=== PATIENT | female | born 1985 | race Caucasian/White ===

== ENCOUNTER 2020-04-04 18:23 | Outpatient (CLI) | payer OTHER, SELFPAY ==
[2020-04-04 19:26] LABS: Alanine Aminotransferase 27 U/L (14-59); Albumin Level 3.8 g/dL (3.4-5.0); Alkaline Phosphatase 63 U/L (46-116); Anion Gap 9 mmol/L (8-16); Aspartate Amino Transferase 16 U/L (15-37); Bilirubin,Total 0.2 mg/dL (0.00-1.00); Blood Urea Nitrogen 11 mg/dL (7-18); Calcium 8.8 mg/dL (8.5-10.1); Carbon Dioxide 28 mmol/L (21-32); Chloride 104 mmol/L (98-108); Estimated Glomerular Filt Rate > 60; Glucose 94 mg/dL (70-99); Osmolality Calculated 291 mOsm/kg (285-295); Sodium 141 mmol/L (136-145); Total Protein 7.6 g/dL (6.4-8.2)
[2020-04-04 19:36] LABS: Thyroid Stimulating Hormone Reflex 8.38 u/IU/mL (0.36-3.74)
[2020-04-04 19:59] LABS: Free T4 Free Thyroxine Reflex 0.55 ng/dL (0.76-1.46)
== END 2020-04-04 18:24 | disposition home or self-care (01) ==
LOC: CHSLAB 18:27
PROVIDERS: PCP Family Medicine; Visit Provider Family Medicine
DX: E06.3 Autoimmune thyroiditis (principal)
CPT/HCPCS: 36415; 80053; 84439; 84443

== ENCOUNTER 2020-11-14 08:28 | Outpatient (RCR) | payer BC, SELFPAY ==
--- NOTE | 2020-11-14 11:59 | PTOPEVAL ---
Thank you for referring Gail Walker to [facility] [place].? The patient is scheduled to be seen for therapy? ____x/week for ___ weeks. Please review, sign, date and return this plan of care CAITLYN. I agree with and certify that the following plan of care is medically necessary. Referring Physician Date Admitting Provider: Attending Provider: Marta Mendoza NP Referring Provider: *PT Outpatient Evaluation Start: 11/14/20 08:26 Freq: Status: Active Protocol: Document 11/14/20 08:30 [facility] (Rec: 11/14/20 10:15 [facility] [id number]) Therapy Assessment Status Assessment Status Assessment Status Evaluation Evaluation Information Problem Diagnosis LBP Onset 10/28/20 Additional Evaluation Detail Oswestry= 82% Subjective Information Gail Walker is a 35 year Query Text:As Reported By Patient/ old female who reports Family intermittent back pain, started Jan 2020 when trying to do LE stretches. Had to stay in bed for 5 days after, then went to chiropractor which helped and was able to return to walking. Back pain started up again in 2020, got better, then started again October 2020 and saw a chiropractor again. L3 shifted posterior. Twisting and lifting causes inc. pain. Sitting feels better than standing (tracy when sitting in recliner). Fracture in growth plate in L ankle causing LLD- uses a shoe insert to compensate. Patient wishes to return to working without pain . Prior Level of Function Comments Additional Prior Level of Function Lots of walking/lifting Comments variable weights from 2-20# at work; works at [email or web address] but is applying for FMLA Pain Assessment Timing of Pain Assessment Timing of Pain Assessment Assessment Pain Scale Pain Scale Used Numeric (1 - 10) Self Report Pain Assessment Lower Back Reported Pain Level 3 Lowest Pain Intensity 2 Greatest Pain Intensity 9 Pain Score Pain Score 3: Self Report Interventions Used Interventions Used By Clinicians Activity or ADL's,Education,
== END 2020-11-14 15:04 | disposition home or self-care (01) ==
LOC: CHSPT 08:28
PROVIDERS: PCP Nurse Practitioner Family; Visit Provider Nurse Practitioner Family
DX: M54.5 Low back pain (principal)
CPT/HCPCS: 97014; 97110; 97161; G0283

== ENCOUNTER 2021-01-10 14:58 | Outpatient (CLI) | payer BC, SELFPAY ==
[2021-01-10 15:17] LABS: Basophils Absolute Auto 0.05 K/mm3 (0.00-0.10); Basophils Percent Auto 0.8 % (0.0-1.0); Eosinophils Absolute Auto 0.18 K/mm3 (0.02-0.50); Eosinophils Percent Auto 2.8 % (1.0-6.0); Hematocrit 33.7 % (35.0-49.0); Hemoglobin 11.1 g/dL (12.0-15.0); Immature Granulocyte Absolute 0.03 K/mm3 (0.00-0.00); Immature Granulocyte Percent A 0.5 % (0.0-0.0); Lymphocytes Absolute Auto 1.62 K/mm3 (1.10-4.50); Mean Corpuscular HGB Conc 32.9 g/dL (32.0-36.0); Mean Corpuscular Hemoglobin 29.3 pg (27.0-31.0); Mean Corpuscular Volume 88.9 fL (78.0-102.0); Mean Platelet Volume 9.9 fl (9.2-11.8); Monocytes Absolute Auto 0.45 K/mm3 (0.10-0.90); Neutrophils Absolute Auto 4.1 K/mm3 (1.7-7.2); Neutrophils Percent Auto 63.9 % (50.0-70.0); Platelet Count Result 314 K/mm3 (150-420); Red Blood Count 3.79 M/mm3 (4.20-5.40); Red Cell Distribution Width 13.6 % (11.6-14.4); White Blood Count 6.5 K/mm3 (4.8-10.8)
[2021-01-10 17:01] LABS: Alanine Aminotransferase 59 U/L (14-59); Alkaline Phosphatase 67 U/L (46-116); Anion Gap 11 mmol/L (8-16); Aspartate Amino Transferase 34 U/L (15-37); Bilirubin,Total 0.4 mg/dL (0.00-1.00); Blood Urea Nitrogen 15 mg/dL (7-18); Calcium 9.1 mg/dL (8.5-10.1); Carbon Dioxide 29 mmol/L (21-32); Chloride 103 mmol/L (98-108); Estimated Glomerular Filt Rate > 60; Glucose 74 mg/dL (70-99); Osmolality Calculated 295 mOsm/kg (285-295); Potassium 3.9 mmol/L (3.5-5.1); Sodium 143 mmol/L (136-145); Total Protein 7.9 g/dL (6.4-8.2)
[2021-01-14 11:36] LABS: Thyroid Stimulating Hormone 10.23 uIU/mL (0.36-3.74)
== END 2021-01-10 14:59 | disposition home or self-care (01) ==
LOC: CHSLAB 15:02
PROVIDERS: Nurse Practitioner Family; PCP Family Medicine; Visit Provider Nurse Practitioner Family
DX: D50.9 Iron deficiency anemia, unspecified (principal)
CPT/HCPCS: 36415; 80053; 84443; 85025

== ENCOUNTER 2021-01-29 11:01 | Outpatient (RCR) | payer BC, SELFPAY ==
--- NOTE | 2021-01-29 12:42 | PTOPEVAL ---
Thank you for referring Gail Walker to [facility].? The patient is scheduled to be seen for therapy? ____x/week for ___ weeks. Please review, sign, date and return this plan of care CAITLYN. I agree with and certify that the following plan of care is medically necessary. 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 she reports with this new job she has also been doing more lifting and twisting. she reports she has been having pain in the lower back since january of last year. she reports she does have history of a fracture in the L ankle. she reports she has been doing increased lifting and twisting at work of moderately heavy weight. she reports she has been to home health care social worker . she reports she has had an xray but no mri of the lower back. she reports she has times where walking is difficult, tingling down her legs and hands, and pain with lifting and twisting. patient reports sysmptoms down the L LE more than the R LE but overall infrequently. Prior Level of Function Comments Additional Prior Level of Function prior to january 2020, no Comments issues with the lower back. ocassional soreness, but nothing debilitating like this . she reports she is still working. she reports she is on a lifting restriction for
--- NOTE | 2021-05-21 07:11 | PCPTNOTE ---
05/21/21 - patient has not been back to skilled PT since her initial evaluation. as of this date, all progress towards goals will be taken from her most recent evaluation/note. JAIR
== END 2021-01-29 23:59 | disposition home or self-care (01) ==
LOC: CHSPT 11:01
PROVIDERS: PCP Family Medicine; Visit Provider Nurse Practitioner Family
DX: M54.5 Low back pain (principal)
CPT/HCPCS: 97110; 97161

== ENCOUNTER 2021-02-25 08:40 | Outpatient (CLI) | payer SELFPAY | END 2021-02-25 08:41 | disposition home or self-care (01) | LOC: CHSOUTPT 08:44 | PROVIDERS: PCP Family Medicine; Visit Provider Family Medicine | DX: E06.3 Autoimmune thyroiditis (principal); D50.9 Iron deficiency anemia, unspecified; E66.9 Obesity, unspecified | CPT/HCPCS: 99199 ==

== ENCOUNTER 2021-03-24 08:19 | Outpatient (CLI) | payer BC, SELFPAY ==
[2021-03-24 09:20] LABS: Thyroid Stimulating Hormone 3.19 uIU/mL (0.36-3.74)
[2021-03-24 09:23] LABS: Free T4 Free Thyroxine 0.59 ng/dL (0.76-1.46)
[2021-03-27 04:41] LABS: Total Triiodothyronine (T3) 195.1 ng/dL (76-181)
[2021-03-27 07:21] LABS: T4 Thyroxine 4.7 mcg/dL (5.1-11.9)
[2021-03-29 11:29] LABS: T3 Reverse 9 ng/dL (8-25)
== END 2021-03-24 08:20 | disposition home or self-care (01) ==
LOC: CHSLAB 08:21
PROVIDERS: Nurse Practitioner Family; PCP Family Medicine; Visit Provider Family Medicine
DX: E03.9 Hypothyroidism, unspecified (principal); E06.3 Autoimmune thyroiditis
CPT/HCPCS: 36415; 84436; 84439; 84443; 84480; 84482

== ENCOUNTER 2021-04-07 08:21 | Outpatient (CLI) | payer BC, SELFPAY ==
[2021-04-10 05:17] LABS: Thyroid Peroxidase Antibodies 25 IU/mL (<9)
== END 2021-04-07 08:22 | disposition home or self-care (01) ==
LOC: CHSLAB 08:24
PROVIDERS: PCP Family Medicine; Visit Provider Family Medicine
DX: E06.3 Autoimmune thyroiditis (principal)
CPT/HCPCS: 36415; 86376

== ENCOUNTER 2021-12-01 15:52 | Outpatient (CLI) | payer BC, SELFPAY ==
--- NOTE | ~2021-12-01 | XR_ITS ---
XR chest 2V DATE: 12/01/2021 16:11 INDICATION: Shortness of breath, chest tightness, back pain TECHNIQUE: 2 views COMPARISON: None FINDINGS: Heart size is within normal limits. No hilar or mediastinal enlargement. No pulmonary infil trate or consolidation, pleural effusion or pulmonary vascular congestion or pneumothorax. IMPRESSION: No active cardiopulmonary disease Reviewed, dictated and finalized at location A.
== END 2021-12-01 15:53 | disposition home or self-care (01) ==
LOC: CHSIMG 15:54
PROVIDERS: PCP Family Medicine; Visit Provider Family Medicine
DX: R06.02 Shortness of breath (principal)
CPT/HCPCS: 71046

== ENCOUNTER 2021-12-17 16:55 | Outpatient (CLI) | payer BC, SELFPAY ==
[2021-12-17 17:21] LABS: Add Urine Microscopic? YES; Appearance Urine Slightly Cloudy (Clear); Bilirubin Urine Negative (Negative); Blood Urine Negative (Negative); Color Urine Yellow (Yellow); Glucose Urine UA Negative (Negative); Ketones Urine Trace (Negative); Leukocyte Esterase Ur Negative LEU/UL (Negative); Nitrate Urine Negative (Negative); Protein Urine Negative (Negative); Specific Grav Ur 1.025 (1.010-1.020); pH Urine 6.5 (5.0-8.0)
[2021-12-17 17:24] LABS: Bacteria Urine 1+ /hpf; RBC Urine None seen /hpf (0-2); Squamous Epithelial Cell Urine Moderate /hpf (Few); WBC Urine None seen /hpf (0-3)
== END 2021-12-17 16:56 | disposition home or self-care (01) ==
LOC: CHSLAB 16:58
PROVIDERS: PCP Family Medicine; Visit Provider Family Medicine
DX: R30.0 Dysuria (principal)
CPT/HCPCS: 81001

== ENCOUNTER 2022-01-01 16:00 | Outpatient (CLI) | payer BC, SELFPAY ==
[2022-01-01 16:22] LABS: Hematocrit 33.1 % (35.0-49.0); Hemoglobin 10.8 g/dL (12.0-15.0); Mean Corpuscular HGB Conc 32.6 g/dL (32.0-36.0); Mean Corpuscular Hemoglobin 29.1 pg (27.0-31.0); Mean Corpuscular Volume 89.2 fL (78.0-102.0); Mean Platelet Volume 10.8 fl (9.2-11.8); Platelet Count Result 295 K/mm3 (150-420); Red Blood Count 3.71 M/mm3 (4.20-5.40); Red Cell Distribution Width 14.1 % (11.6-14.4); White Blood Count 5.7 K/mm3 (4.8-10.8)
[2022-01-01 16:51] LABS: Alanine Aminotransferase 38 U/L (14-59); Albumin Level 3.8 g/dL (3.4-5.0); Alkaline Phosphatase 68 U/L (46-116); Anion Gap 6 mmol/L (8-16); Aspartate Amino Transferase 22 U/L (15-37); Bilirubin,Total 0.3 mg/dL (0.00-1.00); Blood Urea Nitrogen 13 mg/dL (7-18); Calcium 9.1 mg/dL (8.5-10.1); Carbon Dioxide 30 mmol/L (21-32); Chloride 103 mmol/L (98-108); Cholesterol 175 mg/dL (0-200); Estimated Glomerular Filt Rate > 60; Glucose 89 mg/dL (70-99); HDL Direct 33 mg/dL (40-60); LDL Cholesterol Calculated 77 mg/dL (<130); Osmolality Calculated 287 mOsm/kg (285-295); Potassium 3.7 mmol/L (3.5-5.1); Sodium 139 mmol/L (136-145); Total Protein 7.6 g/dL (6.4-8.2); Triglycerides 324 mg/dL (0-150)
[2022-01-01 16:58] LABS: Alanine Aminotransferase 38 U/L (14-59); Albumin Level 3.8 g/dL (3.4-5.0); Alkaline Phosphatase 67 U/L (46-116); Aspartate Amino Transferase 21 U/L (15-37); Bilirubin Direct 0.1 mg/dL (0-0.2); Bilirubin,Total 0.3 mg/dL (0.00-1.00); Total Protein 7.6 g/dL (6.4-8.2)
[2022-01-01 16:59] LABS: Thyroid Stimulating Hormone Reflex 8.35 u/IU/mL (0.36-3.74)
== END 2022-01-01 16:01 | disposition home or self-care (01) ==
LOC: CHSLAB 16:02
PROVIDERS: PCP Family Medicine; Visit Provider Family Medicine
DX: D50.9 Iron deficiency anemia, unspecified (principal); B35.1 Tinea unguium; F32.9 Major depressive disorder, single episode, unspecified; E11.9 Type 2 diabetes mellitus without complications; E03.9 Hypothyroidism, unspecified
CPT/HCPCS: 36415; 80053; 80061; 80076; 82248; 84439; 84443; 85027

== ENCOUNTER 2022-12-16 08:58 | Outpatient (CLI) | payer BC, SELFPAY ==
[2022-12-16 09:13] LABS: Basophils Absolute Auto 0.08 K/mm3 (0.00-0.10); Basophils Percent Auto 1.2 % (0.0-1.0); Eosinophils Absolute Auto 0.15 K/mm3 (0.02-0.50); Eosinophils Percent Auto 2.3 % (1.0-6.0); Hematocrit 32.6 % (35.0-49.0); Hemoglobin 10.4 g/dL (12.0-15.0); Immature Granulocyte Absolute 0.03 K/mm3 (0.00-0.00); Immature Granulocyte Percent A 0.5 % (0.0-0.0); Lymphocytes Absolute Auto 1.45 K/mm3 (1.10-4.50); Lymphocytes Percent Auto 22.6 % (18.0-42.0); Mean Corpuscular HGB Conc 31.9 g/dL (32.0-36.0); Mean Corpuscular Volume 90.8 fL (78.0-102.0); Mean Platelet Volume 9.5 fl (9.2-11.8); Monocytes Absolute Auto 0.32 K/mm3 (0.10-0.90); Neutrophils Absolute Auto 4.4 K/mm3 (1.7-7.2); Neutrophils Percent Auto 68.4 % (50.0-70.0); Platelet Count Result 332 K/mm3 (150-420); Red Blood Count 3.59 M/mm3 (4.20-5.40); Red Cell Distribution Width 14.1 % (11.6-14.4); White Blood Count 6.4 K/mm3 (4.8-10.8)
[2022-12-16 09:26] LABS: D Dimer 0.19 mg/L (0.19-0.50)
[2022-12-16 09:57] LABS: Alanine Aminotransferase 44 U/L (14-59); Albumin Level 3.8 g/dL (3.4-5.0); Alkaline Phosphatase 75 U/L (46-116); Anion Gap 8 mmol/L (8-16); Aspartate Amino Transferase 27 U/L (15-37); Bilirubin,Total 0.3 mg/dL (0.00-1.00); Blood Urea Nitrogen 13 mg/dL (7-18); Calcium 8.9 mg/dL (8.5-10.1); Carbon Dioxide 29 mmol/L (21-32); Chloride 103 mmol/L (98-108); Cholesterol 185 mg/dL (0-200); Estimated Glomerular Filt Rate > 60; Glucose 89 mg/dL (70-99); HDL Direct 32 mg/dL (40-60); Iron 54 ug/dL (50-170); LDL Cholesterol Calculated 86 mg/dL (<130); NT Pro B Type Natriuretic Pept 19 pg/mL (0-125); Osmolality Calculated 289 mOsm/kg (285-295); Potassium 4.2 mmol/L (3.5-5.1); Sodium 140 mmol/L (136-145); Thyroid Stimulating Hormone 28.98 uIU/mL (0.36-3.74); Total Protein 7.7 g/dL (6.4-8.2); Triglycerides 337 mg/dL (0-150)
[2022-12-16 09:59] LABS: Troponin I < 4.0 ng/L (0.00-60.4)
[2022-12-16 16:05] LABS: Free T4 Free Thyroxine 0.53 ng/dL (0.76-1.46)
[2022-12-16 17:32] LABS: Iron 58 ug/dL (50-170)
== END 2022-12-16 08:59 | disposition home or self-care (01) ==
LOC: CHSLAB 08:59
PROVIDERS: PCP Nurse Practitioner Family; Visit Provider Nurse Practitioner Family
DX: E03.9 Hypothyroidism, unspecified (principal); Z00.00 Encounter for general adult medical examination without abnormal findings; N92.1 Excessive and frequent menstruation with irregular cycle; D50.9 Iron deficiency anemia, unspecified; R07.89 Other chest pain
CPT/HCPCS: 36415; 80053; 80061; 83540; 83880; 84439; 84443; 84484; 85025; 85380

== ENCOUNTER 2022-12-24 08:55 | Outpatient (CLI) | payer BC, SELFPAY ==
--- NOTE | ~2022-12-24 | XR_ITS ---
Clinical Indication: Chest pain PA and lateral views of the chest: Comparison: 12/01/2021 Findings: The lungs are clear, without evidence of focal consolidation or pleural effusion. Cardiome diastinal silhouette is within normal limits. Bones and soft tissues are unremarkable. Impression: Normal chest. Reviewed, dictated and finalized at location . Impression: Normal chest.
[2022-12-24 09:38] LABS: Hemoglobin A1C < 4.7 % (<5.7)
[2022-12-24 10:14] LABS: Iron 33 ug/dL (50-170); Percent Iron Saturation 9 % (12-57); Vitamin B12 994 pg/mL (193-986)
[2022-12-27 04:56] LABS: Thyroid Peroxidase Antibodies 31 IU/mL (<9)
[2022-12-27 20:28] LABS: Vitamin D 25 Hydroxy 45 ng/mL (30-100)
[2022-12-29 20:02] LABS: Immunoglobulin A 184 mg/dL (47-310); TTG IGA AB <1.0 U/mL (<15.0)
[2022-12-30 17:26] LABS: Free Insulin 26.6 uIU/mL (1.5-14.9)
== END 2022-12-24 08:56 | disposition home or self-care (01) ==
LOC: CHSLAB 08:57
PROVIDERS: PCP Nurse Practitioner Family; Visit Provider Nurse Practitioner Family
DX: R07.89 Other chest pain (principal); N92.1 Excessive and frequent menstruation with irregular cycle; G63 Polyneuropathy in diseases classified elsewhere; D50.9 Iron deficiency anemia, unspecified; E06.3 Autoimmune thyroiditis; Z83.3 Family history of diabetes mellitus; E03.9 Hypothyroidism, unspecified
CPT/HCPCS: 36415; 71046; 82306; 82607; 82784; 83036; 83516; 83527; 83540; 83550; 86376

== ENCOUNTER 2023-04-21 11:09 | Outpatient (NON) | payer OTHER, SELFPAY | END 2023-04-21 11:10 | disposition home or self-care (01) | PROVIDERS: Visit Provider Nurse Practitioner Family | DX: R21 Rash and other nonspecific skin eruption (principal) | CPT/HCPCS: 36415; 87070; 87075; 87147; 87186; 87205; 87254; 87255 ==

== ENCOUNTER 2023-06-15 16:17 | Outpatient (NON) | payer OTHER, SELFPAY ==
[2023-06-15 16:34] LABS: Appearance Urine Clear (Clear); Bilirubin Urine Negative (Negative); Blood Urine 2+ (Negative); Color Urine Light Yellow (Yellow); Glucose Urine UA Trace (Negative); Ketones Urine Negative (Negative); Leukocyte Esterase Ur 1+ LEU/UL (Negative); Nitrate Urine Negative (Negative); Protein Urine Negative (Negative); Specific Grav Ur 1.025 (1.010-1.020); Urobilinogen Urine 0.2 mg/dL (0.2-1.0)
[2023-06-15 16:46] LABS: Add Urine Microscopic? YES
[2023-06-15 16:47] LABS: Bacteria Urine 4+ /hpf; Mucus Urine Moderate /lpf; Squamous Epithelial Cell Urine Moderate /hpf (Few)
== END 2023-06-15 16:18 | disposition home or self-care (01) ==
LOC: CHSLAB 16:18
PROVIDERS: Visit Provider Nurse Practitioner Family
DX: R30.0 Dysuria (principal)
CPT/HCPCS: 81001; 87086; 87088

== ENCOUNTER 2024-04-05 09:59 | Outpatient (CLI) | payer OTHER, SELFPAY ==
[2024-04-06 12:39] LABS: Rubeola Measles IgG >300.00 AU/mL
[2024-04-08 20:16] LABS: TB Skin Test Erythema 0 mm; TB Skin Test Induration 0 mm (0-10); TB Skin Test Interpretation Negative (Negative); TB Skin Test Site Left Arm
== END 2024-04-05 10:00 | disposition home or self-care (01) ==
LOC: CHSLAB 10:00
PROVIDERS: PCP Nurse Practitioner Family; Visit Provider Nurse Practitioner Family
DX: Z11.1 Encounter for screening for respiratory tuberculosis (principal); Z01.84 Encounter for antibody response examination
CPT/HCPCS: 36415; 86580; 86735; 86765

== ENCOUNTER 2024-07-24 16:40 | Outpatient (NON) | payer OTHER, SELFPAY ==
[2024-07-24 16:57] LABS: Add Urine Microscopic? YES; Appearance Urine Cloudy (Clear); Bilirubin Urine Negative (Negative); Blood Urine 3+ (Negative); Color Urine Yellow (Yellow); Glucose Urine UA Negative (Negative); Ketones Urine Trace (Negative); Leukocyte Esterase Ur Negative LEU/UL (Negative); Nitrate Urine Negative (Negative); Protein Urine Trace (Negative); Specific Grav Ur >= 1.030 (1.010-1.020)
[2024-07-24 17:16] LABS: Bacteria Urine 3+ /hpf; RBC Urine >75 /hpf (0-2); Squamous Epithelial Cell Urine Few /hpf (Few)
== END 2024-07-24 16:41 | disposition home or self-care (01) ==
LOC: CHSLAB 16:43
PROVIDERS: PCP Nurse Practitioner Family; Visit Provider Nurse Practitioner Family
DX: N94.89 Other specified conditions associated with female genital organs and menstrual cycle (principal)
CPT/HCPCS: 81001; 81513

== ENCOUNTER 2024-09-08 12:34 | Emergency (ER) | payer OTHER, SELFPAY ==
--- OUTSIDE RECORDS SUMMARY | 2024-09-08 12:37 | XMS_ITS | Clinical Summary ---
Author Organization [facility] Address [address] [place] [id number] Care Team Providers Care Flume Worker Name Role Phone Unavailable Primary Care Provider Unavailabl e Allergies No known active allergies Family History Medical History Relation Comments Diabetes Mother Heart Disease Mother Hypertension Mother Kidney Disease Mother Relation Status Comments Mother Paternal Grandmother dementia Social History Tobacco Use Types Packs/Day Years Used Date Smoking Tobacco: Never Smokeless Tobacco: Never Alcohol Use Standard Drinks/Week Comments No 0 (1 standard drink = 0.6 oz pur e alcohol) Comments Unknown Sex and Gender Information Value Date Recorded Sex Assigned at Not on file Legal Sex Female 7:38 PM LAST TRIMMER Gender Identity Not on file Sexual Orientation Not on file Last Filed Vital Signs Vital Sign Reading Time Taken Comments Blood Pressure 107/74 04/02/2017 2:44 AM LAST TRIMMER Pulse 65 04/02/2017 1:17 AM LAST TRIMMER Temperature 36.5 C (97.7 F) 04/01/2017 8:28 PM LAST TRIMMER Respiratory Rate 18 04/02/2017 1:17 AM LAST TRIMMER Oxygen Saturation 100% 04/02/2017 1:17 AM LAST TRIMMER Inhaled Oxygen Concentration - - Weight 95.3 kg (210 lb 1.6 oz) 04/01/2017 8:28 P M LAST TRIMMER Height 162.6 cm (5' 4 ) 04/01/2017 8:28 PM LAST TRIMMER Body Mass Index 36.06 04/01/2017 8:28 PM LAST TRIMMER Plan of Treatment Health Maintenance Due Date Last Done Comments Cervical Cancer Screening Pa p Smear (Age 30 to 64) Every 3 Years 1985 Annual Physical 1988 Hepatitis C 2003 DTaP, Tdap and Td Vaccines ( 1 - Tdap) 2004 Hepatitis B Vaccines (1 of 3 - 19+ 3-dose series) 2004 Cervical Cancer Screening Pa p with HPV Testing (Age 30 to 64) Every 5 Years 2015 Cervical Cancer Screening with HPV 2015 COVID-19 Vaccine (2023-2 5 season) 2024 HPV Vaccines Aged Out No longer eligi ble based on patient's age to complete this topic Meningococcal B Vaccine Aged Out No l onger eligible based on patient's age to complete this topic Meningococcal Vaccine Aged Out No josefina misti eligible based on patient's age to complete this topic Pneumococcal Vaccine: Pediat rics (0 to 5 Years) and At-Risk Patients (6 to 49 Years) Aged Out No longer eligible b ased on patient's age to complete this topic RSV Immunizations Under 20 Months Aged Out No longer eligible based on patient's age to complete this topic [place] [id number] [facility]
--- OUTSIDE RECORDS SUMMARY | 2024-09-08 12:37 | XMS_ITS | Clinical Summary ---
Author Organization [place] [id number] [facility] Address [address] [place] [address] Care Team Providers Care Pit Clerk Name Role Phone GuzmanJudah rangel Primary Care Provider + Allergies Active Allergy Reactions Criticality Noted Date Comments Latex Unknown 09/19/2018 Unsure Medications thyroid (ARMOUR THYROID) 30 mg tablet Take 1 tablet (30 mg total) by mouth daily 30 tablet 11 03/14/2020 Active sertraline (ZOLOFT) 50 mg tablet 04/05/2020 Active Active Problems Problem Noted Date Diagnosed Date Mood disorder 03/14/2020 IFG (impaired fasting glucose) 03/14/2020 Anemia 03/14/2020 Nutritional anemia, unspecified 10/14/2018 Reactive hypoglycemia 10/14/2018 Low back pain 04/08/2018 Other chronic pain 04/08/2018 Pain in right ankle and joints of right foot 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 Obesity (BMI 30-39.9) 11/18/2017 Thyroid disease 09/02/2017 Overview (10/14/2018): hashimotos History of section 03/20/2017 Resolved Problems Problem Noted Date Diagnosed Date Resolved Date Obesity affecting in third trimester 09/02/2017 10/24/2018 Immunizations Immunization Administration Dates Next Due Influenza, Unspecified 03/14/2020(Deferr ed: Patient Refused),03/24/2019(Deferred: Patient Refused) Tdap 09/28/2017 Surgical History Surgery Date Site/Laterality Comments SECTION 2017 Medical History Medical History Date Comments Kehinde's disease Family History Medical History Relation Name Comments Diabetes Mother Heart failure Mother Kidney failure Mother Mental illness Paternal Grandmother Relation Name Status Comments Father Alive Mother (Age 56) Paternal Grandmother Social History Tobacco Use Types Packs/Day Years Used Date Smoking Tobacco: Never Smokeless Tobacco: Never Alcohol Use Standard Drinks/Week Comments Not Currently 0 (1 standard drink = 0.6 oz pur e alcohol) AUDIT-C Answer Date Recorded Frequency of Alcohol Consumption Never 02/08/2020 Average Number of Drinks Not on file 020 Frequency of Binge Drinking Not on file 01/22 PHQ-2 Answer Date Recorded PHQ-2 Total Score (If total score is 3 or more points, staff should administer the PHQ-9) 0 03/14/2020 Personal Safety Answer Date Recorded Getting School Help Needed Not on file 08/07 Comments Unknown Sex and Gender Information Value Date Recorded Sex Assigned at Not on file Legal Sex Female 3:38 PM CDT Gender Identity Not on file Sexual Orientation Not on file Obstetrics History Para Term AB IAB SAB Ectopic Multiple Livin g Live Births 2 2 2 2 2 Date Outcome GA Total Labor Labor/2nd/3rd Weight Sex Type Anes PTL Rosaura A1 A5 Name Clin 2012 Term 39w0 d M CS-LT ranv Living 2017 Term 40w0 d M CS-LT ranv N Living Last Filed Vital Signs Vital Sign Reading Time Taken Comments Blood Pressure 116/84 04/11/2020 10:38 AM CAP COVERER Pulse 72 03/14/2020 4:15 PM CDT Temperature 36.4 C (97.5 F) 03/14/2020 4:15 PM CDT Respiratory Rate 18 03/14/2020 4:15 PM CDT Oxygen Saturation 99% 03/14/2020 4:15 PM CDT Inhaled Oxygen Concentration - - Weight 95.3 kg (210 lb) 04/11/2020 10:38 AM CAP COVERER Height 162.6 cm (5' 4 ) 03/14/2020 4:15 PM CDT Body Mass Index 36.05 03/14/2020 4:15 PM CDT Plan of Treatment Not on [place] [address] [place] [address] HMO Care Teams Pit Clerk Relationship Specialty Start Date End Date Judah Guzman DO [address] [place] [id number] PCP - General Family Medicine 08/31/18
--- OUTSIDE RECORDS SUMMARY | 2024-09-08 12:37 | XMS_ITS | Clinical Summary ---
Author Organization [facility] Address [address] [place] [address] Care Team Providers Care Locum Tenens Name Role Phone Judah Guzman Primary Care Provider [phone] Source Comments [facility],non-[facility] Affiliates and Associated Physician Practices is amultiple site organization consisting of ambulatory clinics and hospital sitesin [place], [place], [place] and [place]. This disclosure is being madepursuant to the Care Everywhere program and may not contain all information available regarding this patient. Last updated 18.[facility] Allergies Active Allergy Reactions Criticality Noted Date Comments Latex Other 01/19/2019 Patient states she has a burning sensation Medications * Be aware that medications may not be up to date on this document. Alwaysverify current medications with the patient. levothyroxine (LEVOTHROID) 175 MCG tablet Take 175 mcg by mouth daily before breakfast Active albuterol HFA (PROVENTIL;VENT CARLOS ALBERTO;PROAIR) 108 (90 Base) MCG/ACT inhaler Inhale 2 puffs by mouth every 4 hours as needed for Wheezing 1 Inhaler 9 Active benzonatate (TESSALON) 200 MG capsule Take 1 capsule by mouth 3 times daily as needed for Cough 30 capsule 9 Active Active Problems No known active problems Family History Medical History Relation Name Comments Negative Family History Father Diabetes Mother Diabetes - Type 2 Mother Heart Disease Mother Hypertension Mother UT Mother Other - Cardiac Mother Asthma Neg Hx Autoimmune Disease Neg Hx Bipolar Disorder Neg Hx Cancer - Breast Neg Hx Cancer - Colon Neg Hx Cancer - Other Neg Hx Cancer - Ovarian Neg Hx Cancer - Pancreatic Neg Hx Cancer - Prostate Neg Hx Depression Neg Hx Eczema Neg Hx Migraine Neg Hx Osteoporosis Neg Hx Seizures Neg Hx Sudd. <30 Neg Hx Thyroid Disease Neg Hx Ulcerative Colitis Neg Hx Relation Name Status Comments Father Alive Mother Social History Tobacco Use Types Packs/Day Years Used Date Smoking Tobacco: Never Smokeless Tobacco: Never Tobacco Cessation:Counseling Given: Yes Alcohol Use Standard Drinks/Week Comments No 0 (1 standard drink = 0.6 oz pur e alcohol) Comments No Sex and Gender Information Value Date Recorded Sex Assigned at Not on file Legal Sex Female 7:41 AM CDT Gender Identity Not on file Sexual Orientation Not on file Last Filed Vital Signs Vital Sign Reading Time Taken Comments Blood Pressure 112/68 05/12/2019 9:59 AM TORPEDO MAN Pulse 78 05/12/2019 9:59 AM TORPEDO MAN Temperature 36.7 C (98 F) 05/12/2019 9:59 AM TORPEDO MAN Respiratory Rate 16 05/12/2019 9:59 AM TORPEDO MAN Oxygen Saturation 98% 05/12/2019 9:59 AM TORPEDO MAN Inhaled Oxygen Concentration - - Weight 95.3 kg (210 lb) 05/12/2019 9:59 AM TORPEDO MAN Height 162.6 cm (5' 4 ) 05/12/2019 9:59 AM TORPEDO MAN Body Mass Index 36.05 05/12/2019 9:59 AM TORPEDO MAN Plan of Treatment Health Maintenance Due Date Last Done Comments HIV SCREENING 2000 HEPATITIS C SCREENING 05/29/2003 DTAP/TDAP/TD VACCINES (1 - Tdap) 2004 HEPATITIS B VACCINE (1 of 3 - 19+ 3-dose series) 2004 COVID-19 VACCINE (2023-2 5 season) 2024 DEPRESSION SCREENING 05/24/2024 INFLUENZA VACCINE (Season Ended) 2025 ZOSTER VACCINE (1 of 2) 2035 HIB VACCINE Aged Out No longer eligi ble based on patient's age to complete this topic HPV VACCINE Aged Out No longer eligi ble based on patient's age to complete this topic MENINGOCOCCAL (Group B) VACC INE SHARED DECISION-MAKING Aged Out No longer eligibl e based on patient's age to complete this topic MENINGOCOCCAL GROUPS A/C/Y/W VACCINE Aged Out No longer eligible b ased on patient's age to complete this topic PNEUMOCOCCAL VACCINE Aged Out No long er eligible based on patient's age to complete this topic Insurance [facility] Care Teams Locum Tenens Relationship Specialty Start Date End Date Judah Guzman DO [address] [place] [address] [place] N[place]ÑEZ [id number] PCP - General Family Medicine 10/03/18
--- OUTSIDE RECORDS SUMMARY | 2024-09-08 12:37 | XMS_ITS | Referral Summary ---
Author Organization [place] [id number] [facility] Address [address] [place] [address] Care Team Providers Care Executive Team Leader Name Role Phone ThomasJudah Primary Care Provider + Allergies Active Allergy [...] ed: Patient Refused),03/24/2019(Deferred: Patient Refused) Tdap 09/28/2017 Social History Tobacco Use Types Packs/Day Years [...] Comments Blood Pressure 116/84 04/11/2020 10:38 AM SALES FACILITATOR Pulse 72 03/14/2020 4:15 PM CDT Temperature 36.4 C (97.5 F) 03/14/2020 4:15 PM CDT Respiratory Rate 18 03/14/2020 4:15 PM CDT Oxygen Saturation 99% 03/14/2020 4:15 PM CDT Inhaled Oxygen Concentration - - Weight 95.3 kg (210 lb) 04/11/2020 10:38 AM SALES FACILITATOR Height 162.6 cm (5' 4 ) 03/14/2020 4:15 PM CDT Body Mass Index 36.05 03/14/2020 4:15 PM CDT Plan of Treatment Not on file Insurance HMO [facility] HMO/PPO Address: [facility] [id number] [place] [address] Care Teams Executive Team Leader Relationship Specialty Start Date End Date Judah Guzman DO [address] [place] [id number] PCP - General Family Medicine 08/31/18
--- OUTSIDE RECORDS SUMMARY | 2024-09-08 12:37 | XMS_ITS | Clinical Summary ---
Author Organization [facility] Address [address] [place] [phone] Phone Care Team Providers Care Seo Coordinator Name Role Phone Unavailable Primary Care Provider Unavailabl e Allergies Active Allergy Reactions Criticality Noted Date Comments Latex Itching Low 03/20/2017 Medications vit-iron fumarate-fa (TERENCE ) 28 mg iron- 800 mcg Tablet Take 1 Tablet by mouth daily. Active LEVOTHYROXINE 175 mcg tablet TAKE 1 TABLET(175 MCG) BY MOUTH DAILY 90 Tablet 2 03/29/2017 Active Active Problems Problem Noted Date Diagnosed Date History of section 03/20/2017 Thyroid disease Overview (03/20/2017): hashimotos Nutritional anemia, unspecified Reactive hypoglycemia Comments Yes Social History Tobacco Use Types Packs/Day Years Used Date Smoking Tobacco: Never Comments Yes Sex and Gender Information Value Date Recorded Sex Assigned at Not on file Legal Sex Female 1:29 AM CHIEF OF STAFF Gender Identity Not on file Sexual Orientation Not on file Last Filed Vital Signs Vital Sign Reading Time Taken Comments Blood Pressure 94/70 11/26/2017 5:13 PM CDT Pulse 81 11/26/2017 5:13 PM CDT Temperature 36.3 C (97.3 F) 11/26/2017 5:13 PM CDT Respiratory Rate 18 11/26/2017 5:13 PM CDT Oxygen Saturation - - Inhaled Oxygen Concentration - - Weight 99.2 kg (218 lb 12.8 oz) 11/26/2017 5:13 PM CDT Height 162.6 cm (5' 4 ) 11/26/2017 5:13 PM CDT Body Mass Index 37.56 11/26/2017 5:13 PM CDT Plan of Treatment Health Maintenance Due Date Last Done Comments DTAP/TDAP/TD VACCINES (1 - Tdap) 2004 HEPATITIS B VACCINES (1 of 3 - 19+ 3-dose series) 2004 HPV/Cotest (21-29) 2006 PAP SMEAR 2006 CERVICAL CANCER SCREENING 2015 HPV/Cotest (30-65) 2015 PAP SMEAR 2015 INFLUENZA VACCINE (#1) 2023 RSV VACCINE (60+ or ) (1 - 1-dose 75+ series) 2060 HPV VACCINES Aged Out No longer eligi ble based on patient's age to complete this topic Insurance [employer] PPO
[2024-09-08 12:46] VITALS: BP 139/73; PULSE 56; RESP 18; TEMP 36.1; O2SAT 100
--- NOTE | 2024-09-08 13:30 | ED_ITS ---
HPI - General Adult General Chief complaint: Upper Respiratory Infection Stated complaint: Sore Throat/Vaginal Issue Time Seen by Provider: 09/08/24 13:30 Source: patient, RN notes reviewed and old records reviewed Mode of arrival: ambulatory Limitations: no limitations History of Present Illness HPI narrative: 39 year old female who presents to [facility] care with complaints of sore throat for several weeks and she was seen last week and was swabbed for flu COVID and strep which were negative.She also reports that she has concerns for vaginal problem or UTI. Patient states that she does sweat a lot and has been using powder in private area, has some itching, some burning with urination and has fishy smell. Patient is presently on her menses. 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 Patient reports that she has been taking some Sudafed. Patient did receive script for miconazole spray powder from PCP in July. MD complaint: sore throat, vaginal issues possible UTI Onset (ago): month(s) (throat several weeks. vaginal issues over 1 month) Severity scale (1-10): 6 Treatments prior to arrival: other (Sudafed) Related Data Allergies Allergy/AdvReac Type Severity Reaction Status Date / Time No Known Allergies Allergy Verified 09/08/24 12:50 Review of Systems Review of Systems: CONSTITUTIONAL: Denies fever, chills, or sweats. EYES: Denies visual changes, redness, or discharge. ENT: Reports rhinorrhea, congestion, sore throat, no otalgia. CARDIOVASCULAR: Denies chest pain, palpitations, or edema. RESPIRATORY: Denies cough or dyspnea. GASTROINTESTINAL: Denies abdominal pain, nausea, vomiting, or diarrhea. GENITOURINARY: states some dysuria or hematuria due to menses, itching fishy smell. SKIN: Denies rash or itching. MUSCULOSKELETAL: Denies back pain, joint pain, or myalgia. NEUROLOGIC: Denies headache, numbness, or weakness. PSYCHIATRIC: Positive for history of anxiety and/or depression. All systems reviewed & are unremarkable except as noted in HPI and below PMFSH Past Medical History Medical History High triglycerides ADINA (obstructive sleep apnea) Anxiety and depression Migraine Menometrorrhagia Venous insufficiency Asthma Hypothyroid Hypothyroid neuropathy Obesity (BMI 30-39.9) Lumbar back pain Multiple episodes of hypoglycemia Abnormal Pap smear of cervix Iron deficiency anemia MDD (major depressive disorder) Kehinde's disease Surgical History Surgical History H/O: section x2 Family History Family History Mother Type 1 diabetes Acute myocardial infarction Diabetes mellitus Kidney failure CHF (congestive heart failure) Cerebrovascular accident possible mini stroke Heart disease Father Hypertension Grandparent Acute myocardial infarction Dementia Cerebrovascular accident Depression Other Brain tumor uncle Cerebrovascular accident uncle Acute myocardial infarction uncle Depression Diabetes mellitus uncle, aunt Social History Social History Smoking status: Never smoker Alcohol intake: never Substance use: never Substance use type: does not use Lack of Transportation: No Lack of Food: Never True Current Housing: I Have Housing Concerned About Future Housing: No Difficulty Paying Gas/Electric Bills: No Difficulty Paying for Meds: No Currently Unemployed: No Education: High School Diploma/GED Difficulty w/ Childcare or Family Care: No Living arrangements: with family Additional living arrangements comments: and 2 children Comments At time of signature, agree with nursing past medical, surgical, social and family history. There is no relevant family history pertinent to the presenting complaint Exam Narrative: GENERAL: Well-appearing, well-nourished, and in no acute distress. HEAD: Normocephalic, atraumatic. EYES: PERRLA and EOMI. ENT: Nares clear, clear rhinorrhea no epistaxis. Mucous membranes moist.TM's normal throat pink with no swelling or exudates NECK: Supple. no lymphadenopathy CHEST: Clear to auscultation. No respiratory distress.SAO2 100% on room air HEART: Regular rate and rhythm. No murmur heard. Normal peripheral pulses. ABDOMEN: Soft, nontender, nondistended, normal active bowel sounds.reports burning with urination and fishy vaginal odor is on menses, denies any suprapubic pain or any CVA tenderness EXTREMITIES: Normal range of motion. No edema. SKIN: Warm, dry, no rash. NEURO: No focal deficits. Alert and oriented x3. states she feels foggy Course Course Emergency Course: Patient is aware of diagnosis, understands and agrees to treatment plan.? Anticipatory guidance given.? Patient agrees to follow-up as directed and is aware of reasons to seek care at the emergency department. Portions of this record may have been created with voice recognition software Level of Care: Express Care Visit Vital Signs Vital signs: Vital Signs Temperature 36.1 C L 09/08/24 12:46 Pulse Rate 56 L 09/08/24 12:46 Respiratory Rate 18 09/08/24 12:46 Blood Pressure 139/73 09/08/24 12:46 Pulse Oximetry 100 09/08/24 12:46 Oxygen Delivery Room Air 09/08/24 12:46 Temperature 36.1 C L 09/08/24 12:46 Pulse Rate 56 L 09/08/24 12:46 Respiratory Rate 18 09/08/24 12:46 Blood Pressure 139/73 09/08/24 12:46 Pulse Oximetry 100 09/08/24 12:46 Oxygen Delivery Room Air 09/08/24 12:46 Reviewed Medical Decision Making MDM Narrative Medical decision making narrative: Exam findings and imaging show no acute concerns or changes; patient is non- toxic appearing and is in no distress.? Patient is appropriate for outpatient treatment and follow-up Differential Diagnosis Differential Diagnosis: URI,pharyngitis, allergic rhinitis, UTI, bacterial vaginosis, Medical Records Medical records reviewed: Yes I reviewed the external patient's medical records. Vital Signs Vital Signs: Vital Signs Temperature 36.1 C L 09/08/24 12:46 Pulse Rate 56 L 09/08/24 12:46 Respiratory Rate 18 09/08/24 12:46 Blood Pressure 139/73 09/08/24 12:46 Pulse Oximetry 100 09/08/24 12:46 Oxygen Delivery Room Air 09/08/24 12:46 Temperature 36.1 C L 09/08/24 12:46 Pulse Rate 56 L 09/08/24 12:46 Respiratory Rate 18 09/08/24 12:46 Blood Pressure 139/73 09/08/24 12:46 Pulse Oximetry 100 09/08/24 12:46 Oxygen Delivery Room Air 09/08/24 12:46 reviewed Lab Data Lab results narrative: strep screen negative culture sent, see urine dip no Leukocytes or Nitrite, culture sent Labs: Lab Results 09/08/24 Range/Units 13:52 POC Urine Color Yellow POC Urine Clarity Cloudy POC Urine pH 5.5 POC Ur Specif Reubens 1.030 POC Urine Protein 1+ (Negative) POC Ur Glucose (UA) Negative (Negative) POC Urine Ketones Negative (Negative) POC Urine Blood 3+ (Negative) POC Urine Nitrite Negative (Negative) POC Urine Bilirubin Negative (Negative) POC Urine Urobilinogen 0.2 POC U Leukocyte Esteras Negative (Negative) POC Grp A Strep Screen Negative (Negative) reviewed Critical Care Time Critical Care Time Critical Care Time: No Discharge Plan Discharge Clinical Impression: Bacterial vaginosis, Sore throat Patient Disposition: Home Condition: Stable Instructions: Antibiotic Form, Bacterial Vaginosis (ED), Pharyngitis (ED) Additional Instructions: Increase fluids especially cranberry juice and water Avoid caffeine and carbonated beverages urine sent for culture vaginal discharge odorous Flagyl take as directed, absolutely no alcohol while taking this medication Zyrtec, Claritin or Layne daily Tylenol/ibuprofen for pain or fever Get thyroid level checked patient reports has order Follow-up with her primary care provider if further problems or concerns Recheck if you have fever over 101, nausea and vomiting. strep culture sent If your symptoms persist, change or worsen significantly before you can contact your personal physician then please, without delay, go to the emergency department for further evaluation. Follow-up with PCP in 7-10 days or sooner if needed Follow up with PCP soon in regards to your blood pressure which is elevated above threshold for referral. Blood pressure above 120/80 may indicate pre- hypertension.139.73 Patient Language: Kiswahili Prescriptions: New metronidazole 500 mg tablet 500 mg PO Q8H Qty: 14 0RF Rx Instructions: absolutely no alcohol while on this medication No Action levothyroxine 125 mcg tablet 125 mcg PO DAILY Qty: 90 0RF albuterol sulfate [Ventolin HFA] 90 mcg/actuation HFA aerosol inhaler 1 inh inhalation Q4H PRN (Reason: shortness of breath or wheezing) Qty: 8.5 0RF citalopram 40 mg tablet 40 mg PO DAILY 90 Days Qty: 90 0RF miconazole nitrate 2 % aerosol powder 1 spray topical BID PRN (Reason: vaginal itching) Qty: 130 0RF Follow-up/Referrals: Jocelynn Awad APRN [Primary Care Provider] - Time of Disposition: 13:44 Quality Marissa Coma Scale Eyes: Open Verbal: Oriented and Alert Motor: Follows Commands [place] Coma Total Score: 15
[2024-09-08 13:55] LABS: EDSTREPNEGPOS1 Negative (Negative); EDUAAPPEAR Cloudy; EDUABILI Negative (Negative); EDUABLOOD 3+ (Negative); EDUACOLOR1 Yellow; EDUAGLUCOSE Negative (Negative); EDUAKETONE Negative (Negative); EDUALEUKO Negative (Negative); EDUANITRATE Negative (Negative); EDUAPH 5.5; EDUAPROTEIN 1+ (Negative); EDUAUROBILI 0.2
== END 2024-09-08 13:54 | disposition home or self-care (01) ==
PROVIDERS: Emergency Provider Registered Nurse; PCP Nurse Practitioner Family
DX: N76.0 Acute vaginitis (principal); J02.9 Acute pharyngitis, unspecified; E78.1 Pure hyperglyceridemia; J45.909 Unspecified asthma, uncomplicated; E06.3 Autoimmune thyroiditis; E66.9 Obesity, unspecified; Z68.41 Body mass index [BMI] 40.0-44.9, adult; F32.9 Major depressive disorder, single episode, unspecified; F41.9 Anxiety disorder, unspecified
CPT/HCPCS: 81003; 87081; 87086; 87880; 99213; G0463

== ENCOUNTER 2024-09-10 19:14 | Emergency (ER) | payer OTHER, SELFPAY ==
--- NOTE | ~2024-09-10 | CT_ITS ---
EXAMINATION: CT brain wo con DATE: 09/10/2024 19:59 INDICATION: FRONTAL HEADACHE, FEELING WEIRD AND CONFUSION X 4 DAYS. . TECHNIQUE: Computed tomography (CT) of the head was performed without intravenous contrast. The mA wa s adjusted according to patient size. Iterative reconstruction technique was employed. The dose-lengt h product was 605.33 mGy-cm. COMPARISON: None. FINDINGS: No acute intracranial hemorrhage or extra-axial fluid collection. No hydrocephalus, mass, or herniation. No acute ischemic infarct. Unremarkable dural venous sinus attenuation. No acute osseous abnormality. Left maxillary retention cyst/polyp, the remaining aerated spaces are clear. IMPRESSION: No acute intracranial process. Reviewed, dictated and finalized at location K.
--- NOTE | ~2024-09-10 | XR_ITS ---
EXAMINATION: XR chest 1V portable Exam Date/Time: 09/10/2024 19:40 CDT HISTORY: Weakness Comparison: 12/24/2022. RESULT: Lines, tubes, and devices: None. Lungs and pleura: Clear. Cardiomediastinal silhouette: Stable. Other: No acute osseous or upper abdominal finding. IMPRESSION: No acute cardiopulmonary process. Reviewed, dictated and finalized at location K.
--- OUTSIDE RECORDS SUMMARY | 2024-09-10 19:16 | XMS_ITS | Clinical Summary ---
Author Organization [facility] [employer] Address [address] [place] [address] Care Team Providers Care Technical Training Specialist Name Role Phone Judah Guzman Primary Care Provider [phone] Source Comments [facility] [employer] [facility],non-[facility] Affiliates and Associated Physician Practices is amultiple site organization consisting of ambulatory clinics and hospital sitesin [place], [place], [place]. This disclosure is being madepursuant to the Care Everywhere program and may not contain all information available regarding this patient. Last updated 18.[facility] [employer] Allergies Active Allergy Reactions Criticality Noted Date [...] 2 Mother Heart Disease Mother Hypertension Mother [place] Mother Other - Cardiac Mother Asthma Neg [...] Comments Blood Pressure 112/68 05/12/2019 9:59 AM MEMS PROCESS ENGINEER Pulse 78 05/12/2019 9:59 AM MEMS PROCESS ENGINEER Temperature 36.7 C (98 F) 05/12/2019 9:59 AM MEMS PROCESS ENGINEER Respiratory Rate 16 05/12/2019 9:59 AM MEMS PROCESS ENGINEER Oxygen Saturation 98% 05/12/2019 9:59 AM MEMS PROCESS ENGINEER Inhaled Oxygen Concentration - - Weight 95.3 kg (210 lb) 05/12/2019 9:59 AM MEMS PROCESS ENGINEER Height 162.6 cm (5' 4 ) 05/12/2019 9:59 AM MEMS PROCESS ENGINEER Body Mass Index 36.05 05/12/2019 9:59 AM MEMS PROCESS ENGINEER Plan of Treatment Health Maintenance Due Date [...] patient's age to complete this topic Insurance [facility] Care Teams Technical Training Specialist Relationship Specialty Start Date End Date Judah Guzman DO [address] [place] [address] MICHOACANO NÚÑEZ [id number] PCP - General Family Medicine 10/03/18
--- OUTSIDE RECORDS SUMMARY | 2024-09-10 19:16 | XMS_ITS | Clinical Summary ---
Author Organization [place] [id number] [facility] Address [address] [place] [address] Care Team Providers Care Interior Assemblies Developer Prover Name Role Phone GuzmanJudah rangel Primary Care [...] Comments Blood Pressure 116/84 04/11/2020 10:38 AM EMERY WHEEL MOLDER Pulse 72 03/14/2020 4:15 PM CDT Temperature 36.4 C (97.5 F) 03/14/2020 4:15 PM CDT Respiratory Rate 18 03/14/2020 4:15 PM CDT Oxygen Saturation 99% 03/14/2020 4:15 PM CDT Inhaled Oxygen Concentration - - Weight 95.3 kg (210 lb) 04/11/2020 10:38 AM EMERY WHEEL MOLDER Height 162.6 cm (5' 4 ) 03/14/2020 4:15 PM CDT Body Mass Index 36.05 03/14/2020 4:15 PM CDT Plan of Treatment Not on file [place] [address] [place] [address] HMO Care Teams Interior Assemblies Developer Prover Relationship Specialty Start Date End Date Judah Guzman DO [address] [place] [id number] PCP - General Family Medicine 08/31/18
--- OUTSIDE RECORDS SUMMARY | 2024-09-10 19:16 | XMS_ITS | Clinical Summary ---
Author Organization [facility] Address [address] [place] [id number] Care Team Providers Care Employment Legal Assistant Name Role Phone Unavailable Primary Care Provider [...] on file Legal Sex Female 7:38 PM OPTICAL LABORATORY TECHNICIAN Gender Identity Not on file Sexual Orientation Not on file Last Filed Vital Signs Vital Sign Reading Time Taken Comments Blood Pressure 107/74 04/02/2017 2:44 AM OPTICAL LABORATORY TECHNICIAN Pulse 65 04/02/2017 1:17 AM OPTICAL LABORATORY TECHNICIAN Temperature 36.5 C (97.7 F) 04/01/2017 8:28 PM OPTICAL LABORATORY TECHNICIAN Respiratory Rate 18 04/02/2017 1:17 AM OPTICAL LABORATORY TECHNICIAN Oxygen Saturation 100% 04/02/2017 1:17 AM OPTICAL LABORATORY TECHNICIAN Inhaled Oxygen Concentration - - Weight 95.3 kg (210 lb 1.6 oz) 04/01/2017 8:28 P M OPTICAL LABORATORY TECHNICIAN Height 162.6 cm (5' 4 ) 04/01/2017 8:28 PM OPTICAL LABORATORY TECHNICIAN Body Mass Index 36.06 04/01/2017 8:28 PM OPTICAL LABORATORY TECHNICIAN Plan of Treatment Health Maintenance Due Date [...] this [place] [id number] [facility]
--- OUTSIDE RECORDS SUMMARY | 2024-09-10 19:16 | XMS_ITS | Referral Summary ---
Author Organization [place] [id number] [facility] Address [address] [place] [address] Care Team Providers Care Wagon Driver Name Role Phone ThomasJudah Primary Care Provider [...] Comments Blood Pressure 116/84 04/11/2020 10:38 AM FIRE BEHAVIOR ANALYST Pulse 72 03/14/2020 4:15 PM CDT Temperature 36.4 C (97.5 F) 03/14/2020 4:15 PM CDT Respiratory Rate 18 03/14/2020 4:15 PM CDT Oxygen Saturation 99% 03/14/2020 4:15 PM CDT Inhaled Oxygen Concentration - - Weight 95.3 kg (210 lb) 04/11/2020 10:38 AM FIRE BEHAVIOR ANALYST Height 162.6 cm (5' 4 ) 03/14/2020 4:15 PM CDT Body Mass Index 36.05 03/14/2020 4:15 PM CDT Plan of Treatment Not on file Insurance [facility]PPO Address: [facility] [id number] [place] [address] Care Teams Wagon Driver Relationship Specialty Start Date End Date Judah Guzman DO [address] [place] [id number] PCP - General Family Medicine 08/31/18
--- OUTSIDE RECORDS SUMMARY | 2024-09-10 19:16 | XMS_ITS | Clinical Summary ---
Author Organization [facility] Address [address] [place] [id number] Phone Care Team Providers Care Degreasing Solution Reclaimer Name Role Phone Unavailable Primary Care Provider [...] on file Legal Sex Female 1:29 AM VALUE STREAM LEADER Gender Identity Not on file Sexual Orientation [...] patient's age to complete this topic Insurance [employer] PPO
--- NOTE | 2024-09-10 19:23 | ED.GENADULT ---
HPI - General Adult General Chief complaint: Unspecified Stated complaint: Dizziness Time Seen by Provider: 09/10/24 19:23 Source: patient Mode of arrival: ambulatory Limitations: no limitations History of Present Illness HPI narrative: patient drove herself to the emergency room complaining of feeling tired, poor concentration, struggles to find words, pulsating vibrating forehead, for the last 7 days feeling sleepy, She denies any fever or chills or nausea or vomiting or chest pain or shortness of breath. Patient does not take medicine at home. Does not smoke or drink or use drugs. History of anxiety, PTSD, obsessive-compulsive disease, attention deficit syndrome and Kehinde disease. Patient does not take her medication for depression/ anxiety or her medication for hypothyroidism because she does not like bed feeling when she take medicine, because she is a natural person Patient drove herself to the emergency room, on her menstrual cycle now Related Data Allergies Allergy/AdvReac Type Severity Reaction Status Date / Time No Known Allergies Allergy Verified 09/08/24 12:50 Review of Systems Review of Systems: All systems reviewed & are unremarkable except as noted in HPI and below PMFSH Past Medical History Medical History High triglycerides ADINA (obstructive sleep apnea) Anxiety and depression Migraine Menometrorrhagia Venous insufficiency Asthma Hypothyroid Hypothyroid neuropathy Obesity (BMI 30-39.9) Lumbar back pain Multiple episodes of hypoglycemia Abnormal Pap smear of cervix Iron deficiency anemia MDD (major depressive disorder) Kehinde's disease Surgical History Surgical History H/O: section x2 Family History Family History Mother Type 1 diabetes Acute myocardial infarction Diabetes mellitus Kidney failure CHF (congestive heart failure) Cerebrovascular accident possible mini stroke Heart disease Father Hypertension Grandparent Acute myocardial infarction Dementia Cerebrovascular accident Depression Other Brain tumor uncle Cerebrovascular accident uncle Acute myocardial infarction uncle Depression Diabetes mellitus uncle, aunt Social History Social History Smoking status: Never smoker Alcohol intake: never Substance use: never Substance use type: does not use Lack of Transportation: No Lack of Food: Never True Current Housing: I Have Housing Concerned About Future Housing: No Difficulty Paying Gas/Electric Bills: No Difficulty Paying for Meds: No Currently Unemployed: No Education: High School Diploma/GED Difficulty w/ Childcare or Family Care: No Living arrangements: with family Additional living arrangements comments: and 2 children Exam Narrative: General appearance: Well-developed, well-nourished, does not look in pain or distress Skin: Normal color Head: Normocephalic, nontraumatic Eyes: Clear conjunctiva ENT: Oropharynx normal, ears normal, nose normal Neck: Supple, nontender Chest and respiratory: Airway patent, no respiratory distress, no accessory muscle use Heart: Regular rate/rhythm Abdomen: Soft, nontender, no organomegaly, quiet bowel sounds Vascular: Normal peripheral pulses, normal capillary refill. Musculoskeletal: Normal range of motion, nontender back Neurologic: Alert and oriented ?3, RESEARCH ANALYST is normal as tested, no gross motor deficit Course Vital Signs Vital signs: Vital Signs Temperature 36.4 C 09/10/24 19: Pulse Rate 67 09/10/24 19:25 Respiratory Rate 16 09/10/24 19:25 Blood Pressure 141/80 H 09/10/24 19:25 Pulse Oximetry 99 09/10/24 19:25 Oxygen Delivery Room Air 09/10/24 19:25 Temperature 36.4 C 09/10/24 19: Pulse Rate 67 09/10/24 19:25 Respiratory Rate 16 09/10/24 19:25 Blood Pressure 141/80 H 09/10/24 19:25 Pulse Oximetry 99 09/10/24 19:25 Oxygen Delivery Room Air 09/10/24 19:25 Medical Decision Making [facility] Narrative Medical decision making narrative: patient came with multiple symptoms Vital signs are stable Physical examination unremarkable Differential diagnosis include anxiety like symptoms, depression, hypothyroidism, noncompliance with medications, electrolyte imbalance, dehydration, intracranial abnormality, urinary tract infection Blood workup today includes CBC, CMP, TSH, showed WBC 4.7, hemoglobin 9.0, AST 58, ALT 73, TSH 33.8 Urinalysis showed no evidence of infection Chest x-ray showed no acute abnormality CT scan of the head showed no significant abnormality EKG on arrival showed normal sinus rhythm at 60 beats per minute, poor R-wave progression, anterior MRI indeterminate age, nonspecific T-wave abnormality, borderline EKG Diagnosis hypothyroidism Differential Diagnosis Differential Diagnosis: As above Vital Signs Vital Signs: Vital Signs Temperature 36.4 C 09/10/24 19:25 Pulse Rate 67 09/10/24 19:25 Respiratory Rate 16 09/10/24 19:25 Blood Pressure 141/80 H 09/10/24 19:25 Pulse Oximetry 99 09/10/24 19:25 Oxygen Delivery Room Air 09/10/24 19:25 Temperature 36.4 C 09/10/24 19:25 Pulse Rate 67 09/10/24 19:25 Respiratory Rate 16 09/10/24 19:25 Blood Pressure 141/80 H 09/10/24 19:25 Pulse Oximetry 99 09/10/24 19:25 Oxygen Delivery Room Air 09/10/24 19:25 Lab Data 09/10/24 19:47 09/10/24 19:47 Labs: Lab Results 09/10/24 Range/Units 19:47 WBC 4.7 L (4.8-10.8) K/mm3 RBC 3.59 L (4.20-5.40) M/mm3 Hgb 9.0 L (12.0-15.0) g/dL Hct 30.4 L (35.0-49.0) % MCV 84.7 (78.0-102.0) fL MCH 25.1 L (27.0-31.0) pg MCHC 29.6 L (32-36) g/dL RDW 16.3 H (11.6-14.4) % Plt Count 253 (150-420) K/mm3 MPV 10.8 (9.2-11.8) fl Immature Gran % (Auto) 0.4 H (0.0-0.0) % Neut % (Auto) 61.3 (50.0-70.0) % Lymph % (Auto) 29.4 (18.0-42.0) % [place] % (Auto) 5.5 (2.0-11.0) % Eos % (Auto) 2.3 (1.0-6.0) % Baso % (Auto) 1.1 H (0.0-1.0) % Lymph # (Auto) 1.39 (1.10-4.50) K/mm3 [place] # (Auto) 0.26 (0.10-0.90) K/mm3 Eos # (Auto) 0.11 (0.02-0.50) K/mm3 Baso # (Auto) 0.05 (0.00-0.10) K/mm3 Abs Immat Gran (auto) 0.02 H (0.00-0.00) K/mm3 Absolute Neuts (auto) 2.90 (1.70-7.20) K/mm3 Absolute Nucleated RBC 0.00 (0.00-0.00) K/mm3 Nucleated RBC % 0.0 (0-0.0) % Sodium 141 (136-145) mmol/L Potassium 3.5 (3.5-5.1) mmol/L Chloride 104 (98-108) mmol/L Carbon Dioxide 27 (21-32) mmol/L Anion Gap 10 (4-12) mmol/L BUN 16 (7-18) mg/dL Creatinine 0.77 (0.55-1.02) mg/dL Estim Creat Clear Calc 102 ml/min Estimated GFR > 60 (59 - ) Glucose 112 H (70-99) mg/dL Calculated Osmolality 294 (285-295) mOsm/kg Calcium 8.8 (8.5-10.1) mg/dL Total Bilirubin 0.4 (0.00-1.00) mg/dL AST 58 H (15-37) U/L ALT 73 H (14-59) U/L Alkaline Phosphatase 95 (46-116) U/L Total Protein 7.7 (6.4-8.2) g/dL Albumin 3.7 (3.4-5.0) g/dL TSH 33.89 H (0.36-3.74) uIU/mL Serum HCG, Qual Negative Discharge Plan Discharge Clinical Impression: Hypothyroidism Patient Disposition: Home Condition: Stable Instructions: Antibiotic Form Additional Instructions: Return if symptoms are worsening , call your family within 3 days for hypothyroidism management, take Tylenol as as needed for aches and pain, continue home medications. Patient Language: Emirati Prescriptions: New levothyroxine 150 mcg capsule 150 mcg PO DAILY Qty: 10 0RF No Action metronidazole 500 mg tablet 500 mg PO Q8H Qty: 14 0RF Rx Instructions: absolutely no alcohol while on this medication levothyroxine 125 mcg tablet 125 mcg PO DAILY Qty: 90 0RF albuterol sulfate [Ventolin HFA] 90 mcg/actuation HFA aerosol inhaler 1 inh inhalation Q4H PRN (Reason: shortness of breath or wheezing) Qty: 8.5 0RF citalopram 40 mg tablet 40 mg PO DAILY 90 Days Qty: 90 0RF miconazole nitrate 2 % aerosol powder 1 spray topical BID PRN (Reason: vaginal itching) Qty: 130 0RF Follow-up/Referrals: Jocelynn Awad APRN [Primary Care Provider] - Stand Alone Forms: Work/School Release IP
--- NOTE | 2024-09-10 19:24 | PC.NURSE ---
DR TEE AT THE BEDSIDE
[2024-09-10 19:25] VITALS: BP 141/80; PULSE 67; RESP 16; TEMP 36.4; O2SAT 99
--- NOTE | 2024-09-10 19:34 | ECG_ITS ---
Test Date: 2024-09-10 20:30:09 Measurements Intervals [place] Rate: 60 P: 5 DE: 189 QRS: -13 QRSD: 91 T: 2 QT: 429 QTc: 429 Interpretive Statements SINUS RHYTHM VOLTAGE CRITERIA FOR LVH NONSPECIFIC T-WAVE ABNORMALITY- ANTEROLAT/INF LEADS BORDERLINE ECG No previous ECG available for comparison Electronically Signed On 09-11-2024 06:22:56 CDT by Gregorio Rosa D.O.
--- NOTE | 2024-09-10 19:36 | PC.NURSE ---
SABA WITH LAB NOTIFIED OF NEW ORDERS
--- NOTE | 2024-09-10 19:43 | PC.NURSE ---
SABA WITH LAB AT THE BEDSIDE. LAURIE WITH RADIOLOGY OUTSIDE THE ROOM
[2024-09-10 19:53] LABS: Basophils Absolute Auto 0.05 K/mm3 (0.00-0.10); Basophils Percent Auto 1.1 % (0.0-1.0); Eosinophils Absolute Auto 0.11 K/mm3 (0.02-0.50); Eosinophils Percent Auto 2.3 % (1.0-6.0); Hematocrit 30.4 % (35.0-49.0); Immature Granulocyte Absolute 0.02 K/mm3 (0.00-0.00); Immature Granulocyte Percent A 0.4 % (0.0-0.0); Lymphocytes Absolute Auto 1.39 K/mm3 (1.10-4.50); Lymphocytes Percent Auto 29.4 % (18.0-42.0); Mean Corpuscular HGB Conc 29.6 g/dL (32-36); Mean Corpuscular Hemoglobin 25.1 pg (27.0-31.0); Mean Corpuscular Volume 84.7 fL (78.0-102.0); Mean Platelet Volume 10.8 fl (9.2-11.8); Monocytes Absolute Auto 0.26 K/mm3 (0.10-0.90); Monocytes Percent Auto 5.5 % (2.0-11.0); Neutrophils Percent Auto 61.3 % (50.0-70.0); Platelet Count Result 253 K/mm3 (150-420); Red Blood Count 3.59 M/mm3 (4.20-5.40); Red Cell Distribution Width 16.3 % (11.6-14.4); White Blood Count 4.7 K/mm3 (4.8-10.8)
--- NOTE | 2024-09-10 19:56 | PC.NURSE ---
RETURNED FROM CT VIA STRETCHER
[2024-09-10 20:15] LABS: Alanine Aminotransferase 73 U/L (14-59); Albumin Level 3.7 g/dL (3.4-5.0); Alkaline Phosphatase 95 U/L (46-116); Anion Gap 10 mmol/L (4-12); Aspartate Amino Transferase 58 U/L (15-37); Bilirubin,Total 0.4 mg/dL (0.00-1.00); Blood Urea Nitrogen 16 mg/dL (7-18); Calcium 8.8 mg/dL (8.5-10.1); Carbon Dioxide 27 mmol/L (21-32); Chloride 104 mmol/L (98-108); Estimated CRCL calculation 102 ml/min; Estimated Glomerular Filt Rate > 60; Glucose 112 mg/dL (70-99); Osmolality Calculated 294 mOsm/kg (285-295); Potassium 3.5 mmol/L (3.5-5.1); Sodium 141 mmol/L (136-145); Thyroid Stimulating Hormone 33.89 uIU/mL (0.36-3.74); Total Protein 7.7 g/dL (6.4-8.2)
[2024-09-10 20:25] LABS: SPREG INTERNAL CONTROL Positive; Serum Qual hCG Negative
--- NOTE | 2024-09-10 20:34 | PC.NURSE ---
RESTING QUIETLY ON STRETCHER. DENIES ANY NEEDS AT THIS TIME. CALL LIGHT IN REACH
--- NOTE | 2024-09-10 20:39 | PC.NURSE ---
PATIENT AMBULATED TO THE BATHROOM.
[2024-09-10] MEDS: LEVOTHYROXINE SODIUM 100 MCG, LEVOTHYROXINE SODIUM 75 MCG 175 MCG PO (20:55)
[2024-09-10 21:10] VITALS: BP 127/73; PULSE 70; RESP 18; O2SAT 98
== END 2024-09-10 21:10 | disposition home or self-care (01) ==
PROVIDERS: Emergency Provider Emergency Medicine; PCP Nurse Practitioner Family
DX: E03.9 Hypothyroidism, unspecified (principal)
CPT/HCPCS: 36415; 70450; 71045; 80053; 84443; 84703; 85025; 93005; 99284; A9270

== ENCOUNTER 2024-09-12 12:11 | Outpatient (CLI) | payer OTHER, SELFPAY ==
[2024-09-12 12:38] LABS: Basophils Absolute Auto 0.05 K/mm3 (0.00-0.10); Basophils Percent Auto 1.1 % (0.0-1.0); Eosinophils Absolute Auto 0.09 K/mm3 (0.02-0.50); Eosinophils Percent Auto 1.9 % (1.0-6.0); Hematocrit 33.9 % (35.0-49.0); Immature Granulocyte Absolute 0.02 K/mm3 (0.00-0.00); Immature Granulocyte Percent A 0.4 % (0.0-0.0); Lymphocytes Absolute Auto 1.11 K/mm3 (1.10-4.50); Lymphocytes Percent Auto 23.4 % (18.0-42.0); Mean Corpuscular HGB Conc 29.5 g/dL (32-36); Mean Corpuscular Hemoglobin 25.1 pg (27.0-31.0); Monocytes Absolute Auto 0.23 K/mm3 (0.10-0.90); Monocytes Percent Auto 4.9 % (2.0-11.0); Neutrophils Absolute Auto 3.24 K/mm3 (1.70-7.20); Neutrophils Percent Auto 68.3 % (50.0-70.0); Platelet Count Result 318 K/mm3 (150-420); Red Blood Count 3.99 M/mm3 (4.20-5.40); Red Cell Distribution Width 16.2 % (11.6-14.4); White Blood Count 4.7 K/mm3 (4.8-10.8)
[2024-09-12 12:47] LABS: Hemoglobin A1C 5.2 % (<5.7)
[2024-09-12 13:22] LABS: Cholesterol 191 mg/dL (0-200); HDL Direct 39 mg/dL (40-60); Iron 48 ug/dL (50-170); LDL Cholesterol Calculated 117 mg/dL (<130); Percent Iron Saturation 12 % (12-57); Triglycerides 177 mg/dL (0-150); Vitamin B12 985 pg/mL (193-986)
[2024-09-12 13:23] LABS: Folic Acid > 20.0 ng/mL (8.6->20)
--- OUTSIDE RECORDS SUMMARY | 2024-09-12 13:58 | XMS_ITS | Referral Summary ---
Author Organization [place] [id number] Address [address] [place] [address] Care Team Providers Care Joint Sealer Name Role Phone ThomasJudah Primary Care Provider [...] Comments Blood Pressure 116/84 04/11/2020 10:38 AM ROOFER ASSISTANT Pulse 72 03/14/2020 4:15 PM CDT Temperature 36.4 C (97.5 F) 03/14/2020 4:15 PM CDT Respiratory Rate 18 03/14/2020 4:15 PM CDT Oxygen Saturation 99% 03/14/2020 4:15 PM CDT Inhaled Oxygen Concentration - - Weight 95.3 kg (210 lb) 04/11/2020 10:38 AM ROOFER ASSISTANT Height 162.6 cm (5' 4 ) 03/14/2020 4:15 PM CDT Body Mass Index 36.05 03/14/2020 4:15 PM CDT Plan of Treatment Not on file Insurance HMO LICENSE OF [facility] HMO/PPO Address: [facility] [id number] [place] [address] Care Teams Joint Sealer Relationship Specialty Start Date End Date Judah Guzman DO [address] [place] [id number] PCP - General Family Medicine 08/31/18
--- OUTSIDE RECORDS SUMMARY | 2024-09-12 13:58 | XMS_ITS | Clinical Summary ---
Author Organization [facility] Address [address] [place] [address] Care Team Providers Care Card Feeder Name Role Phone Judah Guzman Primary Care Provider [phone] Source Comments [facility],non-[facility] Affiliates and Associated Physician Practices is amultiple site organization consisting of ambulatory clinics and hospital sitesin [place], [place], [place] and [place]. This disclosure is being madepursuant to the Care Everywhere program and may not contain all information available regarding this patient. Last updated 18.[facility] Allergies Active Allergy Reactions Criticality Noted Date [...] 2 Mother Heart Disease Mother Hypertension Mother MA Mother Other - Cardiac Mother Asthma Neg [...] Comments Blood Pressure 112/68 05/12/2019 9:59 AM SQUEAK RATTLE AND LEAK REPAIRER Pulse 78 05/12/2019 9:59 AM SQUEAK RATTLE AND LEAK REPAIRER Temperature 36.7 C (98 F) 05/12/2019 9:59 AM SQUEAK RATTLE AND LEAK REPAIRER Respiratory Rate 16 05/12/2019 9:59 AM SQUEAK RATTLE AND LEAK REPAIRER Oxygen Saturation 98% 05/12/2019 9:59 AM SQUEAK RATTLE AND LEAK REPAIRER Inhaled Oxygen Concentration - - Weight 95.3 kg (210 lb) 05/12/2019 9:59 AM SQUEAK RATTLE AND LEAK REPAIRER Height 162.6 cm (5' 4 ) 05/12/2019 9:59 AM SQUEAK RATTLE AND LEAK REPAIRER Body Mass Index 36.05 05/12/2019 9:59 AM SQUEAK RATTLE AND LEAK REPAIRER Plan of Treatment Health Maintenance Due Date [...] patient's age to complete this topic Insurance [facility] Care Teams Card Feeder Relationship Specialty Start Date End Date Judah Guzman DO [address] [place] [address] [place]O NÚÑEZ [phone] PCP - General Family Medicine 10/03/18
--- OUTSIDE RECORDS SUMMARY | 2024-09-12 13:58 | XMS_ITS | Clinical Summary ---
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 Gender Identity Not on file Sexual Orientation Not on file Last Filed Vital Signs Vital Sign Reading Time Taken Comments Blood Pressure 107/74 04/02/2017 2:44 AM COMMERCIAL REAL ESTATE UNDERWRITER Pulse 65 04/02/2017 1:17 AM COMMERCIAL REAL ESTATE UNDERWRITER Temperature 36.5 C (97.7 F) 04/01/2017 8:28 PM COMMERCIAL REAL ESTATE UNDERWRITER Respiratory Rate 18 04/02/2017 1:17 AM COMMERCIAL REAL ESTATE UNDERWRITER Oxygen Saturation 100% 04/02/2017 1:17 AM COMMERCIAL REAL ESTATE UNDERWRITER Inhaled Oxygen Concentration - - Weight 95.3 kg (210 lb 1.6 oz) 04/01/2017 8:28 P M COMMERCIAL REAL ESTATE UNDERWRITER Height 162.6 cm (5' 4 ) 04/01/2017 8:28 PM COMMERCIAL REAL ESTATE UNDERWRITER Body Mass Index 36.06 04/01/2017 8:28 PM COMMERCIAL REAL ESTATE UNDERWRITER Plan of Treatment Health Maintenance Due Date [...] complete this topic [place] [id number] [facility]
--- OUTSIDE RECORDS SUMMARY | 2024-09-12 13:58 | XMS_ITS | Clinical Summary ---
Author Organization [place] [id number] Address [address] [place] [address] Care Team Providers Care Conservation Officer Name Role Phone GuzmanJudah rangel Primary Care [...] Comments Blood Pressure 116/84 04/11/2020 10:38 AM BURLAP SPREADER Pulse 72 03/14/2020 4:15 PM CDT Temperature 36.4 C (97.5 F) 03/14/2020 4:15 PM CDT Respiratory Rate 18 03/14/2020 4:15 PM CDT Oxygen Saturation 99% 03/14/2020 4:15 PM CDT Inhaled Oxygen Concentration - - Weight 95.3 kg (210 lb) 04/11/2020 10:38 AM BURLAP SPREADER Height 162.6 cm (5' 4 ) 03/14/2020 4:15 PM CDT Body Mass Index 36.05 03/14/2020 4:15 PM CDT Plan of Treatment Not on file [place] [address] [place] [address] HMO Care Teams Conservation Officer Relationship Specialty Start Date End Date Judah Guzman DO [address] [place] [address] [phone] PCP - General Family Medicine 08/31/18
--- OUTSIDE RECORDS SUMMARY | 2024-09-12 13:58 | XMS_ITS | Clinical Summary ---
Author Organization [facility] Address [address] [place] [phone] Phone Care Team Providers Care Icebox Worker Name Role Phone Unavailable Primary Care [...] on file Legal Sex Female 1:29 AM RECOVERY OPERATOR Gender Identity Not on file Sexual Orientation [...] 19+ 3-dose series) 2004 HPV/Cotest (21-29) 2006 CERVICAL CANCER SCREENING 2015 HPV/Cotest (30-65) 2015 PAP SMEAR 2015 INFLUENZA VACCINE (#1) 2023 RSV VACCINE (60+ or ) (1 - 1-dose 75+ series) 2060 HPV VACCINES Aged Out No longer eligi ble based on patient's age to complete this topic Insurance [facility] [employer] PPO
[2024-09-14 02:28] LABS: Vitamin D 25 Hydroxy 35 ng/mL (30-100)
== END 2024-09-12 12:12 | disposition home or self-care (01) ==
LOC: CHSLAB 12:15
PROVIDERS: PCP Nurse Practitioner Family; Visit Provider Nurse Practitioner Family
DX: Z00.00 Encounter for general adult medical examination without abnormal findings (principal); R53.82 Chronic fatigue, unspecified; Z86.2 Personal history of diseases of the blood and blood-forming organs and certain disorders involving the immune mechanism; R79.89 Other specified abnormal findings of blood chemistry
CPT/HCPCS: 36415; 80061; 82306; 82607; 82746; 83036; 83540; 83550; 85025

== ENCOUNTER 2024-09-27 12:34 | Outpatient (CLI) | payer OTHER, SELFPAY ==
--- OUTSIDE RECORDS SUMMARY | 2024-09-27 12:43 | XMS_ITS | Clinical Summary ---
Author Organization [facility] Address [address] [place] [address] Care Team Providers Care Booking Clerk Name Role Phone Judah Guzman Primary Care Provider [phone] Source Comments [facility],non-university hospital Affiliates and Associated Physician Practices is amultiple site organization consisting of ambulatory clinics and hospital sitesin [place] and [place]. This disclosure is being madepursuant to the Care Everywhere program and may not contain all information available regarding this patient. Last updated 18.[facility] Allergies Active Allergy Reactions Criticality Noted Date [...] 2 Mother Heart Disease Mother Hypertension Mother MD Mother Other - Cardiac Mother Asthma Neg [...] Comments Blood Pressure 112/68 05/12/2019 9:59 AM SALON COORDINATOR Pulse 78 05/12/2019 9:59 AM SALON COORDINATOR Temperature 36.7 C (98 F) 05/12/2019 9:59 AM SALON COORDINATOR Respiratory Rate 16 05/12/2019 9:59 AM SALON COORDINATOR Oxygen Saturation 98% 05/12/2019 9:59 AM SALON COORDINATOR Inhaled Oxygen Concentration - - Weight 95.3 kg (210 lb) 05/12/2019 9:59 AM SALON COORDINATOR Height 162.6 cm (5' 4 ) 05/12/2019 9:59 AM SALON COORDINATOR Body Mass Index 36.05 05/12/2019 9:59 AM SALON COORDINATOR Plan of Treatment Health Maintenance Due Date [...] patient's age to complete this topic Insurance [facility] CARE [facility] CARE Care Teams Booking Clerk Relationship Specialty Start Date End Date Judah Guzman DO [address] [place] [address] MICHOACANO NÚÑEZ [phone] PCP - General Family Medicine 10/03/18
--- OUTSIDE RECORDS SUMMARY | 2024-09-27 12:43 | XMS_ITS | Continuity of Care Document ---
Author Name [facility] Organization [facility] Care Team Providers Care Clinical Administrator Name Role Phone [facility] Unavailable Unavailable Problems Combined list of problems from Department of Defense and Veterans Affairs facilities. It does not include entries that were removed or entered in error. Problem Status Onset Date Problem Type Date of Resolution Comments Source DEPRESSION Active Condition Plan is t o continue to monitor ct. for depressive sx; possibly resolving with thyroid medication. No plan to seek referral for evaluation for antidepressant at this time, as ct. affect improving. Continue focus on strengthening ct. feelings and assertion skills. DoD Thyroid Function Tests Nonspecific Abnormal Findings Active Condition DoD VAGINITIS Inactive Condition DoD abdominal pain Inactive Condition DoD ROUTINE GYNECOLOGICAL EXAM WITH CERVICAL PAP SMEAR Inactive Condition DoD visit for: screening exam malignant neoplasm breast Inactive Condition DoD Oral Contraceptives Inactive Condition Precautions about DVT/need to take regularly given DoD lump or swelling in the neck - front Active Condition DoD visit for: screening exam chlamydial infections Inactive Condition DoD Need For Vaccination Hepatitis B Inactive Condition Negative Titers DoD visit for: exam following treatment Inactive Condition NON-REACTIVE PPD DoD visit for: occupational health / fitness exam Inactive Condition DoD ROSACEA Active Condition DoD KERATOSIS PILARIS Active Condition DoD DEPRESSION Active Condition DoD REFRACTIVE ERROR - MYOPIA Active Condition DoD NORMAL ROUTINE OPHTHALMOLOGICAL EXAM Inactive Condition DoD visit for: exam Inactive Condition DoD Cervix Sample Taken For Pap Smear Inactive Condition DoD VAGINISMUS Active Condition DoD UTERINE SCAR FROM PREVIOUS DELIVERY - DELIVERED Active Condition DoD Vaccines Prophylactic Need Against Influenza Inactive Condition DoD constipation Inactive Condition DoD PREG COMPLICATIONS: ANTEPARTUM COND OR PRIOR COMP DELIVERY Inactive Condition DoD PREG COMP: TRANS HTN - ANTEPART COND OR PRIOR COMP DELIVERY Inactive Condition DoD FALSE LABOR Inactive Condition DoD nasal passage blockage (stuffiness) Active Condition DoD INCOORD UTERINE CONTRACTIONS - ANTEPARTUM CONDITION/COMPLIC Inactive Condition DoD CANDIDIASIS VAGINAL Inactive Condition D oD EXCESS WT GAIN IN PREG- ANTEPARTUM COND OR PRIOR COMP DELIV Active Condition DoD Ed 34-36 Week F/U Preparing For Breast Feeding Inactive Condition DoD red blood in bowel movement (hematochezia) Inactive Condition DoD visit for: screening exam depression Inactive Condition DoD Need For Prophylactic Immunotherapy RhoGAM Inactive Condition DoD drip or drainage down throat from above Active Condition DoD INDIC FOR CARE/INTERVEN REL TO LABOR/DELIV ANTEPARTUM COMPL Inactive Condition DoD DERMATITIS Inactive Condition DoD CONDITIONS INFLUENCING HEALTH STATUS Inactive Condition DoD INDICATION FOR CARE OR INTERVENTION RELATED TO LABOR & DELIV Inactive Condition DoD LOW IMPLANTATION OF PLACENTA Inactive Condition DoD Vaginal Discharge Active Condition DoD MATERN OBESITY COMPLIC PREG//PUERPER ANTEPART CONDITION Active Condition DoD PREG COMP: THYROID DYSFUNCT- ANTEP COND OR PRIOR COMP DELIV Active Condition DoD Patient Education - Medication Inactive Condition DoD Supervision Of Normal First Inactive Condition DoD Education Inactive Condition Do D Inactive Condition DoD WARTS Inactive Condition DoD visit for: issue medical certificate fitness Inactive Condition DoD visit for: screening exam pulmonary tuberculosis Inactive Condition DoD Vaccines Prophylactic Need Against Combinations Of Diseases Inactive Condition DoD exposed to potentially hazardous body fluids Inactive Condition DoD Dietary Counseling Pertaining To Specific Condition Inactive Condition DoD WARTS PLANTAR Inactive Condition DoD CONJUNCTIVITIS ACUTE Inactive Condition DoD Laboratory Studies Inactive Condition Do D Shoulder Muscle Spasm Trapezius Inactive Condition DoD INGROWING NAIL WITH INFECTION Inactive Condition DoD Vaccines Prophylactic Need Against Single Disease Inactive Condition DoD Cervical Pap Smear Inactive Condition Do D Need For Vaccination Hepatitis A And Hepatitis B Inactive Condition DoD Vaccines Prophylactic Need Against Bacterial Diseases Inactive Condition DoD Vaccines Prophylactic Need Against DTP Inactive Condition DoD pain during urination (dysuria) Active Condition DoD Vaccines Prophylactic Need Inactive Condition DoD visit for: examination of subpopulation Inactive Condition DoD anxiety Active Condition DoD SORE THROAT Inactive Condition DoD visit for: administrative purpose Inactive Condition DoD VULVAR VESTIBULITIS Active Condition Do D muscle aches, generalized (myalgias) Active Condition DoD COMMON COLD Inactive Condition DoD INGROWING NAIL Inactive Condition DoD VITAMIN D DEFICIENCY Inactive Condition DoD FATIGUE Inactive Condition DoD lower back pain Inactive Condition DoD diarrhea Active Condition DoD GASTROENTERITIS Active Condition DoD ESOPHAGEAL REFLUX Active Condition DoD BACTERIAL VAGINOSIS Inactive Condition D oD ALLERGIC RHINITIS Active Condition DoD visit for: screening exam for malignant neoplasm cervix Inactive Condition DoD family disruption Inactive Condition DoD ADULT PHYSICAL ABUSE Active Condition DoD Patient Counseling: Medical Management Inactive Condition spent 20 minutes debunking the take thyroid meds and lose weight myth; explained the nature of labs, thyroid hormone, weight loss/gain and other associated symptoms; relationship to food , exercise and weight loss. Told her if she's going to use the lor, to use it for breakfast and lunch and not at dinner and take the synthroid in the evening. Referred her to nutrition counseling. DoD OBESITY Active Condition DoD Inquiry And Counseling: For Marital Conflict Inactive Condition DoD Patient Counseling: Inactive Condition D oD OBESITY EXOGENOUS Active Condition DoD ACUTE REACTION TO STRESS Active Condition short term use of xanax .25 one or two per day. She's to f/u with me in 2-3 weeks. 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 Could explain fatigue and a component of depression. If still present on CBC, will need to work up. DoD reported home test was negative Inactive Condition Per pt request, will check test as she is worried. DoD ADJUSTMENT DISORDER WITH DEPRESSED MOOD Active Condition doing be tter has finished counseling at and no longer taking celexa DoD HYPOTHYROIDISM Active Condition Pt ag [place] to start taking the medication regularly, and then follow up in about 6 weeks to have her blood drawn to see if the dose is adequate. Discussed signs and symptoms of hypo- vs. hyperthyroidism. DoD Immunizations Combined list of available immunizations from the Department of Defense and Veterans Affairs facilities. Immunization Series Date Given Administered By Site Reaction Lot Number CVX Code Drug Billet Shearer Status Comments Source influenza, live, intranasal, quadrivalent 1 2013 DORIS GIFFORD [id number] [employer], [employer]. (MED) complet ed influenza , live, intranasa l, quadrival ent DoD influenza virus vaccine, live, attenuated, for intranasal use 1 2012 IRAIDA ABRAMS [id number] [employer]. (MED) complet ed influenza virus vaccine, live, attenuate d, for intranasa l use DoD tetanus toxoid, reduced diphtheria toxoid, and acellular pertu is vaccine, adsorbed 0 2012 HUBERT ZAVALA [id number] Sanofi Pasteur (PMC) complet ed tetanus toxoid, reduced diphtheri a toxoid, and acellular pertussis vaccine, adsorbed DoD tuberculin skin test; purified protein derivative solution, intradermal 0 2011 KISHA DEJESUS [id number] Sanofi Pasteur (PMC) complet ed tuberculi n skin test; purified protein derivativ e solution, intraderm al DoD tuberculin skin test; purified protein derivative solution, intradermal 0 2011 Unknown, Provider [id number] Sanofi Pasteur (PMC) complet ed tuberculi n skin test; purified protein derivativ e solution, intraderm al DoD influenza virus vaccine, whole virus 1 2011 JAQUELINE BENJAMIN [id number] [employer] (CSL) complet ed influenza virus vaccine, whole virus DoD hepatitis A vaccine, adult dosage 1 2011 JAQUELINE BENJAMIN [id number] 52 Other (OTH) complet ed hepatitis A vaccine, adult dosage DoD tuberculin skin test; purified protein derivative solution, intradermal 0 2011 JAQUELINE BENJAMIN [id number] 96 Sanofi Pasteur (PMC) complet ed tuberculi n skin test; purified protein derivativ e solution, intraderm al DoD hepatitis A and hepatitis B vaccine 2 2011 NATHAN HILL [id number] 104 [employer] (SKB) complet ed hepatitis A and hepatitis B vaccine DoD Icelandic Encephalitis Vaccine SC 2 2011 NELSON SYLVESTER [id number] 39 [employer] (INT) complet ed [place]ic Encephali tis Vaccine [place] DoD hepatitis A and hepatitis B vaccine 1 2011 VALENTIN SOW [id number] 104 [employer] (SKB) complet ed hepatitis A and hepatitis B vaccine DoD meningococcal polysaccharid e (groups A, C, Y and W-135) diphtheria toxoid conjugate vaccine (MCV4P) 1 2011 VALENTIN SOW [id number] Sanofi Pasteur (PMC) complet ed meningoco ccal polysacch aride (groups A, C, Y and W-135) diphtheri a toxoid conjugate vaccine (MCV4P) DoD tetanus toxoid, reduced diphtheria toxoid, and acellular pertu is vaccine, adsorbed 1 2011 VALENTIN SOW [id number] 115 Sanofi Pasteur (PMC) complet ed tetanus toxoid, reduced diphtheri a toxoid, and acellular pertussis vaccine, adsorbed DoD Icelandic Encephalitis Vaccine SC 1 2011 VALENTIN SOW [id number] 39 [employer] (INT) complet ed Icelandic Encephali tis Vaccine SC DoD tuberculin skin test; purified protein derivative solution, intradermal 0 2005 96 Transcribed (TRS) complet ed tuberculi n skin test; purified protein derivativ e solution, intraderm al DoD hepatitis B vaccine, pediatric or pediatric/ado lescent dosage 1 1997 08 Transcribed (TRS) complet ed hepatitis B vaccine, pediatric or pediatric /adolesce nt dosage DoD tuberculin skin test; purified protein derivative solution, intradermal 0 1997 96 Transcribed (TRS) complet ed tuberculi n skin test; purified protein derivativ e solution, intraderm al DoD diphtheria, tetanus toxoids and pertu is vaccine 5 1990 01 Transcribed (TRS) complet ed diphtheri a, tetanus toxoids and pertussis vaccine DoD trivalent poliovirus vaccine, live, oral 0 1990 02 Transcribed (TRS) complet ed trivalent polioviru s vaccine, live, oral DoD measles, mumps and rubella virus vaccine 2 1990 03 Transcribed (TRS) complet ed measles, mumps and rubella virus vaccine DoD diphtheria, tetanus toxoids and pertu is vaccine 4 1986 01 Transcribed (TRS) complet ed diphtheri a, tetanus toxoids and pertussis vaccine DoD trivalent poliovirus vaccine, live, oral 4 1986 02 Transcribed (TRS) complet ed trivalent polioviru s vaccine, live, oral DoD measles, mumps and rubella virus vaccine 1 1986 03 Transcribed (TRS) complet ed measles, mumps and rubella virus vaccine DoD diphtheria, tetanus toxoids and pertu is vaccine 3 1985 01 Transcribed (TRS) complet ed diphtheri a, tetanus toxoids and pertussis vaccine DoD trivalent poliovirus vaccine, live, oral 3 1985 02 Transcribed (TRS) complet ed trivalent polioviru s vaccine, live, oral DoD diphtheria, tetanus toxoids and pertu is vaccine 2 1985 01 Transcribed (TRS) complet ed diphtheri a, tetanus toxoids and pertussis vaccine DoD trivalent poliovirus vaccine, live, oral 2 1985 02 Transcribed (TRS) complet ed trivalent polioviru s vaccine, live, oral DoD trivalent poliovirus vaccine, live, oral 1 1985 02 Transcribed (TRS) complet ed trivalent polioviru s vaccine, live, oral DoD diphtheria, tetanus toxoids and pertu is vaccine 1 1985 01 Transcribed (TRS) complet ed diphtheri a, tetanus toxoids and pertussis vaccine DoD Encounters Combined list of: 1) Encounters from Department of Veterans Affairs facilities going backup to the last 18 months, not all VA inpatient encounters are included; 2) Encounters from the Department of Defense facilities going backup to 280 months. Location Location Details Encounter Type Encounter Number Reason For Visit Attending Provider ADM Date DC Date Status [facility] [place] OUTPATIENT [id number] RED CROSS VOLUNTE ER GALLO ALVAREZ 06/10 Released w/o Limitations [facility] [place] [place] OUTPATIENT [id number] DENTAC/ RED CROSS VOL PPD CHECKED FR[place]ICK PARISH 06/12 Released w/o Limitations [facility] [place] [place] OUTPATIENT [id number] DENTAC/ RED CRSOSS PPD PLACED [place] 07/14 Released w/o Limitations [facility] [place] [place]) [place] [id number] PAP/GLORIA JARAMILLO 07/31 [place] w/o Limitations [place] [facility] S 01A17 [facility]) OUTPATIENT [id number] PELVIC PN X2WKS EMELY DIALLO 11/19 Released w/o Limitations [facility] 01A17 [place]) [facility] S 01A17 [facility]) OUTPATIENT [id number] f/u anxiety /med renwal and control f/u LES VALENZUELA 12/24 Released w/o Limitations [facility] 01A17 [place]) [facility] S 01A17 [facility] on) TELE CONSULT [id number] f/u labs LES VALENZUELA 01/01 [facility] 01A17 [place]) [facility] S 01A17 Fab[facility] on) OUTPATIENT [id number] GAYLE/DIAR VAISHNAVI/KHOA DY ACHE X 2DAYS LES VALENZUELA 01/12 Released w/o Limitations [facility] 01A17 [place] [facility] OUTPATIENT [id number] GUERO LEI 01/12 Released w/o Limitations [facility]) [facility] S 01A17 Fabricati on) OUTPATIENT [id number] F/U EAR PN ABIGAIL KOVACS 02/26 Released w/o Limitations [facility] 01A17 [place] [facility] S 01A17 [facility]) OUTPATIENT [id number] POSS SINUS INFECTI ON JESUS LOPEZ 04/29 Released w/o Limitations [facility] 01A17 [place] [facility] S 01A17 [facility]) OUTPATIENT [id number] pregnan cy test JESSICA GIBBONS 05/26 Released w/o Limitations [facility] MHS A17 [place]) [facility] S A17 Fabricati on) OUTPATIENT [id number] f/u lab results (thyroi d) VALENTIN YOUSIF 06/01 [facility]/o Limitations [facility] S A17 [place]) OUTPATIENT [id number] gen physica l and possibl e referra l to alinti on JOSE KELLER 09/20 [place] Lim[place]) OUT[place] [id number] thyroid s EDUAR VILCHIS 11/19 [place] Limitations [place] [facility]) [place] [id number] migrain e , chest tightne ss ABIGAIL CISNEROS 12/09 [place] Lim[place] OUT[place] [id number] F/U Thyroid MARTINEZ POWLEL 12/10 [place] Limitations [place] [facility]) OUTPATIENT [id number] lower back conx2d ZZZBM_LEE, ZZZBM_SANDEEP ARET S 12/29 [facility]ased w/o Limitations [facility] [facility] OUTPATIENT [id number] f/u thyroid elliotts EMELY RODRIGUEZ 03/30 [facility]ased w/o Limitations [facility] [facility] [facility]) OUTPATIENT [id number] WELL WOMAN EXAM,VA GINAL INFECT X3DAYS RAYMOND ELKINS 05/10 Released w/o Limitations [facility]) [facility]) OUTPATIENT [id number] f/u for thyroid /aniext y RAYMOND ELKINS J 06/06 Released w/o Limitations [facility]([facility]) [facility] OUTPATIENT [id number] st pn x3dys MAURO MALDONADO 09/01 Sick at Home/Quarter s [facility] [place]([facility]) OUTPATIENT [id number] wwe with pap AFUA GODWIN 05/11 Released w/o Limitations [facility] [place]([facility]) [facility] [place]ron([facility]) TELE CONSULT [id number] review labs RUNNINGASHKAN 05/11 Referred for Appointment [facility] [place]([facility]) [facility] [place]([facility]) OUTPATIENT [id number] Vomitin g, Diarrhe a, dry heaves MAME ROQUE P 05/19 Immediate Referral [facility] [place](A[facility] Care [facility]) [facility] [place]([facility] OUTPATIENT [id number] Nausea/ GAYLE KATELYNN ZHAO 05/23 Released w/o Limitations [facility] [place](A[facility] Care [facility]) [facility] [place]([facility]) OUTPATIENT [id number] back pain AFUA GODWIN 05/26 Released w/o Limitations [facility] [place]([facility]) [facility] [place]([facility]) TELE CONSULT [id number] review labs and xray ELIO, QUEENIE 06/02 Referred for Appointment [facility] [place]([facility]) [facility] [place]([facility]) OUTPATIENT [id number] bloodwo rk for Lupus RANULFO MORAN 07/29 Released w/o Limitations [facility] [place] [facility] [place]) OUTPATIENT [id number] medicat ion JELANIRANULFO LEDEZMA Jackie 07/29 [facility] w/[facility] Limitations [facility] [place] [place]) [place] [id number] possibl e strep throat RANULFO MORAN 08/27 Released w/o Limitations [facility] [place] [facility] [facility] [place]) [place] [id number] appt appt ANTHONY LAGUNAS 09/03 Released w/o Limitations [facility] [place] [facility] [facility] [facility] [place]) [place] [id number] VACCINE S FOR TRAVEL TO [place] PCM VALENTIN OVERTON 09/06 Released w/o Limitations [facility] [place] [facility] [place]) [place] [id number] LAB REQUEST RANULFO MORAN 09/07 Released w/o Limitations [facility] [place] [place] [facility] [facility] [place]) OUT[place] [id number] pap/juaquin ck for autoimm unedefi MITCHEL Pradhan 09/08 Released w/o Limitations [facility] [place] [place]) OUT[place]IENT [id number] [facility] paperwo rk JELANIBLAISEHaleyRANULFO 09/13 Released w/o Limitations [facility] [place] [place] [facility] [facility] [place]) [place] [id number] 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 p/u efmp 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 for pt ANTHONY LAGUNAS Haley 09/13 Released w/o Limitations [facility] [place]([facility]) [facility] [place]) OUTPATIENT [id number] oss [place] Cindy ANTHONY LAGUNAS Haley 09/21 [facility]ased w/o Limitations [facility] [place]) [facility] [place]) OUTPATIENT [id number] IMMS UPDATE [facility] NELSON DIOR 10/04 Released w/o Limitations [facility] [place]([facility]) [facility] ERA [place] OUTPATIENT [id number] ingrown toenail RANULFO MORAN 10/13 Released w/o Limitations [facility] [place]([facility]) [facility] [place] TELE CONSULT [id number] culture RANULFO MORAN 10/29 [facility] [place]([facility]) [facility] [place] ) OUTPATIENT [id number] INGROWI NG NAIL SOPHIELUCINDA 11/01 Released with Work/Duty Limitations [facility] [place](Podi atry Clinic ) [facility] [place]) OUTPATIENT [id number] [facility] Dr Shivani mariee - right jenna r RANULFO Walter 11/02 Released w/o Limitations [facility] [place]([facility]) [facility] [place](Podiat ry Clinic ) OUTPATIENT [id number] right hallux ingrown toenail . NAIL AVULSIO N LUCINDA BARRIOS 11/09 Released with Work/Duty Limitations [facility] [place](Podi atry Clinic ) [place] OUTPATIENT [id number] med refill XU SCHMIDT 12/21 Released w/o Limitations [place] [employer] ([facility]) [facility] A Team) TELE CONSULT [id number] Notes Entered by: CHERYL SCHMIDT 25 Dec 2011 1415 ------- ------- ------- ------- -- HEAVEN CARRERA 12/24 [place] ([facility]) [facility] OUTPATIENT [id number] possibl e wart heveral XU SCHMIDT 01/03 Released w/o Limitations [facility] ([facility] A Team) [facility](N utrition Clinic) OUTPATIENT [id number] Obesity ION KINGSTON 01/10 Released w/o Limitations [facility] (Nutrit ion Clinic) [facility](O ccupation al Medicine) OUTPATIENT [id number] ,[phone],,, MY JOSE ALBERTO CLARK 02/18 Released w/o Limitations [facility] Medicin [facility]) [facility](U SN Immunizat ions) OUTPATIENT [id number] HEP A PPD FLU OBRIEN, ITZE Y 02/18 Released w/o Limitations [facility] ([facility] Immuniz ations) [facility](U SN Immunizat ions) OUTPATIENT [id number] IPPD READ/O MM NEG OBRIEN, ITZE Y 02/21 Released w/o Limitations [place] [facility] ([facility] Immuniz ations) [place] [facility] SN Immunizat ions) OUTPATIENT [id number] IPPD OBRIEN, ITZE Y 04/12 Released w/o Limitations [place] [facility] ([facility] Immuniz ations) [place] [facility] SN Immunizat ions) OUTPATIENT [id number] ippd KISHA DEJESUS 04/19 Released w/o Limitations [facility] Immuniz ations) [facility] A Team) OUTPATIENT [id number] recurre nt warts XU SCHMIDT 04/20 Released w/o Limitations [facility] ([facility] A Team[facility] Immunizat ions) OUTPATIENT [id number] PPD READ 0MM NEGATIV E ORALIA OBRIEN Y 04/21 Released w/o Limitations [facility] ([facility] Immuniz ations) [facility](O ccupation al Medicine) OUTPATIENT [id number] 709,,,, ,KM ORDINARIO, ANALOU INGRAM 05/18 Released w/o Limitations [facility] (Occupa tional Medicin e) [facility] A Team) OUTPATIENT [id number] wart removal consult aitXU Yarbrough 05/25 Released w/o Limitations [facility] ([facility] A Team) [facility](O ccupation al Medicine) OUTPATIENT [id number] CARD UPDATE( late entry), ,,,,@ ORDINAGLENDIVE, ANALOU INGRAM 05/31 Released w/o Limitations [facility] (Occupa tional Medicin e) [facility]) OUTPATIENT [id number] E/r fu need us for possibl e ectopic HILTON YOU 06/14 Released w/o Limitations [facility] ([facility]) [facility] A Team) OUTPATIENT [id number] f/up labs XU SCHMIDT 06/22 Released w/o Limitations [facility] ([facility] A Team) [facility] OUTPATIENT [id number] account [email or web address] MICKEY LIMON 06/22 Released w/o Limitations [facility] ( Gynecol ogy Clinic) [facility]) OUTPATIENT [id number] gym: HILTON CORNEJO 07/01 Released w/o Limitations [facility] ([facility]) [facility] A Team) TELE CONSULT [id number] Notes Entered by: EMILE BLANTON 27 Jul 2012 0733 ------- ------- ------- ------- -- med refill EMELY PERRY Alysia 07/26 [facility] ([facility] A Team) [facility]) OUTPATIENT [id number] NOB ASHKAN 10 WKS HILTON YOU 07/27 Released w/o Limitations [facility] ([facility]) [facility]) OUTPATIENT [id number] jenna 18wks KOBI LEBLANC 09/06 Released w/o Limitations [facility] ([facility]) [facility] A Team) TELE CONSULT [id number] Notes Entered by: MARKIE KELLY 28 Sep 2012 1551 ------- ------- ------- ------- -- possibl e vaginal infecti on EMELY PERRY Alysia 09/28 [facility] ([facility] A Team) [facility]) OUTPATIENT [id number] jenna 24 wks KOBI LEBLANC 10/19 Released w/o Limitations [facility] ([facility]) [facility](L &D Triage) OUTPATIENT [id number] Notes Entered by: JULY JANE 27 Oct 2012 1914 ------- ------- ------- ------- -- chest pain ASHLEIGH FERNANDEZ 10/27 Released w/o Limitations [facility] (L&D Triage) [facility]) TELE CONSULT [id number] Notes Entered by: ELVIN CHENG 31 Oct 2012 1536 ------- ------- ------- ------- -- Possibl e exposur e to hand foot and mouth disease REZA CHENG 10/31 Referred for Appointment [facility] ([facility]) [facility](L &D Triage) OUTPATIENT [id number] Notes Entered by: ROHIT MCLEAN 31 Oct 2012 1538 ------- ------- ------- ------- -- NST LAWRENCERONAL JUNIOR JOYCE DEVON 10/31 Released w/o Limitations [facility] (L&D Triage) [facility](K a Case Managemen t Services) TELE CONSULT [id number] Notes Entered by: TATI OWEN 02 Nov 2012 1458 ------- ------- ------- ------- -- Case Managem ent antidep ressant trackin g follow up. TATI OWEN 11/02 Other Not Elsewhere Classified [facility] (Ka Case Managem ent Service s) [facility](L &D Triage) OUTPATIENT [id number] Notes Entered by: NADJA MALAGON 07 Nov 2012 1342 ------- ------- ------- ------- -- AFUA Guerra 11/07 Released w/o Limitations [facility] (L&D Triage) [facility]) OUTPATIENT [id number] jenna 28 CARLOS Colvin 11/16 Released w/o Limitations [facility] ([facility]) [facility](L &D Triage) OUTPATIENT [id number] Notes Entered by: IAN MOON 19 Nov 2012 1051 ------- ------- ------- ------- -- Vaginal blemable g HILTON YOU 11/19 Released w/o Limitations [facility] (L&D Triage) [facility](L &D Triage) OUTPATIENT [id number] Notes Entered by: TOBI VAZQUEZ 21 Nov 2012 1854 ------- ------- ------- ------- -- vaginal bleedAFUA Gray 11/21 Released w/o Limitations [facility] (L&D Triage) [facility]) OUTPATIENT [id number] breast feeding AMARICHANCE TORRES 12/06 Released w/o Limitations [facility] ([facility]) [facility]) OUTPATIENT [id number] pcb 1 CHANCE HADDAD 12/12 Released w/o Limitations [facility] ([facility]) [facility]) OUTPATIENT [id number] pcb 2 CHANCE HADDAD 12/13 Released w/o Limitations [facility] ([facility]) [facility](L &D Triage) OUTPATIENT [id number] Notes Entered by: KYLE GOSS 14 Dec 2012 1030 ------- ------- ------- ------- -- R/O UTI and Cold YOLANDA-RAHAT CARTER 12/14 Released w/o Limitations [facility] (L&D Triage) [facility]) OUTPATIENT [id number] jenna 32 CARLOS Colvin 12/14 Released w/o Limitations [facility] ([facility]) [facility]) OUTPATIENT [id number] pcb 3 CHANCE HADDAD 12/15 Released w/o Limitations [facility] ([facility]) [facility]) TELE CONSULT [id number] Notes Entered by: PEGGY SOTOMAYOR 27 Dec 2012 1052 ------- ------- ------- ------- -- Yeast infecti on LETY OLIVASJITENDRA MERCEDESJAMES 12/27 Advice Assessment [facility] ([facility]) [facility](L &D Triage) OUTPATIENT [id number] Notes Entered by: LINDSAY ALLISON 02 Jan 2013 0730 ------- ------- ------- ------- -- R/O UTI RAHAT HAIDER 01/01 Released w/o Limitations [facility] (L&D Triage) [facility](L &D Triage) OUTPATIENT [id number] Notes Entered by: CORRINE CRANE 12 Jan 2013 1350 ------- ------- ------- ------- -- JOYCE Gao 01/12 Released w/o Limitations [facility] (L&D Triage) [facility]) OUTPATIENT [id number] jenna 27wCARLOS Reilly 01/16 Released w/o Limitations [facility] ([facility]) [facility] PCMH Team 1) TELE CONSULT [id number] Notes Entered by: Phill LEIVA 18 Jan 2013 1242 ------- ------- ------- ------- -- SALLY MEANS 01/18 [facility] ([facility] PCM Team 1) [facility](L &D Triage) OUTPATIENT [id number] Notes Entered by: Jackie RAMIREZ I 24 Jan 2013 1423 ------- ------- ------- ------- -- Possibl e yeast infecti onRENETTA MCKEE 01/24 Released w/o Limitations [facility] (L&D Triage) [facility]) OUTPATIENT [id number] JENNA 38wKRISTIN Hi 01/30 Released w/o Limitations [facility] ([facility]) [facility]) OUTPATIENT [id number] 40 wks CARLOS GASTON 02/06 Released w/o Limitations [facility] ([facility]) [facility](L &D Triage) OUTPATIENT [id number] Notes Entered by: LAUREN SCOTT,MAXIMILIANO QUEZADA ER 11 Feb 2013 1506 ------- ------- ------- ------- -- headfilomena mariee/SHEMAR Robles 02/11 Released w/o Limitations [facility] (L&D Triage) [facility]) OUTPATIENT [id number] [address] 02/14 Released w/o Limitations [facility] ([facility]) [facility] DIRECT TO [facility] FROM OTHER THAN ER OR [facility] [id number] HUBERT ZAVALA 02/17 DISCHARGED HOME [facility] Med PCMH Team 1) TELE CONSULT [id number] Notes Entered by: SHARON PATEL 23 Feb 2013 1159 ------- ------- ------- ------- -- Constip ation, ?'s about injecti on site for TDAP, MEÑO PATEL 02/23 Referred for Appointment [facility] ([facility] Med PCMH Team 1) [facility](O ccupation al Medicine) OUTPATIENT [id number] CARD UPDATE 4 WART INSPECT ION ON FINGERS ,,,,,MY ORDINARIO, ANALOU INGRAM 03/29 Released w/o Limitations [facility] (Occupa tional Medicin e) [facility] Immunizat ions) OUTPATIENT [id number] IRAIDA Sweet 04/07 Released w/o Limitations [facility] ([facility] Immuniz ations) [facility]) OUTPATIENT [id number] PP 9 weeks EMELY SMITH 04/10 Released w/o Limitations [facility] ([facility]) [facility](O ccupation al Medicine) OUTPATIENT [id number] 703P,,, ,,@ ORDINARIO, ANALOU INGRAM 04/17 Released w/o Limitations [facility] (Occupa tional Medicin e) [facility](O ptometry Clinic) OUTPATIENT [id number] [facility]/ [id number] GEOVANNI WRIGHT 05/05 Released w/o Limitations [facility] ([facility]) [facility] [place] Team 1) OUTPATIENT [id number] post depress ion/thy roid - labs done ABIGAIL PARKINSON 05/18 Released w/o Limitations [facility] ([facility] Team 1) [facility] [place] Team 1) OUTPATIENT [id number] [facility] DESHAWN BAJWA V 07/12 Released w/o Limitations [facility] ([facility] Team 1) [facility] [place] Team 1) TELE CONSULT [id number] Notes Entered by: JULIAN OCASIO 31 Jul 2013 1524 ------- ------- ------- ------- -- Pt was seen at ER 3/9 for Lumbago (low back px) SHEMAR MONTGOMERY 07/31 [facility] ([facility] Team 1) [facility] [place] Team 1) OUTPATIENT [id number] needs BC SHEMAR MONTGOMERY 08/08 Released w/o Limitations [facility] ([facility] Team 1) [facility] [place] Team 1) OUTPATIENT [id number] referra l to derm and thyriod issues SHEMAR MONTGOMERY 10/30 Released w/o Limitations [facility] ([facility] Team 1) [facility] [place] Team 1) TELE CONSULT [id number] Notes Entered by: JOSE DE JESUS AMARO 02 Nov 2013 1059 ------- ------- ------- ------- -- thyroid GALLO SORIANO 11/02 Referred for Appointment [facility] ([facility] Team 1) [facility]) OUTPATIENT [id number] gynecologist f/u SHANNAN HARTMAN 12/01 Released w/o Limitations [facility] ([facility]) [facility] PCM Team 1) OUTPATIENT [id number] memory loss,sl eep MEÑO Menendez 12/12 Released w/o Limitations [facility] ([facility] PCM Team 1) [facility] PCM Team 1) OUTPATIENT [id number] f/u labs ULISES SHEMAR DEVON 12/25 Released w/o Limitations [facility] ([facility] PCM Team 1) [facility](N utrition Clinic) OUTPATIENT [id number] HYPOTHY TOBI WHIPPLE 12/28 Released w/o Limitations [facility] (Nutrit ion Clinic) [facility]) OUTPATIENT [id number] gynecologist YUKO Gaytan 03/25 Released w/o Limitations [facility] ([facility]) [facility]) TELE CONSULT [id number] Notes Entered by: SHANTI MUSE 09 Apr 2014 1601 ------- ------- ------- ------- -- SHANNAN Gomez 04/09 [facility] ([facility]) [facility] PCM Team 1) OUTPATIENT [id number] thyroid JENNIFER Moran 05/01 Released w/o Limitations [facility] ([facility] PCM Team 1) [facility] PCM Team 1) OUTPATIENT [id number] referra l to JENNIFER Avery 05/21 Released w/o Limitations [facility] ([facility] PCM Team 1) [facility] PCM Team 1) OUTPATIENT [id number] bloodwo rk/anxi ety JENNIFER MILLER 06/14 Released w/o Limitations [facility] ([facility] Team 1) [facility] [place] Team 1) OUTPATIENT [id number] Lab results PAUL JENNIFERARELY SANTAMARIA 07/11 Released w/o Limitations [facility] ([facility] Team 1) [facility] [place] Team 1) TELE CONSULT [id number] Notes Entered by: BANDAR DAMON 04 Dec 2014 0907 ------- ------- ------- ------- -- Thyroid Check up apointm ent CRISTAL SALINAS 12/04 Referred for Appointment [facility] ([facility] Team 1) [facility] [place] Team 1) OUTPATIENT [id number] ear bhavaniur ARMANDO Smith 12/05 Released w/o Limitations [facility] ([facility] Team 1) [facility] [place] Team 1) TELE CONSULT [id number] Notes Entered by: DEREK DE LEON 07 Dec 2014 0835 ------- ------- ------- ------- -- Pt is request ing for labs to be put in for thyroid check before appoint ment. DORIS CASILLAS [facility] 12/06 Referred for Appointment [facility] ([facility] Team 1) [facility] [place] Team 1) TELE CONSULT [id number] Notes Entered by: DEREK DE LEON 06 Mar 2015 0926 ------- ------- ------- ------- -- Pt is request ing labs be put it before appoint ment with LT [facility]. Thank you CRISTAL SALINAS 03/06 Referred for Appointment [facility] ([facility] Team 1) [facility] [place] Team 1) OUTPATIENT [id number] [facility] physica phill/ lesvia jordan STEFAN LOUIS 03/15 Released w/o Limitations [place] [facility] ([facility] Team 1) [place] [facility] [place] Team 1) OUTPATIENT [id number] Notes Entered by: ANA MULLINS 11 Apr 2015 0837 ------- ------- ------- ------- -- JENNIFER Mccain 04/10 Released w/o Limitations [place] [facility] ([facility] Team 1) [facility] [place] Team 1) OUTPATIENT [id number] thyroid c/u JENNIFER MILLER 04/15 Released w/o Limitations [facility] ([facility] Team 1) Procedures Combined list of: 1) Procedures from Department of Veterans Affairs facilities going back up to thelast 18 months, not all VA non-surgical procedures are included; 2) All procedures from the Department of Defense facilities. Procedure Procedure Type Code Date Perfomer Comments [facility] e INDIVIDUAL PSYCHOTHERAPY, INSIGHT ORIENTED, BEHAVIOR MODIFYING AND/OR SUPPORTIVE, IN AN OFFICE OR OUTPATIENT FACILITY, APPROXIMATELY 20 TO 30 MINUTES [id number] WITH THE PATIENT 2007 [facility] PSYCHIATRIC DIAGNOSTIC INTERVIEW EXAMINATION 2007 [facility] COLLECTION OF VENOUS BLOOD BY VENIPUNCTURE 2007 [facility] INDIVIDUAL PSYCHOTHERAPY, INSIGHT ORIENTED, BEHAVIOR MODIFYING AND/OR SUPPORTIVE, IN AN OFFICE OR OUTPATIENT FACILITY, APPROXIMATELY 20 TO 30 MINUTES [id number] WITH THE PATIENT 2007 [facility] INDIVIDUAL PSYCHOTHERAPY, INSIGHT ORIENTED, BEHAVIOR MODIFYING AND/OR SUPPORTIVE, IN AN OFFICE OR OUTPATIENT FACILITY, APPROXIMATELY 75 TO 80 MINUTES [id number] WITH THE PATIENT 2007 [facility] INDIVIDUAL PSYCHOTHERAPY, INSIGHT ORIENTED, BEHAVIOR MODIFYING AND/OR SUPPORTIVE, IN AN OFFICE OR OUTPATIENT FACILITY, APPROXIMATELY 20 TO 30 MINUTES [id number] WITH THE PATIENT 2006 [facility] INDIVIDUAL PSYCHOTHERAPY, INSIGHT ORIENTED, BEHAVIOR MODIFYING AND/OR SUPPORTIVE, IN AN OFFICE OR OUTPATIENT FACILITY, APPROXIMATELY 45 TO 50 MINUTES [id number] WITH THE PATIENT 2006 [facility] INDIVIDUAL PSYCHOTHERAPY, INSIGHT ORIENTED, BEHAVIOR MODIFYING AND/OR SUPPORTIVE, IN AN OFFICE OR OUTPATIENT FACILITY, APPROXIMATELY 45 TO 50 MINUTES [id number] WITH THE PATIENT 2006 [facility] INDIVIDUAL PSYCHOTHERAPY, INSIGHT ORIENTED, BEHAVIOR MODIFYING AND/OR SUPPORTIVE, IN AN OFFICE OR OUTPATIENT FACILITY, APPROXIMATELY 75 TO 80 MINUTES [id number] WITH THE PATIENT 2006 [facility] INDIVIDUAL PSYCHOTHERAPY, INSIGHT ORIENTED, BEHAVIOR MODIFYING AND/OR SUPPORTIVE, IN AN OFFICE OR OUTPATIENT FACILITY, APPROXIMATELY 45 TO 50 MINUTES [id number] WITH THE PATIENT 2006 [facility] PSYCHIATRIC DIAGNOSTIC INTERVIEW EXAMINATION 2006 [facility] SMEAR, PRIMARY SOURCE WITH INTERPRETATION; WET MOUNT FOR INFECTIOUS AGENTS (EG, SALINE, GRANT INK, GUERDA PREPS) 2006 [facility] INJECTION, DOLASETRON MESYLATE, 10 MG 2005 [facility] INTRAVENOUS INFUSION, HYDRATION; INITIAL, 31 MINUTES TO 1 HOUR 2005 [facility] INDIVIDUAL PSYCHOTHERAPY, INSIGHT ORIENTED, BEHAVIOR MODIFYING AND/OR SUPPORTIVE, IN AN OFFICE OR OUTPATIENT FACILITY, APPROXIMATELY 45 TO 50 MINUTES [id number] WITH THE PATIENT 2005 [facility] SELF-CARE/HOME MANAGMENT TRAIN (EG,ACT OF DAILY LIVING (ADL) &COMPENSAT TRAIN,MEAL PREPARATION,SAFETY PROCS,AND INSTRUCT IN USE OF ASST TECHNOLOGY DEV/ADPT EQUIP) DIR ONE-ON-ONE CONT,EA 15 MINUTES 2005 [facility] AVULSION OF NAIL PLATE, PARTIAL OR COMPLETE, SIMPLE; SINGLE 2011 [facility] TELE ASSESS & MGT SRV PROV QUAL NONPHYS HLTH CARE PRO TO EST PAT,PARENT,GUARD NOT ORIG REL ASSESS & MGT SRV PROV W/IN PREV 7 DAYS NOR LEAD ASSESS & MGT SRV/PX W/IN NXT 24 HR/SOON APT;5-10 MIN MED DIS 2011 Do[facility] KOREAN ENCEPHALITIS VIRUS VACCINE, INACTIVATED, FOR INTRAMUSCULAR USE 2011 [facility] SCREENING PAPANICOLAOU SMEAR; OBTAINING, PREPARING AND CONVEYANCE OF CERVICAL OR VAGINAL SMEAR TO LABORATORY 2011 [facility] HEPATITIS A VACCINE (HEPA), ADULT DOSAGE, FOR INTRAMUSCULAR USE 2011 [facility] KOREAN ENCEPHALITIS VIRUS VACCINE, INACTIVATED, FOR INTRAMUSCULAR USE 2011 [facility] TELE ASSESS & MGT SRV PROV QUAL NONPHYS HLTH CARE PRO TO EST PAT,PARENT,GUARD NOT ORIG REL ASSESS & MGT SRV PROV W/IN PREV 7 DAYS NOR LEAD ASSESS & MGT SRV/PX W/IN NXT 24 HR/SOON APT;5-10 MIN MED DIS 2011 [facility] TELE ASSESS & MGT SRV PROV QUAL NONPHYS HLTH CARE PRO TO EST PAT,PARENT,GUARD NOT ORIG REL ASSESS & MGT SRV PROV W/IN PREV 7 DAYS NOR LEAD ASSESS & MGT SRV/PX W/IN NXT 24 HR/SOON APT;5-10 MIN MED DIS 2011 [facility] INTRAVENOUS INFUSION, HYDRATION; INITIAL, 31 MINUTES TO 1 HOUR 2010 [facility] TELE ASSESS & MGT SRV PROV QUAL NONPHYS HLTH CARE PRO TO EST PAT,PARENT,GUARD NOT ORIG REL ASSESS & MGT SRV PROV W/IN PREV 7 DAYS NOR LEAD ASSESS & MGT SRV/PX W/IN NXT 24 HR/SOON APT;5-10 MIN MED DIS 2010 Do[facility] SCREENING PAPANICOLAOU SMEAR; OBTAINING, PREPARING AND CONVEYANCE OF CERVICAL OR VAGINAL SMEAR TO LABORATORY 2010 [facility] INDIVIDUAL PSYCHOTHERAPY, INSIGHT ORIENTED, BEHAVIOR MODIFYING AND/OR SUPPORTIVE, IN AN OFFICE OR OUTPATIENT FACILITY, APPROXIMATELY 45 TO 50 MINUTES [id number] WITH THE PATIENT 2006 [facility] INDIVIDUAL PSYCHOTHERAPY, INSIGHT ORIENTED, BEHAVIOR MODIFYING AND/OR SUPPORTIVE, IN AN OFFICE OR OUTPATIENT FACILITY, APPROXIMATELY 45 TO 50 MINUTES [id number] WITH THE PATIENT 2006 [facility] PSYCHIATRIC DIAGNOSTIC INTERVIEW EXAMINATION 2006 [facility] CRISIS INTERVENTION MENTAL HEALTH SERVICES, PER HOUR 2006 [facility] PSYCHIATRIC DIAGNOSTIC INTERVIEW EXAMINATION 2006 [facility] IMMUNIZATION ADMINISTRATION (INCLUDES PERCUTANEOUS, INTRADERMAL, SUBCUTANEOUS, OR INTRAMUSCULAR INJECTIONS); 1 VACCINE (SINGLE OR COMBINATION VACCINE/TOXOID) 2005 [facility] SKIN TEST; TUBERCULOSIS, INTRADERMAL 2005 [facility] WET ALFREDO, INCLUDING PREPARATIONS OF VAGINAL, CERVICAL OR SKIN SPECIMENS 2004 [facility] UNLISTED PROCEDURE, CONJUNCTIVA 2004 [facility] CULTURE, BACTERIAL; ANY OTHER SOURCE EXCEPT URINE, BLOOD OR STOOL, AEROBIC, WITH ISOLATION AND PRESUMPTIVE IDENTIFICATION OF ISOLATES 2001 [facility] CULTURE, BACTERIAL, DEFINITIVE; THROAT OR NOSE 2000 [facility] EDUCATIONAL SUPPLIES, SUCH BOOKS, TAPES, AND PAMPHLETS, FOR THE PATIENT'S EDUCATION AT COST TO PHYSICIAN OR OTHER QUALIFIED HEALTH LOCOMOTIVE OILER 1999 [facility] DESTRUCTION (EG, LASER SURGERY, ELECTROSURGERY, CRYOSURGERY, CHEMOSURGERY, SURGICAL CURETTEMENT), OF BENIGN LESIONS OTHER THAN SKIN TAGS OR CUTANEOUS VASCULAR PROLIFERATIVE LESIONS; UP TO 14 LESIONS 2014 [facility] SPECIAL REPORTS SUCH INSURANCE FORMS, MORE THAN THE INFORMATION CONVEYED IN THE USUAL MEDICAL COMMUNICATIONS OR STANDARD REPORTING FORM 2014 [facility] FAMILY PSYCHOTHERAPY (CONJOINT PSYCHOTHERAPY) (WITH PATIENT PRESENT), 50 MINUTES 2014 [facility] FAMILY PSYCHOTHERAPY (CONJOINT PSYCHOTHERAPY) (WITH PATIENT PRESENT), 50 MINUTES 2014 [facility] FAMILY PSYCHOTHERAPY (CONJOINT PSYCHOTHERAPY) (WITH PATIENT PRESENT), 50 MINUTES 2014 [facility] FAMILY PSYCHOTHERAPY (CONJOINT PSYCHOTHERAPY) (WITH PATIENT PRESENT), 50 MINUTES 2014 [facility] PSYCHOTHERAPY, 30 MINUTES WITH PATIENT 2014 [facility] GROUP PSYCHOTHERAPY (OTHER THAN OF A MULTIPLE-FAMILY GROUP) 2014 [facility] PSYCHIATRIC DIAGNOSTIC EVALUATION 2014 [facility] GROUP PSYCHOTHERAPY (OTHER THAN OF A MULTIPLE-FAMILY GROUP) 2014 [facility] FAMILY PSYCHOTHERAPY (CONJOINT PSYCHOTHERAPY) (WITH PATIENT PRESENT), 50 MINUTES 2014 [facility] GROUP PSYCHOTHERAPY (OTHER THAN OF A MULTIPLE-FAMILY GROUP) 2014 [facility] FAMILY PSYCHOTHERAPY (CONJOINT PSYCHOTHERAPY) (WITH PATIENT PRESENT), 50 MINUTES 2014 [facility] GROUP PSYCHOTHERAPY (OTHER THAN OF A MULTIPLE-FAMILY GROUP) 2014 [facility] FAMILY PSYCHOTHERAPY (CONJOINT PSYCHOTHERAPY) (WITH PATIENT PRESENT), 50 MINUTES 2014 [facility] GROUP PSYCHOTHERAPY (OTHER THAN OF A MULTIPLE-FAMILY GROUP) 2014 [facility] FAMILY PSYCHOTHERAPY (CONJOINT PSYCHOTHERAPY) (WITH PATIENT PRESENT), 50 MINUTES 2014 [facility] GROUP PSYCHOTHERAPY (OTHER THAN OF A MULTIPLE-FAMILY GROUP) 2014 [facility] FAMILY PSYCHOTHERAPY (CONJOINT PSYCHOTHERAPY) (WITH PATIENT PRESENT), 50 MINUTES 2014 [facility] FAMILY PSYCHOTHERAPY (CONJOINT PSYCHOTHERAPY) (WITH PATIENT PRESENT), 50 MINUTES 2014 [facility] PSYCHOTHERAPY, 60 MINUTES WITH PATIENT 2014 [facility] FAMILY PSYCHOTHERAPY (CONJOINT PSYCHOTHERAPY) (WITH PATIENT PRESENT), 50 MINUTES 2014 [facility] FAMILY PSYCHOTHERAPY (CONJOINT PSYCHOTHERAPY) (WITH PATIENT PRESENT), 50 MINUTES 2014 [facility] FAMILY PSYCHOTHERAPY (CONJOINT PSYCHOTHERAPY) (WITH PATIENT PRESENT), 50 MINUTES 2014 [facility]D PSYCHOTHERAPY, 60 MINUTES WITH PATIENT 2014 Do[facility] FAMILY PSYCHOTHERAPY (CONJOINT PSYCHOTHERAPY) (WITH PATIENT PRESENT), 50 MINUTES 2014 Do[facility] PSYCHOTHERAPY, 60 MINUTES WITH PATIENT 2014 [facility] FAMILY PSYCHOTHERAPY (CONJOINT PSYCHOTHERAPY) (WITH PATIENT PRESENT), 50 MINUTES 2014 [facility] FAMILY PSYCHOTHERAPY (CONJOINT PSYCHOTHERAPY) (WITH PATIENT PRESENT), 50 MINUTES 2014 DoD PSYCHOTHERAPY, 45 MINUTES WITH PATIENT 2014 [facility] FAMILY PSYCHOTHERAPY (CONJOINT PSYCHOTHERAPY) (WITH PATIENT PRESENT), 50 MINUTES 2014 DoD PSYCHOTHERAPY, 45 MINUTES WITH PATIENT 2014 [facility] FAMILY PSYCHOTHERAPY (CONJOINT PSYCHOTHERAPY) (WITH PATIENT PRESENT), 50 MINUTES 2014 [facility] FAMILY PSYCHOTHERAPY (CONJOINT PSYCHOTHERAPY) (WITH PATIENT PRESENT), 50 MINUTES 2014 Do[facility] PSYCHOTHERAPY, 45 MINUTES WITH PATIENT 2014 DoD PSYCHOTHERAPY, 60 MINUTES WITH PATIENT 2013 [facility] PSYCHOTHERAPY, 45 MINUTES WITH PATIENT 2013 [facility]D WEIGHT RECORDED (PAG) 2013 [facility] PSYCHOTHERAPY, 45 MINUTES WITH PATIENT 2013 [facility] MEDICAL NUTRITION THERAPY; GROUP (2 OR MORE INDIVIDUAL(S)), EACH 30 MINUTES 2013 [facility] PSYCHIATRIC DIAGNOSTIC EVALUATION 2013 [facility] OPHTHALMOLOGICAL SERVICES: MEDICAL EXAMINATION AND EVALUATION WITH INITIATION OF DIAGNOSTIC AND TREATMENT PROGRAM; COMPREHENSIVE, NEW PATIENT, 1 OR MORE VISITS 2012 [facility] GONADOTROPIN, CHORIONIC (HCG); QUALITATIVE 2012 [facility] IMMUNIZATION ADMINISTRATION BY INTRANASAL OR ORAL ROUTE; 1 VACCINE (SINGLE OR COMBINATION VACCINE/TOXOID) 2012 [facility] MEDICAL INDUCTION OF LABOR 2012 [facility] LOW CERVICAL SECTION 2012 [facility] POSTOPERATIVE FOLLOW-UP VISIT, NORMALLY INCLUDED IN THE SURGICAL PACKAGE, INDICATE THAT EVALUATION & MANAGEMENT SERVICE WAS PERFORMED DURING A POSTOPERATIVE PERIOD REASON RELATED ORIGINAL PROCEDURE 2012 [facility] POSTOPERATIVE FOLLOW-UP VISIT, NORMALLY INCLUDED IN THE SURGICAL PACKAGE, INDICATE THAT EVALUATION & MANAGEMENT SERVICE WAS PERFORMED DURING A POSTOPERATIVE PERIOD REASON RELATED ORIGINAL PROCEDURE 2012 [facility] POSTOPERATIVE FOLLOW-UP VISIT, NORMALLY INCLUDED IN THE SURGICAL PACKAGE, INDICATE THAT EVALUATION & MANAGEMENT SERVICE WAS PERFORMED DURING A POSTOPERATIVE PERIOD REASON RELATED ORIGINAL PROCEDURE 2012 [facility] DELIVERY ONLY 2012 [facility] SUBSEQ CARE VISIT () [EXCLS:PATIENTS WHO ARE SEEN FOR A CONDITION UNREL TO / CARE (EG,AN UP RESPIR INFECT;PATIENTS SEEN FOR CONSULTATION ONLY,NOT FOR CONT CARE)] 2012 [facility] NON-STRESS TEST 2012 [facility] SUBSEQ CARE VISIT () [EXCLS:PATIENTS WHO ARE SEEN FOR A CONDITION UNREL TO / CARE (EG,AN UP RESPIR INFECT;PATIENTS SEEN FOR CONSULTATION ONLY,NOT FOR CONT CARE)] 2012 [facility] SUBSEQ CARE VISIT () [EXCLS:PATIENTS WHO ARE SEEN FOR A CONDITION UNREL TO / CARE (EG,AN UP RESPIR INFECT;PATIENTS SEEN FOR CONSULTATION ONLY,NOT FOR CONT CARE)] 2012 [facility] SMEAR, PRIMARY SOURCE WITH INTERPRETATION; WET MOUNT FOR INFECTIOUS AGENTS (EG, SALINE, GRANT INK, GUERDA PREPS) 2012 [facility] ULTRASOUND, UTERUS, REAL TIME WITH IMAGE DOCUMENTATION, LIMITED (EG, HEART BEAT, PLACENTAL LOCATION, POSITION AND/OR QUALITATIVE AMNIOTIC FLUID VOLUME), 1 OR MORE FETUSES 2012 [facility] NON-STRESS TEST 2012 [facility] SMEAR, PRIMARY SOURCE WITH INTERPRETATION; WET MOUNT FOR INFECTIOUS AGENTS (EG, SALINE, GRANT INK, GUERDA PREPS) 2012 [facility] SUBSEQ CARE VISIT () [EXCLS:PATIENTS WHO ARE SEEN FOR A CONDITION UNREL TO / CARE (EG,AN UP RESPIR INFECT;PATIENTS SEEN FOR CONSULTATION ONLY,NOT FOR CONT CARE)] 2012 [facility] NON-STRESS TEST 2012 [facility] SMEAR, PRIMARY SOURCE WITH INTERPRETATION; WET MOUNT FOR INFECTIOUS AGENTS (EG, SALINE, GRANT INK, GUERDA PREPS) 2012 [facility] NON-STRESS TEST 2012 [facility] RHO(D) IMMUNE GLOBULIN (RHIG), HUMAN, FULL-DOSE, FOR INTRAMUSCULAR USE 2012 [facility] NON-STRESS TEST 2012 [facility] TELE ASSESS & MGT SRV PROV QUAL NONPHYS HLTH CARE PRO TO EST PAT,PARENT,GUARD NOT ORIG REL ASSESS & MGT SRV PROV W/IN PREV 7 DAYS NOR LEAD ASSESS & MGT SRV/PX W/IN NXT 24 HR/SOON APT;5-10 MIN MED DIS 2012 [facility] NON-STRESS TEST 2012 [facility] MONITORING DURING LABOR BY CONSULTING PHYSICIAN (IE, NON-ATTENDING PHYSICIAN) WITH WRITTEN REPORT; SUPERVISION AND INTERPRETATION 2012 [facility] SUBSEQ CARE VISIT () [EXCLS:PATIENTS WHO ARE SEEN FOR A CONDITION UNREL TO / CARE (EG,AN UP RESPIR INFECT;PATIENTS SEEN FOR CONSULTATION ONLY,NOT FOR CONT CARE)] 2012 [facility] SUBSEQ CARE VISIT () [EXCLS:PATIENTS WHO ARE SEEN FOR A CONDITION UNREL TO / CARE (EG,AN UP RESPIR INFECT;PATIENTS SEEN FOR CONSULTATION ONLY,NOT FOR CONT CARE)] 2012 [facility] ULTRASOUND, UTERUS, REAL TIME WITH IMAGE DOCUMENTATION,TRANS VAGINAL 2012 [facility] ULTRASOUND, UTERUS, REAL TIME WITH IMAGE DOCUMENTATION,TRANS VAGINAL 2012 [facility] ULTRASOUND, UTERUS, REAL TIME WITH IMAGE DOCUMENTATION, AND MATERNAL EVALUATION, FIRST TRIMESTER (< 14 WEEKS 0 DAYS), TRANSABDOMINAL APPROACH; SINGLE OR FIRST GESTATION 2012 [facility] DESTRUCTION (EG, LASER SURGERY, ELECTROSURGERY, CRYOSURGERY, CHEMOSURGERY, SURGICAL CURETTEMENT), OF BENIGN LESIONS OTHER THAN SKIN TAGS OR CUTANEOUS VASCULAR PROLIFERATIVE LESIONS; UP TO 14 LESIONS 2012 [facility] SKIN TEST; TUBERCULOSIS, INTRADERMAL 2011 [facility] SKIN TEST; TUBERCULOSIS, INTRADERMAL 2011 [facility] IMMUNIZATION ADMINISTRATION (INCLUDES PERCUTANEOUS, INTRADERMAL, SUBCUTANEOUS, OR INTRAMUSCULAR INJECTIONS); EACH ADDITIONAL VACCINE (SINGLE OR COMBINATION VACCINE/TOXOID) 2011 [facility] MEDICAL NUTRITION THERAPY; GROUP (2 OR MORE INDIVIDUAL(S)), EACH 30 MINUTES 2011 [facility] INTRAVENOUS INFUSION, HYDRATION; INITIAL, 31 MINUTES TO 1 HOUR 2011 [facility] TELE ASSESS & MGT SRV PROV QUAL NONPHYS HLTH CARE PRO TO EST PAT,PARENT,GUARD NOT ORIG REL ASSESS & MGT SRV PROV W/IN PREV 7 DAYS NOR LEAD ASSESS & MGT SRV/PX W/IN NXT 24 HR/SOON APT;5-10 MIN MED DIS 2011 [facility] Non-Physician Phone Call To Patient/Provider Brief (5-10min) Non-Physician Phone Call To Patient/Provider Brief (5-10min) [id number] 2011 RANULFO MORAN DoD Hepatitis A And Hepatitis B (Intramuscular Use) Adult Dosage Hepatitis A And Hepatitis B (Intramuscular Use) Adult Dosage 89774 2011 RANULFO MORAN Do[facility] Vaccines Viral Icelandic Encephalitis Inactivated, Intramuscular Vaccines Viral Icelandic Encephalitis Inactivated, Intramuscular 73088 2011 NELSON SYLVESTER Immunization Administration One Vaccine Immunization Administration One Vaccine 00862 2011 NELSON SYLVESTER [facility] Screening papanicolaou smear; obtaining, preparing and conveyance of cervical or vaginal smear to laboratory 2011 MITCHEL CARPIO [facility] Tdap Vaccine Tdap Vaccine 97782 2011 VALENTIN SOW [facility] Immunization Administration One Vaccine Immunization Administration One Vaccine 53252 2011 VALENTIN SOW Meningococcal Conjugate Vaccine Tetravalent (A C Y W-135) 2011 VALENTIN SOW Hepatitis A And Hepatitis B (Intramuscular Use) Adult Dosage Hepatitis A And Hepatitis B (Intramuscular Use) Adult Dosage 15805 2011 VALENTIN SOW Immunization Administration Each Additional Vaccine 2011 VALENTIN SOW Vaccines Viral Icelandic Encephalitis Inactivated, Intramuscular Vaccines Viral Icelandic Encephalitis Inactivated, Intramuscular 67705 2011 NELSON SYLVESTER Immunization Administration One Vaccine Immunization Administration One Vaccine 07416 2011 NELSON SYLVESTER Non-Physician Phone Call To Patient/Provider Brief (5-10min) Non-Physician Phone Call To Patient/Provider Brief (5-10min) 01835 2011 ANTHONY LAGUNAS Non-Physician Phone Call To Patient/Provider Brief (5-10min) Non-Physician Phone Call To Patient/Provider Brief (5-10min) 01315 2011 QUEENIE BALLARD IV Infusion For Hydration 31 Minutes To 1 Hour IV Infusion For Hydration 31 Minutes To 1 Hour [id number] 2010 MAME ROQUE Started at 1845. l litter of LR. [facility] Intravenous Catheter Placement Intravenous Catheter Placement 37357 2010 MAME ROQUE [facility] Non-Physician Phone Call To Patient/Provider Brief (5-10min) Non-Physician Phone Call To Patient/Provider Brief (5-10min) 04351 2010 ASHKAN LONDON [facility] Screening papanicolaou smear; obtaining, preparing and conveyance of cervical or vaginal smear to laboratory 2010 AFUA GODWIN [facility] Social Work Individual Outpatient Counseling 20-30 Minutes Social Work Individual Outpatient Counseling 20-30 Minutes 05917 2007 JACE WARNER [facility] Psychiatric Evaluation Comprehensive Examination Psychiatric Evaluation Comprehensive Examination 41970 2007 JACE WARNER DoD Social Work Individual Outpatient Counseling 20-30 Minutes Social Work Individual Outpatient Counseling 20-30 Minutes [id number] 2007 AFUA MCBRIDE [facility] Social Work Individual Outpatient Counseling 75-80 Minutes Social Work Individual Outpatient Counseling 75-80 Minutes [id number] 2007 AFUA MCBRIDE [facility] Social Work Individual Outpatient Counseling 20-30 Minutes Social Work Individual Outpatient Counseling 20-30 Minutes [id number] 2006 JACE WARNER DoD Social Work Individual Outpatient Counseling 45-50 Minutes Social Work Individual Outpatient Counseling 45-50 Minutes [id number] 2006 JACE WARNER DoD Social Work Individual Outpatient Counseling 45-50 Minutes Social Work Individual Outpatient Counseling 45-50 Minutes [id number] 2006 JACE WARNER DoD Social Work Individual Outpatient Counseling 75-80 Minutes Social Work Individual Outpatient Counseling 75-80 Minutes [id number] 2006 JACE WARNER DoD Social Work Individual Outpatient Counseling 45-50 Minutes Social Work Individual Outpatient Counseling 45-50 Minutes [id number] 2006 JACE WARNER [facility] Psychiatric Evaluation Comprehensive Examination Psychiatric Evaluation Comprehensive Examination 92855 2006 JACE WARNER [facility] Social Work Individual Outpatient Counseling 45-50 Minutes Social Work Individual Outpatient Counseling 45-50 Minutes [id number] 2006 JACE KULKARNI [facility] Social Work Individual Outpatient Counseling 45-50 Minutes Social Work Individual Outpatient Counseling 45-50 Minutes [id number] 2006 JACE KULKARNI [facility] Psychiatric Evaluation Comprehensive Examination Psychiatric Evaluation Comprehensive Examination 95141 2006 JACE KULKARNI [facility] Crisis intervention mental health services, per hour 2006 JACE KULKARNI [facility] Psychiatric Evaluation Comprehensive Examination Psychiatric Evaluation Comprehensive Examination 79567 2006 MAURO JOHNSON [facility] Psychiatric Therapy Individual Approximately 45-50 Minutes Psychiatric Therapy Individual Approximately 45-50 Minutes [id number] 2005 GUERO LEI [facility] Training And Self-Care Skills Training And Self-Care Skills 14549 2005 LES VALENZUELA [facility] Hepatitis B Vaccine (Active); 20 Years and Above 2005 [place] [facility] Immunization Administration One Vaccine Immunization Administration One Vaccine 43743 2005 [place] [facility] Skin Test Anergy tuberculin Skin Test Anergy tuberculin 29228 2005 GALLO ALICIA [facility] Destruction Of Benign Lesion By Cryosurgery Destruction Of Benign Lesion By Cryosurgery [address] Special Review / Reporting Of Patient Status Dr. Vivas Special Review / Reporting Of Patient Status [id number] 2014 HERIBERTO STEFAN KYLEE [facility] Psychiatric Therapy Marital 2014 BEACHQUAN LANDEROS Do[facility] Psychiatric Therapy Marital 2014 [place], QUAN CADEISTA DoD Psychiatric Therapy Marital 2014 [place], QUAN CADEISTA DoD Psychiatric Therapy Marital 2014 [place], QUAN CADEISTA DoD Psychiatric Therapy Individual Approximately 20-30 Minutes 2014 [place], QUAN SANTIAGOUTISTA Do[facility] Psychiatric Therapy Group (Interactive) Psychiatric Therapy Group (Interactive) [id number] 2014 [place], QUAN SANTIAGOUTISTA DoD Psychiatric Therapy Group (Interactive) Psychiatric Therapy Group (Interactive) 05974 2014 [place], QUAN CADEISTA DoD Psychiatric Therapy Marital 2014 [place], QUAN CADEISTA DoD Psychiatric Therapy Marital 2014 [place], QUAN SANTIAGOUTISTA DoD Psychiatric Therapy Group (Interactive) Psychiatric Therapy Group (Interactive) 01500 2014 [place], QUAN SANTIAGOUTISTA DoD Psychiatric Therapy Group (Interactive) Psychiatric Therapy Group (Interactive) 16981 2014 BEACH, QUAN SANTIAGOUTISTA DoD Psychiatric Therapy Marital 2014 [place], QUAN SANTIAGOUTISTA Do[facility] Psychiatric Therapy Group (Interactive) Psychiatric Therapy Group (Interactive) 02964 2014 [place], QUAN SANTIAGOUTISTA DoD Psychiatric Therapy Marital 2014 [place], QUAN SANTIAGOUTISTA DoD Psychiatric Therapy Group (Interactive) Psychiatric Therapy Group (Interactive) [id number] 2014 [place], QUAN SANTIAGOUTISTA DoD Psychiatric Therapy Marital 2014 [place], QUAN SMITH [facility] Psychiatric Therapy Marital 2014 [place], QUAN SMITH [facility] Psychiatric Therapy Marital 2014 [place], QUAN CADEISTA DoD Psychiatric Therapy Marital 2014 BEACH, QUAN SMITH [facility] Psychiatric Therapy Marital 2014 BEACHQUAN BAUTISTA DoD Psychiatric Therapy Marital 2014 BEACHQUAN BAUTISTA DoD Psychiatric Therapy Marital 2014 BEACHQUAN BAUTISTA DoD Psychiatric Therapy Marital 2014 BEACHQUAN LANDEROS [facility] Psychiatric Therapy Individual Approximately 45-50 Minutes 2014 ALAN KENNEY [facility] Psychiatric Therapy Marital 2014 BEACHQUAN [facility] Psychiatric Therapy Individual Approximately 45-50 Minutes 2014 [facility] 2014 BEACHQUAN LANDEROS [facility] Psychiatric Therapy Individual Approximately 45-50 Minutes 2014 [facility] Marital 2014 BEACHQUAN LANDEROS [employer] Psychiatric Therapy Individual Approximately 45-50 Minutes 2013 JEAN MARIE KENNEYJackie [facility] Weight Recorded Weight Recorded 2013 YUKO CHAMBERS [facility] A e /Interv Discharge Meds Reconciled W/ Current Meds List Assess/Interv Discharge Meds Reconciled W/ Current Meds List [id number] YUKO CHAMBERS [facility] Weight Recorded Weight Recorded 2013 YUKO CHAMBERS [facility] A e /Interv Discharge Meds Reconciled W/ Current Meds List Assess/Interv Discharge Meds Reconciled W/ Current Meds List 2013 YUKO CHAMBERS [facility] Social Work Individual Outpatient Counseling 45-50 Minutes 2013 [facility] Medical Nutrition Therapy Group (2 or More Individual(s)) Medical Nutrition Therapy Group (2 or More Individual(s)) 88669 2013 TOBI MCKINLEY [facility] Psychiatric Evaluation Comprehensive Examination Psychiatric Evaluation Comprehensive Examination 56282 2013 BRANDONALAN MEADOWSH [facility] Ophthalmological New Patient Start Comprehensive Care Ophthalmological New Patient Start Comprehensive Care 02478 2012 GEOVANNI WRIGHT Determination Of Refractive State Determination Of Refractive State 81535 2012 GEOVANNI WRIGHT [facility] Urine HCG, Test Urine HCG, Test 13210 2012 EMELY SMITH [facility] Obstetrical Services Care Visit Obstetrical Services Care Visit 0503F 2012 EMELY SMITH [facility] Screening papanicolaou smear; obtaining, preparing and conveyance of cervical or vaginal smear to laboratory 2012 EMELY SMITH [facility] Immunization Admin By Intranasal / Oral Route One Vaccine Immunization Admin By Intranasal / Oral Route One Vaccine 93481 2012 KRISTA KAISER [facility] Influenza Virus Vaccine Live Intranasal Influenza Virus Vaccine Live Intranasal 65818 2012 KRISTA KAISER Influenza, Live, Intranasal; Series #: 1; .2 mL; IN; Intranasal; Mfg: [employer]; Lot: [id number]; VIS given (Jami: 12/16/2012). [facility] OB Services Antepartum Care Only Subsequent Single Visit OB Services Antepartum Care Only Subsequent Single Visit 0502F 2012 CARLOS GASTON Non-Stre Test (___ 0,2) Non-Stress Test (___ 0,2) 22464 2012 FOFISHEMAR [facility] OB Services Antepartum Care Only Subsequent Single Visit OB Services Antepartum Care Only Subsequent Single Visit 0502F 2012 CARLOS GASTON OB Services Antepartum Care Only Subsequent Single Visit OB Services Antepartum Care Only Subsequent Single Visit 0502F 2012 BOB CONTRERASSSJED AUGUSTIN [facility] Vaginal Wet [place] Vaginal [place] 34015 2012 RENETTA REED [facility] Ultrasound Obstetric Limited Evaluation Ultrasound Obstetric Limited Evaluation 39659 2012 RENETTA REED Non-Stre Test (___ 0,2) Non-Stress Test (___ 0,2) 19592 2012 RENETTA REED OB Services Antepartum Care Only Subsequent Single Visit OB Services Antepartum Care Only Subsequent Single Visit 0502F 2012 RENETTA REED [facility] Ultrasound Obstetric Limited Evaluation Ultrasound Obstetric Limited Evaluation 14368 2012 CARLOS GASTON Preventive Medicine Group B Streptococcus During Week 35-37 Preventive Medicine Group B Streptococcus During Week 35-37 [id number] 2012 CARLOS GASTON OB Services Antepartum Care Only Subsequent Single Visit OB Services Antepartum Care Only Subsequent Single Visit 0502F 2012 CARLOS GASTON Non-Stre Test (___ 0,2) Non-Stress Test (___ 0,2) 71591 2012 JOYCE SWEET [facility] OB Services Antepartum Care Only Subsequent Single Visit OB Services Antepartum Care Only Subsequent Single Visit 0502F 2012 RAHAT BONE Non-Stre Test (___ 0,2) Non-Stress Test (___ 0,2) [id number] RAHAT BONE Vaginal Wet [place] Vaginal [place] 76421 2012 RAHAT BONE Non-Stre Test (___ 0,2) Non-Stress Test (___ 0,2) 37672 2012 RAHAT BONE OB Services Antepartum Care Only Subsequent Single Visit OB Services Antepartum Care Only Subsequent Single Visit 0502F 2012 RAHAT BONE OB Services Antepartum Care Only Subsequent Single Visit OB Services Antepartum Care Only Subsequent Single Visit 050F 2012 CARLOS GASTON Vaginal Discharge pH Vaginal Discharge pH 55052 2012 AFUA INGRAM Vaginal Wet [place] Vaginal [place] 14494 2012 AFUA INGRAM GUERDA and wet mount [facility] OB Services Antepartum Care Only Subsequent Single Visit OB Services Antepartum Care Only Subsequent Single Visit 0502F 2012 AFUA INGRAM Non-Stre Test (___ 0,2) Non-Stress Test (___ 0,2) 37429 2012 AFUA INGRAM Non-Stre Test (___ 0,2) Non-Stress Test (___ 0,2) 78900 2012 HILTON YOU Rho D Immune Globulin (Human) Intramuscular Use Full-dose Rho D Immune Globulin (Human) Intramuscular Use Full-dose 27373 2012 CARLOS GASTON [facility] OB Services Antepartum Care Only Subsequent Single Visit OB Services Antepartum Care Only Subsequent Single Visit 0502F 2012 CARLOS GASTON [facility] Non-Stre Test (___ 0,2) Non-Stress Test (___ 0,2) 28875 2012 AFUA INGRAM [facility] OB Services Antepartum Care Only Subsequent Single Visit OB Services Antepartum Care Only Subsequent Single Visit 0502F 2012 AFUA INGRAM [facility] Ultrasound Obstetric Limited Evaluation Ultrasound Obstetric Limited Evaluation 67593 2012 AFUA INGRAM [facility] Ultrasound [place] [address] 2012 AFUA INGRAM [facility] Non-Physician Phone Call To Patient/Provider Brief (5-10min) Non-Physician Phone Call To Patient/Provider Brief (5-10min) 02268 2012 TATI OWEN Non-Stre Test (___ 0,2) Non-Stress Test (___ 0,2) 68066 2012 JOYCE SWEET [facility] Obstetrical Services Placement Of External Monitor Obstetrical Services Placement Of External Monitor 67130 2012 ASHLEIGH FERNANDEZ [facility] OB Services Antepartum Care Only Subsequent Single Visit OB Services Antepartum Care Only Subsequent Single Visit 0502F 2012 KOBI LEBLANC [facility] OB Services Antepartum Care Only Subsequent Single Visit OB Services Antepartum Care Only Subsequent Single Visit 0502F 2012 KOBI LEBLANC [facility] Ultrasound [place] [address] 2012 HILTON YOU [facility] OB Services Antepartum Care Only First Visit, With Report OB Services Antepartum Care Only First Visit, With Report 0500F 2012 MO JOHNSON [facility] Ultrasound [place] [address] 2012 HILTON YOU [facility] Destruction Of Flat Warts By Cryosurgery Up To 14 Lesions 2012 CECIL SCHMIDT Patient identified by their name and date of . Patient made aware of the risk of failure of the procedure to eradicate the mole and therefore recurrence, scar formation (keloid), infection and pain. Informed consent d/w with patient and she verbally agreed to treatment. Lesion identified on left hand MCP of 33rd digit -volar aspect. The lesions were then pared down to the level of the surrounding skin. Liquid nitrogen direct using a template was used to freeze the lesions. The patient tolerated the procedure without complications [facility] Skin Test Anergy Tuberculin Intradermal Skin Test Anergy Tuberculin Intradermal 58443 2011 KISHA DEJESUS IPPD; Series #: 1; .1 mL; ID; Left Arm; Mfg: [employer] P[employer]; Lot: [id number]; VIS given. [facility] Skin Test Anergy Tuberculin Intradermal Skin Test Anergy Tuberculin Intradermal 98873 2011 CROW COUGHLIN IPPD; Series #: 1; .1 mL; ID; Left Arm; Mfg: [employer] P[employer]; Lot: [id number]; VIS given. [facility] Immunization Administration Each Additional Vaccine 2011 JAQUELINE BENJAMIN [facility] Immunization Administration One Vaccine Immunization Administration One Vaccine 97044 2011 JAQUELINE BENJAMIN [facility] Skin Test Anergy Tuberculin Intradermal Skin Test Anergy Tuberculin Intradermal 41773 2011 JAQUELINE BENJAMIN IPPD; Series #: 1; .1 mL; ID; Left Arm; Mfg: [employer]; Lot: [id number]; VIS given. [facility] Vaccines Vaccines 82481 2011 JAQUELINE BENJAMIN Influenza; Series #: 1; .5 mL; IM; Left Arm; Mfg: [employer] Lot: [id number]; VIS given (Jami: 01/01/09). [facility] Hepatitis A Vaccine Adult Dosage (Intramuscular Use) Hepatitis A Vaccine Adult Dosage (Intramuscular Use) 38652 2011 JAQUELINE BENJAMIN Hep A (Adult); Series #: 1; 1.0 mL; IM; Right Arm; Mfg: Other; Lot: [id number]; VIS given (Jami: 03/17/11). [facility] Medical Nutrition Therapy Group (2 or More Individual(s)) Medical Nutrition Therapy Group (2 or More Individual(s)) 10207 2011 ION KINGSTON [facility] [facility] Non-Physician Phone Call To Patient/Provider Brief (5-10min) Non-Physician Phone Call To Patient/Provider Brief (5-10min) [id number] 2011 HEAVEN ZUNIGA [facility] Avulsion Of Nail Plate Avulsion Of Nail Plate 93201 2011 LUCINDA BARRIOS DoD Social History Combined list of available smoking, tobacco, and other social history from Department of Defense and Veterans Affairs facilities. Social History Type Response Date Comment Sour e This section is an empty social history section. DoD
--- OUTSIDE RECORDS SUMMARY | 2024-09-27 12:43 | XMS_ITS | Clinical Summary ---
Author Organization [place] [id number] [facility] Address [address] [place] [address] Care Team Providers Care Rn Hedis Name Role Phone GuzmanJudah rangel Primary Care [...] Comments Blood Pressure 116/84 04/11/2020 10:38 AM CANDY SEPARATOR HARD Pulse 72 03/14/2020 4:15 PM CDT Temperature 36.4 C (97.5 F) 03/14/2020 4:15 PM CDT Respiratory Rate 18 03/14/2020 4:15 PM CDT Oxygen Saturation 99% 03/14/2020 4:15 PM CDT Inhaled Oxygen Concentration - - Weight 95.3 kg (210 lb) 04/11/2020 10:38 AM CANDY SEPARATOR HARD Height 162.6 cm (5' 4 ) 03/14/2020 4:15 PM CDT Body Mass Index 36.05 03/14/2020 4:15 PM CDT Plan of Treatment Not on file Insurance [address] [address] HMO Care Teams Rn Hedis Relationship Specialty Start Date End Date Judah Guzman DO [address] [place] [address] [id number] PCP - General Family Medicine 08/31/18
--- OUTSIDE RECORDS SUMMARY | 2024-09-27 12:43 | XMS_ITS | Clinical Summary ---
Author Organization [facility] Address [address] [place] [id number] Care Team Providers Care [place] Coiling Machine Setter Name Role Phone Unavailable Primary Care Provider [...] on file Legal Sex Female 7:38 PM BREASTER Gender Identity Not on file Sexual Orientation Not on file Last Filed Vital Signs Vital Sign Reading Time Taken Comments Blood Pressure 107/74 04/02/2017 2:44 AM BREASTER Pulse 65 04/02/2017 1:17 AM BREASTER Temperature 36.5 C (97.7 F) 04/01/2017 8:28 PM BREASTER Respiratory Rate 18 04/02/2017 1:17 AM BREASTER Oxygen Saturation 100% 04/02/2017 1:17 AM BREASTER Inhaled Oxygen Concentration - - Weight 95.3 kg (210 lb 1.6 oz) 04/01/2017 8:28 P M BREASTER Height 162.6 cm (5' 4 ) 04/01/2017 8:28 PM BREASTER Body Mass Index 36.06 04/01/2017 8:28 PM BREASTER Plan of Treatment Health Maintenance Due Date [...] complete this topic [place] [id number] [facility]
--- OUTSIDE RECORDS SUMMARY | 2024-09-27 12:43 | XMS_ITS | Clinical Summary ---
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
--- OUTSIDE RECORDS SUMMARY | 2024-09-27 12:43 | XMS_ITS | Referral Summary ---
Author Organization [place] [id number] [facility] Address [address] [place] [address] Care Team Providers Care Production Inspector Name Role Phone ThomasJudah Primary Care Provider [...] Comments Blood Pressure 116/84 04/11/2020 10:38 AM GRADES 6 THROUGH 8 TEACHER Pulse 72 03/14/2020 4:15 PM CDT Temperature 36.4 C (97.5 F) 03/14/2020 4:15 PM CDT Respiratory Rate 18 03/14/2020 4:15 PM CDT Oxygen Saturation 99% 03/14/2020 4:15 PM CDT Inhaled Oxygen Concentration - - Weight 95.3 kg (210 lb) 04/11/2020 10:38 AM GRADES 6 THROUGH 8 TEACHER Height 162.6 cm (5' 4 ) 03/14/2020 4:15 PM CDT Body Mass Index 36.05 03/14/2020 4:15 PM CDT Plan of Treatment Not on file Insurance HMO Care Teams Production Inspector Relationship Specialty Start Date End Date Judah Guzman DO [address] [place] [id number] PCP - General Family Medicine 08/31/18
[2024-09-29 17:42] LABS: TB Skin Test Erythema 0 mm; TB Skin Test Induration 0 mm (0-10); TB Skin Test Interpretation Negative (Negative); TB Skin Test Site Right Arm
== END 2024-09-27 12:35 | disposition home or self-care (01) ==
LOC: CHSLAB 12:37
PROVIDERS: PCP Nurse Practitioner Family; Visit Provider Nurse Practitioner Family
DX: Z11.1 Encounter for screening for respiratory tuberculosis (principal)
CPT/HCPCS: 36415; 86580

== ENCOUNTER 2024-09-27 15:48 | Outpatient (CLI) | payer OTHER, SELFPAY ==
--- NOTE | ~2024-09-27 | US_ITS ---
EXAM: PELVIC ULTRASOUND HISTORY: N92.1 - Excessive and frequent menstruation with irregula... COMPARISON: None. FINDINGS: UTERUS: 9.3 x 4.9 x 5.5 cm. The uterus is anteverted and anteflexed. The endometrial complex measures 11.1 mm. Multiple nabothian cysts are present within the cervix, the largest measuring 12 mm in greatest dimen vern. Punctate calcifications within the lower uterine segment, a nonspecific finding. RIGHT OVARY: The right ovary is unremarkable in echogenicity and size measuring 3.1 x 2.0 x 3.2 cm. Dopplerable flow is identified. LEFT OVARY: The left ovary is unremarkable in echogenicity and size measuring 2.7 x 1.6 x 2.1 cm Dopplerable flow is identified. No free fluid is identified within the pelvis. IMPRESSION: Multiple nabothian cysts. Punctate calcifications within the lower uterine segment. Otherwise, unremarkable sonographic evaluation of the female pelvis, as detailed above. Reviewed, dictated and finalized at location A. IMPRESSION: Multiple nabothian cysts. Punctate calcifications within the lower uterine segment. Otherwise, unremarkable sonographic evaluation of the female pelvis, as detaile d above.
--- OUTSIDE RECORDS SUMMARY | 2024-09-27 15:53 | XMS_ITS | Clinical Summary ---
Author Organization [facility] [employer] Address [address] [place] [address] Care Team Providers Care Forklift Truck Operator Name Role Phone Judah Guzman Primary Care Provider [phone] Source Comments [facility] [employer],non-[facility] Affiliates and Associated Physician Practices is amultiple site organization consisting of ambulatory clinics and hospital sitesin [place], [place], [place] and [place]. This disclosure is being madepursuant to the Care Everywhere program and may not contain all information available regarding this patient. Last updated 18.[facility] [employer] Allergies Active Allergy Reactions Criticality Noted Date [...] 2 Mother Heart Disease Mother Hypertension Mother [place] Mother Other - Cardiac Mother Asthma Neg [...] Comments Blood Pressure 112/68 05/12/2019 9:59 AM ANTI AIR WARFARE OPERATIONS OFFICER Pulse 78 05/12/2019 9:59 AM ANTI AIR WARFARE OPERATIONS OFFICER Temperature 36.7 C (98 F) 05/12/2019 9:59 AM ANTI AIR WARFARE OPERATIONS OFFICER Respiratory Rate 16 05/12/2019 9:59 AM ANTI AIR WARFARE OPERATIONS OFFICER Oxygen Saturation 98% 05/12/2019 9:59 AM ANTI AIR WARFARE OPERATIONS OFFICER Inhaled Oxygen Concentration - - Weight 95.3 kg (210 lb) 05/12/2019 9:59 AM ANTI AIR WARFARE OPERATIONS OFFICER Height 162.6 cm (5' 4 ) 05/12/2019 9:59 AM ANTI AIR WARFARE OPERATIONS OFFICER Body Mass Index 36.05 05/12/2019 9:59 AM ANTI AIR WARFARE OPERATIONS OFFICER Plan of Treatment Health Maintenance Due Date [...] patient's age to complete this topic Insurance [facility] CARE [facility] CARE Care Teams Forklift Truck Operator Relationship Specialty Start Date End Date Judah Guzman DO [address] [place] [address] [place]HO[place]O NÚÑEZ [id number] PCP - General Family Medicine 10/03/18
--- OUTSIDE RECORDS SUMMARY | 2024-09-27 15:53 | XMS_ITS | Continuity of Care Document ---
Author Name [facility] Organization [facility] Care Team Providers Care Optometrist Assistant Name Role Phone [facility] Unavailable Unavailable Problems [...] Site Reaction Lot Number CVX Code Drug Chief Airport Guide Status Comments Source influenza, live, intranasal, quadrivalent 1 2013 DORIS GIFFORD [id number] [employer], Reading Room. (MED) complet ed influenza , live, intranasa l, quadrival ent DoD influenza virus vaccine, live, attenuated, for intranasal use 1 2012 IRAIDA ABRAMS [id number] [employer]. (MED) complet ed influenza virus vaccine, live, attenuate d, for intranasa l use DoD tetanus toxoid, reduced diphtheria toxoid, and acellular pertu is vaccine, adsorbed 0 2012 HUBERT ZAVALA [id number] 115 Sanofi Pasteur (PMC) complet ed tetanus toxoid, reduced diphtheri a toxoid, and acellular pertussis vaccine, adsorbed DoD tuberculin skin test; purified protein derivative solution, intradermal 0 2011 KISHA DEJESUS [id number] 96 Sanofi Pasteur (PMC) complet ed tuberculi n skin test; purified protein derivativ e solution, intraderm al DoD tuberculin skin test; purified protein derivative solution, intradermal 0 2011 Unknown, Provider [id number] 96 Sanofi Pasteur (PMC) complet ed tuberculi n skin test; purified protein derivativ e solution, intraderm al DoD influenza virus vaccine, whole virus 1 2011 JAQUELINE BENJAMIN [id number] 16 [employer] (CSL) complet ed influenza virus vaccine, whole virus DoD hepatitis A vaccine, adult dosage 1 2011 JAQUELINE BENJAMIN [id number] 3BA 52 Other (OTH) complet ed hepatitis A vaccine, adult dosage DoD tuberculin skin test; purified protein derivative solution, intradermal 0 2011 JAQUELINE BENJAMIN [id number] 96 Sanofi Pasteur (PMC) complet ed tuberculi n skin test; purified protein derivativ e solution, intraderm al DoD hepatitis A and hepatitis B vaccine 2 2011 NATHAN HILL [id number] 3ca 104 [employer] (SKB) complet ed hepatitis A and hepatitis B vaccine DoD Tuvaluan Encephalitis Vaccine SC 2 2011 NELSON SYLVESTER [id number] 3F 39 [employer] (INT) complet ed Tu[place]uan Encephali tis Vaccine IL DoD hepatitis A and hepatitis B vaccine 1 2011 VALENTIN SOW [id number] 3CA 104 [employer] (SKB) complet ed hepatitis A and hepatitis B vaccine DoD meningococcal polysaccharid e (groups A, C, Y and W-135) diphtheria toxoid conjugate vaccine (MCV4P) 1 2011 VALENTIN SOW [id number] 114 Sanofi Pasteur (PMC) complet ed meningoco ccal polysacch aride (groups A, C, Y and W-135) diphtheri a toxoid conjugate vaccine (MCV4P) DoD tetanus toxoid, reduced diphtheria toxoid, and acellular pertu is vaccine, adsorbed 1 2011 VALENTIN SOW [id number] 3ba 115 Sanofi Pasteur (PMC) complet ed tetanus toxoid, reduced diphtheri a toxoid, and acellular pertussis vaccine, adsorbed DoD Tuvaluan Encephalitis Vaccine SC 1 2011 VALENTIN SOW [id number] 6F 39 [employer] (INT) complet ed Tuvaluan Encephali tis Vaccine SC DoD tuberculin skin [...] ADM Date DC Date Status Disposition Source [facility] [place]) OUTPATIENT [id number] RED CROSS VOLUNTE ER GALLO ALVAREZ 06/10 Released w/o Limitations [facility] [place] [facility] [place]) OUTPATIENT [id number] DENTAC/ RED CROSS VOL PPD CHECKED [place] 06/12 Released w/o Limitations [facility] [place]) [facility] [place] OUTPATIENT [id number] DENTAC/ RED CRSOSS PPD PLACED [place] 07/14 Released w/o Limitations [facility] [place] [facility] [place]) [place] [id number] PAP/GLORIA JARAMILLO 07/31 Released w/o Limitations [place]) [facility] S 01A17 Fabricati on) OUTPATIENT [id number] PELVIC PN X2WKS EMELY DIALLO 11/19 Released w/o Limitations [facility](A MHS 01A17 [place]) [facility] S 01A17 Fabricati on) OUTPATIENT [id number] f/u anxiety /med renwal and control f/u LES VALENZUELA 12/24 Released w/o Limitations [facility](A MHS 01A17 [place]) [facility] S 01A17 Fabricati on) TELE CONSULT [id number] f/u labs LES VALENZUELA 01/01 [facility](A MHS 01A17 [place]) [facility] S 01A17 Fabricati on) OUTPATIENT [id number] GAYLE/DIAR VAISHNAVI/KHOA DY ACHE X 2DAYS LES VALENZUELA 01/12 Released w/o Limitations [facility](A MHS 01A17 [place] [facility]) OUTPATIENT [id number] GUERO LEI 01/12 Released w/o Limitations [facility]) [facility] S 01A17 Fabricati on) OUTPATIENT [id number] F/U EAR PN ABIGAIL KOVACS 02/26 Released w/o Limitations [facility](A MHS 01A17 [place]) [facility] S 01A17 Fabricati on) OUTPATIENT [id number] POSS SINUS INFECTI ON JESUS LOPEZ 04/29 Released w/o Limitations [facility](A MHS 01A17 [place]) [facility] S 01A17 Fabricati on) OUTPATIENT [id number] pregnan cy test JESSICA GIBBONS 05/26 Released w/o Limitations [facility](A MHS A17 [place]) [facility](AMH S A17 Fabricati on) OUTPATIENT [id number] f/u lab results (thyroi d) VALENTIN YOUSIF 06/01 [facility]ased w/o Limitations [facility](A S A17 [place]) OUTPATIENT [id number] gen physica l and possibl e referra l to alinti on JOSE KELLER 09/20 [place]ased w/o Limitations [place] [facility] [facility] [place]) OUT[place] [id number] thyroid s EDUAR VILCHIS 11/19 [place] Limitations [place]) [place] [id number] migrain e , chest tightne ss ABIGAIL CISNEROS 12/09 [place] Limitations [place] [facility] [place] [facility]) OUT[place] [id number] F/U Thyroid MARTINEZ POWELL 12/10 [place] Limitations [place] [place] [facility] [facility]) OUTPATIENT [id number] lower back conx2d ZZZBM_LEE, ZZZBM_SANDEEP ARET S 12/29 Released w/o Limitations [facility]) [facility]) OUTPATIENT [id number] f/u thyroid elliotts EMELY RODRIGUEZ 03/30 Released w/o Limitations [facility] PHA Clinic) OUTPATIENT [id number] WELL WOMAN EXAM,VA GINAL INFECT X3DAYS RAYMOND ELKINS 05/10 Released w/o Limitations [facility] PHA Clinic) [facility] PHA Clinic) OUTPATIENT [id number] f/u for thyroid /aniext y RAYMOND ELKINS J 06/06 Released w/o Limitations [facility] [place]([facility] PHA Clinic) [facility] OUTPATIENT [id number] st pn x3dys MAURO MALDONADO 09/01 Sick at Home/Quarter s [facility] [place](Family Medicine OP Care) OUTPATIENT [id number] wwe with pap AFUA GODWIN 05/11 Released w/o Limitations [facility] [place](Fami ly Medicin e OP Care) [facility] [place](Family [facility] OP [facility]) TELE CONSULT [id number] review labs RUNNINGASHKAN 05/11 Referred for Appointment [facility] [place](Fami ly Medicin e OP Care) [facility] [place](Acute Care Clinic) OUTPATIENT [id number] Vomitin g, Diarrhe a, dry heaves MAME ROQUE P 05/19 Immediate Referral [facility] [place](Acut e Care Clinic) [facility] [place](Acute Care Clinic) OUTPATIENT [id number] Nausea/ GAYLE KATELYNN ZHAO 05/23 Released w/o Limitations [facility] [place](Acut e Care Clinic) [facility] [place]([facility]) OUTPATIENT [id number] back pain AFUA GODWIN 05/26 Released w/o Limitations [facility] [place]([facility] Medicin e OP Care) [facility] [place]([facility] OP [facility]) TELE CONSULT [id number] review labs and xray ELIO, QUEENIE 06/02 Referred for Appointment [facility] [place](Fami [facility] Medicin e OP Care) [facility] [place]([facility]) OUTPATIENT [id number] bloodwo rk for Lupus RANULFO MORAN 07/29 Released w/o Limitations [facility] [place] [facility] [facility]) [facility] [place]) OUTPATIENT [id number] medicat ion JELANIRANULFO LEDEZMA Jackie 07/29 [facility]ased w/o Limitations [facility] [place] [place] [facility]) [place] [id number] possibl e strep throat RANULFO MORAN 08/27 Released w/o Limitations [facility] [place] [facility] [place]) [place] [id number] appt appt ANTHONY LAGUANS 09/03 Released w/o Limitations [facility] [place] [facility] [place]) [place] [id number] VACCINE S FOR TRAVEL TO [place] PCM VALENTIN OVERTON 09/06 Released w/o Limitations [facility] [place] [facility]) [facility] [place]) [place] [id number] LAB REQUEST RANULFO MORAN 09/07 Released w/o Limitations [facility] [place] [facility] [facility] [place]) [place] [id number] pap/juaquin ck for autoimm unedefi MITCHEL Pradhan 09/08 Released w/o Limitations [facility] [place]) [facility] [place]) OUT[place]IENT [id number] [facility] paperwo rk JELANIBLAISEHaleyRANULFO 09/13 Released w/o Limitations [facility] [place] [place] [facility] [facility] [place]) OUT[place] [id number] 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 ANTHONY LAGUNAS Haley 09/13 Released w/o Limitations [facility] [place](Fami ly Medicin e OP Care) [facility] [place]([facility]) OUTPATIENT [id number] oss [place] Cindy ANTHONY LAGUNAS Haley 09/21 Released w/o Limitations [facility] [place]([facility]in [facility] OP [facility]) [facility] [place]) OUTPATIENT [id number] IMMS UPDATE [facility] NELSON DIOR 10/04 Released w/o Limitations [facility] [place]ie(Fami ly Medicin e OP Care) [facility] ERA [place](Family [facility] OP [facility]) OUTPATIENT [id number] ingrown toenail RANULFO MORAN 10/13 Released w/o Limitations [facility] [place]([facility]ami ly Medicin e OP Care) [facility] [place]([facility]) TELE CONSULT [id number] culture RANULFO MORAN 10/29 [facility] [place] [place]([facility]ami ly Medicin e OP Care) [facility] [place](Podiat ry Clinic ) OUTPATIENT [id number] INGROWI NG NAIL SOPHIELUCINDA 11/01 Released with Work/Duty Limitations [facility] [place](Podi atry Clinic ) [facility] ERA [place]([facility]) OUTPATIENT [id number] [facility] Dr Shivani mariee - right jenna r RANULFO Walter 11/02 Released w/o Limitations [facility] [place](Fami ly Medicin e OP Care) [facility] [place](Podiat ry Clinic ) OUTPATIENT [id number] right hallux ingrown toenail . NAIL AVULSIO N LUCINDA BARRIOS 11/09 Released with Work/Duty Limitations [facility] [place](Podi atry Clinic ) [place]anie frost [facility] A Team) OUTPATIENT [id number] med refill XU SCHMIDT 12/21 Released w/o Limitations [place] A Team) [facility] A Team) TELE CONSULT [id number] Notes Entered by: CHERYL SCHMIDT 25 Dec 2011 1415 ------- ------- ------- ------- -- HEAVEN CARRERA 12/24 [place] Team) [facility] OUTPATIENT [id number] possibl e wart heveral XU SCHMIDT 01/03 Released w/o Limitations [facility] ([facility] A Team) [facility](N utrition Clinic) OUTPATIENT [id number] Obesity ION KINGSTON 01/10 Released w/o Limitations [facility] (Nutrit ion Clinic) [facility](O ccupation al Medicine) OUTPATIENT [id number] ,[phone],,, MY JOSE ALBERTO CLARK 02/18 [facility]itations [facility]) [facility](U SN Immunizat ions) OUTPATIENT [id number] HEP A PPD FLU OBRIEN, ITZE Y 02/18 [place] Limitations [place] [facility] Immuniz ations) [facility](U SN Immunizat ions) OUTPATIENT [id number] IPPD READ/O MM NEG OBRIEN, ITZE Y 02/21 Released w/o Limitations [place] Immuniz ations) [place] SN Immunizat ions) OUTPATIENT [id number] IPPD OBRIEN, ITZE Y 04/12 Released w/o Limitations [place] Immuniz ations) [place](U SN Immunizat ions) OUTPATIENT [id number] ippd KISHA DEJESUS 04/19 [facility] Limitations [facility] Immuniz ations) [facility] A Team) OUTPATIENT [id number] recurre nt warts XU SCHMIDT 04/20 Released w/o Limitations [facility] ([facility] A Team) [facility](U [facility] Immunizat ions) OUTPATIENT [id number] PPD READ 0MM NEGATIV E ORALIA OBRIEN Y 04/21 Released w/o Limitations [facility] ([facility] Immuniz ations) [facility](O ccupation al Medicine) OUTPATIENT [id number] 709,,,, ,KM ORDINARIO, ANALOU INGRAM 05/18 Released w/o Limitations [facility] (Occupa tional Medicin e) [facility] A Team) OUTPATIENT [id number] wart removal consult aitXU Yarbrough 05/25 Released w/o Limitations [facility] ([facility] A Team) [facility](O ccupation al Medicine) OUTPATIENT [id number] CARD UPDATE( late entry), ,,,,@ ORDINAMOULTRIE, ANALOU INGRAM 05/31 Released w/o Limitations [facility] (Occupa tional Medicin e) [facility](O b/Chief Of Anesthesiology Clinic) OUTPATIENT [id number] E/r fu need us for possibl e ectopic HILTON YOU 06/14 Released w/o Limitations [facility] ([facility]) [facility] A Team) OUTPATIENT [id number] f/up labs XU SCHMIDT 06/22 Released w/o Limitations [facility] ([facility] A Team) [facility] By [facility]nec[facility]) OUTPATIENT [id number] account [email or web address] MICKEY LIMON 06/22 Released w/o Limitations [facility] ( Gynecol ogy Clinic) [facility](O b/Chief Of Anesthesiology Clinic) OUTPATIENT [id number] gym: HILTON CORNEJO 07/01 Released w/o Limitations [facility] (Television Installer Clinic) [facility] A Team) TELE CONSULT [id number] Notes Entered by: EMILE BLANTON 27 Jul 2012 0733 ------- ------- ------- ------- -- med refill EMELY PERRY Alysia 07/26 [place] [facility] [place] A Team) [facility](O b/Chief Of Anesthesiology Clinic) OUTPATIENT [id number] NOB ASHKAN 10 WKS HILTON YOU 07/27 Released w/o Limitations [facility] ([facility]er Clinic) [facility](O b/Chief Of Anesthesiology Clinic) OUTPATIENT [id number] jenna 18wks KOBI LEBLANC 09/06 Released w/o Limitations [facility] (Television Installer Clinic) [facility] A Team) TELE CONSULT [id number] Notes Entered by: MARKIE KELLY 28 Sep 2012 1551 ------- ------- ------- ------- -- possibl e vaginal infecti on EMELY PERRY Alysia 09/28 [place] [facility] ([facility] A Team) [facility](O b/Chief Of Anesthesiology Clinic) OUTPATIENT [id number] jenna 24 wks KOBI LEBLANC 10/19 Released w/o Limitations [facility] (Television Installer Clinic) [facility](L &D Triage) OUTPATIENT [id number] Notes Entered by: JULY JANE 27 Oct 2012 1914 ------- ------- ------- ------- -- chest pain ASHLEIGH FERNANDEZ 10/27 Released w/o Limitations [facility] (L&D Triage) [facility](O b/Chief Of Anesthesiology Clinic) TELE CONSULT [id number] Notes Entered by: ELVIN CHENG 31 Oct 2012 1536 ------- ------- ------- ------- -- Possibl e exposur e to hand foot and mouth disease REZA CHENG 10/31 Referred for Appointment [facility] ([facility]) [facility](L &D Triage) OUTPATIENT [id number] Notes Entered by: ROHIT MCLEAN 31 Oct 2012 1538 ------- ------- ------- ------- -- NST LAWRENCERONAL JUNIOR JOYCE DEVON 10/31 Released w/o Limitations [facility] (L&D Triage) [facility](K a Case Managemen t Services) TELE CONSULT [id number] Notes Entered by: TATI OWEN 02 Nov 2012 1458 ------- ------- ------- ------- -- Case Managem ent antidep ressant trackin g follow up. TATI OWEN 11/02 Other Not Elsewhere Classified [facility] (Ka Case Managem ent Service s) [facility](L &D Triage) OUTPATIENT [id number] Notes Entered by: NADJA MALAGON 07 Nov 2012 1342 ------- ------- ------- ------- -- AFUA Guerra 11/07 Released w/o Limitations [facility] (L&D Triage) [facility](O b/Chief Of Anesthesiology Clinic) OUTPATIENT [id number] jenna 28 CARLOS Colvin 11/16 Released w/o Limitations [facility] (Television Installer Clinic) [facility](L &D Triage) OUTPATIENT [id number] Notes Entered by: IAN MOON 19 Nov 2012 1051 ------- ------- ------- ------- -- Vaginal blemable g HILTON YOU 11/19 Released w/o Limitations [facility] (L&D Triage) [facility](L &D Triage) OUTPATIENT [id number] Notes Entered by: TOBI VAZQUEZ 21 Nov 2012 1854 ------- ------- ------- ------- -- vaginal bleedAFUA Gray 11/21 Released w/o Limitations [facility] (L&D Triage) [facility](O b/Chief Of Anesthesiology Clinic) OUTPATIENT [id number] breast feeding AMARICHANCE TORRES 12/06 Released w/o Limitations [facility] (Television Installer Clinic) [facility](O b/Chief Of Anesthesiology Clinic) OUTPATIENT [id number] pcb 1 CHANCE HADDAD 12/12 Released w/o Limitations [facility] (Television Installer Clinic) [facility](O b/Chief Of Anesthesiology Clinic) OUTPATIENT [id number] pcb 2 CHANCE HADDAD 12/13 Released w/o Limitations [facility] (Television Installer Clinic) [facility](L &D Triage) OUTPATIENT [id number] Notes Entered by: KYLE GOSS 14 Dec 2012 1030 ------- ------- ------- ------- -- R/O UTI and Cold YOLANDA-RAHAT CARTER 12/14 Released w/o Limitations [facility] (L&D Triage) [facility](O b/Chief Of Anesthesiology Clinic) OUTPATIENT [id number] jenna 32 CARLOS Colvin 12/14 Released w/o Limitations [facility] (Television Installer Clinic) [facility](O b/Chief Of Anesthesiology Clinic) OUTPATIENT [id number] pcb 3 CHANCE HADDAD 12/15 Released w/o Limitations [facility] (Television Installer Clinic) [facility](O b/Chief Of Anesthesiology Clinic) TELE CONSULT [id number] Notes Entered by: PEGGY SOTOMAYOR 27 Dec 2012 1052 ------- ------- ------- ------- -- Yeast infecti on LETY OLIVASJITENDRA MERCEDESJAMES 12/27 Advice Assessment [facility] ([facility]er Clinic) [facility](L &D Triage) OUTPATIENT [id number] Notes Entered by: LINDSAY ALLISON 02 Jan 2013 0730 ------- ------- ------- ------- -- R/O UTI RAHAT HAIDER 01/01 Released w/o Limitations [facility] (L&D Triage) [facility](L &D Triage) OUTPATIENT [id number] Notes Entered by: CORRINE CRANE 12 Jan 2013 1350 ------- ------- ------- ------- -- JOYCE Gao 01/12 Released w/o Limitations [facility] (L&D Triage) [facility](O b/Chief Of Anesthesiology Clinic) OUTPATIENT [id number] jenna 27wCARLOS Reilly 01/16 Released w/o Limitations [facility] (Television Installer Clinic) [facility] PCMH Team 1) TELE CONSULT [id number] Notes Entered by: Phill LEIVA 18 Jan 2013 1242 ------- ------- ------- ------- -- SALLY MEANS 01/18 [facility] ([facility] PCM Team 1) [facility](L &D Triage) OUTPATIENT [id number] Notes Entered by: Jackie RAMIREZ I 24 Jan 2013 1423 ------- ------- ------- ------- -- Possibl e yeast infecti onRENETTA MCKEE 01/24 Released w/o Limitations [facility] (L&D Triage) [facility](O b/Chief Of Anesthesiology Clinic) OUTPATIENT [id number] JENNA 38wKRISTIN Hi 01/30 Released w/o Limitations [facility] ([facility]er Clinic) [facility](O b/Chief Of Anesthesiology Clinic) OUTPATIENT [id number] 40 wks CARLOS GASTON 02/06 Released w/o Limitations [facility] (Television Installer Clinic) [facility](L &D Triage) OUTPATIENT [id number] Notes Entered by: LAUREN SCOTT,MAXIMILIANO QUEZADA ER 11 Feb 2013 1506 ------- ------- ------- ------- -- headfilomena mariee/SHEMAR Robles 02/11 Released w/o Limitations [facility] (L&D Triage) [facility](O b/Chief Of Anesthesiology Clinic) OUTPATIENT [id number] [address] 02/14 Released w/o Limitations [facility] (Television [facility]) [facility] DIRECT TO [facility] FROM OTHER THAN ER OR [facility] [id number] HUBERT ZAVALA 02/17 DISCHARGED HOME [facility] Med PCMH Team 1) TELE CONSULT [id number] Notes Entered by: SHARON PATEL 23 Feb 2013 1159 ------- ------- ------- ------- -- Constip ation, ?'s about injecti on site for TDAP, MEÑO PATEL 02/23 Referred for Appointment [facility] (Formerly [facility], [facility]1983 Med PCMH Team 1) [facility](O ccupation al Medicine) OUTPATIENT [id number] CARD UPDATE 4 WART INSPECT ION ON FINGERS ,,,,,MY ORDINARIO, ANALOU INGRAM 03/29 Released w/o Limitations [facility] (Occupa tional Medicin e) [facility] OUTPATIENT [id number] IRAIDA Sweet 04/07 Released w/o Limitations [facility] ([facility] Immuniz ations) [facility](O b/Chief Of Anesthesiology Clinic) OUTPATIENT [id number] PP 9 weeks EMELY SMITH 04/10 Released w/o Limitations [facility] ([facility]er [facility]) [facility](O ccupation al Medicine) OUTPATIENT [id number] 703P,,, ,,@ ORDINARIO, ANALOU INGRAM 04/17 Released w/o Limitations [facility] (Occupa tional Medicin e) [facility](O ptometry Clinic) OUTPATIENT [id number] [facility]/ [id number] GEOVANNI WRIGHT 05/05 Released w/o Limitations [facility] (Optome try Clinic) [facility] Team 1) OUTPATIENT [id number] post depress ion/thy roid - labs done ABIGAIL PARKINSON 05/18 Released w/o Limitations [facility] ([facility] Team 1) [facility] Team 1) OUTPATIENT [id number] [facility] BAJWA V 07/12 Released w/o Limitations [facility] ([facility] Team 1) [facility] Team 1) TELE CONSULT [id number] Notes Entered by: JULIAN OCASIO 31 Jul 2013 1524 ------- ------- ------- ------- -- Pt was seen at ER 3/9 for Lumbago (low back px) SHEMAR MONTGOMERY 07/31 [facility] ([facility] Team 1) [facility] Team 1) OUTPATIENT [id number] needs BC SHEMAR MONTGOMERY 08/08 Released w/o Limitations [facility] ([facility] Team 1) [facility] Team 1) OUTPATIENT [id number] referra l to derm and thyriod issues SHEMAR MONTGOMERY 10/30 Released w/o Limitations [facility] ([facility] Team 1) [facility] Team 1) TELE CONSULT [id number] Notes Entered by: JOSE DE JESUS AMARO 02 Nov 2013 1059 ------- ------- ------- ------- -- thyroid GALLO SORIANO 11/02 Referred for Appointment [facility] ([facility] Team 1) [facility](O b/Chief Of Anesthesiology Clinic) OUTPATIENT [id number] mounter flutes [employer] piccolos f/u SHANNAN HARTMAN 12/01 Released w/o Limitations [facility] ([facility]er [facility]) [facility] PCM Team 1) OUTPATIENT [id number] memory loss,sl eep MEÑO Menendez 12/12 Released w/o Limitations [facility] ([facility] PCM Team 1) [facility] PCM Team 1) OUTPATIENT [id number] f/u labs ULISES SHEMAR DEVON 12/25 Released w/o Limitations [facility] ([facility] PCM Team 1) [facility](N utrition Clinic) OUTPATIENT [id number] HYPOTHY TOBI WHIPPLE 12/28 Released w/o Limitations [facility] (Nutrit ion Clinic) [facility](O b/Chief Of Anesthesiology Clinic) OUTPATIENT [id number] [employer] YUKO Gaytan 03/25 Released w/o Limitations [facility] ([facility]) [facility](O b/Chief Of Anesthesiology Clinic) TELE CONSULT [id number] Notes Entered by: SHANTI MUSE 09 Apr 2014 1601 ------- ------- ------- ------- -- SHANNAN Gomez 04/09 [facility] ([facility]) [facility] PCM Team 1) OUTPATIENT [id number] thyroid JENNIFER Moran 05/01 Released w/o Limitations [facility] ([facility] PCM Team 1) [facility] PCM Team 1) OUTPATIENT [id number] referra l to JENNIFER Avery 05/21 Released w/o Limitations [facility] ([facility] PCM Team 1) [facility] PCM Team 1) OUTPATIENT [id number] bloodwo rk/anxi ety JENNIFER MILLER 06/14 Released w/o Limitations [facility] ([facility] Team 1) [facility] Team 1) OUTPATIENT [id number] Lab results PAUL JENNIFERARELY SANTAMARIA 07/11 Released w/o Limitations [facility] ([facility] Team 1) [facility] Team 1) TELE CONSULT [id number] Notes Entered by: BANDAR DAMON 04 Dec 2014 0907 ------- ------- ------- ------- -- Thyroid Check up apointm ent CRISTAL SALINAS 12/04 Referred for Appointment [facility] ([facility] Team 1) [facility] Team 1) OUTPATIENT [id number] ear bhavaniur ARMANDO Smith 12/05 Released w/o Limitations [facility] ([facility] Team 1) [facility] Team 1) TELE CONSULT [id number] Notes Entered by: DEREK DE LEON 07 Dec 2014 0835 ------- ------- ------- ------- -- Pt is request ing for labs to be put in for thyroid check before appoint ment. DORIS CASILLAS [facility] 12/06 Referred for Appointment [facility] ([facility] Team 1) [facility] Team 1) TELE CONSULT [id number] Notes Entered by: DEREK DE LEON 06 Mar 2015 0926 ------- ------- ------- ------- -- Pt is request ing labs be put it before appoint ment with LT [facility]. Thank you CRISTAL SALINAS 03/06 Referred for Appointment [facility] ([facility] Team 1) [facility] Team 1) OUTPATIENT [id number] [facility] physica phill/ lesvia jordan STEFAN LOUIS 03/15 Released w/o Limitations [place] [facility] ([facility] Team 1) [place] [facility] Team 1) OUTPATIENT [id number] Notes Entered by: ANA MULLINS 11 Apr 2015 0837 ------- ------- ------- ------- -- JENNIFER Mccain 04/10 Released w/o Limitations [place] ([facility] Team 1) [facility] Team 1) OUTPATIENT [id number] thyroid c/u JENNIFER MILLER 04/15 Released w/o Limitations [facility] ([facility] Team 1) Procedures Combined list of: 1) Procedures from Department of Veterans Affairs facilities going back up to thelast 18 months, not all VA non-surgical procedures are included; 2) All procedures from the Department of Defense facilities. Procedure Procedure Type Code Date Perfomer Comments [facility] e INDIVIDUAL PSYCHOTHERAPY, INSIGHT ORIENTED, BEHAVIOR MODIFYING AND/OR SUPPORTIVE, IN AN OFFICE OR OUTPATIENT FACILITY, APPROXIMATELY 20 TO 30 MINUTES [id number] WITH THE PATIENT 2007 [facility] PSYCHIATRIC DIAGNOSTIC INTERVIEW EXAMINATION 2007 [facility] COLLECTION OF VENOUS BLOOD BY VENIPUNCTURE 2007 [facility] INDIVIDUAL PSYCHOTHERAPY, INSIGHT ORIENTED, BEHAVIOR MODIFYING AND/OR SUPPORTIVE, IN AN OFFICE OR OUTPATIENT FACILITY, APPROXIMATELY 20 TO 30 MINUTES [id number] WITH THE PATIENT 2007 [facility] INDIVIDUAL PSYCHOTHERAPY, INSIGHT ORIENTED, BEHAVIOR MODIFYING AND/OR SUPPORTIVE, IN AN OFFICE OR OUTPATIENT FACILITY, APPROXIMATELY 75 TO 80 MINUTES [id number] WITH THE PATIENT 2007 [facility] INDIVIDUAL PSYCHOTHERAPY, INSIGHT ORIENTED, BEHAVIOR MODIFYING AND/OR SUPPORTIVE, IN AN OFFICE OR OUTPATIENT FACILITY, APPROXIMATELY 20 TO 30 MINUTES [id number] WITH THE PATIENT 2006 [facility] INDIVIDUAL PSYCHOTHERAPY, INSIGHT ORIENTED, BEHAVIOR MODIFYING AND/OR SUPPORTIVE, IN AN OFFICE OR OUTPATIENT FACILITY, APPROXIMATELY 45 TO 50 MINUTES [id number] WITH THE PATIENT 2006 [facility] INDIVIDUAL PSYCHOTHERAPY, INSIGHT ORIENTED, BEHAVIOR MODIFYING AND/OR SUPPORTIVE, IN AN OFFICE OR OUTPATIENT FACILITY, APPROXIMATELY 45 TO 50 MINUTES [id number] WITH THE PATIENT 2006 [facility] INDIVIDUAL PSYCHOTHERAPY, INSIGHT ORIENTED, BEHAVIOR MODIFYING AND/OR SUPPORTIVE, IN AN OFFICE OR OUTPATIENT FACILITY, APPROXIMATELY 75 TO 80 MINUTES [id number] WITH THE PATIENT 2006 [facility] INDIVIDUAL PSYCHOTHERAPY, INSIGHT ORIENTED, BEHAVIOR MODIFYING AND/OR SUPPORTIVE, IN AN OFFICE OR OUTPATIENT FACILITY, APPROXIMATELY 45 TO 50 MINUTES [id number] WITH THE PATIENT 2006 [facility] PSYCHIATRIC DIAGNOSTIC INTERVIEW EXAMINATION 2006 [facility] SMEAR, PRIMARY SOURCE WITH INTERPRETATION; WET MOUNT FOR INFECTIOUS AGENTS (EG, SALINE, GRANT INK, GUERDA PREPS) 2006 [facility] INJECTION, DOLASETRON MESYLATE, 10 MG 2005 [facility] INTRAVENOUS INFUSION, HYDRATION; INITIAL, 31 MINUTES TO 1 HOUR 2005 [facility] INDIVIDUAL PSYCHOTHERAPY, INSIGHT ORIENTED, BEHAVIOR MODIFYING AND/OR SUPPORTIVE, IN AN OFFICE OR OUTPATIENT FACILITY, APPROXIMATELY 45 TO 50 MINUTES [id number] WITH THE PATIENT 2005 [facility] SELF-CARE/HOME MANAGMENT TRAIN (EG,ACT OF DAILY LIVING (ADL) &COMPENSAT TRAIN,MEAL PREPARATION,SAFETY PROCS,AND INSTRUCT IN USE OF ASST TECHNOLOGY DEV/ADPT EQUIP) DIR ONE-ON-ONE CONT,EA 15 MINUTES 2005 [facility] AVULSION OF NAIL PLATE, PARTIAL OR COMPLETE, SIMPLE; SINGLE 2011 [facility] TELE ASSESS & MGT SRV PROV QUAL NONPHYS HLTH CARE PRO TO EST PAT,PARENT,GUARD NOT ORIG REL ASSESS & MGT SRV PROV W/IN PREV 7 DAYS NOR LEAD ASSESS & MGT SRV/PX W/IN NXT 24 HR/SOON APT;5-10 MIN MED DIS 2011 [facility] KISWAHILI ENCEPHALITIS VIRUS VACCINE, INACTIVATED, FOR INTRAMUSCULAR USE 2011 [facility] SCREENING PAPANICOLAOU SMEAR; OBTAINING, PREPARING AND CONVEYANCE OF CERVICAL OR VAGINAL SMEAR TO LABORATORY 2011 [facility] HEPATITIS A VACCINE (HEPA), ADULT DOSAGE, FOR INTRAMUSCULAR USE 2011 [facility] [place] ENCEPHALITIS VIRUS VACCINE, INACTIVATED, FOR INTRAMUSCULAR USE [...] CERVICAL OR VAGINAL SMEAR TO LABORATORY 2010 [facility] INDIVIDUAL PSYCHOTHERAPY, INSIGHT ORIENTED, BEHAVIOR MODIFYING AND/OR SUPPORTIVE, IN AN OFFICE OR OUTPATIENT FACILITY, APPROXIMATELY 45 TO 50 MINUTES [id number] WITH THE PATIENT 2006 [facility] INDIVIDUAL PSYCHOTHERAPY, INSIGHT ORIENTED, BEHAVIOR MODIFYING AND/OR SUPPORTIVE, IN AN OFFICE OR OUTPATIENT FACILITY, APPROXIMATELY 45 TO 50 MINUTES [id number] WITH THE PATIENT 2006 [facility] PSYCHIATRIC DIAGNOSTIC INTERVIEW EXAMINATION 2006 [facility] CRISIS INTERVENTION MENTAL HEALTH SERVICES, PER HOUR 2006 [facility] PSYCHIATRIC DIAGNOSTIC INTERVIEW EXAMINATION 2006 [facility] IMMUNIZATION ADMINISTRATION (INCLUDES PERCUTANEOUS, INTRADERMAL, SUBCUTANEOUS, OR INTRAMUSCULAR INJECTIONS); 1 VACCINE (SINGLE OR COMBINATION VACCINE/TOXOID) 2005 [facility] SKIN TEST; TUBERCULOSIS, INTRADERMAL 2005 [facility] WET ALFREDO, INCLUDING PREPARATIONS OF VAGINAL, CERVICAL OR SKIN SPECIMENS 2004 [facility] UNLISTED PROCEDURE, CONJUNCTIVA 2004 [facility] CULTURE, BACTERIAL; ANY OTHER SOURCE EXCEPT URINE, BLOOD OR STOOL, AEROBIC, WITH ISOLATION AND PRESUMPTIVE IDENTIFICATION OF ISOLATES 2001 [facility] CULTURE, BACTERIAL, DEFINITIVE; THROAT OR NOSE 2000 [facility] EDUCATIONAL SUPPLIES, SUCH BOOKS, TAPES, AND PAMPHLETS, FOR THE PATIENT'S EDUCATION AT COST TO PHYSICIAN OR OTHER QUALIFIED HEALTH WATER POLLUTION SPECIALIST 1999 [facility] DESTRUCTION (EG, LASER SURGERY, ELECTROSURGERY, CRYOSURGERY, CHEMOSURGERY, [...] OR MORE INDIVIDUAL(S)), EACH 30 MINUTES 2013 [facility] PSYCHIATRIC DIAGNOSTIC EVALUATION 2013 [facility] OPHTHALMOLOGICAL SERVICES: MEDICAL EXAMINATION AND EVALUATION WITH INITIATION OF DIAGNOSTIC AND TREATMENT PROGRAM; COMPREHENSIVE, NEW PATIENT, 1 OR MORE VISITS 2012 [facility] GONADOTROPIN, CHORIONIC (HCG); QUALITATIVE 2012 [facility] IMMUNIZATION ADMINISTRATION BY INTRANASAL OR ORAL ROUTE; 1 VACCINE (SINGLE OR COMBINATION VACCINE/TOXOID) 2012 [facility] MEDICAL INDUCTION OF LABOR 2012 [facility] LOW CERVICAL SECTION 2012 [facility] POSTOPERATIVE FOLLOW-UP VISIT, NORMALLY INCLUDED IN THE SURGICAL PACKAGE, INDICATE THAT EVALUATION & MANAGEMENT SERVICE WAS PERFORMED DURING A POSTOPERATIVE PERIOD REASON RELATED ORIGINAL PROCEDURE 2012 [facility] POSTOPERATIVE FOLLOW-UP VISIT, NORMALLY INCLUDED IN THE SURGICAL PACKAGE, INDICATE THAT EVALUATION & MANAGEMENT SERVICE WAS PERFORMED DURING A POSTOPERATIVE PERIOD REASON RELATED ORIGINAL PROCEDURE 2012 [facility] POSTOPERATIVE FOLLOW-UP VISIT, NORMALLY INCLUDED IN THE SURGICAL PACKAGE, INDICATE THAT EVALUATION & MANAGEMENT SERVICE WAS PERFORMED DURING A POSTOPERATIVE PERIOD REASON RELATED ORIGINAL PROCEDURE 2012 [facility] DELIVERY ONLY 2012 [facility] SUBSEQ CARE VISIT () [EXCLS:PATIENTS WHO ARE SEEN FOR A CONDITION UNREL TO / CARE (EG,AN UP RESPIR INFECT;PATIENTS SEEN FOR CONSULTATION ONLY,NOT FOR CONT CARE)] 2012 [facility] NON-STRESS TEST 2012 [facility] SUBSEQ CARE VISIT () [EXCLS:PATIENTS WHO ARE SEEN FOR A CONDITION UNREL TO / CARE (EG,AN UP RESPIR INFECT;PATIENTS SEEN FOR CONSULTATION ONLY,NOT FOR CONT CARE)] 2012 [facility] SUBSEQ CARE VISIT () [EXCLS:PATIENTS WHO ARE SEEN FOR A CONDITION UNREL TO / CARE (EG,AN UP RESPIR INFECT;PATIENTS SEEN FOR CONSULTATION ONLY,NOT FOR CONT CARE)] 2012 [facility] SMEAR, PRIMARY SOURCE WITH INTERPRETATION; WET MOUNT FOR INFECTIOUS AGENTS (EG, SALINE, GRANT INK, GUERDA PREPS) 2012 [facility] ULTRASOUND, UTERUS, REAL TIME WITH IMAGE DOCUMENTATION, LIMITED (EG, HEART BEAT, PLACENTAL LOCATION, POSITION AND/OR QUALITATIVE AMNIOTIC FLUID VOLUME), 1 OR MORE FETUSES 2012 [facility] NON-STRESS TEST 2012 [facility] SMEAR, PRIMARY SOURCE WITH INTERPRETATION; WET MOUNT FOR INFECTIOUS AGENTS (EG, SALINE, GRANT INK, GUERDA PREPS) 2012 [facility] SUBSEQ CARE VISIT () [EXCLS:PATIENTS WHO ARE SEEN FOR A CONDITION UNREL TO / CARE (EG,AN UP RESPIR INFECT;PATIENTS SEEN FOR CONSULTATION ONLY,NOT FOR CONT CARE)] 2012 [facility] NON-STRESS TEST 2012 [facility] SMEAR, PRIMARY SOURCE WITH INTERPRETATION; WET MOUNT FOR INFECTIOUS AGENTS (EG, SALINE, GRANT INK, GUERDA PREPS) 2012 [facility] NON-STRESS TEST 2012 [facility] RHO(D) IMMUNE GLOBULIN (RHIG), HUMAN, FULL-DOSE, FOR INTRAMUSCULAR USE 2012 [facility] NON-STRESS TEST 2012 [facility] TELE ASSESS & MGT SRV PROV QUAL NONPHYS HLTH CARE PRO TO EST PAT,PARENT,GUARD NOT ORIG REL ASSESS & MGT SRV PROV W/IN PREV 7 DAYS NOR LEAD ASSESS & MGT SRV/PX W/IN NXT 24 HR/SOON APT;5-10 MIN MED DIS 2012 [facility] NON-STRESS TEST 2012 [facility] MONITORING DURING LABOR BY CONSULTING PHYSICIAN (IE, NON-ATTENDING PHYSICIAN) WITH WRITTEN REPORT; SUPERVISION AND INTERPRETATION 2012 [facility] SUBSEQ CARE VISIT () [EXCLS:PATIENTS WHO ARE SEEN FOR A CONDITION UNREL TO / CARE (EG,AN UP RESPIR INFECT;PATIENTS SEEN FOR CONSULTATION ONLY,NOT FOR CONT CARE)] 2012 [facility] SUBSEQ CARE VISIT () [EXCLS:PATIENTS WHO ARE SEEN FOR A CONDITION UNREL TO / CARE (EG,AN UP RESPIR INFECT;PATIENTS SEEN FOR CONSULTATION ONLY,NOT FOR CONT CARE)] 2012 [facility] ULTRASOUND, UTERUS, REAL TIME WITH IMAGE DOCUMENTATION,TRANS VAGINAL 2012 [facility] ULTRASOUND, UTERUS, REAL TIME WITH IMAGE DOCUMENTATION,TRANS VAGINAL 2012 [facility] ULTRASOUND, UTERUS, REAL TIME WITH IMAGE DOCUMENTATION, AND MATERNAL EVALUATION, FIRST TRIMESTER (< 14 WEEKS 0 DAYS), TRANSABDOMINAL APPROACH; SINGLE OR FIRST GESTATION 2012 [facility] DESTRUCTION (EG, LASER SURGERY, ELECTROSURGERY, CRYOSURGERY, CHEMOSURGERY, SURGICAL CURETTEMENT), OF BENIGN LESIONS OTHER THAN SKIN TAGS OR CUTANEOUS VASCULAR PROLIFERATIVE LESIONS; UP TO 14 LESIONS 2012 [facility] SKIN TEST; TUBERCULOSIS, INTRADERMAL 2011 [facility] SKIN TEST; TUBERCULOSIS, INTRADERMAL 2011 [facility] IMMUNIZATION ADMINISTRATION (INCLUDES PERCUTANEOUS, INTRADERMAL, SUBCUTANEOUS, OR INTRAMUSCULAR INJECTIONS); EACH ADDITIONAL VACCINE (SINGLE OR COMBINATION VACCINE/TOXOID) 2011 [facility] MEDICAL NUTRITION THERAPY; GROUP (2 OR MORE INDIVIDUAL(S)), EACH 30 MINUTES 2011 [facility] INTRAVENOUS INFUSION, HYDRATION; INITIAL, 31 MINUTES TO 1 HOUR 2011 [facility] TELE ASSESS & MGT SRV PROV QUAL NONPHYS HLTH CARE PRO TO EST PAT,PARENT,GUARD NOT ORIG REL ASSESS & MGT SRV PROV W/IN PREV 7 DAYS NOR LEAD ASSESS & MGT SRV/PX W/IN NXT 24 HR/SOON APT;5-10 MIN MED DIS 2011 [facility] Non-Physician Phone Call To Patient/Provider Brief (5-10min) Non-Physician Phone Call To Patient/Provider Brief (5-10min) [id number] 2011 RANULFO MORAN [facility] Hepatitis A And Hepatitis B (Intramuscular Use) Adult Dosage Hepatitis A And Hepatitis B (Intramuscular Use) Adult Dosage 20766 2011 RANULFO MORAN [facility] Vaccines Viral Tuvaluan Encephalitis Inactivated, Intramuscular Vaccines Viral Tuvaluan Encephalitis Inactivated, Intramuscular 34539 2011 NELSON SYLVESTER Immunization Administration One Vaccine Immunization Administration One Vaccine 00305 2011 NELSON SYLVESTER [facility] Screening papanicolaou smear; obtaining, preparing and conveyance of cervical or vaginal smear to laboratory 2011 MITCHEL CARPIO [facility] Tdap Vaccine Tdap Vaccine 50587 2011 VALENTIN SOW [facility] Immunization Administration One Vaccine Immunization Administration One Vaccine 99086 2011 VALENTIN SOW Meningococcal Conjugate Vaccine Tetravalent (A C Y W-135) 2011 VALENTIN SOW Hepatitis A And Hepatitis B (Intramuscular Use) Adult Dosage Hepatitis A And Hepatitis B (Intramuscular Use) Adult Dosage 71772 2011 VALENTIN SOW Immunization Administration Each Additional Vaccine 2011 VALENTIN SOW Vaccines Viral Tuvaluan Encephalitis Inactivated, Intramuscular Vaccines Viral Tuvaluan Encephalitis Inactivated, Intramuscular 73071 2011 NELSON SYLVESTER Immunization Administration One Vaccine Immunization Administration One Vaccine 19785 2011 NELSON SYLVESTER Non-Physician Phone Call To Patient/Provider Brief (5-10min) Non-Physician Phone Call To Patient/Provider Brief (5-10min) 20701 2011 ANTHONY LAGUNAS Non-Physician Phone Call To Patient/Provider Brief (5-10min) Non-Physician Phone Call To Patient/Provider Brief (5-10min) 17723 2011 QUEENIE BALLARD IV Infusion For Hydration 31 Minutes To 1 Hour IV Infusion For Hydration 31 Minutes To 1 Hour [id number] 2010 MAME ROQUE Started at 1845. l litter of LR. [facility] Intravenous Catheter Placement Intravenous Catheter Placement 90886 2010 MAME ROQUE [facility] Non-Physician Phone Call To Patient/Provider Brief (5-10min) Non-Physician Phone Call To Patient/Provider Brief (5-10min) 40231 2010 ASHKAN LONDON [facility] Screening papanicolaou smear; obtaining, preparing and conveyance of cervical or vaginal smear to laboratory 2010 AFUA GODWIN [facility] Social Work Individual Outpatient Counseling 20-30 Minutes Social Work Individual Outpatient Counseling 20-30 Minutes [id number] 2007 JACE WARNER [facility] Psychiatric Evaluation Comprehensive Examination Psychiatric Evaluation Comprehensive Examination [id number] 2007 JACE WARNER [facility] Social Work Individual Outpatient Counseling 20-30 Minutes Social Work Individual Outpatient Counseling 20-30 Minutes [id number] 2007 AFUA MCBRIDE [facility] Social Work Individual Outpatient Counseling 75-80 Minutes Social Work Individual Outpatient Counseling 75-80 Minutes [id number] 2007 AFUA MCBRIDE DoD Social Work Individual Outpatient Counseling 20-30 Minutes Social Work Individual Outpatient Counseling 20-30 Minutes [id number] 2006 JACE WARNER DoD Social Work Individual Outpatient Counseling 45-50 Minutes Social Work Individual Outpatient Counseling 45-50 Minutes [id number] 2006 JACE WARNER [facility] Social Work Individual Outpatient Counseling 45-50 Minutes Social Work Individual Outpatient Counseling 45-50 Minutes [id number] 2006 JACE WARNER DoD Social Work Individual Outpatient Counseling 75-80 Minutes Social Work Individual Outpatient Counseling 75-80 Minutes 22819 2006 JACE WARNER DoD Social Work Individual Outpatient Counseling 45-50 Minutes Social Work Individual Outpatient Counseling 45-50 Minutes [id number] 2006 JACE WARNER [facility] Psychiatric Evaluation Comprehensive Examination Psychiatric Evaluation Comprehensive Examination 74089 2006 JACE WARNER DoD Social Work Individual Outpatient Counseling 45-50 Minutes Social Work Individual Outpatient Counseling 45-50 Minutes [id number] 2006 JACE KULKARNI [facility] Social Work Individual Outpatient Counseling 45-50 Minutes Social Work Individual Outpatient Counseling 45-50 Minutes [id number] 2006 JACE KULKARNI [facility] Psychiatric Evaluation Comprehensive Examination Psychiatric Evaluation Comprehensive Examination 84631 2006 JACE KULKARNI [facility] Crisis intervention mental health services, per hour 2006 JACE KULKARNI [facility] Psychiatric Evaluation Comprehensive Examination Psychiatric Evaluation Comprehensive Examination 76155 2006 MAURO JOHNSON [facility] Psychiatric Therapy Individual Approximately 45-50 Minutes Psychiatric Therapy Individual Approximately 45-50 Minutes [id number] 2005 GUERO LEI [facility] Training And Self-Care Skills Training And Self-Care Skills 50518 2005 LES VALENZUELA [facility] Hepatitis B Vaccine (Active); 20 Years and Above 2005 FREDRICK PARISH [facility] Immunization Administration One Vaccine Immunization Administration One Vaccine 68474 2005 FREDRICK PARISH [facility] Skin Test Anergy tuberculin Skin Test Anergy tuberculin [id number] 2005 GALLO ALICIA [facility] Destruction Of Benign Lesion By Cryosurgery Destruction Of Benign Lesion By Cryosurgery [id number] Special Review / Reporting Of Patient Status Dr. Vivas Special Review / Reporting Of Patient Status [id number] 2014 HERIBERTO STEFAN KYLEE [facility] Psychiatric Therapy Marital 2014 BEACHQUAN LANDEROS DoD Psychiatric Therapy Marital 2014 [place], QUAN CADEISTA DoD Psychiatric Therapy Marital 2014 [place], QUAN CADEISTA DoD Psychiatric Therapy Marital 2014 [place], QUAN CADEISTA DoD Psychiatric Therapy Individual Approximately 20-30 Minutes 2014 [place], QUAN SANTIAGOUTISTA DoD Psychiatric Therapy Group (Interactive) Psychiatric Therapy Group (Interactive) [id number] 2014 [place], QUAN SANTIAGOUTISTA DoD Psychiatric Therapy Group (Interactive) Psychiatric Therapy Group (Interactive) [id number] 2014 [place], QUAN CADEISTA DoD Psychiatric Therapy Marital 2014 [place], QUAN CADEISTA DoD Psychiatric Therapy Marital 2014 [place], QUAN SANTIAGOUTISTA DoD Psychiatric Therapy Group (Interactive) Psychiatric Therapy Group (Interactive) [id number] 2014 [place], QUAN SANTIAGOUTISTA DoD Psychiatric Therapy Group (Interactive) Psychiatric Therapy Group (Interactive) [id number] 2014 [place], QUAN SANTIAGOUTISTA DoD Psychiatric Therapy Marital 2014 [place], QUAN SANTIAGOUTISTA DoD Psychiatric Therapy Group (Interactive) Psychiatric Therapy Group (Interactive) [id number] 2014 [place], QUAN SANTIAGOUTISTA DoD Psychiatric Therapy Marital 2014 [place], QUAN SANTIAGOUTISTA DoD Psychiatric Therapy Group (Interactive) Psychiatric Therapy Group (Interactive) [id number] 2014 [place], QUAN SANTIAGOUTISTA DoD Psychiatric Therapy Marital 2014 BEACH, QUAN SMITH DoD Psychiatric Therapy Marital 2014 [place], QUAN SMITH DoD Psychiatric Therapy Marital 2014 [place], QUAN CADEISTA DoD Psychiatric Therapy Marital 2014 BEACH, QUAN SMITH [facility] Psychiatric Therapy Marital 2014 BEACHQUAN BAUTISTA DoD Psychiatric Therapy Marital 2014 BEACHQUAN BAUTISTA DoD Psychiatric Therapy Marital 2014 BEACHQUAN BAUTISTA DoD Psychiatric Therapy Marital 2014 BEACHQUAN LANDEROS [facility] Psychiatric Therapy Individual Approximately 45-50 Minutes 2014 ALAN KENNEY [facility] Psychiatric Therapy Marital 2014 BEACHQUAN [facility] Psychiatric Therapy Individual Approximately 45-50 Minutes 2014 [facility] 2014 BEACHQUAN LANDEROS [facility] Psychiatric Therapy Individual Approximately 45-50 Minutes 2014 [facility] Marital 2014 BEACHQUAN LANDEROS [facility] Psychiatric Therapy Individual Approximately 45-50 Minutes 2013 JEAN MARIE [facility] Weight Recorded Weight Recorded 2013 YUKO CHAMBERS [facility] A e /Interv Discharge Meds Reconciled W/ Current Meds List Assess/Interv Discharge Meds Reconciled W/ Current Meds List [id number] YUKO CHAMBERS [facility] Weight Recorded Weight Recorded 2013 YUKO CHAMBERS [facility] A e /Interv Discharge Meds Reconciled W/ Current Meds List Assess/Interv Discharge Meds Reconciled W/ Current Meds List 2013 YUKO CHAMBERS [facility] Social Work Individual Outpatient Counseling 45-50 Minutes 2013 [facility] Medical Nutrition Therapy Group (2 or More Individual(s)) Medical Nutrition Therapy Group (2 or More Individual(s)) [id number] 2013 TOBI MCKINLEY [facility] Psychiatric Evaluation Comprehensive Examination Psychiatric Evaluation Comprehensive Examination 33340 2013 BRANDONALAN MEADOWSH [facility] Ophthalmological New Patient Start Comprehensive Care Ophthalmological New Patient Start Comprehensive Care 03433 2012 GEOVANNI WRIGHT Determination Of Refractive State Determination Of Refractive State 66942 2012 GEOVANNI WRIGHT [facility] Urine HCG, Test Urine HCG, Test 83108 2012 EMELY SMITH [facility] Obstetrical Services Care Visit Obstetrical Services Care Visit 0503F 2012 EMELY SMITH [facility] Screening papanicolaou smear; obtaining, preparing and conveyance of cervical or vaginal smear to laboratory 2012 EMELY SMITH [facility] Immunization Admin By Intranasal / Oral Route One Vaccine Immunization Admin By Intranasal / Oral Route One Vaccine 41078 2012 KRISTA KAISER [facility] Influenza Virus Vaccine Live Intranasal Influenza Virus Vaccine Live Intranasal 87334 2012 KRISTA KAISER Influenza, Live, Intranasal; Series #: 1; .2 mL; IN; Intranasal; Mfg: Pongo Resume; Lot: [id number]; VIS given (Jami: 12/16/2012). [facility] OB Services Antepartum Care Only Subsequent Single Visit OB Services Antepartum Care Only Subsequent Single Visit 0502F 2012 CARLOS GASTON Non-Stre Test (___ 0,2) Non-Stress Test (___ 0,2) 94332 2012 FOFISHEMAR [facility] OB Services Antepartum Care Only Subsequent Single Visit OB Services Antepartum Care Only Subsequent Single Visit 0502F 2012 CARLOS GASTON OB Services Antepartum Care Only Subsequent Single Visit OB Services Antepartum Care Only Subsequent Single Visit 0502F 2012 BOB CONTRERASSSJED AUGUSTIN [facility] Vaginal Wet [place] Vaginal [place] 79881 2012 RENETTA REED [facility] Ultrasound Obstetric Limited Evaluation Ultrasound Obstetric Limited Evaluation 82545 2012 RENETTA REED Non-Stre Test (___ 0,2) Non-Stress Test (___ 0,2) 00028 2012 RENETTA REED OB Services Antepartum Care Only Subsequent Single Visit OB Services Antepartum Care Only Subsequent Single Visit 0502F 2012 RENETTA REED [facility] Ultrasound Obstetric Limited Evaluation Ultrasound Obstetric Limited Evaluation 90816 2012 CARLOS GASTON Preventive Medicine Group B Streptococcus During Week 35-37 Preventive Medicine Group B Streptococcus During Week 35-37 3294F 2012 CARLOS GASTON OB Services Antepartum Care Only Subsequent Single Visit OB Services Antepartum Care Only Subsequent Single Visit 0502F 2012 CARLOS GASTON Non-Stre Test (___ 0,2) Non-Stress Test (___ 0,2) 22250 2012 JOYCE SWEET Melecio OB Services Antepartum Care Only Subsequent Single Visit OB Services Antepartum Care Only Subsequent Single Visit 0502F 2012 RAHAT BONE Non-Stre Test (___ 0,2) Non-Stress Test (___ 0,2) [id number] RAHAT BONE Vaginal [place] Vaginal [place] 47515 2012 RAHAT BONE Non-Stre Test (___ 0,2) Non-Stress Test (___ 0,2) 99906 2012 RAHAT BONE OB Services Antepartum Care Only Subsequent Single Visit OB Services Antepartum Care Only Subsequent Single Visit 0502F 2012 RAHAT BONE OB Services Antepartum Care Only Subsequent Single Visit OB Services Antepartum Care Only Subsequent Single Visit 050F 2012 CARLOS GASTON Vaginal Discharge pH Vaginal Discharge pH 72647 2012 AFUA INGRAM Vaginal [place] Vaginal [place] 74070 2012 AFUA INGRAM GUERDA and wet mount [facility] OB Services Antepartum Care Only Subsequent Single Visit OB Services Antepartum Care Only Subsequent Single Visit 0502F 2012 AFUA INGRAM Non-Stre Test (___ 0,2) Non-Stress Test (___ 0,2) 58729 2012 AFUA INGRAM Non-Stre Test (___ 0,2) Non-Stress Test (___ 0,2) 94411 2012 HILTON YOU Rho D Immune Globulin (Human) Intramuscular Use Full-dose Rho D Immune Globulin (Human) Intramuscular Use Full-dose 15637 2012 CARLOS GASTON [facility] OB Services Antepartum Care Only Subsequent Single Visit OB Services Antepartum Care Only Subsequent Single Visit 0502F 2012 CARLOS GASTON [facility] Non-Stre Test (___ 0,2) Non-Stress Test (___ 0,2) 61397 2012 AFUA INGRAM [facility] OB Services Antepartum Care Only Subsequent Single Visit OB Services Antepartum Care Only Subsequent Single Visit 0502F 2012 AFUA INGRAM [facility] Ultrasound Obstetric Limited Evaluation Ultrasound Obstetric Limited Evaluation 04517 2012 AFUA INGRAM [facility] Ultrasound [place] [address] 2012 AFUA INGRAM [facility] Non-Physician Phone Call To Patient/Provider Brief (5-10min) Non-Physician Phone Call To Patient/Provider Brief (5-10min) 89071 2012 TATI OWEN Non-Stre Test (___ 0,2) Non-Stress Test (___ 0,2) 93927 2012 JOYCE SWEET [facility] Obstetrical Services Placement Of External Monitor Obstetrical Services Placement Of External Monitor 00639 2012 ASHLEIGH FERNANDEZ [facility] OB Services Antepartum Care Only Subsequent Single Visit OB Services Antepartum Care Only Subsequent Single Visit 0502F 2012 KOBI LEBLANC [facility] OB Services Antepartum Care Only Subsequent Single Visit OB Services Antepartum Care Only Subsequent Single Visit 0502F 2012 KOBI LEBLANC [facility] Ultrasound [place] [address] 2012 HILTON YOU [facility] OB Services Antepartum Care Only First Visit, With Report OB Services Antepartum Care Only First Visit, With Report 0500F 2012 MO JOHNSON [facility] Ultrasound [place] [address] 2012 HILTON YOU [facility] Destruction Of Flat Warts By Cryosurgery Up [...] The patient tolerated the procedure without complications [facility] Skin Test Anergy Tuberculin Intradermal Skin Test Anergy Tuberculin Intradermal 26537 2011 KISHA DEJESUS IPPD; Series #: 1; .1 mL; ID; Left Arm; Mfg: Sanofi Pasteur; Lot: [id number]; VIS given. [facility] Skin Test Anergy Tuberculin Intradermal Skin Test Anergy Tuberculin Intradermal 76145 2011 CROW COUGHLIN IPPD; Series #: 1; .1 mL; ID; Left Arm; Mfg: Sanofi Pasteur; Lot: [id number]; VIS given. [facility] Immunization Administration Each Additional Vaccine 2011 JAQUELINE BENJAMIN [facility] Immunization Administration One Vaccine Immunization Administration One Vaccine 25509 2011 JAQUELINE BENJAMIN [facility] Skin Test Anergy Tuberculin Intradermal Skin Test Anergy Tuberculin Intradermal 07511 2011 JAQUELINE BENJAMIN IPPD; Series #: 1; .1 mL; ID; Left Arm; Mfg: Sanofi Pasteur; Lot: [id number]; VIS given. [facility] Vaccines Vaccines 71846 2011 JAQUELINE BENJAMIN Influenza; Series #: 1; .5 mL; IM; Left Arm; Mfg: [employer] Lot: [id number]; VIS given (Jami: 01/01/09). [facility] Hepatitis A Vaccine Adult Dosage (Intramuscular Use) Hepatitis A Vaccine Adult Dosage (Intramuscular Use) 81278 2011 JAQUELINE BENJAMIN Hep A (Adult); Series #: 1; 1.0 mL; IM; Right Arm; Mfg: Other; Lot: [id number]; VIS given (Jami: 03/17/11). DoD Medical Nutrition Therapy Group (2 or More Individual(s)) Medical Nutrition Therapy Group (2 or More Individual(s)) 84927 2011 ION KINGSTON [facility] Non-Physician Phone Call To Patient/Provider Brief (5-10min) Non-Physician Phone Call To Patient/Provider Brief (5-10min) 81187 2011 HEAVEN ZUNIGA [facility] Avulsion Of Nail Plate Avulsion Of Nail Plate 72652 2011 LUCINDA BARRIOS DoD Social History Combined list of available smoking, tobacco, and other social history from Department of Defense and Veterans Affairs facilities. Social History Type Response Date Comment Sour e This section is an empty social history section. DoD
--- OUTSIDE RECORDS SUMMARY | 2024-09-27 15:53 | XMS_ITS | Clinical Summary ---
Author Organization [facility] Address [address] [place] [id number] Care Team Providers Care Director Consumer Affairs Name Role Phone Unavailable Primary Care Provider [...] on file Legal Sex Female 7:38 PM [employer] Gender Identity Not on file Sexual Orientation Not on file Last Filed Vital Signs Vital Sign Reading Time Taken Comments Blood Pressure 107/74 04/02/2017 2:44 AM BEFORE SCHOOL Pulse 65 04/02/2017 1:17 AM [employer] Temperature 36.5 C (97.7 F) 04/01/2017 8:28 PM [employer]OL Respiratory Rate 18 04/02/2017 1:17 AM [employer]OL Oxygen Saturation 100% 04/02/2017 1:17 AM [employer] Inhaled Oxygen Concentration - - Weight 95.3 kg (210 lb 1.6 oz) 04/01/2017 8:28 P M [employer] Height 162.6 cm (5' 4 ) 04/01/2017 8:28 PM [employer] Body Mass Index 36.06 04/01/2017 8:28 PM [employer]OL Plan of Treatment Health Maintenance Due Date [...] this topic [place] [id number] [facility]
--- OUTSIDE RECORDS SUMMARY | 2024-09-27 15:53 | XMS_ITS | Clinical Summary ---
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
--- OUTSIDE RECORDS SUMMARY | 2024-09-27 15:53 | XMS_ITS | Referral Summary ---
Author Organization [place] [id number] [facility] Address [address] [place] [address] Care Team Providers Care Tribunal Member Name Role Phone ThomasJudah Primary Care Provider [...] Comments Blood Pressure 116/84 04/11/2020 10:38 AM EXECUTIVE ASSISTANT TO GENERAL COUNSEL Pulse 72 03/14/2020 4:15 PM CDT Temperature 36.4 C (97.5 F) 03/14/2020 4:15 PM CDT Respiratory Rate 18 03/14/2020 4:15 PM CDT Oxygen Saturation 99% 03/14/2020 4:15 PM CDT Inhaled Oxygen Concentration - - Weight 95.3 kg (210 lb) 04/11/2020 10:38 AM EXECUTIVE ASSISTANT TO GENERAL COUNSEL Height 162.6 cm (5' 4 ) 03/14/2020 4:15 PM CDT Body Mass Index 36.05 03/14/2020 4:15 PM CDT Plan of Treatment Not on file Insurance [facility]MO [facility] HMO/PPO Address: [facility] [id number] [place] [address] Care Teams Tribunal Member Relationship Specialty Start Date End Date Judah Guzman DO [address] [place] [id number] PCP - General Family Medicine 08/31/18
--- OUTSIDE RECORDS SUMMARY | 2024-09-27 15:53 | XMS_ITS | Clinical Summary ---
Author Organization [place] [id number] [facility] Address [address] [place] [address] Care Team Providers Care High Rigger Name Role Phone GuzmanJudah rangel Primary Care [...] Comments Blood Pressure 116/84 04/11/2020 10:38 AM MANAGER CHINESE Pulse 72 03/14/2020 4:15 PM CDT Temperature 36.4 C (97.5 F) 03/14/2020 4:15 PM CDT Respiratory Rate 18 03/14/2020 4:15 PM CDT Oxygen Saturation 99% 03/14/2020 4:15 PM CDT Inhaled Oxygen Concentration - - Weight 95.3 kg (210 lb) 04/11/2020 10:38 AM MANAGER CHINESE Height 162.6 cm (5' 4 ) 03/14/2020 4:15 PM CDT Body Mass Index 36.05 03/14/2020 4:15 PM CDT Plan of Treatment Not on file Insurance [place] [address] HMO Care Teams High Rigger Relationship Specialty Start Date End Date Judah Guzman DO [address] [place] [phone] PCP - General Family Medicine 08/31/18
== END 2024-09-27 15:49 | disposition home or self-care (01) ==
PROVIDERS: PCP Nurse Practitioner Family; Visit Provider Nurse Practitioner Obstetrics & Gynecology
DX: N88.8 Other specified noninflammatory disorders of cervix uteri (principal); N92.1 Excessive and frequent menstruation with irregular cycle
CPT/HCPCS: 76830; 76856

== ENCOUNTER 2024-10-02 08:51 | Outpatient (CLI) | payer OTHER, SELFPAY ==
--- NOTE | 2024-10-02 08:56 | EST_ITS ---
Patient Info Name: Gail Walker Age: 39 years : 1985 Gender: Female Ht: 64 in Wt: 231 lbs BSA: 2.23 m2 HR: 60 bpm BP: 110 / 70 mmHg Heart Rhythm: Sinus Rhythm Technical Quality: Good Exam Date: 10/02/2024 9:55 AM Exam Location: Echo Lab Patient Status: Outpatient Admit Date: 10/02/2024 Staff Ordering Physician: Jocelynn Awad APRN Attending Provider: Jocelynn Awad APRN Exam Type: CA stress test treadmill w NM Study Info A treadmill exercise stress test was performed. History/Risk Factors Dyslipidemia: Yes Summary 1. 1. Negative Javed exercise stress test for ischemic ST changes by ECG criteria. 2. 2. Good functional capacity, achieving 10 METs of workload. 3. 3. Appropriate HR response to exercise. 4. 4. Appropriate HR recovery at 1 minute post exercise. 5. 5. Nuclear scan to follow and will be reported separately. Please correlate with it. Protocol: Javed Stress ECG Details Stage: REST Duration (min): 2 min : 54 sec Speed (mph): 0.0 Grade (%): 0 HR (bpm): 59 SBP (mmHg): 110 DBP (mmHg): 73 METS: --- Stage: REST Duration (min): 12 min : 11 sec Speed (mph): 0.0 Grade (%): 0 HR (bpm): 79 SBP (mmHg): 110 DBP (mmHg): 73 METS: --- Stage: STAGE 1 Duration (min): 1 min : 0 sec Speed (mph): 1.7 Grade (%): 10 HR (bpm): 98 SBP (mmHg): 110 DBP (mmHg): 73 METS: --- Stage: STAGE 1 Duration (min): 2 min : 0 sec Speed (mph): 1.7 Grade (%): 10 HR (bpm): 112 SBP (mmHg): 110 DBP (mmHg): 73 METS: --- Stage: STAGE 1 Duration (min): 3 min : 0 sec Speed (mph): 1.7 Grade (%): 10 HR (bpm): 120 SBP (mmHg): 132 DBP (mmHg): 64 METS: --- Stage: STAGE 2 Duration (min): 1 min : 0 sec Speed (mph): 2.5 Grade (%): 12 HR (bpm): 128 SBP (mmHg): 132 DBP (mmHg): 64 METS: --- Stage: STAGE 2 Duration (min): 2 min : 0 sec Speed (mph): 2.5 Grade (%): 12 HR (bpm): 135 SBP (mmHg): 132 DBP (mmHg): 64 METS: --- Stage: STAGE 2 Duration (min): 3 min : 0 sec Speed (mph): 2.5 Grade (%): 12 HR (bpm): 141 SBP (mmHg): 179 DBP (mmHg): 70 METS: --- Stage: STAGE 3 Duration (min): 1 min : 0 sec Speed (mph): 3.4 Grade (%): 14 HR (bpm): 154 SBP (mmHg): 179 DBP (mmHg): 70 METS: --- Stage: STAGE 3 Duration (min): 2 min : 0 sec Speed (mph): 3.4 Grade (%): 14 HR (bpm): 159 SBP (mmHg): 179 DBP (mmHg): 70 METS: --- Stage: STAGE 3 Duration (min): 2 min : 0 sec Speed (mph): 3.4 Grade (%): 14 HR (bpm): 160 SBP (mmHg): 179 DBP (mmHg): 70 METS: --- Stage: RECOVERY Duration (min): 0 min : 59 sec Speed (mph): 0.0 Grade (%): 0 HR (bpm): 144 SBP (mmHg): 169 DBP (mmHg): 59 METS: --- Stage: RECOVERY Duration (min): 1 min : 59 sec Speed (mph): 0.0 Grade (%): 0 HR (bpm): 120 SBP (mmHg): 190 DBP (mmHg): 67 METS: --- Stage: RECOVERY Duration (min): 2 min : 59 sec Speed (mph): 0.0 Grade (%): 0 HR (bpm): 102 SBP (mmHg): 190 DBP (mmHg): 67 METS: --- Stage: RECOVERY Duration (min): 3 min : 59 sec Speed (mph): 0.0 Grade (%): 0 HR (bpm): 92 SBP (mmHg): 171 DBP (mmHg): 66 METS: --- Stage: RECOVERY Duration (min): 4 min : 59 sec Speed (mph): 0.0 Grade (%): 0 HR (bpm): 90 SBP (mmHg): 171 DBP (mmHg): 66 METS: --- Stage: RECOVERY Duration (min): 5 min : 59 sec Speed (mph): 0.0 Grade (%): 0 HR (bpm): 86 SBP (mmHg): 153 DBP (mmHg): 70 METS: --- Stage: RECOVERY Duration (min): 6 min : 21 sec Speed (mph): 0.0 Grade (%): 0 HR (bpm): 85 SBP (mmHg): 153 DBP (mmHg): 70 METS: --- Rest HR: 79 bpm Peak HR: 160 bpm Rest Sys BP: 110 mmHg Peak Sys BP: 190 mmHg Max Pred HR: 181 bpm % Max Pred HR: 88 % Target HR: 154 bpm Max RPP: 30,400 bpm*mmHg June Score: -2 Target HR Summary: Patient's target heart rate was achieved BP Response: Normal blood pressure response Termination Reason: Leg weakness Cardiac Symptoms: None Max ST Seg Deviation: 2 mm Total Time: 8 min : 0 sec Rest Souza BP: 73 mmHg Peak Souza BP: 67 mmHg Angina Score: None Total METS: 10.3 Resting ECG Normal sinus rhythm - normal ECG. Stress ECG No abnormal ST/T wave changes with exercise. Arrhythmias Occasional PVCs. one couplet. Report Signatures
--- OUTSIDE RECORDS SUMMARY | 2024-10-02 08:57 | XMS_ITS | Clinical Summary ---
Author Organization [email or web address] Address [address] [place] [address] Care Team Providers Care Box Brander Name Role Phone Judah Guzman Primary Care Provider [phone] Source Comments [email or web address],non-[facility] Affiliates and Associated Physician Practices is amultiple site organization consisting of ambulatory clinics and hospital sitesin [place], [place], [place] and [place]. This disclosure is being madepursuant to the Care Everywhere program and may not contain all information available regarding this patient. Last updated 18.[email or web address] Allergies Active Allergy Reactions Criticality Noted Date [...] 2 Mother Heart Disease Mother Hypertension Mother OR Mother Other - Cardiac Mother Asthma Neg [...] Comments Blood Pressure 112/68 05/12/2019 9:59 AM RUG HOOKER Pulse 78 05/12/2019 9:59 AM RUG HOOKER Temperature 36.7 C (98 F) 05/12/2019 9:59 AM RUG HOOKER Respiratory Rate 16 05/12/2019 9:59 AM RUG HOOKER Oxygen Saturation 98% 05/12/2019 9:59 AM RUG HOOKER Inhaled Oxygen Concentration - - Weight 95.3 kg (210 lb) 05/12/2019 9:59 AM RUG HOOKER Height 162.6 cm (5' 4 ) 05/12/2019 9:59 AM RUG HOOKER Body Mass Index 36.05 05/12/2019 9:59 AM RUG HOOKER Plan of Treatment Health Maintenance Due Date [...] patient's age to complete this topic Insurance [facility] Care Teams Box Brander Relationship Specialty Start Date End Date Judah Guzman DO [address] [place] [address] [place] NÚÑEZ [id number] PCP - General Family Medicine 10/03/18
--- OUTSIDE RECORDS SUMMARY | 2024-10-02 08:57 | XMS_ITS | Referral Summary ---
Author Organization [place] [id number] [facility] Address [address] [place] [address] Care Team Providers Care Drug Abuse Social Worker Name Role Phone ThomasJudah Primary Care Provider [...] Comments Blood Pressure 116/84 04/11/2020 10:38 AM CRITICAL CARE RN Pulse 72 03/14/2020 4:15 PM CDT Temperature 36.4 C (97.5 F) 03/14/2020 4:15 PM CDT Respiratory Rate 18 03/14/2020 4:15 PM CDT Oxygen Saturation 99% 03/14/2020 4:15 PM CDT Inhaled Oxygen Concentration - - Weight 95.3 kg (210 lb) 04/11/2020 10:38 AM CRITICAL CARE RN Height 162.6 cm (5' 4 ) 03/14/2020 4:15 PM CDT Body Mass Index 36.05 03/14/2020 4:15 PM CDT Plan of Treatment Not on file Insurance HMO Care Teams Drug Abuse Social Worker Relationship Specialty Start Date End Date Judah Guzman DO [address] [place] [phone] PCP - General Family Medicine 08/31/18
--- OUTSIDE RECORDS SUMMARY | 2024-10-02 08:57 | XMS_ITS | Clinical Summary ---
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
--- OUTSIDE RECORDS SUMMARY | 2024-10-02 08:57 | XMS_ITS | Clinical Summary ---
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 CONTROL ASSISTANT Gender Identity Not on file Sexual Orientation Not on file Last Filed Vital Signs Vital Sign Reading Time Taken Comments Blood Pressure 107/74 04/02/2017 2:44 AM MALT SPECIFICATIONS CONTROL ASSISTANT Pulse 65 04/02/2017 1:17 AM MALT SPECIFICATIONS CONTROL ASSISTANT Temperature 36.5 C (97.7 F) 04/01/2017 8:28 PM MALT SPECIFICATIONS CONTROL ASSISTANT Respiratory Rate 18 04/02/2017 1:17 AM MALT SPECIFICATIONS CONTROL ASSISTANT Oxygen Saturation 100% 04/02/2017 1:17 AM MALT SPECIFICATIONS CONTROL ASSISTANT Inhaled Oxygen Concentration - - Weight 95.3 kg (210 lb 1.6 oz) 04/01/2017 8:28 P M MALT SPECIFICATIONS CONTROL ASSISTANT Height 162.6 cm (5' 4 ) 04/01/2017 8:28 PM MALT SPECIFICATIONS CONTROL ASSISTANT Body Mass Index 36.06 04/01/2017 8:28 PM MALT SPECIFICATIONS CONTROL ASSISTANT Plan of Treatment Health Maintenance Due Date [...] complete this [place] [address] [facility]
--- OUTSIDE RECORDS SUMMARY | 2024-10-02 08:57 | XMS_ITS | Clinical Summary ---
Author Organization [place] [id number] [facility] Address [address] [place] [address] Care Team Providers Care Food Service Cashier Name Role Phone GuzmanJudah rangel Primary Care [...] Comments Blood Pressure 116/84 04/11/2020 10:38 AM CARDIAC NURSE SPECIALIST Pulse 72 03/14/2020 4:15 PM CDT Temperature 36.4 C (97.5 F) 03/14/2020 4:15 PM CDT Respiratory Rate 18 03/14/2020 4:15 PM CDT Oxygen Saturation 99% 03/14/2020 4:15 PM CDT Inhaled Oxygen Concentration - - Weight 95.3 kg (210 lb) 04/11/2020 10:38 AM CARDIAC NURSE SPECIALIST Height 162.6 cm (5' 4 ) 03/14/2020 4:15 PM CDT Body Mass Index 36.05 03/14/2020 4:15 PM CDT Plan of Treatment Not on file [place] [address] [place] [id number] HMO Care Teams Food Service Cashier Relationship Specialty Start Date End Date Judah Guzman DO [address] [place] [address] [id number] PCP - General Family Medicine 08/31/18
--- NOTE | 2024-10-02 22:07 | P.NST_ITS ---
Nuclear Stress Test INDICATIONS Indications: Shortness of breath PROCEDURE Procedure Performed: Myocardial Perf Spect-Multi Procedure: Patient exercised on a standard Javed protocol and at peak HR was immediately in jected with 31.2 mCi of cardiolyte. Multiple tomographic images were obtained. These are of good quality. There is no perfusion defect with stress imaging. A separate resting images were obtained after patient was injected with 10.1 mCi of cardiolyte. Multiple tomographic images were obtained. These are of good quality. There is a moderate size, moderate severity apical perfusion defect with rest imaging. CONCLUSION Conclusion: 1. Normal myocardial perfusion imaging demonstrating no perfusion defect with stress imaging. 2. No evidence of reversible ischemia. 3. Left ventriculogram demonstrates normal measured ejection fraction of 73% with no wall motion abnormalities. 4. TID score 0.75 is not elevated.
== END 2024-10-02 08:52 | disposition home or self-care (01) ==
LOC: CHSIMG 08:53
PROVIDERS: PCP Nurse Practitioner Family; Visit Provider Nurse Practitioner Family
DX: R06.02 Shortness of breath (principal); R94.31 Abnormal electrocardiogram [ECG] [EKG]
CPT/HCPCS: 78452; 93017; A9502

== ENCOUNTER 2024-10-30 16:50 | Emergency (ER) | payer OTHER, SELFPAY ==
[2024-10-30 17:11] VITALS: BP 111/66; PULSE 82; RESP 16; TEMP 36.8; O2SAT 100
--- NOTE | 2024-10-30 17:57 | ED_ITS ---
HPI - Skin/Abscess/Foreign Bdy General Chief complaint: Skin/Abscess/Foreign Body Stated complaint: Skin Irritation Time Seen by Provider: 10/30/24 17:46 Source: patient and RN notes reviewed Mode of arrival: ambulatory Limitations: no limitations History of Present Illness HPI narrative: Patient presents today complaining of nausea, headache since yesterday and mild diarrhea that started today. Patient had several vomiting episodes from 3-10 p.m. yesterday that has since resolved. Patient also complaining of an 8-9 day history of lesions to her bilateral arms and right leg that are pruritic. 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 States son was sick last week with diarrhea in the home. She is able to orally hydrate and has been urinating appropriately. Denies abdominal pain or fever. Related Data Home Medications ?Medication ?Instructions ?Recorded ?Confirmed ?Last Taken ?Type multivitamin (Daily Multi-Vitamin 1 tablet PO DAILY 09/29/24 10/18/24 Unknown History tablet) Allergies Allergy/AdvReac Type Severity Reaction Status Date / Time No Known Allergies Allergy Verified 10/30/24 17:30 Review of Systems Review of Systems: CONSTITUTIONAL: Denies body aches, fever, chills, or sweats. EYES: Denies visual changes, redness, or discharge. ENT: Denies rhinorrhea, congestion, sore throat, or otalgia. CARDIOVASCULAR: Denies chest pain, palpitations, or edema. RESPIRATORY: Denies cough or dyspnea. GASTROINTESTINAL: Denies abdominal pain. + nausea, vomiting, diarrhea GENITOURINARY: Denies dysuria or hematuria. SKIN: Pruritic rash. MUSCULOSKELETAL: Denies back pain, joint pain, or myalgia. NEUROLOGIC: Denies headache, numbness, tingling, or weakness. PSYCH: Denies depression or anxiety. [facility] Past Medical History Medical History High triglycerides ADINA (obstructive sleep apnea) Anxiety and depression Migraine Menometrorrhagia Venous insufficiency Asthma Hypothyroid Hypothyroid neuropathy Obesity (BMI 30-39.9) Lumbar back pain Multiple episodes of hypoglycemia Abnormal Pap smear of cervix Iron deficiency anemia MDD (major depressive disorder) Kehinde's disease Surgical History Surgical History H/O: section x2 Family History Family History Mother Type 1 diabetes Acute myocardial infarction Diabetes mellitus Kidney failure CHF (congestive heart failure) Cerebrovascular accident possible mini stroke Heart disease Father Hypertension Grandparent Acute myocardial infarction Dementia Cerebrovascular accident Depression Other Brain tumor uncle Cerebrovascular accident uncle Acute myocardial infarction uncle Depression Diabetes mellitus uncle, aunt Social History Social History Smoking status: Never smoker Alcohol intake: never Substance use: never Substance use type: does not use Lack of Transportation: No Lack of Food: Never True Current Housing: I Have Housing Concerned About Future Housing: No Difficulty Paying Gas/Electric Bills: No Difficulty Paying for Meds: No Currently Unemployed: No Education: High School Diploma/GED Difficulty w/ Childcare or Family Care: No Living arrangements: with family Additional living arrangements comments: and 2 children Comments At time of signature, I have reviewed and agree with nursing past medical, surgical, social and family history unless otherwise noted. Please see nursing chart for further information. There is no relevant family history pertinent to the presenting complaint Exam Narrative: GENERAL: Well-appearing, well-nourished, and in no acute distress. HEAD: Normocephalic, atraumatic. EYES: EOMI. No redness or drainage. Conjunctivae normal. ENT: Mucous membranes pink and moist. Nares clear. No rhinorrhea. Throat normal. Uvula midline. NECK: Normal AROM. Supple. No lymphadenopathy. CHEST: No respiratory distress. Clear to auscultation. HEART: Regular rate and rhythm. No murmur appreciated. ABDOMEN: Soft, nontender, nondistended, normal active bowel sounds. EXTREMITIES: Normal range of motion. No edema. SKIN: Warm, dry. Capillary refill normal. Normal skin turgor. Scattered open erythematous wounds to the bilateral arms and right leg measuring approximately 1 x 1 cm each. No surrounding erythema or induration. No drainage. NEURO: No focal deficits. Alert and oriented x3. Gait steady. PSYCH: Normal affect. No signs of depression or anxiety. Course Course Level of Care: Express Care Visit Vital Signs Vital signs: Vital Signs Temperature 98.3 F 10/30/24 17:11 Pulse Rate 82 10/30/24 17:11 Respiratory Rate 16 10/30/24 17:11 Blood Pressure 111/66 10/30/24 17:11 Pulse Oximetry 100 10/30/24 17:11 Temperature 98.3 F 10/30/24 17:11 Pulse Rate 82 10/30/24 17:11 Respiratory Rate 16 10/30/24 17:11 Blood Pressure 111/66 10/30/24 17:11 Pulse Oximetry 100 10/30/24 17:11 Reviewed MDM - Skin/Abscess/Foreign Bdy MDM Narrative Medical decision making narrative: Discussed course of diarrhea and viral gastroenteritis with patient as well as [id number] options if needed and ED precautions. She will be treated with a course of Keflex for likely bacterial rash. Anticipatory guidance given. Differential Diagnosis Differential diagnosis: Likely abscess of skin or subcutaneous tissue, dermatophytosis, urticaria, cellulitis, insect bites, impetigo, contact dermatitis and other (Viral syndrome, gastroenteritis) Critical Care Time Critical Care Time Critical Care Time: No Discharge Plan Discharge Clinical Impression: Skin lesion Diarrhea Qualifiers: Diarrhea type: unspecified type Qualified Code(s): R19.7 - Diarrhea, unspecified Patient Disposition: Home Condition: Stable Instructions: Antibiotic Form, Impetigo (ED) Additional Instructions: Your diarrhea should resolve itself within 1 week. Continues to stay hydrated with water and electrolyte containing fluids. If you develop blood or mucus in your stool, fever, severe abdominal pain, please go to the ER immediately for further evaluation. Take the Keflex as prescribed for your skin lesions. Wash daily with soap and water. Monitor for worsening symptoms and follow-up with your PCP if needed. Patient Language: Kyrgyz Prescriptions: New cephalexin 500 mg capsule 500 mg PO Q6H 7 Days Qty: 28 0RF No Action multivitamin [Daily Multi-Vitamin] Tablet 1 tablet PO DAILY albuterol sulfate [Ventolin HFA] 90 mcg/actuation HFA aerosol inhaler 1 inh inhalation Q4H PRN (Reason: shortness of breath or wheezing) Qty: 8.5 0RF citalopram 40 mg tablet 40 mg PO DAILY 90 Days Qty: 90 0RF miconazole nitrate 2 % aerosol powder 1 spray topical BID PRN (Reason: vaginal itching) Qty: 130 0RF ferrous sulfate 325 mg (65 mg iron) tablet,delayed release (DR/EC) 325 mg PO DAILY 90 Days Qty: 90 0RF levothyroxine [Levoxyl] 150 mcg tablet 150 mcg PO DAILY Qty: 90 1RF Follow-up/Referrals: PHYSICIAN,ASSEMBLER CARBON BRUSHES [Primary Care Provider] - Time of Disposition: 18:03
== END 2024-10-30 18:04 | disposition home or self-care (01) ==
PROVIDERS: Emergency Provider Nurse Practitioner
DX: L98.9 Disorder of the skin and subcutaneous tissue, unspecified (principal); R19.7 Diarrhea, unspecified; F41.9 Anxiety disorder, unspecified; F32.A Depression, unspecified; J45.909 Unspecified asthma, uncomplicated; D50.9 Iron deficiency anemia, unspecified; E06.3 Autoimmune thyroiditis; E66.9 Obesity, unspecified; Z68.39 Body mass index [BMI] 39.0-39.9, adult
CPT/HCPCS: 99213; G0463

== ENCOUNTER 2024-12-17 13:13 | Emergency (ER) | payer OTHER, SELFPAY ==
[2024-12-17 13:13] VITALS: BP 123/82; PULSE 76; RESP 14; TEMP 36.4; O2SAT 97
--- OUTSIDE RECORDS SUMMARY | 2024-12-17 13:19 | XMS_ITS | Patient Health Record ---
Author Organization [facility] Address [address] [place], [place] [id number] Care Team Providers Care Iron Molder Helper Name Role Phone Kenn Saha Unavailable Unavailable Reason For Referral No Information Medications Medication SIG (Take, Route, Frequency, Duration) Notes Start Date End Date Status escitalopram 10 MG Oral Tablet [Lexapro] ORAL escitalopram 10 MG Oral Tablet [Lexapro]Original Medicationescitalopram 10 MG Oral Tablet [Lexapro] *Reorder from [employer] for eRx and Interaction Alerts* 01/01/2022 Active thyroid (HALF-WAY) 15 MG Oral Tablet [[place] Thyroid] ORAL thyroid (HALF-WAY) 15 MG Oral Tablet [[place] Thyroid]Original Medicationthyroid (HALF-WAY) 15 MG Oral Tablet [[place] Thyroid] *Reorder from [employer] for eRx and Interaction Alerts* 01/01/2022 Active Plan Of Treatment No Information Insurance Providers Payer Name Payer Address Payer Phone Subscriber Number Group Number Insured Name Patient Relationship to Insured Coverage Start Date Coverage End Date [facility] ([facility]) ATTN CLAIMS [address] [place] [address] [id number] DIONTE KHOURY Self - patient is the insured
--- OUTSIDE RECORDS SUMMARY | 2024-12-17 13:20 | XMS_ITS | Referral Summary ---
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 Pulse 72 03/14/2020 4:15 PM CDT Temperature 36.4 C (97.5 F) 03/14/2020 4:15 PM CDT Respiratory Rate 18 03/14/2020 4:15 PM CDT Oxygen Saturation 99% 03/14/2020 4:15 PM CDT Inhaled Oxygen Concentration - - Weight 95.3 kg (210 lb) 04/11/2020 10:38 AM INTERMODAL OWNER OPERATOR TRUCK DRIVER Height 162.6 cm (5' 4) 03/14/2020 4:15 PM CDT Body Mass Index 36.05 03/14/2020 4:15 PM CDT Plan of Treatment Not on file Insurance [facility] Address: [facility] [id number] [place] [address] Care Teams Furnace Filler Relationship Specialty Start Date End Date Judah Guzman DO [address] [place] [id number] PCP - General Family Medicine 08/31/18
--- OUTSIDE RECORDS SUMMARY | 2024-12-17 13:20 | XMS_ITS | Clinical Summary ---
Author Organization [facility] Address [address] [place] [address] Care Team Providers Care Oxygen Therapy Teacher Name Role Phone Unavailable Primary Care Provider [...] on file Legal Sex Female 7:38 PM ELECTRONIC PREPRESS SYSTEM OPERATOR Gender Identity Not on file Sexual Orientation Not on file Last Filed Vital Signs Vital Sign Reading Time Taken Comments Blood Pressure 107/74 04/02/2017 2:44 AM ELECTRONIC PREPRESS SYSTEM OPERATOR Pulse 65 04/02/2017 1:17 AM ELECTRONIC PREPRESS SYSTEM OPERATOR Temperature 36.5 C (97.7 F) 04/01/2017 8:28 PM ELECTRONIC PREPRESS SYSTEM OPERATOR Respiratory Rate 18 04/02/2017 1:17 AM ELECTRONIC PREPRESS SYSTEM OPERATOR Oxygen Saturation 100% 04/02/2017 1:17 AM ELECTRONIC PREPRESS SYSTEM OPERATOR Inhaled Oxygen Concentration - - Weight 95.3 kg (210 lb 1.6 oz) 04/01/2017 8:28 P M ELECTRONIC PREPRESS SYSTEM OPERATOR Height 162.6 cm (5' 4) 04/01/2017 8:28 PM ELECTRONIC PREPRESS SYSTEM OPERATOR Body Mass Index 36.06 04/01/2017 8:28 PM ELECTRONIC PREPRESS SYSTEM OPERATOR Plan of Treatment Health Maintenance Due Date Last Done Comments Cervical Cancer Screening Pa p Smear (Age 30 to 64) Every 3 Years 1985 Annual Physical 1988 Hepatitis C 2003 DTaP, Tdap and Td Vaccines ( 1 - Tdap) 2004 Hepatitis B Vaccines (1 of 3 - 19+ 3-dose series) 2004 HPV Vaccines (1 - 3-dose SCD M series) 2012 Cervical Cancer Screening Pa p with HPV Testing (Age 30 to 64) Every 5 Years 2015 Cervical Cancer Screening with HPV 2015 COVID-19 Vaccine (2023-2 5 season) 2024 Meningococcal B Vaccine Aged Out No l [...] patient's age to complete this topic Insurance [facility] [place] [id number] [facility]
--- OUTSIDE RECORDS SUMMARY | 2024-12-17 13:20 | XMS_ITS | Clinical Summary ---
Author Organization [place] [id number] [facility] Address [address] [place] [address] Care Team Providers Care Director Of Reimbursement Name Role Phone GuzmanJudah rangel Primary Care [...] Comments Blood Pressure 116/84 04/11/2020 10:38 AM TAG MARKER Pulse 72 03/14/2020 4:15 PM CDT Temperature 36.4 C (97.5 F) 03/14/2020 4:15 PM CDT Respiratory Rate 18 03/14/2020 4:15 PM CDT Oxygen Saturation 99% 03/14/2020 4:15 PM CDT Inhaled Oxygen Concentration - - Weight 95.3 kg (210 lb) 04/11/2020 10:38 AM TAG MARKER Height 162.6 cm (5' 4) 03/14/2020 4:15 PM CDT Body Mass Index 36.05 03/14/2020 4:15 PM CDT Plan of Treatment Not on [place] [address] [place] [address] HMO Care Teams Director Of Reimbursement Relationship Specialty Start Date End Date Judah Guzman DO [address] [place] [address] [phone] PCP - General Family Medicine 08/31/18
--- OUTSIDE RECORDS SUMMARY | 2024-12-17 13:20 | XMS_ITS | Clinical Summary ---
Author Organization [facility] [employer] Address [address] [place] [address] Care Team Providers Care Correctional Lieutenant Name Role Phone Judah Guzman Primary Care Provider [phone] Source Comments [facility] [employer],non-[facility] Affiliates and Associated Physician Practices is amultiple site organization consisting of ambulatory clinics and hospital sitesin [place], [place], [place] and [place]. This disclosure is being madepursuant to the Care Everywhere program and may not contain all information available regarding this patient. Last updated 18.[facility] [employer] Allergies Active Allergy Reactions Criticality Noted Date [...] Comments Blood Pressure 112/68 05/12/2019 9:59 AM WIRE BASKET MAKER Pulse 78 05/12/2019 9:59 AM WIRE BASKET MAKER Temperature 36.7 C (98 F) 05/12/2019 9:59 AM WIRE BASKET MAKER Respiratory Rate 16 05/12/2019 9:59 AM WIRE BASKET MAKER Oxygen Saturation 98% 05/12/2019 9:59 AM WIRE BASKET MAKER Inhaled Oxygen Concentration - - Weight 95.3 kg (210 lb) 05/12/2019 9:59 AM WIRE BASKET MAKER Height 162.6 cm (5' 4) 05/12/2019 9:59 AM WIRE BASKET MAKER Body Mass Index 36.05 05/12/2019 9:59 AM WIRE BASKET MAKER Plan of Treatment Health Maintenance Due Date Last Done Comments HIV SCREENING 2000 HEPATITIS C SCREENING 05/29/2003 DTAP/TDAP/TD VACCINES (1 - Tdap) 2004 HEPATITIS B VACCINE (1 of 3 - 19+ 3-dose series) 2004 HPV VACCINE (1 - 3-dose SCDM series) 2012 COVID-19 VACCINE ( - 2023-2 5 season) 2024 DEPRESSION SCREENING 05/24/2024 INFLUENZA VACCINE (#1) 2025 ZOSTER VACCINE (1 of 2) 2035 [...] patient's age to complete this topic Insurance [facility] * Guarantor: DIONTE KHOURY Account Type Relation to Patient Date of Phone Billing Address Personal/Family 1985 [address] [place] [id number] Care Teams Correctional Lieutenant Relationship Specialty Start Date End Date Judah Guzman DO [address] [place] [address] [place] [id number] PCP - General Family Medicine 10/03/18
--- OUTSIDE RECORDS SUMMARY | 2024-12-17 13:20 | XMS_ITS | Clinical Summary ---
Author Organization [facility] Address [address] [place] [phone] Phone Care Team Providers Care Electronic Calibration Technician Name Role Phone Unavailable Primary Care Provider [...] on file Legal Sex Female 1:29 AM DIALYSIS REGISTERED NURSE Gender Identity Not on file Sexual Orientation [...] 5:13 PM CDT Height 162.6 cm (5' 4) 11/26/2017 5:13 PM CDT Body Mass Index 37.56 11/26/2017 5:13 PM CDT Plan of Treatment Health Maintenance Due Date Last Done Comments HPV VACCINES (1 - 3-dose series) 2000 DTAP/TDAP/TD VACCINES (1 - Tdap) 2004 HEPATITIS B VACCINES (1 of 3 - 19+ 3-dose series) 05/24 HPV/Cotest (21-29) 2006 CERVICAL CANCER SCREENING 2015 HPV/Cotest (30-65) 2015 PAP SMEAR 2015 INFLUENZA VACCINE (#1) 2024 RSV VACCINE (60+ or ) (1 - 1-dose 75+ series) 2060 Insurance [facility] [employer] PPO
--- OUTSIDE RECORDS SUMMARY | 2024-12-17 13:21 | XMS_ITS | Continuity of Care Document ---
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 03/29 Released w/o Limitations [facility] (Occupa tional Medicin e) [facility] Immunizat ions) OUTPATIENT [id number] IRAIDA Sweet 04/07 Released w/o Limitations [facility] ([facility] Immuniz ations) [facility] OUTPATIENT [id number] PP 9 weeks EMELY SMITH 04/10 Released w/o Limitations [facility](O ccupation al Medicine) OUTPATIENT [id number] 703P,,, ,,@ ORDINARIO, ANALOU INGRAM 04/17 Released w/o Limitations [facility] (Occupa tional Medicin e) [facility](O ptometry Clinic) OUTPATIENT [id number] [facility]/ [id number] GEOVANNI WRIGHT 05/05 Released w/o Limitations [facility] ([facility]) [facility] Team 1) OUTPATIENT [id number] post depress ion/thy roid - labs done ABIGAIL PARKINSON 05/18 Released w/o Limitations [facility] ([facility] Team 1) [facility] Team 1) OUTPATIENT [id number] HCG DESHAWN BAJWA V 07/12 Released w/o Limitations [facility] ([facility] Team 1) [facility] Team 1) TELE CONSULT [id number] Notes Entered by: JULIAN OCASIO 31 Jul 2013 1524 ------- ------- ------- ------- -- Pt was seen at ER 3/9 for Lumbago (low back px) SHEMAR MONTGOMERY 07/31 [facility] ([facility] Team 1) [facility] Team 1) OUTPATIENT [id number] needs BC SHEMAR MONTGOMERY 08/08 Released w/o Limitations [facility] ([facility] Team 1) [facility] Team 1) OUTPATIENT [id number] referra l to derm and thyriod issues SHEMAR MONTGOMERY 10/30 Released w/o Limitations [facility] ([facility] Team 1) 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 SHANNAN HARTMAN 12/01 Released w/o Limitations [facility] PCM Team 1) OUTPATIENT [id number] memory loss,sl eep ashkan MCPHERSON MEÑO ASHKAN 12/12 Released w/o Limitations [facility] ([facility] PCM Team 1) [facility] PCM Team 1) OUTPATIENT [id number] f/u labs ULISES SHEMARRUBEN OSORIO 12/25 Released w/o Limitations [facility] ([facility] PCM Team 1) [facility](N utrition Clinic) OUTPATIENT [id number] HYPOTHY TOBI WHIPPLE 12/28 Released w/o Limitations [facility] (Nutrit ion Clinic) [facility]) OUTPATIENT [id number] 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 YUKO Gaytan 03/25 Released w/o Limitations [facility]) TELE CONSULT [id number] Notes Entered by: SHANTI MUSE 09 Apr 2014 1601 ------- ------- ------- ------- -- SHANNAN Gomez 04/09 [facility] PCM Team 1) OUTPATIENT [id number] thyroid JENNIFER Moran 05/01 Released w/o Limitations [facility] ([facility] PCM Team 1) [facility] PCM Team 1) OUTPATIENT [id number] referra l to JENNIFER Avery 05/21 Released w/o Limitations [facility] ([facility] PCM Team 1) [facility] PCM Team 1) OUTPATIENT [id number] bloodwo rk/anxi JENNIFER Eid 06/14 Released w/o Limitations [facility] ([facility] Team 1) [facility] Team 1) OUTPATIENT [id number] Lab results PAUL JENNIFER HINA 07/11 Released w/o Limitations [facility] ([facility] Team 1) [facility] Team 1) TELE CONSULT [id number] Notes Entered by: BANDAR DAMON 04 Dec 2014 0907 ------- ------- ------- ------- -- Thyroid Check up apointm ent CRISTAL SALINAS 12/04 Referred for Appointment [facility] ([facility] Team 1) [facility] Team 1) OUTPATIENT [id number] ear ARMANDO Garrison 12/05 Released w/o Limitations [facility] ([facility] Team 1) [facility] Team 1) TELE CONSULT [id number] Notes Entered by: DEREK DE LEON 07 Dec 2014 0835 ------- ------- ------- ------- -- Pt is request ing for labs to be put in for thyroid check before appoint ment. DORIS CASILLAS [facility] 12/06 Referred for Appointment [facility] ([facility] Team 1) [facility] Team 1) TELE CONSULT [id number] Notes Entered by: DEREK DE LEON 06 Mar 2015 0926 ------- ------- ------- ------- -- Pt is request ing labs be put it before appoint ment with LT [facility]. Thank you CRISTAL SALINAS 03/06 Referred for Appointment [facility] ([facility] Team 1) [facility] Team 1) OUTPATIENT [id number] [facility] physica l/ lesvia jordan STEFAN LOUIS 03/15 Released w/o Limitations [facility] ([facility] Team 1) [facility] Team 1) OUTPATIENT [id number] Notes Entered by: ANA MULLINS 11 Apr 2015 0837 ------- ------- ------- ------- -- JENNIFER Mccain 04/10 Released w/o Limitations [facility] ([facility] Team 1) [facility] Team 1) OUTPATIENT [id number] thyroid c/u JENNIFER MILLER 04/15 Released w/o Limitations [facility] ([facility] Team 1) Procedures Combined list of: 1) Procedures from Department of Veterans Affairs facilities going back up to thelast 18 months, not all VA non-surgical procedures are included; 2) All procedures from the Department of Defense facilities. Procedure Procedure Type Code Date Perfomer Comments Sour e INDIVIDUAL PSYCHOTHERAPY, INSIGHT ORIENTED, BEHAVIOR MODIFYING AND/OR SUPPORTIVE, IN AN OFFICE OR OUTPATIENT FACILITY, APPROXIMATELY 20 TO 30 MINUTES [id number] WITH THE PATIENT 2007 [facility] PSYCHIATRIC DIAGNOSTIC INTERVIEW EXAMINATION 2007 [facility] COLLECTION OF VENOUS BLOOD BY VENIPUNCTURE 2007 [facility] INDIVIDUAL PSYCHOTHERAPY, INSIGHT ORIENTED, BEHAVIOR MODIFYING AND/OR SUPPORTIVE, IN AN OFFICE OR OUTPATIENT FACILITY, APPROXIMATELY 20 TO 30 MINUTES [id number] WITH THE PATIENT 2007 [facility] INDIVIDUAL PSYCHOTHERAPY, INSIGHT ORIENTED, BEHAVIOR MODIFYING AND/OR SUPPORTIVE, IN AN OFFICE OR OUTPATIENT FACILITY, APPROXIMATELY 75 TO 80 MINUTES [id number] WITH THE PATIENT 2007 [facility] INDIVIDUAL PSYCHOTHERAPY, INSIGHT ORIENTED, BEHAVIOR MODIFYING AND/OR SUPPORTIVE, IN AN OFFICE OR OUTPATIENT FACILITY, APPROXIMATELY 20 TO 30 MINUTES [id number] WITH THE PATIENT 2006 [facility] INDIVIDUAL PSYCHOTHERAPY, INSIGHT ORIENTED, BEHAVIOR MODIFYING AND/OR SUPPORTIVE, IN AN OFFICE OR OUTPATIENT FACILITY, APPROXIMATELY 45 TO 50 MINUTES [id number] WITH THE PATIENT 2006 [facility] INDIVIDUAL PSYCHOTHERAPY, INSIGHT ORIENTED, BEHAVIOR MODIFYING AND/OR SUPPORTIVE, IN AN OFFICE OR OUTPATIENT FACILITY, APPROXIMATELY 45 TO 50 MINUTES [id number] WITH THE PATIENT 2006 [facility] INDIVIDUAL PSYCHOTHERAPY, INSIGHT ORIENTED, BEHAVIOR MODIFYING AND/OR SUPPORTIVE, IN AN OFFICE OR OUTPATIENT FACILITY, APPROXIMATELY 75 TO 80 MINUTES [id number] WITH THE PATIENT 2006 [facility] INDIVIDUAL PSYCHOTHERAPY, INSIGHT ORIENTED, BEHAVIOR MODIFYING AND/OR SUPPORTIVE, IN AN OFFICE OR OUTPATIENT FACILITY, APPROXIMATELY 45 TO 50 MINUTES [id number] WITH THE PATIENT 2006 [facility] PSYCHIATRIC DIAGNOSTIC INTERVIEW EXAMINATION 2006 [facility] SMEAR, PRIMARY SOURCE WITH INTERPRETATION; WET MOUNT FOR INFECTIOUS AGENTS (EG, SALINE, GRANT INK, GUERDA PREPS) 2006 [facility] INJECTION, DOLASETRON MESYLATE, [address] [facility] INTRAVENOUS INFUSION, HYDRATION; INITIAL, 31 MINUTES TO [address] [facility] INDIVIDUAL PSYCHOTHERAPY, INSIGHT ORIENTED, BEHAVIOR MODIFYING AND/OR SUPPORTIVE, IN AN OFFICE OR OUTPATIENT FACILITY, APPROXIMATELY 45 TO 50 MINUTES [id number] WITH THE PATIENT 2005 [facility] SELF-CARE/HOME MANAGMENT TRAIN (EG,ACT OF DAILY LIVING (ADL) &COMPENSAT TRAIN,MEAL PREPARATION,SAFETY PROCS,AND INSTRUCT IN USE OF ASST TECHNOLOGY DEV/ADPT EQUIP) DIR ONE-ON-ONE CONT,EA [address] [facility] AVULSION OF NAIL PLATE, PARTIAL OR COMPLETE, SIMPLE; SINGLE 2011 [facility] TELE ASSESS & MGT SRV PROV QUAL NONPHYS HLTH CARE PRO TO EST PAT,PARENT,GUARD NOT ORIG REL ASSESS & MGT SRV PROV W/IN PREV 7 DAYS NOR LEAD ASSESS & MGT SRV/PX W/IN NXT 24 HR/SOON APT;5-10 MIN MED DIS 2011 [facility] ERITREAN ENCEPHALITIS VIRUS VACCINE, INACTIVATED, FOR INTRAMUSCULAR USE 2011 [facility] SCREENING PAPANICOLAOU SMEAR; OBTAINING, PREPARING AND CONVEYANCE OF CERVICAL OR VAGINAL SMEAR TO LABORATORY 2011 [facility] HEPATITIS A VACCINE (HEPA), ADULT DOSAGE, FOR INTRAMUSCULAR USE 2011 [facility] ERITREAN ENCEPHALITIS VIRUS VACCINE, INACTIVATED, FOR INTRAMUSCULAR USE [...] 24 HR/SOON APT;5-[address] 2010 [facility] SCREENING PAPANICOLAOU SMEAR; OBTAINING, PREPARING AND CONVEYANCE OF CERVICAL OR VAGINAL SMEAR TO LABORATORY 2010 [facility] INDIVIDUAL PSYCHOTHERAPY, INSIGHT ORIENTED, BEHAVIOR MODIFYING AND/OR SUPPORTIVE, IN AN OFFICE OR OUTPATIENT FACILITY, APPROXIMATELY 45 TO 50 MINUTES [id number] WITH THE PATIENT 2006 [facility] INDIVIDUAL PSYCHOTHERAPY, INSIGHT ORIENTED, BEHAVIOR MODIFYING AND/OR SUPPORTIVE, IN AN OFFICE OR OUTPATIENT FACILITY, APPROXIMATELY 45 TO 50 MINUTES [id number] WITH THE PATIENT 2006 [facility] PSYCHIATRIC DIAGNOSTIC INTERVIEW EXAMINATION 2006 [facility] CRISIS INTERVENTION MENTAL HEALTH SERVICES, PER HOUR 2006 [facility] PSYCHIATRIC DIAGNOSTIC INTERVIEW EXAMINATION 2006 [facility] IMMUNIZATION ADMINISTRATION (INCLUDES PERCUTANEOUS, INTRADERMAL, SUBCUTANEOUS, OR INTRAMUSCULAR INJECTIONS); 1 VACCINE (SINGLE OR COMBINATION VACCINE/TOXOID) 2005 [facility] SKIN TEST; TUBERCULOSIS, INTRADERMAL 2005 [facility] WET ALFREDO, INCLUDING PREPARATIONS OF VAGINAL, CERVICAL OR SKIN SPECIMENS 2004 [facility] UNLISTED PROCEDURE, CONJUNCTIVA 2004 [facility] CULTURE, BACTERIAL; ANY OTHER SOURCE EXCEPT URINE, BLOOD OR STOOL, AEROBIC, WITH ISOLATION AND PRESUMPTIVE IDENTIFICATION OF ISOLATES 2001 [facility] CULTURE, BACTERIAL, DEFINITIVE; THROAT OR NOSE 2000 [facility] EDUCATIONAL SUPPLIES, SUCH BOOKS, TAPES, AND PAMPHLETS, FOR THE PATIENT'S EDUCATION AT COST TO PHYSICIAN OR OTHER QUALIFIED HEALTH MACHINE HAND 1999 [facility] DESTRUCTION (EG, LASER SURGERY, ELECTROSURGERY, CRYOSURGERY, CHEMOSURGERY, [...] OR MORE INDIVIDUAL(S)), EACH [address] [facility] PSYCHIATRIC DIAGNOSTIC EVALUATION 2013 [facility] OPHTHALMOLOGICAL SERVICES: MEDICAL EXAMINATION AND EVALUATION WITH INITIATION OF DIAGNOSTIC AND TREATMENT PROGRAM; COMPREHENSIVE, NEW PATIENT, 1 OR MORE VISITS 2012 [facility] GONADOTROPIN, CHORIONIC (HCG); QUALITATIVE 2012 [facility] IMMUNIZATION ADMINISTRATION BY INTRANASAL OR ORAL ROUTE; 1 VACCINE (SINGLE OR COMBINATION VACCINE/TOXOID) 2012 [facility] MEDICAL INDUCTION OF LABOR 2012 [facility] LOW CERVICAL SECTION 2012 [facility] POSTOPERATIVE FOLLOW-UP VISIT, NORMALLY INCLUDED IN THE SURGICAL PACKAGE, INDICATE THAT EVALUATION & MANAGEMENT SERVICE WAS PERFORMED DURING A POSTOPERATIVE PERIOD REASON RELATED ORIGINAL PROCEDURE 2012 [facility] POSTOPERATIVE FOLLOW-UP VISIT, NORMALLY INCLUDED IN THE SURGICAL PACKAGE, INDICATE THAT EVALUATION & MANAGEMENT SERVICE WAS PERFORMED DURING A POSTOPERATIVE PERIOD REASON RELATED ORIGINAL PROCEDURE 2012 [facility] POSTOPERATIVE FOLLOW-UP VISIT, NORMALLY INCLUDED IN THE SURGICAL PACKAGE, INDICATE THAT EVALUATION & MANAGEMENT SERVICE WAS PERFORMED DURING A POSTOPERATIVE PERIOD REASON RELATED ORIGINAL PROCEDURE 2012 [facility] DELIVERY ONLY 2012 [facility] SUBSEQ CARE VISIT () [EXCLS:PATIENTS WHO ARE SEEN FOR A CONDITION UNREL TO / CARE (EG,AN UP RESPIR INFECT;PATIENTS SEEN FOR CONSULTATION ONLY,NOT FOR CONT CARE)] 2012 [facility] NON-STRESS TEST 2012 [facility] SUBSEQ CARE VISIT () [EXCLS:PATIENTS WHO ARE SEEN FOR A CONDITION UNREL TO / CARE (EG,AN UP RESPIR INFECT;PATIENTS SEEN FOR CONSULTATION ONLY,NOT FOR CONT CARE)] 2012 [facility] SUBSEQ CARE VISIT () [EXCLS:PATIENTS WHO ARE SEEN FOR A CONDITION UNREL TO / CARE (EG,AN UP RESPIR INFECT;PATIENTS SEEN FOR CONSULTATION ONLY,NOT FOR CONT CARE)] 2012 [facility] SMEAR, PRIMARY SOURCE WITH INTERPRETATION; WET MOUNT FOR INFECTIOUS AGENTS (EG, SALINE, GRANT INK, GUERDA PREPS) 2012 [facility] ULTRASOUND, UTERUS, REAL TIME WITH IMAGE DOCUMENTATION, LIMITED (EG, HEART BEAT, PLACENTAL LOCATION, POSITION AND/OR QUALITATIVE AMNIOTIC FLUID VOLUME), [address] 2012 [facility] NON-STRESS TEST 2012 [facility] SMEAR, PRIMARY SOURCE WITH INTERPRETATION; WET MOUNT FOR INFECTIOUS AGENTS (EG, SALINE, GRANT INK, GUERDA PREPS) 2012 [facility] SUBSEQ CARE VISIT () [EXCLS:PATIENTS WHO ARE SEEN FOR A CONDITION UNREL TO / CARE (EG,AN UP RESPIR INFECT;PATIENTS SEEN FOR CONSULTATION ONLY,NOT FOR CONT CARE)] 2012 [facility] NON-STRESS TEST 2012 [facility] SMEAR, PRIMARY SOURCE WITH INTERPRETATION; WET MOUNT FOR INFECTIOUS AGENTS (EG, SALINE, GRANT INK, GUERDA PREPS) 2012 [facility] NON-STRESS TEST 2012 [facility] RHO(D) IMMUNE GLOBULIN (RHIG), HUMAN, FULL-DOSE, FOR INTRAMUSCULAR USE 2012 [facility] NON-STRESS TEST 2012 [facility] TELE ASSESS & MGT SRV PROV QUAL NONPHYS HLTH CARE PRO TO EST PAT,PARENT,GUARD NOT ORIG REL ASSESS & MGT SRV PROV W/IN PREV 7 DAYS NOR LEAD ASSESS & MGT SRV/PX W/IN NXT 24 HR/SOON APT;5-10 MIN MED DIS 2012 [facility] NON-STRESS TEST 2012 [facility] MONITORING DURING LABOR BY CONSULTING PHYSICIAN (IE, NON-ATTENDING PHYSICIAN) WITH WRITTEN REPORT; SUPERVISION AND INTERPRETATION 2012 [facility] SUBSEQ CARE VISIT () [EXCLS:PATIENTS WHO ARE SEEN FOR A CONDITION UNREL TO / CARE (EG,AN UP RESPIR INFECT;PATIENTS SEEN FOR CONSULTATION ONLY,NOT FOR CONT CARE)] 2012 [facility] SUBSEQ CARE VISIT () [EXCLS:PATIENTS WHO ARE SEEN FOR A CONDITION UNREL TO / CARE (EG,AN UP RESPIR INFECT;PATIENTS SEEN FOR CONSULTATION ONLY,NOT FOR CONT CARE)] 2012 [facility] ULTRASOUND, UTERUS, REAL TIME WITH IMAGE DOCUMENTATION,TRANS VAGINAL 2012 [facility] ULTRASOUND, UTERUS, REAL TIME WITH IMAGE DOCUMENTATION,TRANS VAGINAL 2012 [facility] ULTRASOUND, UTERUS, REAL TIME WITH IMAGE DOCUMENTATION, AND MATERNAL EVALUATION, FIRST TRIMESTER (< 14 WEEKS 0 DAYS), TRANSABDOMINAL APPROACH; SINGLE OR FIRST GESTATION 2012 [facility] DESTRUCTION (EG, LASER SURGERY, ELECTROSURGERY, CRYOSURGERY, CHEMOSURGERY, SURGICAL CURETTEMENT), OF BENIGN LESIONS OTHER THAN SKIN TAGS OR CUTANEOUS VASCULAR PROLIFERATIVE LESIONS; UP TO 14 LESIONS 2012 [facility] SKIN TEST; TUBERCULOSIS, INTRADERMAL 2011 [facility] SKIN TEST; TUBERCULOSIS, INTRADERMAL 2011 [facility] IMMUNIZATION ADMINISTRATION (INCLUDES PERCUTANEOUS, INTRADERMAL, SUBCUTANEOUS, OR INTRAMUSCULAR INJECTIONS); EACH ADDITIONAL VACCINE (SINGLE OR COMBINATION VACCINE/TOXOID) 2011 [facility] MEDICAL NUTRITION THERAPY; GROUP (2 OR MORE INDIVIDUAL(S)), EACH [address] [facility] INTRAVENOUS INFUSION, HYDRATION; INITIAL, 31 MINUTES TO [address] [facility] TELE ASSESS & MGT SRV PROV QUAL NONPHYS HLTH CARE PRO TO EST PAT,PARENT,GUARD NOT ORIG REL ASSESS & MGT SRV PROV W/IN PREV 7 DAYS NOR LEAD ASSESS & MGT SRV/PX W/IN NXT 24 HR/SOON APT;5-[address] [facility] Non-Physician Phone Call To Patient/Provider Brief (5-10min) Non-Physician Phone Call To Patient/Provider Brief (5-10min) [id number] 2011 RANULFO MORAN DoD Hepatitis A And Hepatitis B (Intramuscular Use) Adult Dosage Hepatitis A And Hepatitis B (Intramuscular Use) Adult Dosage [address] [facility] Vaccines Viral Latvian Encephalitis Inactivated, Intramuscular Vaccines Viral Latvian Encephalitis Inactivated, Intramuscular 79165 2011 NELSON SYLVESTER Immunization Administration By Injection, One Vaccine Immunization Administration By Injection, One Vaccine 14561 2011 NELSON SYLVESTER Screening papanicolaou smear; obtaining, preparing and conveyance of cervical or vaginal smear to laboratory [address] [facility] Tdap Vaccine Tdap Vaccine 38304 2011 VALENTIN SOW Immunization Administration By Injection, One Vaccine Immunization Administration By Injection, One Vaccine 08059 2011 VALENTIN SOW Meningococcal (A, C, Y, W-135) Oligosacch Diphtheria Toxoid Conj Vacc 2011 VALENTIN SOW Hepatitis A And Hepatitis B (Intramuscular Use) Adult Dosage Hepatitis A And Hepatitis B (Intramuscular Use) Adult Dosage 63404 2011 VALENTIN SOW Immunization Administration By Injection, Each Additional Vaccine 2011 VALENTIN SOW Vaccines Viral Latvian Encephalitis Inactivated, Intramuscular Vaccines Viral Latvian Encephalitis Inactivated, Intramuscular 82817 2011 NELSON SYLVESTER Immunization Administration By Injection, One Vaccine Immunization Administration By Injection, One Vaccine 51958 2011 NELSON SYLVESTER Non-Physician Phone Call To Patient/Provider Brief (5-10min) Non-Physician Phone Call To Patient/Provider Brief (5-10min) 61147 2011 ANTHONY LAGUNAS Non-Physician Phone Call To Patient/Provider Brief (5-10min) Non-Physician Phone Call To Patient/Provider Brief (5-10min) [address] [facility] IV Infusion For Hydration 31 Minutes To 1 Hour IV Infusion For Hydration 31 Minutes To 1 Hour 06032 2010 MAME ROQUE Started at 1845. l litter of LR. [facility] Intravenous Catheter Placement Intravenous Catheter Placement [address] [facility] Non-Physician Phone Call To Patient/Provider Brief (5-10min) Non-Physician Phone Call To Patient/Provider Brief (5-10min) [address] [facility] Screening papanicolaou smear; obtaining, preparing and conveyance of cervical or vaginal smear to laboratory [address] [facility] Clinical Social Work Individual Outpatient Counseling 30 Minutes Clinical Social Work Individual Outpatient Counseling 30 Minutes [id number] 2007 JACE WARNER A DoD Psychiatric Diagnostic Evaluation Comprehensive Examination Psychiatric Diagnostic Evaluation Comprehensive Examination 74413 2007 JACE WARNER A DoD Clinical Social Work Individual Outpatient Counseling 30 Minutes Clinical Social Work Individual Outpatient Counseling 30 Minutes [id number] [facility] Clinical Social Work Individual Outpatient Counseling 75-80 Minutes Clinical Social Work Individual Outpatient Counseling 75-80 Minutes [id number] [facility] Clinical Social Work Individual Outpatient Counseling 30 Minutes Clinical Social Work Individual Outpatient Counseling 30 Minutes [id number] [facility] Clinical Social Work Individual Outpatient Counseling 45 Minutes Clinical Social Work Individual Outpatient Counseling 45 Minutes [id number] [facility] Clinical Social Work Individual Outpatient Counseling 45 Minutes Clinical Social Work Individual Outpatient Counseling 45 Minutes [address] [facility] Clinical Social Work Individual Outpatient Counseling 75-80 Minutes Clinical Social Work Individual Outpatient Counseling 75-80 Minutes [id number] [facility] Clinical Social Work Individual Outpatient Counseling 45 Minutes Clinical Social Work Individual Outpatient Counseling 45 Minutes [id number] [facility] Psychiatric Diagnostic Evaluation Comprehensive Examination Psychiatric Diagnostic Evaluation Comprehensive Examination 68868 2006 JACE WARNER DoD Clinical Social Work Individual Outpatient Counseling 45 Minutes Clinical Social Work Individual Outpatient Counseling 45 Minutes [id number] [facility] Clinical Social Work Individual Outpatient Counseling 45 Minutes Clinical Social Work Individual Outpatient Counseling 45 Minutes [id number] [facility] Psychiatric Diagnostic Evaluation Comprehensive Examination Psychiatric Diagnostic Evaluation Comprehensive Examination [address] [facility] Crisis intervention mental health services, per hour [address] [facility] Psychiatric Diagnostic Evaluation Comprehensive Examination Psychiatric Diagnostic Evaluation Comprehensive Examination [address] [facility] Psychotherapy Individual Approximately 45 Minutes Psychotherapy Individual Approximately 45 Minutes [id number] [facility] Patient Training And Self-Care Skills Patient Training And Self-Care Skills [address] [facility] Hepatitis B Vaccine (Active) Adult Dosage [address] [facility] Immunization Administration By Injection, One Vaccine Immunization Administration By Injection, One Vaccine [address] [facility] Skin Test Anergy tuberculin Skin Test Anergy tuberculin [address] [facility] Destruction Of Benign Lesion By Cryosurgery Destruction Of Benign Lesion By Cryosurgery [address] [facility] Physician Services Special Review / Reporting Of Patient Status Physician Services Special Review / Reporting Of Patient Status 23068 2014 STEFAN LOUIS DoD Psychiatric Therapy Marital 2014 BEACH, QUAN SMITH DoD Psychiatric Therapy Marital 2014 BEACH, QUAN SMITH DoD Psychiatric Therapy Marital 2014 BEACH, QUAN SMITH DoD Psychiatric Therapy Marital 2014 BEACH, QUAN SMITH DoD Psychotherapy Individual Approximately 30 Minutes 2014 BEACH, QUAN SMITH DoD Psychotherapy Individual Approximately 60 Minutes 2014 BEACH, QUAN SMITH DoD Psychotherapy Group Interactive Psychotherapy Group Interactive [id number] 2014 BEACH, QUAN SMITH DoD Psychiatric Diagnostic Evaluation Initial Psychiatric Diagnostic Evaluation Initial 12466 2014 BEACH, QUAN SMITH DoD Psychotherapy Group Interactive Psychotherapy Group Interactive [id number] 2014 BEACH, QUAN SMITH DoD Psychiatric Therapy Marital 2014 BEACH, QUAN SMITH DoD Psychiatric Therapy Marital 2014 BEACH, QUAN SMITH DoD Psychotherapy Group Interactive Psychotherapy Group Interactive 04131 2014 BEACH, QUAN SMITH DoD Psychotherapy Group Interactive Psychotherapy Group Interactive [id number] 2014 BEACH, QUAN SMITH DoD Psychiatric Therapy Marital 2014 BEACH, QUAN SMITH DoD Psychotherapy Group Interactive Psychotherapy Group Interactive [id number] 2014 BEACH, QUAN SMITH DoD Psychiatric Therapy Marital 2014 BEACH, QUAN SMITH DoD Psychotherapy Group Interactive Psychotherapy Group Interactive 21536 2014 BEACH, QUAN SMITH DoD Psychiatric Therapy Marital 2014 BEACH, QUAN SMITH DoD Psychiatric Therapy Marital 2014 BEACH, QUAN SMITH DoD Psychotherapy Individual Approximately 60 Minutes 2014 LARROALAN DoD Psychiatric Therapy Marital 2014 BEACHQUAN SMITH DoD Psychiatric Therapy Marital 2014 BEACHQUAN SMITH DoD Psychiatric Therapy Marital 2014 BEACH, QUAN SMITH DoD Psychotherapy Individual Approximately 60 Minutes 2014 LARROALAN DoD Psychiatric Therapy Marital 2014 BEACH, QUAN SMITH DoD Psychotherapy Individual Approximately 60 Minutes 2014 LARROALAN DoD Psychiatric Therapy Marital 2014 BEACH, QUAN SMITH DoD Psychiatric Therapy Marital 2014 BEACHQUAN SMITH DoD Psychotherapy Individual Approximately 45 Minutes 2014 LARROALAN DoD Psychiatric Therapy Marital 2014 BEACH, QUAN SMITH DoD Psychotherapy Individual Approximately 45 Minutes 2014 LARROALAN DoD Psychiatric Therapy Marital 2014 BEACHQUAN SMITH DoD Psychotherapy Individual Approximately 45 Minutes 2014 LARROALAN DoD Psychiatric Therapy Marital 2014 BEACHQUAN SMITH DoD Psychotherapy Individual Approximately 60 Minutes 2013 LARROALAN DoD Psychotherapy Individual Approximately 45 Minutes 2013 BRANDONALAN MEADOWS DoD Weight Recorded Weight Recorded [address] [facility] A e /Interv Discharge Meds Reconciled W/ Current Meds List Assess/Interv Discharge Meds Reconciled W/ Current Meds List [address] [facility] Weight Recorded Weight Recorded [address] [facility] A e /Interv Discharge Meds Reconciled W/ Current Meds List Assess/Interv Discharge Meds Reconciled W/ Current Meds List [address] [facility] Clinical Social Work Individual Outpatient Counseling 45 Minutes 2013 BRANDONALAN MEADOWS DoD Medical Nutrition Therapy Group (2 or More Individuals) Each 30 Minutes Medical Nutrition Therapy Group (2 or More Individuals) Each 30 Minutes [address] [facility] Psychiatric Diagnostic Evaluation Comprehensive Examination Psychiatric Diagnostic Evaluation Comprehensive Examination [address] [facility] Ophthalmological New Patient Start Comprehensive Care Ophthalmological New Patient Start Comprehensive Care 58766 2012 GEOVANNI WRIGHT Determination Of Refractive State Determination Of Refractive State 00663 2012 GEOVANNI WRIGHT Urine HCG, Test Urine HCG, Test [address] [facility] Obstetrical Services Care Visit Obstetrical Services Care Visit 0503F [address] [facility] Screening papanicolaou smear; obtaining, preparing and conveyance of cervical or vaginal smear to laboratory [address] [facility] Immunization Admin By Intranasal / Oral Route One Vaccine Immunization Admin By Intranasal / Oral Route One Vaccine [address] [facility] Influenza Virus Vaccine Intranasal Live Attenuated Influenza Virus Vaccine Intranasal Live Attenuated 87351 2012 KRISTA [facility]AISER Influenza, Live, Intranasal; Series #: 1; .2 mL; IN; Intranasal; Mfg: [email or web address].; Lot: [id number]; VIS given (Jami: 12/16/2012). [facility] OB Services Antepartum Care Only Subsequent Single Visit OB Services Antepartum Care Only Subsequent Single Visit 0502F 2012 CARLOS GASTON Non-Stre Test (___ 0,2) Non-Stress Test (___ 0,2) [address] [facility] OB Services Antepartum Care Only Subsequent Single Visit OB Services Antepartum Care Only Subsequent Single Visit 0502F 2012 CARLOS GASTON OB Services Antepartum Care Only Subsequent Single Visit OB Services Antepartum Care Only Subsequent Single Visit 0502F [address] [facility] Vaginal Wet [place] Vaginal [place] [address] [facility] Ultrasound Obstetric Limited Evaluation Ultrasound Obstetric Limited Evaluation 95908 2012 RENETTA REED Non-Stre Test (___ 0,2) Non-Stress Test (___ 0,2) 89380 2012 BRIANNA RENETTA Majano OB Services Antepartum Care Only Subsequent Single Visit OB Services Antepartum Care Only Subsequent Single Visit 0502F 2012 RENETTA REED Ultrasound Obstetric Limited Evaluation Ultrasound Obstetric Limited Evaluation 92384 2012 CARLOS GASTON Documented/Reviewed Group B Streptococcus During Week 35-37 Documented/Reviewed Group B Streptococcus During Week 35-37 3294F 2012 CARLOS GASTON OB Services Antepartum Care Only Subsequent Single Visit OB Services Antepartum Care Only Subsequent Single Visit 0502F 2012 CARLOS GASTON Non-Stre Test (___ 0,2) Non-Stress Test (___ 0,2) 24802 2012 CHADWICK Reyes JOYCE FRANCOHaley Majano OB Services Antepartum Care Only Subsequent Single Visit OB Services Antepartum Care Only Subsequent Single Visit 0502F 2012 RAHAT BONE Non-Stre Test (___ 0,2) Non-Stress Test (___ 0,2) 92285 2012 RAHAT BONE Vaginal Wet [place] Vaginal [place] 83762 2012 RAHAT BONE Non-Stre Test (___ 0,2) Non-Stress Test (___ 0,2) 88473 2012 RAHAT BONE OB Services Antepartum Care Only Subsequent Single Visit OB Services Antepartum Care Only Subsequent Single Visit 050F 2012 RAHAT BONE OB Services Antepartum Care Only Subsequent Single Visit OB Services Antepartum Care Only Subsequent Single Visit 0502F 2012 CARLOS GASTON Vaginal Discharge pH Vaginal Discharge pH 06033 2012 AFUA INGRAM Vaginal [place] Vaginal [place] 13340 2012 AFUA INGRAM GUERDA and wet mount DoD OB Services Antepartum Care Only Subsequent Single Visit OB Services Antepartum Care Only Subsequent Single Visit 0502F [address] [facility] Non-Stre Test (___ 0,2) Non-Stress Test (___ 0,2) 01579 2012 [facility] Non-Stre Test (___ 0,2) Non-Stress Test (___ 0,2) [address] [facility] Rho D Immune Globulin Human Intramuscular Use Full-dose Rho D Immune Globulin Human Intramuscular Use Full-dose [address] [facility] OB Services Antepartum Care Only Subsequent Single Visit OB Services Antepartum Care Only Subsequent Single Visit 0502F 2012 CARLOS GASTON Non-Stre Test (___ 0,2) Non-Stress Test (___ 0,2) [address] [facility] OB Services Antepartum Care Only Subsequent Single Visit OB Services Antepartum Care Only Subsequent Single Visit 0502F [address] [facility] Ultrasound Obstetric Limited Evaluation Ultrasound Obstetric Limited Evaluation 99235 [facility] Ultrasound [place] [address] [address] [facility] Non-Physician Phone Call To Patient/Provider Brief (5-10min) Non-Physician Phone Call To Patient/Provider Brief (5-10min) [address] [facility] Non-Stre Test (___ 0,2) Non-Stress Test (___ 0,2) [address] [facility] Obstetrical Services External Monitor Placement Obstetrical Services External Monitor Placement 414[address] [facility] OB Services Antepartum Care Only Subsequent Single Visit OB Services Antepartum Care Only Subsequent Single Visit 0502F [address] [facility] OB Services Antepartum Care Only Subsequent Single Visit OB Services Antepartum Care Only Subsequent Single Visit 0502F [address] [facility] Ultrasound [place] [address] 2012 HILTON YOU OB Services Antepartum Care Only First Visit, With Report OB Services Antepartum Care Only First Visit, With Report 0500F 2012 MO JOHNSON Ultrasound [place] [address] 2012 HILTON YOU Destruction Of Flat Warts By Cryosurgery Up [...] The patient tolerated the procedure without complications [facility] Skin Test Anergy Tuberculin Intradermal Skin Test Anergy Tuberculin Intradermal 52439 2011 KISHA DEJESUS IPPD; Series #: 1; .1 mL; ID; Left Arm; Mfg: [employer]; Lot: [id number]; VIS given. [facility] Skin Test Anergy Tuberculin Intradermal Skin Test Anergy Tuberculin Intradermal 18603 2011 CROW COUGHLIN IPPD; Series #: 1; .1 mL; ID; Left Arm; Mfg: [employer]; Lot: [id number]; VIS given. [facility] Immunization Administration By Injection, Each Additional Vaccine 2011 JAQUELINE BENJAMIN Immunization Administration By Injection, One Vaccine Immunization Administration By Injection, One Vaccine 13229 2011 JAQUELINE BENJAMIN Skin Test Anergy Tuberculin Intradermal Skin Test Anergy Tuberculin Intradermal 38967 2011 JAQUELINE BENJAMIN IPPD; Series #: 1; .1 mL; ID; Left Arm; Mfg: [employer]; Lot: [id number]; VIS given. DoD Vaccines Vaccines 24780 2011 JAQUELINE BENJAMIN Influenza; Series #: 1; .5 mL; IM; Left Arm; Mfg: [employer] Lot: [id number]; VIS given (Jami: 01/01/09). DoD Hepatitis A Vaccine Adult Dosage (Intramuscular Use) Hepatitis A Vaccine Adult Dosage (Intramuscular Use) 33234 2011 JAQUELINE BENJAMIN Hep A (Adult); Series #: 1; 1.0 mL; IM; Right Arm; Mfg: Other; Lot: [id number]; VIS given (Jami: 03/17/11). DoD Medical Nutrition Therapy Group (2 or More Individuals) Each 30 Minutes Medical Nutrition Therapy Group (2 or More Individuals) Each 30 Minutes [address] [facility] Non-Physician Phone Call To Patient/Provider Brief (5-10min) Non-Physician Phone Call To Patient/Provider Brief (5-10min) [address] [facility] Avulsion Of Nail Plate Avulsion Of Nail Plate 28207 2011 LUCINDA BARRIOS DoD Social History Combined list of available smoking, tobacco, and other social history from Department of Defense and Veterans Affairs facilities. Social History Type Response Date Comment Sour e This section is an empty social history section. DoD
--- NOTE | 2024-12-17 13:22 | ED_ITS ---
HPI - Skin/Abscess/Foreign Bdy General Chief complaint: Urogenital-Female Stated complaint: possible skin infection Time Seen by Provider: 12/17/24 13:22 Source: patient Mode of arrival: ambulatory Limitations: no limitations History of Present Illness HPI narrative: patient is a 39-year-old female with a right buttocks / perianal skin spot for evaluation today. Patient has current impetigo for the last many months and has been using Bactroban. complaint: abscess/boil Onset (ago): day(s) ( Three) Location: genitals ( right buttock/perianal) Severity: moderate Severity scale (1-10): 4 Quality: burning and sharp Pain Consistency: constant Relieving factors: none Exacerbating factors: palpation Context: other ( patient has right buttock/ perianal skin lesion area bothering her for 3 days with some slight drainage after being accidentally poked in that area by her ) Associated symptoms: other ( none) Treatments prior to arrival: none Related Data Home Medications ?Medication ?Instructions ?Recorded ?Confirmed ?Last Taken ?Type multivitamin (Daily Multi-Vitamin 1 tablet PO DAILY 09/29/24 10/18/24 Unknown History tablet) Allergies Allergy/AdvReac Type Severity Reaction Status Date / Time No Known Allergies Allergy Verified 12/17/24 13:21 Review of Systems Review of Systems: All systems reviewed & are unremarkable except as noted in HPI and below Constitutional: Constitutional: Reports no additional constitutional complaints Eyes: Eyes: Reports no additional eye complaints ENT: Reports system reviewed and no additional complaints, except as documented Cardiovascular: Cardiovascular: Reports no additional cardiovascular complaints Respiratory: Respiratory: Reports no additional respiratory complaints Gastrointestinal: Gastrointestinal: Reports no additional gastrointestinal complaints Genitourinary: Genitourinary: Reports no additional female genitourinary complaints Musculoskeletal: Musculoskeletal: Reports no additional musculoskeletal complaints Integumentary/Breasts: Skin/Breast: Reports system reviewed and no additional complaints, except as docu Neurologic: Reports system reviewed and no additional complaints, except as documented Psychiatric: Psychiatric: Reports no additional psychiatric complaints Endocrine: Endocrine: Reports no additional endocrine complaints Hematologic/Lymphatic: Hematologic/Lymphatic: Reports no additional hematologic/lymphatic complaints Allergic/Immunologic: Allergic/Immunologic: Reports no additional allergic/immunologic complaints PMFSH Past Medical History Medical History High triglycerides ADINA (obstructive sleep apnea) Anxiety and depression Migraine Menometrorrhagia Venous insufficiency Asthma Hypothyroid Hypothyroid neuropathy Obesity (BMI 30-39.9) Lumbar back pain Multiple episodes of hypoglycemia Abnormal Pap smear of cervix Iron deficiency anemia MDD (major depressive disorder) Kehinde's disease Surgical History Surgical History H/O: section x2 Family History Family History Mother Type 1 diabetes Acute myocardial infarction Diabetes mellitus Kidney failure CHF (congestive heart failure) Cerebrovascular accident possible mini stroke Heart disease Father Hypertension Grandparent Acute myocardial infarction Dementia Cerebrovascular accident Depression Other Brain tumor uncle Cerebrovascular accident uncle Acute myocardial infarction uncle Depression Diabetes mellitus uncle, aunt Social History Social History Smoking status: Never smoker Alcohol intake: never Substance use: never Substance use type: does not use Lack of Transportation: No Lack of Food: Never True Current Housing: I Have Housing Concerned About Future Housing: No Difficulty Paying Gas/Electric Bills: No Difficulty Paying for Meds: No Currently Unemployed: No Education: High School Diploma/GED Difficulty w/ Childcare or Family Care: No Living arrangements: with family Additional living arrangements comments: and 2 children Exam Const: General: healthy appearing Nutritional Appearance: well nourished Orientation/consciousness: patient oriented x3 HENMT: Head: normal to inspection Ears: external ears normal Face/Nose/Sinus: Normal external nose present Eyes: Conjunctivae: conjunctivae normal Pupils: Equal, round and reactive pupils present EOM: EOMs intact bilaterally Neck: Neck: normal visual inspection Chest: Chest palpation & inspection: normal inspection of the chest Resp: Effort & Inspection: normal respiratory effort and not labored Auscultation: clear to auscultation bilaterally and no crackles Cardio: Rate: regular rate Rhythm: regular rhythm Heart sounds: no murmurs GI: Inspection: non-distended GI Palp: Yes Soft to palpation and No Tenderness to palpation present (GI) Auscultation: normal bowel sounds : General: Yes bladder normal to palpation Back/Spine/Pelvis: Back: no CVA tenderness Skin: General skin exam: normal color Rashes: rash noted Wounds: no wounds Other: 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; left buttock/perianal area has a small 1 cm circular area with a nidus in the center with slight drainage of clear pus fluid with tenderness to palpation ; bilateral lower extremity have circular coiling like changes of impetigo from prior chronicity Neuro: General: patient oriented x3 Cranial nerves: Yes Nystagmus not present Speech: normal speech Extrem: General: normal to inspection Psych: Mental Status: mental status grossly normal Affect: normal affect Attitude: cooperative Course Vital Signs Vital signs: Vital Signs Temperature 36.4 C 12/17/24 13:13 Pulse Rate 76 12/17/24 13:13 Respiratory Rate 14 12/17/24 13:13 Blood Pressure 123/82 12/17/24 13:13 Pulse Oximetry 97 12/17/24 13:13 Oxygen Delivery Room Air 12/17/24 13:13 Temperature 36.4 C 12/17/24 13:13 Pulse Rate 76 12/17/24 13:13 Respiratory Rate 14 12/17/24 13:13 Blood Pressure 123/82 12/17/24 13:13 Pulse Oximetry 97 12/17/24 13:13 Oxygen Delivery Room Air 12/17/24 13:13 MDM - Skin/Abscess/Foreign Bdy MDM Narrative Medical decision making narrative: patient is a 39-year-old female with a right buttock/perianal folliculitis type change which could represent MRSA. She does have other impetigo areas on her legs in healing stages. We will use Bactrim and Bactroban. Discharge Plan Discharge Clinical Impression: Folliculitis, Impetigo Patient Disposition: Home Condition: Stable Instructions: Antibiotic Form, Folliculitis (ED) Patient Language: [place] Prescriptions: New sulfamethoxazole-trimethoprim [Bactrim DS] 800-160 mg tablet 1 tablet PO BID 10 Days Qty: 20 0RF mupirocin [Centany] 2 % ointment 1 applic topical BID PRN (Reason: rash) Qty: 22 0RF No Action cephalexin 500 mg capsule 500 mg PO Q6H 7 Days Qty: 28 0RF multivitamin [Daily Multi-Vitamin] Tablet 1 tablet PO DAILY albuterol sulfate [Ventolin HFA] 90 mcg/actuation HFA aerosol inhaler 1 inh inhalation Q4H PRN (Reason: shortness of breath or wheezing) Qty: 8.5 0RF miconazole nitrate 2 % aerosol powder 1 spray topical BID PRN (Reason: vaginal itching) Qty: 130 0RF ferrous sulfate 325 mg (65 mg iron) tablet,delayed release (DR/EC) 325 mg PO DAILY 90 Days Qty: 90 0RF levothyroxine [Levoxyl] 150 mcg tablet 150 mcg PO DAILY Qty: 90 1RF Follow-up/Referrals: Jocelynn Awad APRN [Primary Care Provider] - Time of Disposition: 13:30
--- OUTSIDE RECORDS SUMMARY | 2024-12-17 13:36 | XMS_ITS | Continuity of Care Document ---
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 [facility] visit for: services physical Inactive Condition DoD [...] Site Reaction Lot Number CVX Code Drug Software Support Representative Status Comments Source influenza, live, intranasal, quadrivalent 1 2013 DORIS GIFFORD [id number] [email or web address], IO [employer]urb[employer]. (MED) complet ed influenza , live, intranasa l, quadrival ent DoD influenza virus vaccine, live, attenuated, for intranasal use 1 2012 IRAIDA ABRAMS [id number] [employer]ov[employer]. (MED) complet ed influenza virus vaccine, live, attenuate d, for intranasa l use DoD tetanus toxoid, reduced diphtheria toxoid, and acellular pertu is vaccine, adsorbed 0 2012 HUBERT ZAVALA [id number] Sanofi Pasteur (PMC) complet ed tetanus toxoid, reduced diphtheri a toxoid, and acellular pertussis vaccine, adsorbed DoD tuberculin skin test; purified protein derivative solution, intradermal 0 2011 KISHA DEJESUS [id number] 96 Sanofi Pasteur (PMC) complet ed tuberculi n skin test; purified protein derivativ e solution, intraderm al DoD tuberculin skin test; purified protein derivative solution, intradermal 0 2011 Unknown, Provider [id number] 96 Sanofi Pasteur (PMC) complet ed tuberculi n skin test; purified protein derivativ e solution, intraderm al DoD influenza virus vaccine, whole virus 1 2011 JAQUELINE BENJAMIN [id number] 16 CS Sensorberg GmbH[employer] Safety, Inc. (CSL) complet ed influenza virus vaccine, whole virus DoD hepatitis A vaccine, adult dosage 1 2011 JAQUELINE BENJAMIN [id number] 52 Other (OTH) complet ed hepatitis A vaccine, adult dosage DoD tuberculin skin test; purified protein derivative solution, intradermal 0 2011 JAQUELINE BENJAMIN [id number] 96 Sanofi Pasteur (PMC) complet ed tuberculi n skin test; purified protein derivativ e solution, intraderm al DoD hepatitis A and hepatitis B vaccine 2 2011 NATHAN HILL [id number] 104 SmithKline (SKB) complet ed hepatitis A and hepatitis B vaccine DoD Chilean Encephalitis Vaccine MS 2 2011 NELSON SYLVESTER [id number] [id number] 39 Field Squared (INT) complet ed [place] Encephali tis Vaccine MS DoD hepatitis A and hepatitis B vaccine 1 2011 VALENTIN SOW [id number] 104 [employer]Kline (SKB) complet ed hepatitis A and hepatitis B vaccine DoD meningococcal polysaccharid e (groups A, C, Y and W-135) diphtheria toxoid conjugate vaccine (MCV4P) 1 2011 VALENTIN SOW [id number] 114 Sanofi Pasteur (PMC) complet ed meningoco ccal polysacch aride (groups A, C, Y and W-135) diphtheri a toxoid conjugate vaccine (MCV4P) DoD tetanus toxoid, reduced diphtheria toxoid, and acellular pertu is vaccine, adsorbed 1 2011 JUANJOSE VALENTIN Eric [id number] [id number] 115 Sanofi Pasteur (PMC) complet ed tetanus toxoid, reduced diphtheri a toxoid, and acellular pertussis vaccine, adsorbed DoD Chilean Encephalitis Vaccine SC 1 2011 VALENTIN SOW [id number] 6F 39 Field Squared (INT) complet ed [place]an Encephali tis Vaccine SC DoD tuberculin skin [...] ADM Date DC Date Status Disposition Source [facility] [place]) OUTPATIENT [id number] RED CROSS VOLUNTE ER GALLO ALVAREZ 06/10 Released w/o Limitations [facility] [place]) [facility] [place] OUTPATIENT [id number] DENTAC/ RED CROSS VOL PPD CHECKED FREDRICK PARISH 06/12 Released w/o Limitations [facility] [place]) [facility] [place] OUTPATIENT [id number] DENTAC/ RED CRSOSS PPD PLACED FREDRICK PARISH 07/14 Released w/o Limitations [facility] [place] [facility] [place]) OUTPAT[place] [id number] PAP/GLORIA JARAMILLO 07/31 Released w/o Limitations [place] [facility]H S 01A17 Fabricati on) OUTPATIENT [id number] PELVIC PN X2WKS EMELY DIALLO 11/19 Released w/o Limitations [facility](A MHS 01A17 Republic tion) [facility]H S 01A17 Fabricati on) OUTPATIENT [id number] f/u anxiety /med renwal and control f/u LES VALENZUELA 12/24 Released w/o Limitations [facility](A MHS 01A17 Republic tion) [facility] 01[facility]17 [facility] on) TELE CONSULT [id number] f/u labs LES VALENZUELA 01/01 [facility](A MHS 01A17 Republic tion) [facility] S 01A17 Fabricati on) OUTPATIENT [id number] GAYLE/DIAR VAISHNAVI/KHOA DY ACHE X 2DAYS LES VALENZUELA 01/12 Released w/o Limitations [facility](A MHS 01A17 Republic tion) [facility] OUTPATIENT [id number] GUERO LEI 01/12 Released w/o Limitations [facility] S 01A17 Fabricati on) OUTPATIENT [id number] F/U EAR PN ABIGAIL KOVACS 02/26 Released w/o Limitations [facility](A MHS 01A17 Republic tion) [facility] S 01A17 Fabricati on) OUTPATIENT [id number] POSS SINUS INFECTI ON JESUS LOPEZ 04/29 Released w/o Limitations [facility](A MHS 01A17 Republic tion) [facility] S 01A17 Fabricati on) OUTPATIENT [id number] pregnan cy test JESSICA GIBBONS 05/26 Released w/o Limitations [facility](A MHS 01A17 Republic tion) [facility](AMH S A17 Fabricati on) OUTPATIENT [id number] f/u lab results (thyroi d) VALENTIN YOUSIF 06/01 Released w/o Limitations [facility] S A17 [place]) OUT[place]IENT [id number] gen physica l and possibl e referra l to alinti on JOSE KELLER 09/20 [place] Limitations [place]) [place] [id number] thyroid s EDUAR VILCHIS 11/19 [place] Limitations [place]) [place] [id number] migrain e , chest tightne ss ABIGAIL CISNEROS 12/09 [place] Limitations [place]) [place] [id number] F/U Thyroid MARTINEZ POWELL 12/10 [place]/o Limitations [place] [place] [facility] [facility] [place] [facility] OUTPATIENT [id number] lower back conx2d ZZZBM_LEE, ZZZBM_SANDEEP ARET S 12/29 Released w/o Limitations [facility] [facility] [facility]) [facility] [facility] OUTPATIENT [id number] f/u thyroid [place] EMELY RODRIGUEZ 03/30 Released w/o Limitations [facility] [facility] [facility] [facility] OUTPATIENT [id number] WELL WOMAN EXAM,VA GINAL INFECT X3DAYS RAYMOND ELKINS 05/10 Released w/o Limitations [facility] [place]([facility]) [facility]) OUTPATIENT [id number] f/u for thyroid /aniext y RAYMOND ELKINS J 06/06 Released w/o Limitations [facility] [place]([facility]) [facility]) OUTPATIENT [id number] st pn x3dys MAURO MALDONADO 09/01 Sick at Home/Quarter s [facility] [place]([facility]) [facility] [place]([facility]) OUTPATIENT [id number] wwe with pap AFUA GODWIN 05/11 Released w/o Limitations [facility] [place](F[facility] OP [facility]) [facility] [place]([facility]) TELE CONSULT [id number] review labs RUNNINGASHKAN 05/11 Referred for Appointment [facility] [place]([facility]) [facility] [place]([facility] Care [facility]) OUTPATIENT [id number] Vomitin g, Diarrhe a, dry heaves MAME ROQUE P 05/19 Immediate Referral [facility] [place](A[facility] Care [facility]) [facility] [place]([facility]) OUTPATIENT [id number] Nausea/ GAYLE KATELYNN ZHAO 05/23 Released w/o Limitations [facility] [place](Acut [facility] Care [facility]) [facility] [place]([facility] OUTPATIENT [id number] back pain AFUA GODWIN 05/26 Released w/o Limitations [facility] [place]([facility]) [facility] [place]([facility]) TELE CONSULT [id number] review labs and xray ELIO, QUEENIE 06/02 Referred for Appointment [facility] [place]([facility]) [facility] [place]([facility]) OUTPATIENT [id number] bloodwo rk for Lupus RANULFO MORAN 07/29 Released w/o Limitations [facility] [place] [place] [facility]) [facility] [place]) OUTPATIENT [id number] medicat ion JELANIRANULFO LEDEZMA Jackie 07/29 Released w/o Limitations [facility] [place] [facility] [facility] [place] [facility]) OUTPATIENT [id number] possibl e strep throat RANULFO MORAN 08/27 Released w/o Limitations [facility] [place] [facility] [facility] [place] [facility] [place]) OUTPATIENT [id number] appt appt ANTHONY LAGUNAS 09/03 Released w/o Limitations [facility] [place] [facility] [facility] [place]) OUTPATIENT [id number] VACCINE S FOR TRA[place]EL TO [place] PCM VALENTIN OVERTON 09/06 Released w/o Limitations [facility] [place] [place] [facility]) [facility] [place] [facility]) OUTPATIENT [id number] LAB REQUEST ARNULFO MORAN 09/07 Released w/o Limitations [facility] [place] [facility] [facility] [place] [facility]) OUT[place]IENT [id number] pap/juaquin ck for autoimm unedefi MITCHEL Pradhan 09/08 Released w/o Limitations [facility] [place] [facility]) [facility] [place] [facility]) OUT[place]IENT [id number] [facility] paperwo rk SHIVANIHaleyRANULFO 09/13 Released w/o Limitations [facility] [place] [facility] [facility] [facility] [place] [facility]) OUT[place] [id number] [employer] p/u efmp med for pt ANTHONY LAGUNAS Haley 09/13 Released w/o Limitations [facility] [place]([facility]) [facility] [place]) OUTPATIENT [id number] oss [place] Cindy ANTHONY LAGUNAS Haley 09/21 Released w/o Limitations [facility] [place]([facility] [place] [place] [facility]) [place]PAT[place] [id number] IMMS UPDATE [facility] NELSON DIOR 10/04 Released w/o Limitations [facility] [place]([facility]) [facility] [place] [facility] [place] OUTPATIENT [id number] ingrown toenail RANULFO MORAN 10/13 Released w/o Limitations [facility] [place]([facility]) [facility] ERA [place]) TELE CONSULT [id number] culture RANULFO MORAN 10/29 [facility] [place](Fami ly Medicin e OP Care) [facility] [place](Podiat ry Clinic ) OUTPATIENT [id number] INGROWI NG NAIL SOPHIELUCINDA 11/01 Released with Work/Duty Limitations [facility] [place](Podi atry Clinic ) [facility] [place] [facility] [place]) OUTPATIENT [id number] [facility] Dr Shivani mariee - right shoulde r RANULFO Walter 11/02 Released w/o Limitations [facility] [place](Fami ly Medicin e OP Care) [facility] Marie(Podiat ry Clinic Dr) OUTPATIENT [id number] right hallux ingrown toenail . NAIL AVULSIO N LUCINDA BARRIOS 11/09 Released with Work/Duty Limitations [facility] [place](Podi atry Clinic ) [place]( jackie [facility] A Team) OUTPATIENT [id number] med refill XU SCHMIDT 12/21 Released w/o Limitations [place] ([facility] A [facility]) [facility](Lanie frost [facility] A Team) TELE CONSULT [id number] Notes Entered by: CHERYL SCHMIDT 25 Dec 2011 1415 ------- ------- ------- ------- -- HEAVEN CARRERA 12/24 [place] ([facility]) [facility] frost [facility] A [facility]) OUTPATIENT [id number] possibl e wart XU Borden 01/03 Released w/o Limitations [facility] ([facility] A Team) [facility](N utrition Clinic) OUTPATIENT [id number] Obesity ION KINGSTON T 01/10 Released w/o Limitations [facility] (Nutrit ion Clinic) [facility](O ccupation al Medicine) OUTPATIENT [id number] [phone],,, MY JOSE ALBERTO CLARK 02/18 Released w/o Limitations [facility] (Occupa tional Medicin e) [facility] Immunizat ions) OUTPATIENT [id number] HEP A PPD FLU OBRIEN, ITZE Y 02/18 [facility]ased w/o Limitations [facility] ([facility] Immuniz ations) [facility](U SN Immunizat ions) OUTPATIENT [id number] IPPD READ/O MM NEG OBRIEN, ITZE Y 02/21 Released w/o Limitations [place] ([facility] Immuniz ations) [place](U SN Immunizat ions) OUTPATIENT [id number] IPPD OBRIEN, ITZE Y 04/12 Released w/o Limitations [place] ([facility] Immuniz ations) [place](U SN Immunizat ions) OUTPATIENT [id number] ippd KISHA DEJESUS 04/19 Released w/o Limitations [facility] ([facility] Immuniz ations) [facility] A Team) OUTPATIENT [id number] recurre nt warts XU SCHMIDT 04/20 Released w/o Limitations [facility] ([facility] A Team) [facility] Immunizat ions) OUTPATIENT [id number] PPD READ 0MM NEGATIV E ORALIA OBRIEN Y 04/21 Released w/o Limitations [facility] ([facility] Immuniz ations) [facility](O ccupation al Medicine) OUTPATIENT [id number] 709,,,, ,KM ORDINARIO, ANALOU INGRAM 05/18 Released w/o Limitations [facility] (Occupa tional Medicin e) [facility] A Team) OUTPATIENT [id number] wart removal consult aitXU Yarbrough 05/25 Released w/o Limitations [facility] ([facility] A Team) [facility](O ccupation al Medicine) OUTPATIENT [id number] CARD UPDATE( late entry), ,,,,@ ORDINARIO, ANALOU INGRAM 05/31 Released w/o Limitations [facility] (Occupa tional Medicin e) [facility](O b/Outside [facility]) OUTPATIENT [id number] E/r fu need us for possibl e ectopic HILTON YOU 06/14 Released w/o Limitations [facility] ([facility]) [facility] A Team) OUTPATIENT [id number] f/up labs XU SCHMIDT 06/22 Released w/o Limitations [facility] ([facility] A Team) [facility] Gynecolog y Clinic) OUTPATIENT [id number] account [email or web address] MICKEY LIMON 06/22 Released w/o Limitations [facility] ( Gynecol ogy Clinic) [facility](O b/[facility]) OUTPATIENT [id number] gym: HILTON CORNEJO 07/01 Released w/o Limitations [facility] ([facility]) [facility] A Team) TELE CONSULT [id number] Notes Entered by: EMILE BLANTON 27 Jul 2012 0733 ------- ------- ------- ------- -- med refill EMELY PERRY Alysia 07/26 [place] ([facility] A Team) [facility](O b/[facility]) OUTPATIENT [id number] NOB ASHKAN 10 WKS HILTON YOU 07/27 Released w/o Limitations [facility] ([facility]) [facility](O b/[facility] OUTPATIENT [id number] jenna 18wks KOBI LEBLANC 09/06 Released w/o Limitations [facility] ([facility]) [facility] A Team) TELE CONSULT [id number] Notes Entered by: MARKIE KELLY 28 Sep 2012 1551 ------- ------- ------- ------- -- possibl e vaginal infecti on EMELY PERRY Alysia 09/28 [facility]) [facility](O b/[facility]) OUTPATIENT [id number] jenna 24 wks KOBI LEBLANC 10/19 Released w/o Limitations [facility] ([facility]) [facility](L &D Triage) OUTPATIENT [id number] Notes Entered by: JULY JANE 27 Oct 2012 1914 ------- ------- ------- ------- -- chest pain ASHLEIGH FERNANDEZ 10/27 Released w/o Limitations [facility] (L&D Triage) [facility](O b/[facility]) TELE CONSULT [id number] Notes Entered by: ELVIN CHENG 31 Oct 2012 1536 ------- ------- ------- ------- -- Possibl e exposur e to hand foot and mouth disease REZA CHENG 10/31 Referred for Appointment [facility] ([facility]) [facility](L &D Triage) OUTPATIENT [id number] Notes Entered by: ROHIT MCLEAN 31 Oct 2012 1538 ------- ------- ------- ------- -- NST LAWRENCERONAL JUNIOR JOYCE OSORIO 10/31 Released w/o Limitations [facility] (L&D Triage) [facility](K a Case Managemen t Services) TELE CONSULT [id number] Notes Entered by: TATI OWEN 02 Nov 2012 1458 ------- ------- ------- ------- -- Case Managem ent antidep ressant trackin g follow up. TATI OWEN 11/02 Other Not Elsewhere Classified [facility] (Ka Case Managem ent Service s) [facility](L &D Triage) OUTPATIENT [id number] Notes Entered by: NADJA MALAGON 07 Nov 2012 1342 ------- ------- ------- ------- -- SpotAFUA Black 11/07 Released w/o Limitations [facility] (L&D Triage) [facility](O b/[facility]) OUTPATIENT [id number] jenna 28 CARLOS Colvin 11/16 Released w/o Limitations [facility] ([facility]) [facility](L &D Triage) OUTPATIENT [id number] Notes Entered by: IAN MOON 19 Nov 2012 1051 ------- ------- ------- ------- -- Vaginal blemable g HILTON YOU 11/19 Released w/o Limitations [facility] (L&D Triage) [facility](L &D Triage) OUTPATIENT [id number] Notes Entered by: TOBI VAZQUEZ 21 Nov 2012 1854 ------- ------- ------- ------- -- vaginal bleedAFUA Gray 11/21 Released w/o Limitations [facility] (L&D Triage) [facility](O b/[facility]) OUTPATIENT [id number] breast feeding CHANCE HADDAD 12/06 Released w/o Limitations [facility] ([facility]) [facility](O b/[facility]) OUTPATIENT [id number] pcb 1 CHANCE HADDAD 12/12 Released w/o Limitations [facility] ([facility]) [facility](O b/[facility]) OUTPATIENT [id number] pcb 2 CHANCE HADDAD 12/13 Released w/o Limitations [facility] ([facility]) [facility](L &D Triage) OUTPATIENT [id number] Notes Entered by: KYLE GOSS 14 Dec 2012 1030 ------- ------- ------- ------- -- R/O UTI and Cold GUERRERO-RAHAT CARTER 12/14 Released w/o Limitations [facility] (L&D Triage) [facility](O b/[facility]) OUTPATIENT [id number] jenna 32 CARLOS Colvin 12/14 Released w/o Limitations [facility] ([facility]) [facility](O b/[facility]) OUTPATIENT [id number] pcb 3 CHANCE HADDAD 12/15 Released w/o Limitations [facility] ([facility]) [facility](O b/[facility]) TELE CONSULT [id number] Notes Entered by: PEGGY SOTOMAYOR 27 Dec 2012 1052 ------- ------- ------- ------- -- Yeast infecti on LETY OLIVASJITENDRA JAMES 12/27 Advice Assessment [facility] ([facility]) [facility](L &D Triage) OUTPATIENT [id number] Notes Entered by: LINDSAY ALLISON 02 Jan 2013 0730 ------- ------- ------- ------- -- R/O UTI RAHAT HAIDER 01/01 Released w/o Limitations [facility] (L&D Triage) [facility](L &D Triage) OUTPATIENT [id number] Notes Entered by: CORRINE CRANE 12 Jan 2013 1350 ------- ------- ------- ------- -- JOYCE Gao 01/12 Released w/o Limitations [facility] (L&D Triage) [facility](O b/[facility]) OUTPATIENT [id number] jenna 27wCARLOS Reilly 01/16 Released w/o Limitations [facility] ([facility]) [facility] PCMH Team 1) TELE CONSULT [id number] Notes Entered by: Sarah LEIVA 18 Jan 2013 1242 ------- ------- ------- ------- -- SALLY MEANS 01/18 [facility] ([facility] PCM Team 1) [facility](L &D Triage) OUTPATIENT [id number] Notes Entered by: Jackie RAMIREZ I 24 Jan 2013 1423 ------- ------- ------- ------- -- Possibl e yeast infecti onRENETTA MCKEE 01/24 Released w/o Limitations [facility] (L&D Triage) [facility](O b/[facility]) OUTPATIENT [id number] JENNA 38wKRISTIN Hi 01/30 Released w/o Limitations [facility] ([facility]) [facility](O b/[facility]) OUTPATIENT [id number] 40 wks CARLOS GASTON 02/06 Released w/o Limitations [facility] ([facility]) [facility] [facility](L &D Triage) OUTPATIENT [id number] Notes Entered by: SE CHAVEZ,MAXIMILIANO QUEZADA ER 11 Feb 2013 1506 ------- ------- ------- ------- -- cameron mariee/SHEMAR Robles 02/11 Released w/o Limitations [facility] (L&D Triage) [facility](O b/Outside Sales Engineer [facility]) OUTPATIENT [id number] JENNA 41CARLOS Colvin 02/14 Released w/o Limitations [facility] ([facility] DIRECT TO [facility] FROM OTHER THAN ER OR [facility] [id number] HUBERT ZAVALA 02/17 DISCHARGED HOME [facility] Med PCMH Team 1) TELE CONSULT [id number] Notes Entered by: SHARON PATEL 23 Feb 2013 1159 ------- ------- ------- ------- -- Constip ation, ?'s about injecti on site for TDAP, MEÑO PATEL 02/23 Referred for Appointment [facility] ([facility] Med PCMH Team 1) [facility](O ccupation al Medicine) OUTPATIENT [id number] CARD UPDATE 4 WART INSPECT ION ON FINGERS ,,,,,MY ORDINARIO, ANALOU INGRAM 03/29 Released w/o Limitations [facility] (Occupa tional Medicin e) [facility] Immunizat ions) OUTPATIENT [id number] IRAIDA Sweet 04/07 Released w/o Limitations [facility] ([facility] Immuniz ations) [facility](O b/[facility]) OUTPATIENT [id number] PP 9 weeks EMELY SMITH 04/10 Released w/o Limitations [facility] ([facility]) [facility](O ccupation al Medicine) OUTPATIENT [id number] 703P,,, ,,@ ORDINARIO, ANALOU INGRAM 04/17 Released w/o Limitations [facility] (Occupa tional Medicin e) [facility](O ptometry Clinic) OUTPATIENT [id number] [facility] [id number] GEOVANNI WRIGHT 05/05 Released w/o Limitations [facility] ([facility] try Clinic) [facility] Team 1) OUTPATIENT [id number] post depress ion/thy roid - labs done ABIGAIL PARKINSON 05/18 Released w/o Limitations [facility] ([facility] Team 1) [facility] Team 1) OUTPATIENT [id number] HCG DESHAWN BAJWA V 07/12 Released w/o Limitations [facility] ([facility] Team 1) [facility] Team 1) TELE CONSULT [id number] Notes Entered by: JULIAN OCASIO 31 Jul 2013 1524 ------- ------- ------- ------- -- Pt was seen at ER 3/9 for Lumbago (low back px) SHEMAR MONTGOMERY 07/31 [facility] ([facility] Team 1) [facility] Team 1) OUTPATIENT [id number] needs BC SHEMAR MONTGOMERY 08/08 Released w/o Limitations [facility] ([facility] Team 1) [facility] Team 1) OUTPATIENT [id number] referra l to derm and thyriod issues SHEMAR MONTGOMERY 10/30 Released w/o Limitations [facility] ([facility] Team 1) [facility] Team 1) TELE CONSULT [id number] Notes Entered by: JOSE DE JESUS AMARO 02 Nov 2013 1059 ------- ------- ------- ------- -- thyroid GALLO SORIANO 11/02 Referred for Appointment [facility] (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 SHANNAN HARTMAN 12/01 Released w/o Limitations [facility] ([facility]) [facility] PCM Team 1) OUTPATIENT [id number] memory loss,sl eep ashkan MCPHERSON MEÑO ASHKAN 12/12 Released w/o Limitations [facility] ([facility] PCM Team 1) [facility] PCM Team 1) OUTPATIENT [id number] f/u labs ULISES SHEMARRUBEN OSORIO 12/25 Released w/o Limitations [facility] ([facility] PCM Team 1) [facility](N utrition Clinic) OUTPATIENT [id number] HYPOTHY TOBI WHIPPLE 12/28 Released w/o Limitations [facility] (Nutrit ion Clinic) [facility] b/[facility]) OUTPATIENT [id number] 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 YUKO Gaytan 03/25 Released w/o Limitations [facility] ([facility]) [facility] b[facility]) TELE CONSULT [id number] Notes Entered by: SHANTI MUSE 09 Apr 2014 1601 ------- ------- ------- ------- -- SHANNAN Gomez 04/09 [facility] ([facility]) [facility] PCM Team 1) OUTPATIENT [id number] thyroid JENNIFER Moran 05/01 Released w/o Limitations [facility] ([facility] PCM Team 1) [facility] PCM Team 1) OUTPATIENT [id number] referra l to JENNIFER Avery 05/21 Released w/o Limitations [facility] ([facility] PCM Team 1) [facility] PCM Team 1) OUTPATIENT [id number] bloodwo rk/anxi JENNIFER Eid 06/14 Released w/o Limitations [facility] ([facility] Team 1) [facility] Team 1) OUTPATIENT [id number] Lab results PAUL JENNIFER HINA 07/11 Released w/o Limitations [facility] ([facility] Team 1) [facility] Team 1) TELE CONSULT [id number] Notes Entered by: BANDAR DAMON 04 Dec 2014 0907 ------- ------- ------- ------- -- Thyroid Check up apointm ent CRISTAL SALINAS 12/04 Referred for Appointment [facility] ([facility] Team 1) [facility] Team 1) OUTPATIENT [id number] ear ARMANDO Garrison 12/05 Released w/o Limitations [facility] ([facility] Team 1) [facility] Team 1) TELE CONSULT [id number] Notes Entered by: DEREK DE LEON 07 Dec 2014 0835 ------- ------- ------- ------- -- Pt is request ing for labs to be put in for thyroid check before appoint ment. DORIS CASILLAS [facility] 12/06 Referred for Appointment [facility] ([facility] Team 1) [facility] Team 1) TELE CONSULT [id number] Notes Entered by: DEREK DE LEON 06 Mar 2015 0926 ------- ------- ------- ------- -- Pt is request ing labs be put it before appoint ment with LT Hudson. Thank you CRISTAL SALINAS 03/06 Referred for Appointment [facility] ([facility] Team 1) [facility] Team 1) OUTPATIENT [id number] EMFP physica l/ lesvia jordan STEFAN LOUIS 03/15 Released w/o Limitations [facility] ([facility] Team 1) [facility] Team 1) OUTPATIENT [id number] Notes Entered by: ANA MULLINS 11 Apr 2015 0837 ------- ------- ------- ------- -- JENNIFER Mccain 04/10 Released w/o Limitations [facility] ([facility] Team 1) [facility] Team 1) OUTPATIENT [id number] thyroid c/u JENNIFER MILLER 04/15 Released w/o Limitations [facility] ([facility] Team 1) Procedures Combined list of: [...] OUTPATIENT FACILITY, APPROXIMATELY 20 TO 30 MINUTES [id number] WITH THE PATIENT 2007 [facility] PSYCHIATRIC DIAGNOSTIC INTERVIEW EXAMINATION 2007 [facility] COLLECTION OF VENOUS BLOOD BY VENIPUNCTURE 2007 [facility] INDIVIDUAL PSYCHOTHERAPY, INSIGHT ORIENTED, BEHAVIOR MODIFYING AND/OR SUPPORTIVE, IN AN OFFICE OR OUTPATIENT FACILITY, APPROXIMATELY 20 TO 30 MINUTES [id number] WITH THE PATIENT 2007 [facility] INDIVIDUAL PSYCHOTHERAPY, INSIGHT ORIENTED, BEHAVIOR MODIFYING AND/OR SUPPORTIVE, IN AN OFFICE OR OUTPATIENT FACILITY, APPROXIMATELY 75 TO 80 MINUTES [id number] WITH THE PATIENT 2007 [facility] INDIVIDUAL PSYCHOTHERAPY, INSIGHT ORIENTED, BEHAVIOR MODIFYING AND/OR SUPPORTIVE, IN AN OFFICE OR OUTPATIENT FACILITY, APPROXIMATELY 20 TO 30 MINUTES [id number] WITH THE PATIENT 2006 [facility] INDIVIDUAL PSYCHOTHERAPY, INSIGHT ORIENTED, BEHAVIOR MODIFYING AND/OR SUPPORTIVE, IN AN OFFICE OR OUTPATIENT FACILITY, APPROXIMATELY 45 TO 50 MINUTES [id number] WITH THE PATIENT 2006 [facility] INDIVIDUAL PSYCHOTHERAPY, INSIGHT ORIENTED, BEHAVIOR MODIFYING AND/OR SUPPORTIVE, IN AN OFFICE OR OUTPATIENT FACILITY, APPROXIMATELY 45 TO 50 MINUTES [id number] WITH THE PATIENT 2006 [facility] INDIVIDUAL PSYCHOTHERAPY, INSIGHT ORIENTED, BEHAVIOR MODIFYING AND/OR SUPPORTIVE, IN AN OFFICE OR OUTPATIENT FACILITY, APPROXIMATELY 75 TO 80 MINUTES [id number] WITH THE PATIENT 2006 [facility] INDIVIDUAL PSYCHOTHERAPY, INSIGHT ORIENTED, BEHAVIOR MODIFYING AND/OR SUPPORTIVE, IN AN OFFICE OR OUTPATIENT FACILITY, APPROXIMATELY 45 TO 50 MINUTES [id number] WITH THE PATIENT [facility] [...] OUTPATIENT FACILITY, APPROXIMATELY 45 TO 50 MINUTES [id number] WITH THE PATIENT 2005 [facility] [...] HR/SOON APT;5-10 MIN MED DIS 2011 DoD CENTRAL AFRICAN ENCEPHALITIS VIRUS VACCINE, INACTIVATED, FOR INTRAMUSCULAR USE 2011 [facility] SCREENING PAPANICOLAOU SMEAR; OBTAINING, PREPARING AND CONVEYANCE OF CERVICAL OR VAGINAL SMEAR TO LABORATORY 2011 [facility] HEPATITIS A VACCINE (HEPA), ADULT DOSAGE, FOR INTRAMUSCULAR USE 2011 DoD CENTRAL AFRICAN ENCEPHALITIS VIRUS VACCINE, INACTIVATED, FOR INTRAMUSCULAR USE [...] 24 HR/SOON APT;5-10 MIN MED DIS 2010 [facility] SCREENING PAPANICOLAOU SMEAR; OBTAINING, PREPARING AND CONVEYANCE OF CERVICAL OR VAGINAL SMEAR TO LABORATORY 2010 [facility] INDIVIDUAL PSYCHOTHERAPY, INSIGHT ORIENTED, BEHAVIOR MODIFYING AND/OR SUPPORTIVE, IN AN OFFICE OR OUTPATIENT FACILITY, APPROXIMATELY 45 TO 50 MINUTES [id number] WITH THE PATIENT 2006 [facility] INDIVIDUAL PSYCHOTHERAPY, INSIGHT ORIENTED, BEHAVIOR MODIFYING AND/OR SUPPORTIVE, IN AN OFFICE OR OUTPATIENT FACILITY, APPROXIMATELY 45 TO 50 MINUTES [id number] WITH THE PATIENT 2006 [facility] [...] COST TO PHYSICIAN OR OTHER QUALIFIED HEALTH HOSPICE/HOME HEALTH AIDE 1999 [facility] DESTRUCTION [...] TEST 2012 [facility] SMEAR, [...] MED DIS 2012 DoD NON-STRESS TEST 2012 [facility] [...] Non-Physician Phone Call To Patient/Provider Brief (5-10min) [id number] 2011 RANULFO MORAN DoD Hepatitis A And Hepatitis B (Intramuscular Use) Adult Dosage Hepatitis A And Hepatitis B (Intramuscular Use) Adult Dosage 97017 2011 RANULFO MORAN [facility] Vaccines Viral Chilean Encephalitis Inactivated, Intramuscular Vaccines Viral Chilean Encephalitis Inactivated, Intramuscular 70132 2011 NELSON SYLVESTER Immunization Administration By Injection, One Vaccine Immunization Administration By Injection, One Vaccine 40892 2011 NELSON SYLVESTER Screening papanicolaou smear; obtaining, preparing and conveyance of cervical or vaginal smear to laboratory 2011 MITCHEL CARPIO [facility] Tdap Vaccine Tdap Vaccine 85897 2011 VALENTIN SOW Immunization Administration By Injection, One Vaccine Immunization Administration By Injection, One Vaccine 00720 2011 VALENTIN SOW Meningococcal (A, C, Y, W-135) Oligosacch Diphtheria Toxoid Conj Vacc 2011 VALENTIN SOW Hepatitis A And Hepatitis B (Intramuscular Use) Adult Dosage Hepatitis A And Hepatitis B (Intramuscular Use) Adult Dosage 82332 2011 VALENTIN SOW Immunization Administration By Injection, Each Additional Vaccine 2011 VALENTIN SOW Vaccines Viral Chilean Encephalitis Inactivated, Intramuscular Vaccines Viral Chilean Encephalitis Inactivated, Intramuscular 00834 2011 NELSON SYLVESTER Immunization Administration By Injection, One Vaccine Immunization Administration By Injection, One Vaccine 15572 2011 NELSON SYLVESTER Non-Physician Phone Call To Patient/Provider Brief (5-10min) Non-Physician Phone Call To Patient/Provider Brief (5-10min) 31281 2011 ANTHONY LAGUNAS Non-Physician Phone Call To Patient/Provider Brief (5-10min) Non-Physician Phone Call To Patient/Provider Brief (5-10min) 09468 2011 QUEENIE BALLARD [facility] IV Infusion For Hydration 31 Minutes To 1 Hour IV Infusion For Hydration 31 Minutes To 1 Hour 59745 2010 MAME ROQUE Started at 1845. l litter of LR. [facility] Intravenous Catheter Placement Intravenous Catheter Placement 47961 2010 MAME ROQUE [facility] Non-Physician Phone Call To Patient/Provider Brief (5-10min) Non-Physician Phone Call To Patient/Provider Brief (5-10min) 07315 2010 ASHKAN LONDON [facility] Screening papanicolaou smear; obtaining, preparing and conveyance of cervical or vaginal smear to laboratory 2010 AFUA GODWIN [facility] Clinical Social Work Individual Outpatient Counseling 30 Minutes Clinical Social Work Individual Outpatient Counseling 30 Minutes 90300 2007 JACE WARNER A DoD Psychiatric Diagnostic Evaluation Comprehensive Examination Psychiatric Diagnostic Evaluation Comprehensive Examination 39288 2007 JACE WARNER A DoD Clinical Social Work Individual Outpatient Counseling 30 Minutes Clinical Social Work Individual Outpatient Counseling 30 Minutes 27562 2007 AFUA MCBRIDE [facility] Clinical Social Work Individual Outpatient Counseling 75-80 Minutes Clinical Social Work Individual Outpatient Counseling 75-80 Minutes 09838 2007 AFUA MCBRIDE [facility] Clinical Social Work Individual Outpatient Counseling 30 Minutes Clinical Social Work Individual Outpatient Counseling 30 Minutes 41787 2006 JACE WARNER [facility] Clinical Social Work Individual Outpatient Counseling 45 Minutes Clinical Social Work Individual Outpatient Counseling 45 Minutes 00653 2006 JACE WARNER A [facility] Clinical Social Work Individual Outpatient Counseling 45 Minutes Clinical Social Work Individual Outpatient Counseling 45 Minutes 26699 2006 JACE WARNER [facility] Clinical Social Work Individual Outpatient Counseling 75-80 Minutes Clinical Social Work Individual Outpatient Counseling 75-80 Minutes 64690 2006 JACE WARNER [facility] Clinical Social Work Individual Outpatient Counseling 45 Minutes Clinical Social Work Individual Outpatient Counseling 45 Minutes 22483 2006 JACE WARNER Jackie [facility] Psychiatric Diagnostic Evaluation Comprehensive Examination Psychiatric Diagnostic Evaluation Comprehensive Examination 90067 2006 JACE WARNER DoD Clinical Social Work Individual Outpatient Counseling 45 Minutes Clinical Social Work Individual Outpatient Counseling 45 Minutes 31141 2006 JACE KULKARNI [facility] Clinical Social Work Individual Outpatient Counseling 45 Minutes Clinical Social Work Individual Outpatient Counseling 45 Minutes 42820 2006 JACE KULKARNI [facility] Psychiatric Diagnostic Evaluation Comprehensive Examination Psychiatric Diagnostic Evaluation Comprehensive Examination 52533 2006 JACE KULKARNI [facility] Crisis intervention mental health services, per hour 2006 JACE KULKARNI [facility] Psychiatric Diagnostic Evaluation Comprehensive Examination Psychiatric Diagnostic Evaluation Comprehensive Examination 33462 2006 MAURO JOHNSON [facility] Psychotherapy Individual Approximately 45 Minutes Psychotherapy Individual Approximately 45 Minutes 15158 2005 GUERO LEI [facility] Patient Training And Self-Care Skills Patient Training And Self-Care Skills 63803 2005 LES VALENZUELA [facility] Hepatitis B Vaccine (Active) Adult Dosage 2005 FREDRICK PARISH [facility] Immunization Administration By Injection, One Vaccine Immunization Administration By Injection, One Vaccine 95097 2005 FREDRICK PARISH [facility] Skin Test Anergy tuberculin Skin Test Anergy tuberculin 48234 2005 GALLO ALICIA [facility] Destruction Of Benign Lesion By Cryosurgery Destruction Of Benign Lesion By Cryosurgery 74642 2014 JENNIFER MILLER [facility] Physician Services Special Review / Reporting Of Patient Status Physician Services Special Review / Reporting Of Patient Status 42341 2014 STEFAN LOUIS DoD Psychiatric Therapy Marital 2014 BEACH, QUAN SMITH DoD Psychiatric Therapy Marital 2014 BEACH, QUAN SMITH DoD Psychiatric Therapy Marital 2014 BEACH, QUAN SMITH DoD Psychiatric Therapy Marital 2014 BEACH, QUAN SMITH DoD Psychotherapy Individual Approximately 30 Minutes 2014 BEACH, QUAN SMITH DoD Psychotherapy Individual Approximately 60 Minutes 2014 BEACH, QUAN SMITH DoD Psychotherapy Group Interactive Psychotherapy Group Interactive [id number] 2014 BEACH, QUAN SMITH DoD Psychiatric Diagnostic Evaluation Initial Psychiatric Diagnostic Evaluation Initial 65847 2014 BEACH, QUAN SMITH DoD Psychotherapy Group Interactive Psychotherapy Group Interactive 66996 2014 BEACH, QUAN SMITH DoD Psychiatric Therapy Marital 2014 BEACH, QUAN SMITH DoD Psychiatric Therapy Marital 2014 BEACH, QUAN SMITH DoD Psychotherapy Group Interactive Psychotherapy Group Interactive 88563 2014 BEACH, QUAN SMITH DoD Psychotherapy Group Interactive Psychotherapy Group Interactive 40542 2014 BEACH, QUAN SMITH DoD Psychiatric Therapy Marital 2014 BEACH, QUAN SMITH DoD Psychotherapy Group Interactive Psychotherapy Group Interactive 54987 2014 BEACH, QUAN SMITH DoD Psychiatric Therapy Marital 2014 BEACH, QUAN SMITH DoD Psychotherapy Group Interactive Psychotherapy Group Interactive 22236 2014 BEACH, QUAN SMITH DoD Psychiatric Therapy [...] YUKO CHAMBERS [facility] Clinical Social Work Individual Outpatient Counseling 45 Minutes 2013 BRANDONALAN MEADOWS DoD Medical Nutrition Therapy Group (2 or More Individuals) Each 30 Minutes Medical Nutrition Therapy Group (2 or More Individuals) Each 30 Minutes 17876 2013 TOBI MCKINLEY [facility] Psychiatric Diagnostic Evaluation Comprehensive Examination Psychiatric Diagnostic Evaluation Comprehensive Examination 53690 2013 ALAN KENNEY [facility] Ophthalmological New Patient Start Comprehensive Care Ophthalmological New Patient Start Comprehensive Care 37861 2012 GEOVANNI WRIGHT Determination Of Refractive State Determination Of Refractive State 56590 2012 GEOVANNI WRIGHT Urine HCG, Test Urine HCG, Test 83952 2012 EMELY SMITH [facility] By Intranasal / Oral Route One Vaccine 41316 2012 KRISTA KAISER [facility] Influenza Virus Vaccine Intranasal Live Attenuated Influenza Virus Vaccine Intranasal Live Attenuated 24073 2012 KRISTA KAISER Influenza, Live, Intranasal; Series #: 1; .2 mL; IN; Intranasal; Mfg: [employer] Lot: [id number]; VIS given (Jami: 12/16/2012). [facility] OB Services Antepartum Care Only Subsequent Single Visit OB Services Antepartum Care Only Subsequent Single Visit 0502F 2012 CARLOS GASTON Non-Stre Test (___ 0,2) Non-Stress Test (___ 0,2) 93486 2012 SHEMAR MONTGOMERY [facility] OB Services Antepartum Care Only Subsequent Single Visit OB Services Antepartum Care Only Subsequent Single Visit 0502F 2012 CARLOS GASTON OB Services Antepartum Care Only Subsequent Single Visit OB Services Antepartum Care Only Subsequent Single Visit 0502F 2012 KRISTIN CONTRERAS [facility] Vaginal Wet [place] Vaginal [place] 47710 2012 RENETTA REED [facility] Ultrasound Obstetric Limited Evaluation Ultrasound Obstetric Limited Evaluation 00213 2012 RENETTA REED Non-Stre Test (___ 0,2) Non-Stress Test (___ 0,2) 53621 2012 BRIANNA RENETTA Majano OB Services Antepartum Care Only Subsequent Single Visit OB Services Antepartum Care Only Subsequent Single Visit 0502F 2012 RENETTA REED Ultrasound Obstetric Limited Evaluation Ultrasound Obstetric Limited Evaluation 58828 2012 CARLOS GASTON Documented/Reviewed Group B Streptococcus During Week 35-37 Documented/Reviewed Group B Streptococcus During Week 35-37 3294F 2012 CARLOS GASTON OB Services Antepartum Care Only Subsequent Single Visit OB Services Antepartum Care Only Subsequent Single Visit 0502F 2012 CARLOS GASTON Non-Stre Test (___ 0,2) Non-Stress Test (___ 0,2) 88376 2012 CHADWICK Reyes JOYCE FRANCOHaley Majano OB Services Antepartum Care Only Subsequent Single Visit OB Services Antepartum Care Only Subsequent Single Visit 0502F 2012 RAHAT BONE Non-Stre Test (___ 0,2) Non-Stress Test (___ 0,2) 83485 2012 RAHAT BONE Vaginal Wet [place] Vaginal [place] 35639 2012 RAHAT BONE Non-Stre Test (___ 0,2) Non-Stress Test (___ 0,2) 13006 2012 RAHAT BONE OB Services Antepartum Care Only Subsequent Single Visit OB Services Antepartum Care Only Subsequent Single Visit 050F 2012 RAHAT BONE OB Services Antepartum Care Only Subsequent Single Visit OB Services Antepartum Care Only Subsequent Single Visit 0502F 2012 CARLOS GASTON Vaginal Discharge pH Vaginal Discharge pH 64685 2012 AFUA INGRAM Vaginal [place] Vaginal [place] 54705 2012 AFUA INGRAM GUERDA and wet mount DoD OB Services Antepartum Care Only Subsequent Single Visit OB Services Antepartum Care Only Subsequent Single Visit 0502F 2012 AFUA INGRAM [facility] Non-Stre Test (___ 0,2) Non-Stress Test (___ 0,2) 76863 [facility] SOL[facility] Non-Stre Test (___ 0,2) Non-Stress Test (___ 0,2) 93218 2012 HILTON YOU [facility] Rho D Immune Globulin Human Intramuscular Use Full-dose Rho D Immune Globulin Human Intramuscular Use Full-dose 36359 2012 CARLOS GASTON [facility] OB Services Antepartum Care Only Subsequent Single Visit OB Services Antepartum Care Only Subsequent Single Visit 0502F 2012 CARLOS GASTON Non-Stre Test (___ 0,2) Non-Stress Test (___ 0,2) 52197 2012 AFUA INGRAM SOLEDAD [facility] OB Services Antepartum Care Only Subsequent Single Visit OB Services Antepartum Care Only Subsequent Single Visit 0502F 2012 AFUA INGRAM SOLEDAD [facility] Ultrasound Obstetric Limited Evaluation Ultrasound Obstetric Limited Evaluation 63977 [facility] Ultrasound [place] [address] 2012 AFUA INGRAM SOLEDAD [facility] Non-Physician Phone Call To Patient/Provider Brief (5-10min) Non-Physician Phone Call To Patient/Provider Brief (5-10min) 19045 2012 TATI OWEN [facility] Non-Stre Test (___ 0,2) Non-Stress Test (___ 0,2) 91371 2012 JOYCE SWEET [facility] Obstetrical Services External Monitor Placement Obstetrical Services External Monitor Placement 84532 2012 ASHLEIGH FERNANDEZ [facility] [place] Ultrasound [place] [address] 2012 HILTON YOU OB Services Antepartum Care Only First Visit, With Report OB Services Antepartum Care Only First Visit, With Report 0500F 2012 MO JOHNSON Ultrasound Trans[place] [address] 2012 HILTON YOU Destruction Of Flat Warts [...] Tuberculin Intradermal Skin Test Anergy Tuberculin Intradermal 49115 2011 KISHA DEJESUS IPPD; Series #: 1; .1 mL; ID; Left Arm; Mfg: [employer]; Lot: [id number]; VIS given. [facility] Skin Test Anergy Tuberculin Intradermal Skin Test Anergy Tuberculin Intradermal 97467 2011 CROW COUGHLIN IPPD; Series #: 1; .1 mL; ID; Left Arm; Mfg: [employer]; Lot: [id number]; VIS given. [facility] Immunization Administration By Injection, Each Additional Vaccine 2011 JAQUELINE BENJAMIN Immunization Administration By Injection, One Vaccine Immunization Administration By Injection, One Vaccine 38053 2011 JAQUELINE BENJAMIN Skin Test Anergy Tuberculin Intradermal Skin Test Anergy Tuberculin Intradermal 38234 2011 JAQUELINE BENJAMIN IPPD; Series #: 1; .1 mL; ID; Left Arm; Mfg: [employer]; Lot: [id number]; VIS given. DoD Vaccines Vaccines 23963 2011 JAQUELINE BENJAMIN Influenza; Series #: 1; .5 mL; IM; Left Arm; Mfg: [employer] Lot: [id number]; VIS given (Jami: 01/01/09). DoD Hepatitis A Vaccine Adult Dosage (Intramuscular Use) Hepatitis A Vaccine Adult Dosage (Intramuscular Use) 20078 2011 JAQUELINE BENJAMIN Hep A (Adult); Series #: 1; 1.0 mL; IM; Right Arm; Mfg: Other; Lot: [id number]; VIS given (Jami: 03/17/11). DoD Medical Nutrition Therapy Group (2 or More Individuals) Each 30 Minutes Medical Nutrition Therapy Group (2 or More Individuals) Each 30 Minutes 19992 2011 ION KINGSTON [facility] Non-Physician Phone Call To Patient/Provider Brief (5-10min) Non-Physician Phone Call To Patient/Provider Brief (5-10min) 33799 2011 HEAVEN ZUNIGA [facility] Avulsion Of Nail Plate Avulsion Of Nail Plate 75223 2011 LUCINDA BARRIOS DoD Social History Combined list of available smoking, tobacco, and other social history from Department of Defense and Veterans Affairs facilities. Social History Type Response Date Comment Sour e This section is an empty social history section. DoD
== END 2024-12-17 13:34 | disposition home or self-care (01) ==
LOC: CHSED 13:34
PROVIDERS: Emergency Provider Emergency Medicine; PCP Nurse Practitioner Family
DX: L73.9 Follicular disorder, unspecified (principal); L01.00 Impetigo, unspecified; E03.9 Hypothyroidism, unspecified
CPT/HCPCS: 99283

== ENCOUNTER 2024-12-19 12:53 | Outpatient (CLI) | payer OTHER, SELFPAY ==
--- NOTE | 2024-12-19 12:58 | ECHO_ITS ---
Patient Info Name: Gail Walker Age: 39 years : 1985 Gender: Female Ht: 64 in Wt: 238 lbs BSA: 2.26 m2 HR: 81 bpm BP: 136 / 93 mmHg Heart Rhythm: Sinus Rhythm Technical Quality: Good Exam Date: 12/19/2024 1:01 PM Patient Status: O Admit Date: 12/19/2024 Exam Type: CA echo doppler color flow Complete two-dimensional, color flow and Doppler transthoracic echocardiogram is performed. Accounting Generalist: Sveta Mejia Attending Provider: Jocelynn Awad Summary 1. Complete two-dimensional, color flow and Doppler transthoracic echocardiogram is performed. 2. Left ventricular chamber dimension is normal. 3. Left ventricular systolic function is normal, estimated at 60-65. 4. The left ventricular diastolic function is grade I diastolic dysfunction. 5. E/e' 7 is not elevated. 6. There is trace aortic valve regurgitation. 7. There is trace tricuspid valve regurgitation. 8. No pulmonary hypertension, estimated pulmonary arterial systolic pressure is 23 mmHg. Left Ventricle E/e' 7 is not elevated. Left ventricular chamber dimension is normal. Left ventricular systolic function is normal, estimated at 60-65. The left ventricular diastolic function is grade I diastolic dysfunction. Right Ventricle Right ventricular chamber dimension is normal. Right ventricular systolic function is normal and with normal TAPSE 2.0 cm. Left Atria Left atrial chamber dimension is normal. Right Atria Right atrial chamber dimension is normal. Aortic Valve The aortic valve is trileaflet. There is no aortic valve stenosis. There is trace aortic valve regurgitation. Pulmonic Valve There is no pulmonic regurgitation. Mitral Valve There is no mitral valve stenosis. There is no mitral valve regurgitation. Tricuspid Valve There is trace tricuspid valve regurgitation. No pulmonary hypertension, estimated pulmonary arterial systolic pressure is 23 mmHg. Pericardium/Pleural There is no pericardial effusion. Inferior Vena Cava Normal inferior vena cava with >50% collapse upon inspiration consistent with normal right atrial pressure, 5 mmHg. Aorta The aortic root size at the sinus of Valsalva is normal. Left Ventricular Outflow Tract Name Value Normal LVOT 2D LVOT Diameter 2.1 cm LVOT Doppler LVOT Peak Velocity 112 cm/s LVOT Peak Gradient 5 mmHg LVOT Mean Gradient 3 mmHg LVOT VTI 20 cm LVOT VTI/AV VTI Ratio 0.7 LVOT Stroke Volume 68 ml LVOT CO 5.3 l/min LVOT CI 2.3 l/min/m2 Pulmonic Valve Name Value Normal RVOT Doppler RVOT Peak Velocity 102 cm/s RVOT Peak Gradient 4 mmHg PV Doppler PV Peak Velocity 132 cm/s PV Peak Gradient 7 mmHg Mitral Valve Name Value Normal MV Diastolic Function MV E Peak Velocity 73 cm/s MV A Peak Velocity 94 cm/s MV E/A 0.8 MV Decel Time (PW) 179 ms MV Annular TDI MV E/e' (Septal) 9.5 MV E/e' (Lateral) 6.6 MV E/e' (Average) 8.0 Tricuspid Valve Name Value Normal TV Regurgitation Doppler TR Peak Velocity 212 cm/s TR Peak Gradient 18 mmHg Estimated PAP/RSVP RA Pressure 5 mmHg <=5 PA Systolic Pressure 23 mmHg <36 RV Systolic Pressure 23 mmHg <36 TV Annular TDI TV Lateral Britney s' Velocity 12.9 cm/s >=9.5 Aorta Name Value Normal Ascending Aorta Ao Root Diameter (MM) 3.0 cm Ao Root Diam Index (MM) 1.3 cm/m2 Aortic Valve Name Value Normal AV Doppler AV Peak Velocity 152 cm/s AV Peak Gradient 9 mmHg AV Mean Gradient 5 mmHg AV VTI 27 cm AV Area (Cont Eq VTI) 2.5 cm2 >=3.0 AV Area (Cont Eq Guevara) 2.5 cm2 AV DI (Guevara) 0.73 AV Regurgitation 2D LVOT Area 3.4 cm2 Ventricles Name Value Normal LV Dimensions 2D/MM IVS Diastolic Thickness (2D) 0.9 cm 0.6-1.0 LVID Diastole (2D) 4.3 cm 3.8-5.2 LVIW Diastolic Thickness (2D) 0.9 cm 0.6-0.9 LVID Systole (2D) 2.6 cm 2.2-3.5 LVOT Diameter 2.1 cm LV Mass (2D Cubed) 125.52 g 67.00-162.00 LV Mass Index (2D Cubed) 55 g/m2 43-95 Relative Wall Thickness (2D) 0.44 <=0.42 LV Fractional Shortening/Ejection Fraction 2D/MM LV Fractional Shortening (2D) 40 % 27-45 LV EF (2D Teichholz) 71 % LV Diastolic Volume (4C MOD) 69 ml LV EF (4C MOD) 64 % LV Diastolic Volume (2C MOD) 93 ml LV EF (2C MOD) 68 % LV Diastolic Volume (BP MOD) 80 ml 46-106 LV Diastolic Volume Index (BP MOD) 35 ml/m2 29-61 LV Systolic Volume (BP MOD) 28 ml 14-42 LV Systolic Volume Index (BP MOD) 12 ml/m2 8-24 LV EF (BP MOD) 65 % 54-74 LV Diastolic Length (4C) 7.6 cm LV Systolic Length (4C) 6.1 cm LV Stroke Volume (4C MOD) 44 ml Atria Name Value Normal LA Dimensions LA Dimension (MM) 4.2 cm 2.7-3.8 LA Volume (4C A-L) 48 ml LA Volume (BP A-L) 49 ml RA Dimensions RA Systolic Major [place] Length (4C) 5.7 cm 2.2-2.8 RA Area (4C) 15.6 cm2 <=18.0 Report Signatures
--- OUTSIDE RECORDS SUMMARY | 2024-12-19 13:01 | XMS_ITS | Patient Health Record ---
Author Organization [facility] Address [address] [place], [place] [id number] Care Team Providers Care Plate Stacker Hand Name Role Phone Kenn Saha Unavailable Unavailable Reason For Referral No Information Medications Medication SIG (Take, Route, Frequency, Duration) Notes Start Date End Date Status escitalopram 10 MG Oral Tablet [Lexapro] ORAL escitalopram 10 MG Oral Tablet [Lexapro]Original Medicationescitalopram 10 MG Oral Tablet [Lexapro] *Reorder from [employer] for eRx and Interaction Alerts* 01/01/2022 Active thyroid (JAIL) 15 MG Oral Tablet [Shedd Thyroid] ORAL thyroid (JAIL) 15 MG Oral Tablet [Shedd Thyroid]Original Medicationthyroid (JAIL) 15 MG Oral Tablet [Shedd Thyroid] *Reorder from [employer] for eRx and Interaction Alerts* 01/01/2022 Active Plan Of Treatment No Information Insurance Providers Payer Name Payer Address Payer Phone Subscriber Number Group Number Insured Name Patient Relationship to Insured Coverage Start Date Coverage End Date [facility] ([facility] ATTN CLAIMS [address] [place] [address] [id number] DIONTE KHOURY Self - patient is the insured
--- OUTSIDE RECORDS SUMMARY | 2024-12-19 13:02 | XMS_ITS | Clinical Summary ---
Author Organization [facility] Address [address] [place] [address] Care Team Providers Care Central Supply Tech Name Role Phone Judah Guzman Primary Care Provider [phone] Source Comments [facility],non-[facility]one hospital center Affiliates and Associated Physician Practices is amultiple site organization consisting of ambulatory clinics and hospital sitesin [place], [place], [place] and [place]. This disclosure is being madepursuant to the Care Everywhere program and may not contain all information available regarding this patient. 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 Pulse 78 05/12/2019 9:59 AM CASTING MACHINE OPERATOR Temperature 36.7 C (98 F) 05/12/2019 9:59 AM CASTING MACHINE OPERATOR Respiratory Rate 16 05/12/2019 9:59 AM CASTING MACHINE OPERATOR Oxygen Saturation 98% 05/12/2019 9:59 AM CASTING MACHINE OPERATOR Inhaled Oxygen Concentration - - Weight 95.3 kg (210 lb) 05/12/2019 9:59 AM CASTING MACHINE OPERATOR Height 162.6 cm (5' 4) 05/12/2019 9:59 AM CASTING MACHINE OPERATOR Body Mass Index 36.05 05/12/2019 9:59 AM CASTING MACHINE OPERATOR Plan of Treatment Health Maintenance Due [...] Insurance [facility] * Guarantor: DIONTE KHOURY Account Type Relation to Patient Date of Phone Billing Address Personal/Family 1985 [address] [place] [address] Care Teams Central Supply Tech Relationship Specialty Start Date End Date Judah Guzman DO [address] [place] [address] [place] NÚÑEZ [id number] PCP - General Family Medicine 10/03/18
--- OUTSIDE RECORDS SUMMARY | 2024-12-19 13:02 | XMS_ITS | Clinical Summary ---
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 Gender Identity Not on file Sexual Orientation Not on file Last Filed Vital Signs Vital Sign Reading Time Taken Comments Blood Pressure 107/74 04/02/2017 2:44 AM METAL RIVETING MACHINE OPERATOR Pulse 65 04/02/2017 1:17 AM METAL RIVETING MACHINE OPERATOR Temperature 36.5 C (97.7 F) 04/01/2017 8:28 PM METAL RIVETING MACHINE OPERATOR Respiratory Rate 18 04/02/2017 1:17 AM METAL RIVETING MACHINE OPERATOR Oxygen Saturation 100% 04/02/2017 1:17 AM METAL RIVETING MACHINE OPERATOR Inhaled Oxygen Concentration - - Weight 95.3 kg (210 lb 1.6 oz) 04/01/2017 8:28 P M METAL RIVETING MACHINE OPERATOR Height 162.6 cm (5' 4) 04/01/2017 8:28 PM METAL RIVETING MACHINE OPERATOR Body Mass Index 36.06 04/01/2017 8:28 PM METAL RIVETING MACHINE OPERATOR Plan of Treatment Health Maintenance [...] patient's age to complete this topic Insurance [facility] [place] [address] [facility]
--- OUTSIDE RECORDS SUMMARY | 2024-12-19 13:03 | XMS_ITS | Referral Summary ---
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 Pulse 72 03/14/2020 4:15 PM CDT Temperature 36.4 C (97.5 F) 03/14/2020 4:15 PM CDT Respiratory Rate 18 03/14/2020 4:15 PM CDT Oxygen Saturation 99% 03/14/2020 4:15 PM CDT Inhaled Oxygen Concentration - - Weight 95.3 kg (210 lb) 04/11/2020 10:38 AM MEDIUM CYCLE SALESPERSON Height 162.6 cm (5' 4) 03/14/2020 4:15 PM CDT Body Mass Index 36.05 03/14/2020 4:15 PM CDT Plan of Treatment Not on file Insurance HMO [facility] HMO/PPO Address: [facility] [id number] [place] [address] Care Teams Caddy Relationship Specialty Start Date End Date Judah Guzman DO [address] [place] [id number] PCP - General Family Medicine 08/31/18
--- OUTSIDE RECORDS SUMMARY | 2024-12-19 13:03 | XMS_ITS | Clinical Summary ---
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
--- OUTSIDE RECORDS SUMMARY | 2024-12-19 13:03 | XMS_ITS | Clinical Summary ---
Author Organization [place] [id number] Address [address] [place] [address] Care Team Providers Care Absorption Plant Operator Helper Name Role Phone GuzmanJudah rangel Primary Care [...] Comments Blood Pressure 116/84 04/11/2020 10:38 AM TUBE MAN Pulse 72 03/14/2020 4:15 PM CDT Temperature 36.4 C (97.5 F) 03/14/2020 4:15 PM CDT Respiratory Rate 18 03/14/2020 4:15 PM CDT Oxygen Saturation 99% 03/14/2020 4:15 PM CDT Inhaled Oxygen Concentration - - Weight 95.3 kg (210 lb) 04/11/2020 10:38 AM TUBE MAN Height 162.6 cm (5' 4) 03/14/2020 4:15 PM CDT Body Mass Index 36.05 03/14/2020 4:15 PM CDT Plan of Treatment Not on file [place] [address] [place] [address] HMO Care Teams Absorption Plant Operator Helper Relationship Specialty Start Date End Date Judah Guzman DO [address] [place] [phone] PCP - General Family Medicine 08/31/18
--- OUTSIDE RECORDS SUMMARY | 2024-12-19 13:04 | XMS_ITS | Continuity of Care Document ---
Author Name DOD-MA Organization DOD-MA Care Team Providers Care Reed Dipper Name Role Phone DOD-VA Unavailable Unavailable Problems [...] Site Reaction Lot Number CVX Code Drug Timber Supervisor Status Comments Source influenza, live, intranasal, quadrivalent 1 2013 DORIS GIFFORD [id number] [employer], Trub[employer]. (MED) complet ed influenza , live, intranasa l, quadrival ent DoD influenza virus vaccine, live, attenuated, for intranasal use 1 2012 IRAIDA ABRAMS [id number] [employer]amaze technologies. (MED) complet ed influenza virus vaccine, live, attenuate d, for intranasa l use DoD tetanus toxoid, reduced diphtheria toxoid, and acellular pertu is vaccine, adsorbed 0 2012 HUBERT ZAVALA [id number] Sanofi Pasteur (PMC) complet ed tetanus toxoid, reduced diphtheri a toxoid, and acellular pertussis vaccine, adsorbed DoD tuberculin skin test; purified protein derivative solution, intradermal 0 2011 KISHA DEJESUS [id number] 96 Sanofi Pasteur (PMC) complet ed tuberculi n skin test; purified protein derivativ e solution, intraderm al DoD tuberculin skin test; purified protein derivative solution, intradermal 0 2011 Unknown, Provider [id number] Sanofi Pasteur (PMC) complet ed tuberculi n skin test; purified protein derivativ e solution, intraderm al DoD influenza virus vaccine, whole virus 1 2011 JAQUELINE BENJAMIN [id number] 16 [employer]. (CSL) complet ed influenza virus vaccine, whole virus DoD hepatitis A vaccine, adult dosage 1 2011 JAQUELINE BENJAMIN [id number] 52 Other (OTH) complet ed hepatitis A vaccine, adult dosage DoD tuberculin skin test; purified protein derivative solution, intradermal 0 2011 JAQUELINE BENJAMIN [id number] 96 Sanofi Pasteur (PMC) complet ed tuberculi n skin test; purified protein derivativ e solution, intraderm al DoD hepatitis A and hepatitis B vaccine 2 2011 NATHAN HILL [id number] 104 [employer] (SKB) complet ed hepatitis A and hepatitis B vaccine DoD [facility] Encephalitis Vaccine SC 2 2011 NELSON SYLVESTER [id number] 39 Chujian (INT) complet ed [facility] Encephali tis Vaccine DE DoD hepatitis A and hepatitis B vaccine 1 2011 VALENTIN SOW [id number] 104 [employer] (SKB) complet ed hepatitis A and hepatitis B vaccine DoD meningococcal polysaccharid e (groups A, C, Y and W-135) diphtheria toxoid conjugate vaccine (MCV4P) 1 2011 VALENTIN SOW [id number] 114 Sanofi Pasteur (PMC) complet ed meningoco ccal polysacch aride (groups A, C, Y and W-135) diphtheri a toxoid conjugate vaccine (MCV4P) DoD tetanus toxoid, reduced diphtheria toxoid, and acellular pertu is vaccine, adsorbed 1 2011 VALENTIN SOW [id number] 115 Sanofi Pasteur (PMC) complet ed tetanus toxoid, reduced diphtheri a toxoid, and acellular pertussis vaccine, adsorbed DoD [facility] Encephalitis Vaccine SC 1 2011 VALENTIN SOW [id number] 39 Chujian (INT) complet ed [facility] Encephali tis Vaccine SC DoD tuberculin skin [...] ADM Date DC Date Status Disposition Source [facility] [place] OUTPATIENT [id number] RED CROSS VOLUNTE ER GALLO ALVAREZ 06/10 Released w/o Limitations [facility] [place]) [facility] [place] OUTPATIENT [id number] DENTAC/ RED CROSS VOL PPD CHECKED FREDRICK PARISH 06/12 Released w/o Limitations [facility] [place]) [facility] [place] OUTPATIENT [id number] DENTAC/ RED CRSOSS PPD PLACED [place]ICK [place] 07/14 Released w/o Limitations [facility] [place]) [facility] [place]) [place] [id number] PAP/GLORIA JARAMILLO 07/31 Released w/o Limitations [place] [place] [facility] [facility] S 01A17 Fabricati on) OUTPATIENT [id number] PELVIC PN X2WKS EMELY DIALLO 11/19 Released w/o Limitations [facility](A MHS 01A17 Juarez tion) [facility]H S 01A17 Fabricati on) OUTPATIENT [id number] f/u anxiety /med renwal and control f/u LES VALENZUELA 12/24 Released w/o Limitations [facility](A MHS 01A17 Juarez tion) [facility](AMH S 01A17 Fabricati on) TELE CONSULT [id number] f/u labs LES VALENZUELA 01/01 [facility](A MHS 01A17 Juarez tion) [facility] S 01A17 Fabricati on) OUTPATIENT [id number] GAYLE/DIAR VAISHNAVI/KHOA DY ACHE X 2DAYS LES VALENZUELA 01/12 Released w/o Limitations [facility](A MHS 01A17 Juarez tion) [facility] OUTPATIENT [id number] GUERO LEI 01/12 Released w/o Limitations [facility]) [facility] S 01A17 Fabricati on) OUTPATIENT [id number] F/U EAR PN ABIGAIL KOVACS 02/26 Released w/o Limitations [facility](A MHS 01A17 Juarez tion) [facility] S 01A17 Fabricati on) OUTPATIENT [id number] POSS SINUS INFECTI ON JESUS LOPEZ 04/29 Released w/o Limitations [facility](A MHS 01A17 Juarez tion) [facility] S 01A17 Fabricati on) OUTPATIENT [id number] pregnan cy test JESSICA GIBBONS 05/26 Released w/o Limitations [facility](A MHS A17 Juarez tion) [facility](AMH S A17 Fabricati on) OUTPATIENT [id number] f/u lab results (thyroi d) VALENTIN YOUSIF 06/01 [facility] w/o Limitations [facility] S A17 [place]) [place] [id number] gen physica l and possibl e referra l to alinti on JOSE KELLER 09/20 [place] Limitations [place] [facility]) [place] [id number] thyroid s EDUAR VILCHIS 11/19 [place] Limitations [place]) [place] [id number] migrain e , chest tightne ss ABIGAIL CISNEROS 12/09 [place] Limitations [place] [id number] F/U Thyroid MARTINEZ POWELL 12/10 [place] Limitations [place] [facility] [facility]) OUTPATIENT [id number] lower back conx2d ZZZBM_LEE, ZZZBM_SANDEEP ARET S 12/29 [facility]ased w/o Limitations [facility] [facility]) OUTPATIENT [id number] f/u thyroid elliotts EMELY RODRIGUEZ 03/30 [facility]ased w/o Limitations [facility] [facility] [facility] PHA Clinic) OUTPATIENT [id number] WELL WOMAN EXAM,VA GINAL INFECT X3DAYS RAYMOND ELKINS 05/10 Released w/o Limitations [facility]) [facility] Clinic) OUTPATIENT [id number] f/u for thyroid /aniext y RAYMOND ELKINS J 06/06 Released w/o Limitations [facility]) [facility] OUTPATIENT [id number] st pn x3dys MAURO MALDONADO 09/01 Sick at Home/Quarter s [facility] BRITTNEY [place]iron(Family Medicine OP Care) OUTPATIENT [id number] wwe with pap AFUA GODWIN 05/11 Released w/o Limitations [facility] [place](Fami ly Medicin e OP Care) [facility] [place]([facility] OP [facility]) TELE CONSULT [id number] review labs RUNNINGASHKAN 05/11 Referred for Appointment [facility] [place](Fami ly Medicin e OP Care) [facility] [place](Acute Care Clinic) OUTPATIENT [id number] Vomitin g, Diarrhe a, dry heaves MAME ROQUE P 05/19 Immediate Referral [facility] [place](Acut e Care Clinic) [facility] [place](Ac[facility] Care Clinic) OUTPATIENT [id number] Nausea/ GAYLE KATELYNN ZHAO 05/23 Released w/o Limitations [facility] [place](Acut e Care Clinic) [facility] [place]([facility] OP [facility]) OUTPATIENT [id number] back pain AFUA GODWIN 05/26 Released w/o Limitations [facility] [place](Fami ly Medicin e OP Care) [facility] [place](Family [facility] OP [facility]) TELE CONSULT [id number] review labs and xray ELIO, QUEENIE 06/02 Referred for Appointment [facility] [place](Fami ly Medicin e OP Care) [facility] [place]([facility] OP [facility]) OUTPATIENT [id number] bloodwo rk for Lupus RANULFO MORAN 07/29 Released w/o Limitations [facility] [place] Medic[facility] OP Care) [facility] [place] [facility] [place]) OUTPATIENT [id number] medicat ion JELANIRANULFO LEDEZMA Jackie 07/29 Released w/o Limitations [facility] [place] [place] [facility]) [facility] [place] [facility] [place]) OUT[place]IENT [id number] possibl e strep throat RANULFO MORAN 08/27 Released w/o Limitations [facility] [place] [facility] [place]) [place] [id number] appt appt ANTHONY LAGUNAS 09/03 Released w/o Limitations [facility] [place] [facility] [place]) [place] [id number] VACCINE S FOR TRAVEL TO [place] PCM VALENTIN OVERTON 09/06 Released w/o Limitations [facility] [place]Fami ly Medicin e OP Care) [facility] [place] [id number] LAB REQUEST RANULFO MORAN 09/07 Released w/o Limitations [facility] [place] [facility] [facility] [place]) OUT[place] [id number] pap/juaquin ck for autoimm unedefi MITCHEL Pradhan 09/08 Released w/o Limitations [facility] [place] Medic[facility] OP [facility]) [facility] [place]) OUT[place]IENT [id number] [facility] paperwo rk JELANIBLAISEHaleyRANULFO 09/13 Released w/o Limitations [facility] [place] [facility] [facility] [place]) [place] [id number] TRANSLATOR/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 p/u efmp med for pt ANTHONY LAGUNAS Haley 09/13 Released w/o Limitations [facility] [place](Fami ly Medicin e OP Care) [facility] [place]([facility]) OUTPATIENT [id number] oss [place] Cindy ANTHONY LAGUNAS Haley 09/21 Released w/o Limitations [facility] Alfredo(Fami ly Medicin e OP Care) [facility] [place](Family [facility]) OUTPATIENT [id number] IMMS UPDATE [facility] NELSON DIOR 10/04 Released w/o Limitations [facility] [place](Fami ly Medicin e OP Care) [facility] ERA [place](Family Medicine OP Care) OUTPATIENT [id number] ingrown toenail RANULFO MORAN 10/13 Released w/o Limitations [facility] [place](Fami ly Medicin e OP Care) [facility] ERA [place](Family Medicine OP Care) TELE CONSULT [id number] culture RANULFO MORAN 10/29 [facility] [place](Fami ly Medicin e OP Care) [facility] ERA [place](Podiat ry Clinic ) OUTPATIENT [id number] INGROWI NG NAIL SOPHIELUCINDA 11/01 Released with Work/Duty Limitations [facility] [place](Podi atry Clinic ) [facility] ERA [place](Family Medicine OP Care) OUTPATIENT [id number] [facility] Dr Shivani mariee - right jenna r RANULFO Walter 11/02 Released w/o Limitations [facility] [place](Fami ly Medicin e OP Care) [facility] [place] [place](Podiat ry Clinic ) OUTPATIENT [id number] right hallux ingrown toenail . NAIL AVULSIO N LUCINDA BARRIOS 11/09 Released with Work/Duty Limitations [facility] [place](Podi atry Clinic ) [place]anie frost [facility] A Team) OUTPATIENT [id number] med refill XU SCHMIDT 12/21 Released w/o Limitations [place]) [facility] A Team) TELE CONSULT [id number] Notes Entered by: CHERYL SCHMIDT 25 Dec 2011 1415 ------- ------- ------- ------- -- HEAVEN CARRERA 12/24 [place] OUTPATIENT [id number] possibl e wart heveral XU SCHMIDT 01/03 Released w/o Limitations [facility] ([facility] A [facility]) [facility](N utrition Clinic) OUTPATIENT [id number] Obesity ION KINGSTON 01/10 Released w/o Limitations [facility] (Nutrit ion Clinic) [facility](O ccupation al Medicine) OUTPATIENT [id number] [phone],,, MY JOSE ALBERTO CLARK 02/18 [facility] Limitations [facility](U SN Immunizat ions) OUTPATIENT [id number] HEP A PPD FLU OBRIEN, ITZE Y 02/18 [place]ased w/o Limitations [facility] ([facility] Immuniz ations) [facility](U SN Immunizat ions) OUTPATIENT [id number] IPPD READ/O MM NEG OBRIEN, ITZE Y 02/21 [place]ased [place]/o Limitations [place] ([facility] Immuniz ations) [place]([facility] SN Immunizat ions) OUTPATIENT [id number] IPPD OBRIEN, ITZE Y 04/12 Released [place]/o Limitations [place] ([facility] Immuniz ations) [place]([facility] SN Immunizat ions) OUTPATIENT [id number] ippd KISHA DEJESUS 04/19 [facility] Limitations [facility] Immuniz ations) [facility] A Team) OUTPATIENT [id number] recurre nt warts XU SCHMIDT 04/20 Released w/o Limitations [facility] ([facility] A [facility]) [facility] Immun[facility] ions) OUTPATIENT [id number] PPD READ 0MM NEGATIV E ORALIA OBRIEN Y 04/21 Released w/o Limitations [facility] ([facility] Immuniz ations) [facility](O ccupation al Medicine) OUTPATIENT [id number] 709,,,, ,KM ORDINARIO, ANALOU INGRAM 05/18 Released w/o Limitations [facility] (Occupa tional Medicin e) [facility] A Team) OUTPATIENT [id number] wart removal consult aitXU Yarbrough 05/25 Released w/o Limitations [facility] ([facility] A Team) [facility](O ccupation al Medicine) OUTPATIENT [id number] CARD UPDATE( late entry), ,,,,@ ORDINAM[place]IL[place], ANALOU INGRAM 05/31 Released w/o Limitations [facility] (Occupa tional Medicin e) [facility]) OUTPATIENT [id number] E/r fu need us for possibl e ectopic HILTON YOU 06/14 Released w/o Limitations [facility] ([facility]) [facility] A Team) OUTPATIENT [id number] f/up labs XU SCHMIDT 06/22 Released w/o Limitations [facility] ([facility]) [facility] Gynecolog y Clinic) OUTPATIENT [id number] account [email or web address] MICKEY LIMON 06/22 Released w/o Limitations [facility] ( Gynecol ogy Clinic) [facility]) OUTPATIENT [id number] gym: HILTON CORNEJO 07/01 Released w/o Limitations [facility] ([facility]) [facility] A Team) TELE CONSULT [id number] Notes Entered by: EMILE BLANTON 27 Jul 2012 0733 ------- ------- ------- ------- -- med refill EMELY PERRY Alysia 07/26 [facility]) [facility]) OUTPATIENT [id number] NOB ASHKAN 10 WKS HILTON YOU 07/27 Released w/o Limitations [facility] ([facility]) [facility]) OUTPATIENT [id number] jenna 18wks KOBI LEBLANC 09/06 Released w/o Limitations [facility] ([facility]) [facility] A Team) TELE CONSULT [id number] Notes Entered by: MARKIE KELLY 28 Sep 2012 1551 ------- ------- ------- ------- -- possibl e vaginal infecti on EMELY PERRY Alysia 09/28 [facility]) [facility]) OUTPATIENT [id number] jenna 24 wks KOBI LEBLANC 10/19 Released w/o Limitations [facility] ([facility]) [facility](L &D Triage) OUTPATIENT [id number] Notes Entered by: JULY JANE 27 Oct 2012 1914 ------- ------- ------- ------- -- chest pain ASHLEIGH FERNANDEZ 10/27 Released w/o Limitations [facility] (L&D Triage) [facility]) TELE CONSULT [id number] Notes Entered by: ELVIN CHENG 31 Oct 2012 1536 ------- ------- ------- ------- -- Possibl e exposur e to hand foot and mouth disease REZA CHENG 10/31 Referred for Appointment [facility] ([facility]) [facility](L &D Triage) OUTPATIENT [id number] Notes Entered by: ROHIT MCLEAN 31 Oct 2012 1538 ------- ------- ------- ------- -- NST LAWRENCERONAL JUNIOR JOYCE DEVON 10/31 Released w/o Limitations [facility] (L&D Triage) [facility](K a Case Managemen t Services) TELE CONSULT [id number] Notes Entered by: TATI OWEN 02 Nov 2012 1458 ------- ------- ------- ------- -- Case Managem ent antidep ressant trackin g follow up. TATI OWEN 11/02 Other Not Elsewhere Classified [facility] (Ka Case Managem ent Service s) [facility](L &D Triage) OUTPATIENT [id number] Notes Entered by: NADJA MALAGON 07 Nov 2012 1342 ------- ------- ------- ------- -- AFUA Guerra 11/07 Released w/o Limitations [facility] (L&D Triage) [facility]) OUTPATIENT [id number] jenna 28 CARLOS Colvin 11/16 Released w/o Limitations [facility] ([facility]) [facility](L &D Triage) OUTPATIENT [id number] Notes Entered by: IAN MOON 19 Nov 2012 1051 ------- ------- ------- ------- -- Vaginal blemable g HILTON YOU 11/19 Released w/o Limitations [facility] (L&D Triage) [facility](L &D Triage) OUTPATIENT [id number] Notes Entered by: TOBI VAZQUEZ 21 Nov 2012 1854 ------- ------- ------- ------- -- vaginal bleedAFUA Gray 11/21 Released w/o Limitations [facility] (L&D Triage) [facility]) OUTPATIENT [id number] breast feeding AMARICHANCE TORRES 12/06 Released w/o Limitations [facility] ([facility]) [facility]) OUTPATIENT [id number] pcb 1 CHANCE HADDAD 12/12 Released w/o Limitations [facility] ([facility]) [facility]) OUTPATIENT [id number] pcb 2 CHANCE HADDAD 12/13 Released w/o Limitations [facility] ([facility]) [facility](L &D Triage) OUTPATIENT [id number] Notes Entered by: KYLE GOSS 14 Dec 2012 1030 ------- ------- ------- ------- -- R/O UTI and Cold YOLANDA-RAHAT CARTER 12/14 Released w/o Limitations [facility] (L&D Triage) [facility]) OUTPATIENT [id number] jenna 32 CARLOS Colvin 12/14 Released w/o Limitations [facility] ([facility]) [facility]) OUTPATIENT [id number] pcb 3 CHANCE HADDAD 12/15 Released w/o Limitations [facility] ([facility]) [facility]) TELE CONSULT [id number] Notes Entered by: PEGGY SOTOMAYOR 27 Dec 2012 1052 ------- ------- ------- ------- -- Yeast infecti on LETY OLIVASJITENDRA MERCEDESJAMES 12/27 Advice Assessment [facility] ([facility]) [facility](L &D Triage) OUTPATIENT [id number] Notes Entered by: LINDSAY ALLISON 02 Jan 2013 0730 ------- ------- ------- ------- -- R/O UTI RAHAT HAIDER 01/01 Released w/o Limitations [facility] (L&D Triage) [facility](L &D Triage) OUTPATIENT [id number] Notes Entered by: CORRINE CRANE 12 Jan 2013 1350 ------- ------- ------- ------- -- JOYCE Gao 01/12 Released w/o Limitations [facility] (L&D Triage) [facility]) OUTPATIENT [id number] jenna 27wCARLOS Reilly 01/16 Released w/o Limitations [facility] ([facility]) [facility] PCMH Team 1) TELE CONSULT [id number] Notes Entered by: Sarah LEIVA 18 Jan 2013 1242 ------- ------- ------- ------- -- SALLY MEANS 01/18 [facility] ([facility] PCM Team 1) [facility](L &D Triage) OUTPATIENT [id number] Notes Entered by: Jackie RAMIREZ I 24 Jan 2013 1423 ------- ------- ------- ------- -- Possibl e yeast infecti onRENETTA MCKEE 01/24 Released w/o Limitations [facility] (L&D Triage) [facility]) OUTPATIENT [id number] JENNA 38wKRISTIN Hi 01/30 Released w/o Limitations [facility] ([facility]) [facility]) OUTPATIENT [id number] 40 wks CARLOS GASTON 02/06 Released w/o Limitations [facility] ([facility]) [facility](L &D Triage) OUTPATIENT [id number] Notes Entered by: LAUREN SCOTT,MAXIMILIANO QUEZADA ER 11 Feb 2013 1506 ------- ------- ------- ------- -- headfilomena mariee/SHEMAR Robles 02/11 Released w/o Limitations [facility] (L&D Triage) [facility]) OUTPATIENT [id number] CARLOS St 02/14 Released w/o Limitations [facility] ([facility] DIRECT TO [facility] FROM OTHER THAN ER OR [facility] [id number] HUBERT ZAVALA 02/17 DISCHARGED HOME [facility] Med PCMH Team 1) TELE CONSULT [id number] Notes Entered by: SHARON PATEL 23 Feb 2013 1159 ------- ------- ------- ------- -- Constip ation, ?'s about injecti on site for TDAP, MEÑO PATEL 02/23 Referred for Appointment [facility] ([facility] Med PCMH Team 1) [facility](O ccupation al Medicine) OUTPATIENT [id number] CARD UPDATE 4 WART INSPECT ION ON FINGERS ,,,,,MY ORDINARIO, ANALOU INGRAM 03/29 Released w/o Limitations [facility] (Occupa tional Medicin e) [facility] Immunizat ions) OUTPATIENT [id number] IRAIDA Sweet 04/07 Released w/o Limitations [facility] ([facility] Immuniz ations) [facility] b/[facility]) OUTPATIENT [id number] PP 9 weeks EMELY SMITH 04/10 Released w/o Limitations [facility] ([facility]) [facility](O ccupation al Medicine) OUTPATIENT [id number] 703P,,, ,,@ ORDINARIO, ANALOU INGRAM 04/17 Released w/o Limitations [facility] (Occupa tional Medicin e) [facility](O ptometry Clinic) OUTPATIENT [id number] [facility]/ [id number] GEOVANNI WRIGHT 05/05 Released w/o Limitations [facility] (Optome try Clinic) [facility] [facility] Team 1) OUTPATIENT [id number] post depress ion/thy roid - labs done ABIGAIL PARKINSON 05/18 Released w/o Limitations [facility] ([facility] Team 1) [facility] Team 1) OUTPATIENT [id number] [facility] DES[facility] BAJWA V 07/12 Released w/o Limitations [facility] ([facility] Team 1) [facility] Team 1) TELE CONSULT [id number] Notes Entered by: JULIAN OCASIO 31 Jul 2013 1524 ------- ------- ------- ------- -- Pt was seen at ER 3/9 for Lumbago (low back px) SHEMAR MONTGOMERY 07/31 [facility] ([facility] Team 1) [facility] Team 1) OUTPATIENT [id number] needs BC SHEMAR MONTGOMERY 08/08 Released w/o Limitations [facility] ([facility] Team 1) [facility] Team 1) OUTPATIENT [id number] referra l to derm and thyriod issues SHEMAR MONTGOMERY 10/30 Released w/o Limitations [facility] ([facility] Team 1) [facility] Team 1) TELE CONSULT [id number] Notes Entered by: JOSE DE JESUS AMARO 02 Nov 2013 1059 ------- ------- ------- ------- -- thyroid GALLO SORIANO 11/02 Referred for Appointment [facility] ([facility] Team 1) [facility] OUTPATIENT [id number] caseworker protective services f/u SHANNAN HARTMAN 12/01 Released w/o Limitations [facility] ([facility]) [facility] Team 1) OUTPATIENT [id number] memory loss,sl eep MEÑO Menendez 12/12 Released w/o Limitations [facility] ([facility] Team 1) [facility] Team 1) OUTPATIENT [id number] f/u labs ULISES SHEMAR DEVON 12/25 Released w/o Limitations [facility] ([facility] Team 1) [facility]) OUTPATIENT [id number] HYPOTHY TOBI WHIPPLE 12/28 Released w/o Limitations [facility] (N[facility]) [facility] OUTPATIENT [id number] caseworker protective services YUKO Gaytan 03/25 Released w/o Limitations [facility] ([facility]) [facility] TELE CONSULT [id number] Notes Entered by: SHANTI MUSE 09 Apr 2014 1601 ------- ------- ------- ------- -- SHANNAN Gomez 04/09 [facility] ([facility]) [facility] Team 1) OUTPATIENT [id number] thyroid JENNIFER Moran 05/01 Released w/o Limitations [facility] ([facility] Team 1) [facility] Team 1) OUTPATIENT [id number] referra l to JENNIFER Avery 05/21 Released w/o Limitations [facility] ([facility] Team 1) [facility] Team 1) OUTPATIENT [id number] bloodwo rk/anxi ety JENNIFER MILLER 06/14 Released w/o Limitations [facility] ([facility] Team 1) [facility] Team 1) OUTPATIENT [id number] Lab results PAUL JENNIFERARELY SANTAMARIA 07/11 Released w/o Limitations [facility] ([facility] Team 1) [facility] Team 1) TELE CONSULT [id number] Notes Entered by: BANDAR DAMON 04 Dec 2014 0907 ------- ------- ------- ------- -- Thyroid Check up apointm ent CRISTAL SALINAS 12/04 Referred for Appointment [facility] ([facility] Team 1) [facility] Team 1) OUTPATIENT [id number] ear bhavaniur ARMANDO Smith 12/05 Released w/o Limitations [facility] ([facility] Team 1) [facility] Team 1) TELE CONSULT [id number] Notes Entered by: DEREK DE LEON 07 Dec 2014 0835 ------- ------- ------- ------- -- Pt is request ing for labs to be put in for thyroid check before appoint ment. DORIS CASILLAS [facility] 12/06 Referred for Appointment [facility] ([facility] Team 1) [facility] Team 1) TELE CONSULT [id number] Notes Entered by: DEREK DE LEON 06 Mar 2015 0926 ------- ------- ------- ------- -- Pt is request ing labs be put it before appoint ment with [facility]. Thank you CRISTAL SALINAS 03/06 Referred for Appointment [facility] ([facility] Team 1) [facility] Team 1) OUTPATIENT [id number] [facility] physica l/ wart julian STEFAN LOUIS 03/15 Released w/o Limitations [facility] ([facility] 1) [facility] Team 1) OUTPATIENT [id number] Notes Entered by: ANA MULLINS 11 Apr 2015 0837 ------- ------- ------- ------- -- JENNIFER Mccain 04/10 Released w/o Limitations [facility] ([facility] Team 1) [facility] Team 1) OUTPATIENT [id number] thyroid c/u JENNIFER MILLER 04/15 Released w/o Limitations [facility] ([facility] Team 1) Procedures Combined list of: 1) Procedures from Department of Veterans Affairs facilities going back up to thelast 18 months, not all VA non-surgical procedures are included; 2) All procedures from the Department of Defense facilities. Procedure Procedure Type Code Date Perfomer Comments Sourc e AVULSION OF NAIL PLATE, PARTIAL OR COMPLETE, SIMPLE; SINGLE 2011 [facility] TELE ASSESS & MGT SRV PROV QUAL NONPHYS HLTH CARE PRO TO EST PAT,PARENT,GUARD NOT ORIG REL ASSESS & MGT SRV PROV W/IN PREV 7 DAYS NOR LEAD ASSESS & MGT SRV/PX W/IN NXT 24 HR/SOON APT;5-10 MIN MED DIS 2011 DoD ZIMBABWEAN ENCEPHALITIS VIRUS VACCINE, INACTIVATED, FOR INTRAMUSCULAR USE 2011 [facility] SCREENING PAPANICOLAOU SMEAR; OBTAINING, PREPARING AND CONVEYANCE OF CERVICAL OR VAGINAL SMEAR TO LABORATORY 2011 [facility] HEPATITIS A VACCINE (HEPA), ADULT DOSAGE, FOR INTRAMUSCULAR USE 2011 [facility] ZIMBABWEAN ENCEPHALITIS VIRUS VACCINE, INACTIVATED, FOR INTRAMUSCULAR USE [...] CERVICAL OR VAGINAL SMEAR TO LABORATORY 2010 [facility] INDIVIDUAL PSYCHOTHERAPY, INSIGHT ORIENTED, BEHAVIOR MODIFYING AND/OR SUPPORTIVE, IN AN OFFICE OR OUTPATIENT FACILITY, APPROXIMATELY 45 TO 50 MINUTES [id number] WITH THE PATIENT 2006 [facility] INDIVIDUAL PSYCHOTHERAPY, INSIGHT ORIENTED, BEHAVIOR MODIFYING AND/OR SUPPORTIVE, IN AN OFFICE OR OUTPATIENT FACILITY, APPROXIMATELY 45 TO 50 MINUTES [id number] WITH THE PATIENT 2006 [facility] PSYCHIATRIC DIAGNOSTIC INTERVIEW EXAMINATION 2006 [facility] CRISIS INTERVENTION MENTAL HEALTH SERVICES, PER HOUR 2006 [facility] PSYCHIATRIC DIAGNOSTIC INTERVIEW EXAMINATION 2006 [facility] IMMUNIZATION ADMINISTRATION (INCLUDES PERCUTANEOUS, INTRADERMAL, SUBCUTANEOUS, OR INTRAMUSCULAR INJECTIONS); 1 VACCINE (SINGLE OR COMBINATION VACCINE/TOXOID) 2005 [facility] SKIN TEST; TUBERCULOSIS, INTRADERMAL 2005 [facility] WET ALFREDO, INCLUDING PREPARATIONS OF VAGINAL, CERVICAL OR SKIN SPECIMENS 2004 [facility] UNLISTED PROCEDURE, CONJUNCTIVA 2004 [facility] CULTURE, BACTERIAL; ANY OTHER SOURCE EXCEPT URINE, BLOOD OR STOOL, AEROBIC, WITH ISOLATION AND PRESUMPTIVE IDENTIFICATION OF ISOLATES 2001 [facility] CULTURE, BACTERIAL, DEFINITIVE; THROAT OR NOSE 2000 [facility] EDUCATIONAL SUPPLIES, SUCH BOOKS, TAPES, AND PAMPHLETS, FOR THE PATIENT'S EDUCATION AT COST TO PHYSICIAN OR OTHER QUALIFIED HEALTH DATA GOVERNANCE CONSULTANT 1999 [facility] INDIVIDUAL PSYCHOTHERAPY, INSIGHT ORIENTED, BEHAVIOR MODIFYING AND/OR SUPPORTIVE, IN AN OFFICE OR OUTPATIENT FACILITY, APPROXIMATELY 20 TO 30 MINUTES [id number] WITH THE PATIENT 2007 [facility] PSYCHIATRIC DIAGNOSTIC INTERVIEW EXAMINATION 2007 [facility] COLLECTION OF VENOUS BLOOD BY VENIPUNCTURE 2007 [facility] INDIVIDUAL PSYCHOTHERAPY, INSIGHT ORIENTED, BEHAVIOR MODIFYING AND/OR SUPPORTIVE, IN AN OFFICE OR OUTPATIENT FACILITY, APPROXIMATELY 20 TO 30 MINUTES [id number]-[id number] WITH THE PATIENT 2007 [facility] INDIVIDUAL PSYCHOTHERAPY, INSIGHT ORIENTED, BEHAVIOR MODIFYING AND/OR SUPPORTIVE, IN AN OFFICE OR OUTPATIENT FACILITY, APPROXIMATELY 75 TO 80 MINUTES EBOT-PK-TRDR WITH THE PATIENT 2007 [facility] INDIVIDUAL PSYCHOTHERAPY, INSIGHT ORIENTED, BEHAVIOR MODIFYING AND/OR SUPPORTIVE, IN AN OFFICE OR OUTPATIENT FACILITY, APPROXIMATELY 20 TO 30 MINUTES HRTL-UP-PGBG WITH THE PATIENT 2006 [facility] INDIVIDUAL PSYCHOTHERAPY, INSIGHT ORIENTED, BEHAVIOR MODIFYING AND/OR SUPPORTIVE, IN AN OFFICE OR OUTPATIENT FACILITY, APPROXIMATELY 45 TO 50 MINUTES [id number]-HW-[id number] WITH THE PATIENT 2006 [facility] INDIVIDUAL PSYCHOTHERAPY, INSIGHT ORIENTED, BEHAVIOR MODIFYING AND/OR SUPPORTIVE, IN AN OFFICE OR OUTPATIENT FACILITY, APPROXIMATELY 45 TO 50 MINUTES POCT-DE-DICR WITH THE PATIENT 2006 [facility] INDIVIDUAL PSYCHOTHERAPY, INSIGHT ORIENTED, BEHAVIOR MODIFYING AND/OR SUPPORTIVE, IN AN OFFICE OR OUTPATIENT FACILITY, APPROXIMATELY 75 TO 80 MINUTES EMPQ-NK-VFIM WITH THE PATIENT 2006 [facility] INDIVIDUAL PSYCHOTHERAPY, INSIGHT ORIENTED, BEHAVIOR MODIFYING AND/OR SUPPORTIVE, IN AN OFFICE OR OUTPATIENT FACILITY, APPROXIMATELY 45 TO 50 MINUTES KDWZ-RN-ESAD WITH THE PATIENT 2006 [facility] PSYCHIATRIC DIAGNOSTIC INTERVIEW EXAMINATION 2006 [facility] SMEAR, PRIMARY SOURCE WITH INTERPRETATION; WET MOUNT FOR INFECTIOUS AGENTS (EG, SALINE, GRANT INK, GUERDA PREPS) 2006 [facility] INJECTION, DOLASETRON MESYLATE, 10 MG 2005 [facility] INTRAVENOUS INFUSION, HYDRATION; INITIAL, 31 MINUTES TO 1 HOUR 2005 [facility] INDIVIDUAL PSYCHOTHERAPY, INSIGHT ORIENTED, BEHAVIOR MODIFYING AND/OR SUPPORTIVE, IN AN OFFICE OR OUTPATIENT FACILITY, APPROXIMATELY 45 TO 50 MINUTES [id number]-LM-[id number] WITH THE PATIENT 2005 [facility] SELF-CARE/HOME MANAGMENT TRAIN (EG,ACT OF DAILY LIVING (ADL) &COMPENSAT TRAIN,MEAL PREPARATION,SAFETY PROCS,AND INSTRUCT IN USE OF ASST TECHNOLOGY DEV/ADPT EQUIP) DIR ONE-ON-ONE CONT,EA 15 MINUTES 2005 [facility] DESTRUCTION (EG, LASER SURGERY, ELECTROSURGERY, CRYOSURGERY, [...] OR MORE INDIVIDUAL(S)), EACH 30 MINUTES 2013 [facility] PSYCHIATRIC DIAGNOSTIC EVALUATION 2013 [facility] OPHTHALMOLOGICAL SERVICES: MEDICAL EXAMINATION AND EVALUATION WITH INITIATION OF DIAGNOSTIC AND TREATMENT PROGRAM; COMPREHENSIVE, NEW PATIENT, 1 OR MORE VISITS 2012 [facility] GONADOTROPIN, CHORIONIC (HCG); QUALITATIVE 2012 [facility] IMMUNIZATION ADMINISTRATION BY INTRANASAL OR ORAL ROUTE; 1 VACCINE (SINGLE OR COMBINATION VACCINE/TOXOID) 2012 [facility] MEDICAL INDUCTION OF LABOR 2012 [facility] LOW CERVICAL SECTION 2012 [facility] POSTOPERATIVE FOLLOW-UP VISIT, NORMALLY INCLUDED IN THE SURGICAL PACKAGE, INDICATE THAT EVALUATION & MANAGEMENT SERVICE WAS PERFORMED DURING A POSTOPERATIVE PERIOD REASON RELATED ORIGINAL PROCEDURE 2012 [facility] POSTOPERATIVE FOLLOW-UP VISIT, NORMALLY INCLUDED IN THE SURGICAL PACKAGE, INDICATE THAT EVALUATION & MANAGEMENT SERVICE WAS PERFORMED DURING A POSTOPERATIVE PERIOD REASON RELATED ORIGINAL PROCEDURE 2012 [facility] POSTOPERATIVE FOLLOW-UP VISIT, NORMALLY INCLUDED IN THE SURGICAL PACKAGE, INDICATE THAT EVALUATION & MANAGEMENT SERVICE WAS PERFORMED DURING A POSTOPERATIVE PERIOD REASON RELATED ORIGINAL PROCEDURE 2012 [facility] DELIVERY ONLY 2012 [facility] SUBSEQ CARE VISIT () [EXCLS:PATIENTS WHO ARE SEEN FOR A CONDITION UNREL TO / CARE (EG,AN UP RESPIR INFECT;PATIENTS SEEN FOR CONSULTATION ONLY,NOT FOR CONT CARE)] 2012 [facility] NON-STRESS TEST 2012 [facility] SUBSEQ CARE VISIT () [EXCLS:PATIENTS WHO ARE SEEN FOR A CONDITION UNREL TO / CARE (EG,AN UP RESPIR INFECT;PATIENTS SEEN FOR CONSULTATION ONLY,NOT FOR CONT CARE)] 2012 [facility] SUBSEQ CARE VISIT () [EXCLS:PATIENTS WHO ARE SEEN FOR A CONDITION UNREL TO / CARE (EG,AN UP RESPIR INFECT;PATIENTS SEEN FOR CONSULTATION ONLY,NOT FOR CONT CARE)] 2012 [facility] SMEAR, PRIMARY SOURCE WITH INTERPRETATION; WET MOUNT FOR INFECTIOUS AGENTS (EG, SALINE, GRANT INK, GUERDA PREPS) 2012 [facility] ULTRASOUND, UTERUS, REAL TIME WITH IMAGE DOCUMENTATION, LIMITED (EG, HEART BEAT, PLACENTAL LOCATION, POSITION AND/OR QUALITATIVE AMNIOTIC FLUID VOLUME), 1 OR MORE FETUSES 2012 [facility] NON-STRESS TEST 2012 [facility] SMEAR, PRIMARY SOURCE WITH INTERPRETATION; WET MOUNT FOR INFECTIOUS AGENTS (EG, SALINE, GRANT INK, GUERDA PREPS) 2012 [facility] SUBSEQ CARE VISIT () [EXCLS:PATIENTS WHO ARE SEEN FOR A CONDITION UNREL TO / CARE (EG,AN UP RESPIR INFECT;PATIENTS SEEN FOR CONSULTATION ONLY,NOT FOR CONT CARE)] 2012 [facility] NON-STRESS TEST 2012 [facility]D SMEAR, PRIMARY SOURCE WITH INTERPRETATION; WET MOUNT FOR INFECTIOUS AGENTS (EG, SALINE, GRANT INK, GUERDA PREPS) 2012 [facility] NON-STRESS TEST 2012 [facility] RHO(D) IMMUNE GLOBULIN (RHIG), HUMAN, FULL-DOSE, FOR INTRAMUSCULAR USE 2012 [facility] NON-STRESS TEST 2012 [facility] TELE ASSESS & MGT SRV PROV QUAL NONPHYS HLTH CARE PRO TO EST PAT,PARENT,GUARD NOT ORIG REL ASSESS & MGT SRV PROV W/IN PREV 7 DAYS NOR LEAD ASSESS & MGT SRV/PX W/IN NXT 24 HR/SOON APT;5-10 MIN MED DIS 2012 [facility] NON-STRESS TEST 2012 [facility] MONITORING DURING LABOR BY CONSULTING PHYSICIAN (IE, NON-ATTENDING PHYSICIAN) WITH WRITTEN REPORT; SUPERVISION AND INTERPRETATION 2012 [facility] SUBSEQ CARE VISIT () [EXCLS:PATIENTS WHO ARE SEEN FOR A CONDITION UNREL TO / CARE (EG,AN UP RESPIR INFECT;PATIENTS SEEN FOR CONSULTATION ONLY,NOT FOR CONT CARE)] 2012 [facility] SUBSEQ CARE VISIT () [EXCLS:PATIENTS WHO ARE SEEN FOR A CONDITION UNREL TO / CARE (EG,AN UP RESPIR INFECT;PATIENTS SEEN FOR CONSULTATION ONLY,NOT FOR CONT CARE)] 2012 [facility] ULTRASOUND, UTERUS, REAL TIME WITH IMAGE DOCUMENTATION,TRANS VAGINAL 2012 [facility] ULTRASOUND, UTERUS, REAL TIME WITH IMAGE DOCUMENTATION,TRANS VAGINAL 2012 [facility] ULTRASOUND, UTERUS, REAL TIME WITH IMAGE DOCUMENTATION, AND MATERNAL EVALUATION, FIRST TRIMESTER (< 14 WEEKS 0 DAYS), TRANSABDOMINAL APPROACH; SINGLE OR FIRST GESTATION 2012 [facility] DESTRUCTION (EG, LASER SURGERY, ELECTROSURGERY, CRYOSURGERY, CHEMOSURGERY, SURGICAL CURETTEMENT), OF BENIGN LESIONS OTHER THAN SKIN TAGS OR CUTANEOUS VASCULAR PROLIFERATIVE LESIONS; UP TO 14 LESIONS 2012 [facility] SKIN TEST; TUBERCULOSIS, INTRADERMAL 2011 [facility] SKIN TEST; TUBERCULOSIS, INTRADERMAL 2011 [facility] IMMUNIZATION ADMINISTRATION (INCLUDES PERCUTANEOUS, INTRADERMAL, SUBCUTANEOUS, OR INTRAMUSCULAR INJECTIONS); EACH ADDITIONAL VACCINE (SINGLE OR COMBINATION VACCINE/TOXOID) 2011 [facility] MEDICAL NUTRITION THERAPY; GROUP (2 OR MORE INDIVIDUAL(S)), EACH 30 MINUTES 2011 [facility] INTRAVENOUS INFUSION, HYDRATION; INITIAL, 31 MINUTES TO 1 HOUR 2011 [facility] TELE ASSESS & MGT SRV PROV QUAL NONPHYS HLTH CARE PRO TO EST PAT,PARENT,GUARD NOT ORIG REL ASSESS & MGT SRV PROV W/IN PREV 7 DAYS NOR LEAD ASSESS & MGT SRV/PX W/IN NXT 24 HR/SOON APT;5-10 MIN MED DIS 2011 [facility] Non-Physician Phone Call To Patient/Provider Brief (5-10min) Non-Physician Phone Call To Patient/Provider Brief (5-10min) [id number] 2011 RANULFO MORAN [facility] Hepatitis A And Hepatitis B (Intramuscular Use) Adult Dosage Hepatitis A And Hepatitis B (Intramuscular Use) Adult Dosage 95054 2011 RANULFO MORAN Do[facility] Vaccines Viral [place] Encephalitis Inactivated, Intramuscular Vaccines Viral [place] Encephalitis Inactivated, Intramuscular 18299 2011 NELSON SYLVESTER Immunization Administration One Vaccine Immunization Administration One Vaccine 50822 2011 NELSON SYLVESTER [facility] Screening papanicolaou smear; obtaining, preparing and conveyance of cervical or vaginal smear to laboratory 2011 MITCHEL CARPIO [facility] Tdap Vaccine Tdap Vaccine 11734 2011 VALENTIN SOW [facility] Immunization Administration One Vaccine Immunization Administration One Vaccine 45390 2011 VALENTIN SOW Meningococcal Conjugate Vaccine Tetravalent (A C Y W-135) 2011 VALENTIN SOW Hepatitis A And Hepatitis B (Intramuscular Use) Adult Dosage Hepatitis A And Hepatitis B (Intramuscular Use) Adult Dosage 69895 2011 VALENTIN SOW Immunization Administration Each Additional Vaccine 2011 VALENTIN OSW Vaccines Viral [place] Encephalitis Inactivated, Intramuscular Vaccines Viral [place] Encephalitis Inactivated, Intramuscular 21876 2011 NELSON SYLVESTER Immunization Administration One Vaccine Immunization Administration One Vaccine 34321 2011 NELSON SYLVESTER Non-Physician Phone Call To Patient/Provider Brief (5-10min) Non-Physician Phone Call To Patient/Provider Brief (5-10min) [id number] 2011 ANTHONY LAGUNAS Non-Physician Phone Call To Patient/Provider Brief (5-10min) Non-Physician Phone Call To Patient/Provider Brief (5-10min) [id number] 2011 QUEENIE BALLARD IV Infusion For Hydration 31 Minutes To 1 Hour IV Infusion For Hydration 31 Minutes To 1 Hour [id number] 2010 MAME ROQUE Started at 1845. l litter of LR. [facility] Intravenous Catheter Placement Intravenous Catheter Placement 11472 2010 MAME ROQUE [facility] Non-Physician Phone Call To Patient/Provider Brief (5-10min) Non-Physician Phone Call To Patient/Provider Brief (5-10min) [id number] 2010 ASHKAN LONDON [facility] Screening papanicolaou smear; obtaining, preparing and conveyance of cervical or vaginal smear to laboratory 2010 AFUA GODWIN [facility] Social Work Individual Outpatient Counseling 20-30 Minutes Social Work Individual Outpatient Counseling 20-30 Minutes [id number] 2007 JACE WARNER [facility] Psychiatric Evaluation Comprehensive Examination Psychiatric Evaluation Comprehensive Examination [id number] 2007 JACE WARNER DoD Social Work Individual Outpatient Counseling 20-30 Minutes Social Work Individual Outpatient Counseling 20-30 Minutes [id number] 2007 AFUA MCBRIDE DoD Social Work Individual Outpatient Counseling 75-80 Minutes Social Work Individual Outpatient Counseling 75-80 Minutes [id number] 2007 AFUA MCBRIDE DoD Social Work Individual Outpatient Counseling 20-30 Minutes Social Work Individual Outpatient Counseling 20-30 Minutes [id number] 2006 JACE WARNER DoD Social Work Individual Outpatient Counseling 45-50 Minutes Social Work Individual Outpatient Counseling 45-50 Minutes [id number] 2006 JACE WARNER DoD Social Work Individual Outpatient Counseling 45-50 Minutes Social Work Individual Outpatient Counseling 45-50 Minutes [id number] 2006 JACE WARNER DoD Social Work Individual Outpatient Counseling 75-80 Minutes Social Work Individual Outpatient Counseling 75-80 Minutes [id number] 2006 JACE WARNER DoD Social Work Individual Outpatient Counseling 45-50 Minutes Social Work Individual Outpatient Counseling 45-50 Minutes [id number] 2006 JACE WARNER [facility] Psychiatric Evaluation Comprehensive Examination Psychiatric Evaluation Comprehensive Examination [id number] 2006 JACE WARNER DoD Social Work Individual Outpatient Counseling 45-50 Minutes Social Work Individual Outpatient Counseling 45-50 Minutes [id number] 2006 JACE KULKARNI DoD Social Work Individual Outpatient Counseling 45-50 Minutes Social Work Individual Outpatient Counseling 45-50 Minutes [id number] 2006 JACE KULKARNI [facility] Psychiatric Evaluation Comprehensive Examination Psychiatric Evaluation Comprehensive Examination [id number] 2006 JACE KULKARNI [facility] Crisis intervention mental health services, per hour 2006 JACE KULKARNI [facility] Psychiatric Evaluation Comprehensive Examination Psychiatric Evaluation Comprehensive Examination [id number] 2006 MAURO JOHNSON [facility] Psychiatric Therapy Individual Approximately 45-50 Minutes Psychiatric Therapy Individual Approximately 45-50 Minutes [id number] 2005 GUERO LEI [facility] Training And Self-Care Skills Training And Self-Care Skills 09204 2005 LES VALENZUELA [facility] Hepatitis B Vaccine (Active); 20 Years and Above 2005 FREDRICK PARISH [facility] Immunization Administration One Vaccine Immunization Administration One Vaccine 20514 2005 [place] [facility] Skin Test Anergy tuberculin Skin Test Anergy tuberculin 43812 2005 GALLO ALICIA [facility] Destruction Of Benign Lesion By Cryosurgery Destruction Of Benign Lesion By Cryosurgery [address] Special Review / Reporting Of Patient Status Dr. Vivas Special Review / Reporting Of Patient Status [id number] 2014 HERIBERTO STEFAN KYLEE [facility] Psychiatric Therapy Marital 2014 [place] LANDEROS [facility] Psychiatric Therapy Marital 2014 [place], QU[place] CADEISTA [facility] Psychiatric Therapy Marital 2014 [place], [place] CADE[place]A [facility] Psychiatric Therapy Marital 2014 [place], [place] CADEISTA Do[facility] Psychiatric Therapy Individual Approximately 20-30 Minutes 2014 [place], QUAN SANTIAGOUTISTA Do[facility] Psychiatric Therapy Group (Interactive) Psychiatric Therapy Group (Interactive) [id number] 2014 [place], [place] SANTIAGOUT[place] Do[facility] Psychiatric Therapy Group (Interactive) Psychiatric Therapy Group (Interactive) 16489 2014 [place], QUAN CADEISTA [facility] Psychiatric Therapy Marital 2014 [place], QU[place] CADEISTA DoD Psychiatric Therapy Marital 2014 [place], QU[place] SANTIAGOUTISTA DoD Psychiatric Therapy Group (Interactive) Psychiatric Therapy Group (Interactive) 45115 2014 [place], QU[place] SANTIAGOUTISTA DoD Psychiatric Therapy Group (Interactive) Psychiatric Therapy Group (Interactive) 39558 2014 [place], QUAN SANTIAGOUTISTA DoD Psychiatric Therapy Marital 2014 [place], QU[place] SANTIAGOUTISTA DoD Psychiatric Therapy Group (Interactive) Psychiatric Therapy Group (Interactive) 17070 2014 [place], QUAN SANTIAGOUTISTA Do[facility] Psychiatric Therapy Marital 2014 [place], QUAN SANTIAGOUTISTA DoD Psychiatric Therapy Group (Interactive) Psychiatric Therapy Group (Interactive) [id number] 2014 [place], QUAN SANTIAGOUTISTA Do[facility] Psychiatric Therapy Marital 2014 [place], QUAN SMITH [facility] Psychiatric Therapy Marital 2014 [place], QUAN SMITH [facility] Psychiatric Therapy Marital 2014 [place], QUAN CADEISTA DoD Psychiatric Therapy Marital 2014 [place], QUAN SMITH [facility] Psychiatric Therapy Marital 2014 [place] BAUTIST[place] [facility] Psychiatric Therapy Marital 2014 [place] BAUTIST[place] [facility] Psychiatric Therapy Marital 2014 [place] BAUTIST[place] Do[facility] Psychiatric Therapy Marital 2014 BEACHQU[place] LANDEROS [facility] Psychiatric Therapy Individual Approximately 45-50 Minutes 2014 ALAN KENNEY [facility] Psychiatric Therapy Marital 2014 [place] [facility] Psychiatric Therapy Individual Approximately 45-50 Minutes 2014 [facility] 2014 [place] LANDEROS [facility] Psychiatric Therapy Individual Approximately 45-50 Minutes 2014 [facility] 2014 [place]QU[place] LANDEROS [employer] Psychiatric Therapy Individual Approximately 45-50 Minutes 2013 JEAN MARIE [facility] Weight Recorded 2013 YUKO CHAMBERS [facility] A e /Interv Discharge Meds Reconciled W/ Current Meds List Assess/Interv Discharge Meds Reconciled W/ Current Meds List [id number] YUKO CHAMBERS [facility] Weight Recorded Weight Recorded 2013 YUKO CHAMBERS [facility] A e /Interv Discharge Meds Reconciled W/ Current Meds List Assess/Interv Discharge Meds Reconciled W/ Current Meds List 2013 YUKO CHAMBERS [facility] Social Work Individual Outpatient Counseling 45-50 Minutes 2013 [facility] ([facility] or More Individual(s)) Medical Nutrition Therapy Group (2 or More Individual(s)) 10078 2013 TOBI MCKINLEY [facility] Psychiatric Evaluation Comprehensive Examination Psychiatric Evaluation Comprehensive Examination 99207 2013 BRANDONALAN MEADOWSH [facility] Ophthalmological New Patient Start Comprehensive Care Ophthalmological New Patient Start Comprehensive Care 12034 2012 GEOVANNI WRIGHT Determination Of Refractive State Determination Of Refractive State [id number] 2012 GEOVANNI WRIGHT [facility] Urine HCG, Test Urine HCG, Test 94674 2012 EMELY SMITH [facility] Obstetrical Services Care Visit Obstetrical Services Care Visit 0503F 2012 EMELY SMITH [facility] Screening papanicolaou smear; obtaining, preparing and conveyance of cervical or vaginal smear to laboratory 2012 EMELY SMITH [facility] Immunization Admin By Intranasal / Oral Route One Vaccine Immunization Admin By Intranasal / Oral Route One Vaccine 86879 2012 KRISTA KAISER [facility] Influenza Virus Vaccine Live Intranasal Influenza Virus Vaccine Live Intranasal 22859 2012 KRISTA KAISER Influenza, Live, Intranasal; Series #: 1; .2 mL; IN; Intranasal; Mfg: Nvest; Lot: [id number]; VIS given (Jami: 12/16/2012). [facility] OB Services Antepartum Care Only Subsequent Single Visit OB Services Antepartum Care Only Subsequent Single Visit 0502F 2012 CARLOS GASTON Non-Stre Test (___ 0,2) Non-Stress Test (___ 0,2) 01456 2012 FOFISHEMAR [facility] OB Services Antepartum Care Only Subsequent Single Visit OB Services Antepartum Care Only Subsequent Single Visit 0502F 2012 CARLOS GASTON OB Services Antepartum Care Only Subsequent Single Visit OB Services Antepartum Care Only Subsequent Single Visit 0502F 2012 BOB CONTRERASSSJED AUGUSTIN [facility] Vaginal Wet [place] Vaginal [place] 22681 2012 RENETTA REED [facility] Ultrasound Obstetric Limited Evaluation Ultrasound Obstetric Limited Evaluation 44151 2012 RENETTA REED Non-Stre Test (___ 0,2) Non-Stress Test (___ 0,2) 02355 2012 RENETTA REED OB Services Antepartum Care Only Subsequent Single Visit OB Services Antepartum Care Only Subsequent Single Visit 0502F 2012 RENETTA REED [facility] Ultrasound Obstetric Limited Evaluation Ultrasound Obstetric Limited Evaluation 27843 2012 CARLOS GASTON [facility] Group B Streptococcus During Week 35-37 Preventive [facility] Group B Streptococcus During Week 35-37 [id number] 2012 CARLOS GASTON OB Services Antepartum Care Only Subsequent Single Visit OB Services Antepartum Care Only Subsequent Single Visit 0502F 2012 CARLOS GASTON Non-Stre Test (___ 0,2) Non-Stress Test (___ 0,2) 32693 2012 JOYCE SWEET [facility] OB Services Antepartum Care Only Subsequent Single Visit OB Services Antepartum Care Only Subsequent Single Visit 0502F 2012 RAHAT BONE Non-Stre Test (___ 0,2) Non-Stress Test (___ 0,2) [id number] RAHAT BONE Vaginal Wet [place] Vaginal [place] 99401 2012 RAHAT BONE Non-Stre Test (___ 0,2) Non-Stress Test (___ 0,2) 34553 2012 RAHAT BONE OB Services Antepartum Care Only Subsequent Single Visit OB Services Antepartum Care Only Subsequent Single Visit 0502F 2012 RAHAT BONE OB Services Antepartum Care Only Subsequent Single Visit OB Services Antepartum Care Only Subsequent Single Visit 050F 2012 CARLOS GASTON Vaginal Discharge pH Vaginal Discharge pH 24556 2012 AFUA INGRAM Vaginal Wet [place] Vaginal [place] 22960 2012 AFUA INGRAM GUERDA and wet [place] [facility] OB Services Antepartum Care Only Subsequent Single Visit OB Services Antepartum Care Only Subsequent Single Visit 0502F 2012 AFUA INGRAM Non-Stre Test (___ 0,2) Non-Stress Test (___ 0,2) 81264 2012 AFUA INGRAM Non-Stre Test (___ 0,2) Non-Stress Test (___ 0,2) 20133 2012 HILTON YOU Rho D Immune Globulin (Human) Intramuscular Use Full-dose Rho D Immune Globulin (Human) Intramuscular Use Full-dose 11864 2012 ACRLOS GASTON [facility] OB Services Antepartum Care Only Subsequent Single Visit OB Services Antepartum Care Only Subsequent Single Visit 0502F 2012 CARLOS GASTON [facility] Non-Stre Test (___ 0,2) Non-Stress Test (___ 0,2) 42609 2012 AFUA INGRAM [facility] OB Services Antepartum Care Only Subsequent Single Visit OB Services Antepartum Care Only Subsequent Single Visit 0502F 2012 AFUA INGRAM [facility] Ultrasound Obstetric Limited Evaluation Ultrasound Obstetric Limited Evaluation 37501 2012 AFUA INGRAM [facility] Ultrasound [place] [address] 2012 AFUA INGRAM [facility] Non-Physician Phone Call To Patient/Provider Brief (5-10min) Non-Physician Phone Call To Patient/Provider Brief (5-10min) 48992 2012 TATI OWEN Non-Stre Test (___ 0,2) Non-Stress Test (___ 0,2) 97601 2012 JOYCE SWEET [facility] Obstetrical Services Placement Of External Monitor Obstetrical Services Placement Of External Monitor 49720 2012 ASHLEIGH FERNANDEZ [facility] OB Services Antepartum Care Only Subsequent Single Visit OB Services Antepartum Care Only Subsequent Single Visit 0502F 2012 KOBI LEBLANC [facility] OB Services Antepartum Care Only Subsequent Single Visit OB Services Antepartum Care Only Subsequent Single Visit 0502F 2012 KOBI LEBLANC [facility] Ultrasound [place] [address] 2012 HILTON YOU [facility] OB Services Antepartum Care Only First Visit, With Report OB Services Antepartum Care Only First Visit, With Report 0500F 2012 MO JOHNSON [facility] Ultrasound [place] [address] 2012 HILTON YOU [facility] Destruction Of Flat Warts By Cryosurgery [...] The patient tolerated the procedure without complications [facility] Skin Test Anergy Tuberculin Intradermal Skin Test Anergy Tuberculin Intradermal 35649 2011 KISHA DEJESUS IPPD; Series #: 1; .1 mL; ID; Left Arm; Mfg: Sanofi Paste[employer]; Lot: [id number]; VIS given. [facility] Skin Test Anergy Tuberculin Intradermal Skin Test Anergy Tuberculin Intradermal 71653 2011 CROW COUGHLIN IPPD; Series #: 1; .1 mL; ID; Left Arm; Mfg: Sanofi Pasteur; Lot: [id number]; VIS given. [facility] Immunization Administration Each Additional Vaccine 2011 JAQUELINE BENJAMIN [facility] Immunization Administration One Vaccine Immunization Administration One Vaccine 60552 2011 JAQUELINE BENJAMIN [facility] Skin Test Anergy Tuberculin Intradermal Skin Test Anergy Tuberculin Intradermal 38015 2011 JAQUELINE BENJAMIN IPPD; Series #: 1; .1 mL; ID; Left Arm; Mfg: Sanofi Pasteur; Lot: [id number]; VIS given. [facility] Vaccines Vaccines 71141 2011 JAQUELINE BENJAMIN Influenza; Series #: 1; .5 mL; IM; Left Arm; Mfg: [employer] Lot: [id number]; VIS given (Jami: 01/01/09). [facility] Hepatitis A Vaccine Adult Dosage (Intramuscular Use) Hepatitis A Vaccine Adult Dosage (Intramuscular Use) 48294 2011 JAQUELINE BENJAMIN Hep A (Adult); Series #: 1; 1.0 mL; IM; Right Arm; Mfg: Other; Lot: [id number]; VIS given (Jami: 03/17/11). [facility] (2 or More Individual(s)) Medical Nutrition Therapy Group (2 or More Individual(s)) 31824 2011 ION KINGSTON [facility] Non-Physician Phone Call To Patient/Provider Brief (5-10min) Non-Physician Phone Call To Patient/Provider Brief (5-10min) 99456 2011 HEAVEN ZUNIGA [facility] Avulsion Of Nail Plate Avulsion Of Nail Plate 28854 2011 LUCINDA BARRIOS [facility] Social History Combined list of available smoking, tobacco, and other social history from Department of Defense and Veterans Affairs facilities. Social History Type Response Date Comment Sour e This section is an empty social history section. [facility]
== END 2024-12-19 12:54 | disposition home or self-care (01) ==
LOC: CHSIMG 12:55
PROVIDERS: PCP Nurse Practitioner Family; Visit Provider Nurse Practitioner Family
DX: R06.02 Shortness of breath (principal); R94.31 Abnormal electrocardiogram [ECG] [EKG]
CPT/HCPCS: 93306

== ENCOUNTER 2025-01-09 16:07 | Emergency (ER) | payer OTHER, SELFPAY ==
--- NOTE | ~2025-01-09 | XR_ITS ---
EXAMINATION: XR lumbar spine 2-3V DATE: 01/09/2025 16:55 INDICATION: Back pain for 3 days TECHNIQUE: 3 images of the lumbar spine were obtained. COMPARISON: None. FINDINGS: Lumbar vertebral body heights and alignment are within normal limits. No compression fracture in the lumbar spine. Moderate joint space narrowing at the L5-S1 level. There are a few less than 1.0 cm calcifications projecting over the pelvis which may represent phleboliths, however, a distal ureteral stone or bladder stone or possible. There is bowel gas and stool projecting over the pelvis which limits evaluation. IMPRESSION: 1. No compression fracture in the lumbar spine. 2. Moderate joint space narrowing at L5-S1 level. If symptoms persist or worsen, consider an MRI of the lumbar spine for further assessment Reviewed, dictated and finalized at location A.
--- NOTE | 2025-01-09 16:19 | ED.BACK ---
HPI - Back Pain/Injury General Chief Complaint: Back Pain/Injury Stated Complaint: Back Pain Time Seen by Provider: 01/09/25 16:40 Source: patient Mode of arrival: ambulatory Limitations: no limitations History of Present Illness HPI Narrative: Joyce is a 39-year-old female patient presenting to the clinic today with complaints of low back pain x4 days. 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 States she has 1 leg shorter than the other and wears an insert. Reports some radiculopathy to bilateral lower extremities at times when sitting, Has seen the chiropractor over the last 3 days and he recommended she come in to have evaluation an x-ray completed is patient is not getting relief from manipulation. Has not taken anything for pain. Rates pain 5/10 currently. She denies any saddle anesthesia or loss of bowel or bladder. No URI symptoms. Related Data Allergies Allergy/AdvReac Type Severity Reaction Status Date / Time No Known Allergies Allergy Verified 01/09/25 16:27 Review of Systems Review of Systems: Pertinent positives per HPI. Patient denies any fever, chills, rash, headache, visual changes, dizziness, cough, runny nose, sore throat, shortness of breath, chest pain, palpitations, nausea, vomiting, diarrhea, constipation, abdominal pain, or any urinary issues. [facility] Past Medical History Medical History High triglycerides ADINA (obstructive sleep apnea) Anxiety and depression Migraine Menometrorrhagia Venous insufficiency Asthma Hypothyroid Hypothyroid neuropathy Obesity (BMI 30-39.9) Lumbar back pain Multiple episodes of hypoglycemia Abnormal Pap smear of cervix Iron deficiency anemia MDD (major depressive disorder) Kehinde's disease Surgical History Surgical History H/O: section x2 Family History Family History Mother Type 1 diabetes Acute myocardial infarction Diabetes mellitus Kidney failure CHF (congestive heart failure) Cerebrovascular accident possible mini stroke Heart disease Father Hypertension Grandparent Acute myocardial infarction Dementia Cerebrovascular accident Depression Other Brain tumor uncle Cerebrovascular accident uncle Acute myocardial infarction uncle Depression Diabetes mellitus uncle, aunt Social History Social History Smoking status: Never smoker Alcohol intake: never Substance use: never Substance use type: does not use Lack of Transportation: No Lack of Food: Never True Current Housing: I Have Housing Concerned About Future Housing: No Difficulty Paying Gas/Electric Bills: No Difficulty Paying for Meds: No Currently Unemployed: No Education: High School Diploma/GED Difficulty w/ Childcare or Family Care: No Living arrangements: with family Additional living arrangements comments: and 2 children Comments At the time of my signature, I reviewed and agree with the nursing past medical, surgical, social, and family history. There is no relevant family history pertinent to the patient complaint. Exam Narrative: General: Well-developed, well nourished, in no apparent distress Head: Normocephalic, atraumatic. Cardio: Regular rate and rhythm, s1 and s2 normal, no murmur appreciated. Resp: Clear to auscultation bilaterally, no rhonchi, rales, wheezing or rubs. Musculoskeletal: No deformity, lumbar spine and lumbar paraspinous musculature tender to palpation, grossly normal range of motion, muscle strength strong and equal in BLE. SLT positive bilaterally approximately 30?, patellar reflexes 2/4 bilaterally, negative foot drop, cautious gait and station Course Course Emergency Course: Portions of this record may have been created with voice recognition software. Level of Care: Express Care Visit Vital Signs Vital signs: Vital Signs Temperature 36.8 C 01/09/25 16:20 Pulse Rate 79 01/09/25 16:20 Respiratory Rate 16 01/09/25 16:20 Blood Pressure 144/81 H 01/09/25 16:20 Pulse Oximetry 100 01/09/25 16:20 Oxygen Delivery Room Air 01/09/25 16:20 Temperature 36.8 C 01/09/25 16:20 Pulse Rate 79 01/09/25 16:20 Respiratory Rate 16 01/09/25 16:20 Blood Pressure 144/81 H 01/09/25 16:20 Pulse Oximetry 100 01/09/25 16:20 Oxygen Delivery Room Air 01/09/25 16:20 Vital signs reviewed MDM - Back Pain/Injury MDM Narrative Medical decision making narrative: At the time of visit patient is resting comfortably on the exam table. Patient appears to be nontoxic. Complaints of low back pain x4 days. 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 States she has 1 leg shorter than the other and wears an insert. Reports some radiculopathy to bilateral lower extremities at times when sitting. Has seen the chiropractor over the last 3 days and he recommended she come in to have evaluation an x-ray completed is patient is not getting relief from manipulation. She denies any saddle anesthesia or loss of bowel or bladder. On exam lumbar spine and lumbar paraspinous musculature tender to palpation, grossly normal range of motion, muscle strength strong and equal in BLE. SLT positive bilaterally approximately 30?, patellar reflexes 2/4 bilaterally, negative foot drop, cautious gait and station. Lumbar x-ray was ordered. Diagnostics: Lumbar x-ray was performed and was negative for any acute fracture or malalignment. Does have narrowing had L5-S1 Plan: I suspect patient has acute low back pain with radiculopathy. Prescription for Medrol Dosepak and Flexeril was sent to the pharmacy. Supportive measures were discussed with the patient and they voiced understanding discharge instructions and agrees to treatment plan. Return precautions reviewed Differential Diagnosis Differential diagnosis: Likely lumbar radiculopathy, sciatica, strain of lumbar region, renal colic, pyelonephritis, thoracic back pain, discitis and other (Disc herniation) Imaging Data Radiologist's impression: ITS Impressions Lumbar Spine X-Ray 01/09/25 17:05 IMPRESSION: 1. No compression fracture in the lumbar spine. 2. Moderate joint space narrowing at L5-S1 level. If symptoms persist or worsen, consider an MRI of the lumbar spine for further assessment Discharge Plan Discharge Clinical Impression: Degenerative disc disease at L5-S1 level Low back pain Qualifiers: Chronicity: acute Back pain laterality: bilateral Sciatica presence: without sciatica Qualified Code(s): M54.50 - Low back pain, unspecified Patient Disposition: Home Condition: Stable Instructions: Antibiotic Form, Acute Low Back Pain (ED), Degenerative Disc Disease (ED), Lower Back Exercises (ED) Additional Instructions: X-ray shows no compression fracture in the lumbar spine but does have moderate joint space narrowing at L5-S1 level Take any prescription medication only as prescribed-Medrol Dosepak and Flexeril Be mindful of sedation precautions given to you if taking a muscle relaxer. May use heat or ice to the affected area May take Tylenol/Motrin additionally as needed for pain as per bottle directions Consider massage or chiropractor adjustment if this was discussed with provider May use blue emu, lidocaine patches, or asper cream to affected area- do not apply heat or ice directly over cream- can cause burn. Complete appropriate back stretching exercises. Follow up with your PCP in 3-5 days if symptom persist. Patient Language: German Prescriptions: New cyclobenzaprine 10 mg tablet 10 mg PO Q8H PRN (Reason: muscle spasm) 7 Days Qty: 21 0RF methylprednisolone [Medrol (Bipin)] 4 mg tablets,dose pack See Rx Instructions PO .COMPLEX Qty: 21 0RF Rx Instructions: orally per package directions No Action levothyroxine [Levoxyl] 150 mcg tablet 150 mcg PO DAILY Qty: 90 1RF Follow-up/Referrals: Jocelynn Awad APRN [Primary Care Provider, Family Practice] Time of Disposition: 17:15 Quality NIHSS Nursing Documentation ED NIHSS nursing documentation: reviewed/agree
[2025-01-09 16:20] VITALS: BP 144/81; PULSE 79; RESP 16; TEMP 36.8; O2SAT 100
--- OUTSIDE RECORDS SUMMARY | 2025-01-09 16:26 | XMS_ITS | Continuity of Care Document ---
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 (MED) complet ed influenza , live, intranasa l, quadrival ent DoD influenza virus vaccine, live, attenuated, for intranasal use 1 2012 IRAIDA ABRAMS [id number] Raidarrr. (MED) complet ed influenza virus vaccine, live, attenuate d, for intranasa l use DoD tetanus toxoid, reduced diphtheria toxoid, and acellular pertu is vaccine, adsorbed 0 2012 HUBERT ZAVALA [id number] Sanofi Pasteur (PMC) complet ed tetanus toxoid, reduced diphtheri a toxoid, and acellular pertussis vaccine, adsorbed DoD tuberculin skin test; purified protein derivative solution, intradermal 0 2011 KISHA DEJESUS [id number] 96 Sanofi Pasteur (PMC) complet ed tuberculi n skin test; purified protein derivativ e solution, intraderm al DoD tuberculin skin test; purified protein derivative solution, intradermal 0 2011 Unknown, Provider [id number] Sanofi Pasteur (PMC) complet ed tuberculi n skin test; purified protein derivativ e solution, intraderm al DoD influenza virus vaccine, whole virus 1 2011 JAQUELINE BENJAMIN [id number] 16 CSDig[employer] Frontier[employer]TrackIF, Inc. (CSL) complet ed influenza virus vaccine, whole virus DoD hepatitis A vaccine, adult dosage 1 2011 JAQUELINE BENJAMIN [id number] 52 Other (OTH) complet ed hepatitis A vaccine, adult dosage DoD tuberculin skin test; purified protein derivative solution, intradermal 0 2011 JAQUELINE BENJAMIN [id number] 96 Sanofi Pasteur (PMC) complet ed tuberculi n skin test; purified protein derivativ e solution, intraderm al DoD hepatitis A and hepatitis B vaccine 2 2011 NATHAN HILL [id number] 104 SmithKline (SKB) complet ed hepatitis A and hepatitis B vaccine DoD Liberian Encephalitis Vaccine SC 2 2011 NELSON SYLVESTER [id number] 3F 39 aisle411 (INT) complet ed Liberian Encephali tis Vaccine AK DoD hepatitis A and hepatitis B vaccine 1 2011 VALENTIN SOW [id number] 104 SmithKline (SKB) complet ed hepatitis A and hepatitis B vaccine DoD meningococcal polysaccharid e (groups A, C, Y and W-135) diphtheria toxoid conjugate vaccine (MCV4P) 1 2011 VALENTIN SOW [id number] 114 Sanofi Pasteur (PMC) complet ed meningoco ccal polysacch aride (groups A, C, Y and W-135) diphtheri a toxoid conjugate vaccine (MCV4P) DoD tetanus toxoid, reduced diphtheria toxoid, and acellular pertu is vaccine, adsorbed 1 2011 VALENTIN SOW [id number] 115 Sanofi Pasteur (PMC) complet ed tetanus toxoid, reduced diphtheri a toxoid, and acellular pertussis vaccine, adsorbed DoD Liberian Encephalitis Vaccine SC 1 2011 VALENTIN SOW [id number] 6F 39 aisle411 (INT) complet ed Liberian Encephali tis Vaccine SC DoD tuberculin skin [...] ADM Date DC Date Status Dis[place] [facility] [place] OUTPATIENT [id number] RED CROSS VOLUNTE ER GALLO ALVAREZ 06/10 Released w/o Limitations [facility] [place] [facility] [place] OUTPATIENT [id number] DENTAC/ RED CROSS VOL PPD CHECKED FR[place]ICK PARISH 06/12 Released w/o Limitations [facility] [place] [facility] [place] OUTPATIENT [id number] DENTAC/ RED CRSOSS PPD PLACED [place]ICK [place] 07/14 Released w/o Limitations [facility] [place] [facility] [place] [facility] [place]) [place] [id number] PAP/GLORIA JARAMILLO 07/31 Released w/o Limitations [place] [facility] S 01A17 Fabricati on) OUTPATIENT [id number] PELVIC PN X2WKS EMELY DIALLO 11/19 Released w/o Limitations [facility](A MHS 01A17 [place]) [facility] S 01A17 Fabricati on) OUTPATIENT [id number] f/u anxiety /med renwal and control f/u LES VALENZUELA 12/24 Released w/o Limitations [facility](A MHS 01A17 [place] tion) [facility] S 01A17 Fabricati on) TELE CONSULT [id number] f/u labs LES VALENZUELA 01/01 [facility](A MHS 01A17 [place]ion) [facility] S 01A17 Fabricati on) OUTPATIENT [id number] GAYLE/DIAR VAISHNAVI/KHOA DY ACHE X 2DAYS LES VALENZUELA 01/12 Released w/o Limitations [facility](A MHS 01A17 [place]ion) [facility] OUTPATIENT [id number] GUERO LEI 01/12 Released w/o Limitations [facility]) [facility] S 01A17 Fabricati on) OUTPATIENT [id number] F/U EAR PN ABIGAIL KOVACS 02/26 Released w/o Limitations [facility](A MHS 01A17 [place] tion) [facility] S 01A17 Fabricati on) OUTPATIENT [id number] POSS SINUS INFECTI ON JESUS OLPEZ 04/29 Released w/o Limitations [facility](A MHS 01A17 [place] tion) [facility] S 01A17 Fabricati on) OUTPATIENT [id number] pregnan cy test JESSICA GIBBONS 05/26 Released w/o Limitations [facility](A MHS A17 [place] tion) [facility] S A17 Fabricati on) OUTPATIENT [id number] f/u lab results (thyroi d) VALENTIN YOUSIF 06/01 [facility]ased w/o Limitations [facility](A S A17 [place]) [place]) OUTPATIENT [id number] gen physica l and possibl e referra l to alinti on JOSE KELLER 09/20 [place] Limitations [place] [place] [facility] [place] [facility] [place]) OUT[place] [id number] thyroid s EDUAR VILCHIS 11/19 [place]ased [place] Limitations [place]) [place] [id number] migrain e , chest tightne ss ABIGAIL CISNEROS 12/09 [place] Limitations [place] [facility] [place] [facility] OUT[place] [id number] F/U Thyroid MARTINEZ POWELL 12/10 [place]ased [place] Limitations [place] [place] [facility] [facility] OUTPATIENT [id number] lower back conx2d ZZZBM_LEE, ZZZBM_SANDEEP ARET S 12/29 [facility]ased w/o Limitations [facility]) [facility] [place] [facility] OUTPATIENT [id number] f/u thyroid elliotts EMELY RODRIGUEZ 03/30 [facility]ased w/o Limitations [facility]A [facility]) OUTPATIENT [id number] WELL WOMAN EXAM,VA GINAL INFECT X3DAYS RAYMOND ELKINS 05/10 Released w/o Limitations [facility]) [facility]) OUTPATIENT [id number] f/u for thyroid /aniext y RAYMOND ELKINS J 06/06 Released w/o Limitations [facility] [place]([facility]) [facility] OUTPATIENT [id number] st pn x3dys MAURO MALDONADO 09/01 Sick at Home/Quarter s [facility] [place](Family [facility] OP [facility]) OUTPATIENT [id number] wwe with pap AFUA GODWIN 05/11 Released w/o Limitations [facility] [place](F[facility] Medic[facility] OP Care) [facility] [place]([facility]) TELE CONSULT [id number] review labs RUNNINGASHKAN 05/11 Referred for Appointment [facility] [place](Fami ly Medicin e OP Care) [facility] [place]([facility] Care Clinic) OUTPATIENT [id number] Vomitin g, Diarrhe a, dry heaves MAME ROQUE P 05/19 Immediate Referral [facility] [place](A[facility] Care Clinic) [facility] [place]([facility]) OUTPATIENT [id number] Nausea/ GAYLE KATELYNN ZHAO 05/23 Released w/o Limitations [facility] [place](A[facility] Care [facility]) [facility] [place]([facility]) OUTPATIENT [id number] back pain AFUA GODWIN 05/26 Released w/o Limitations [facility] [place]([facility] OP Care) [facility] [place]([facility]) TELE CONSULT [id number] review labs and xray ELIO, QUEENIE 06/02 Referred for Appointment [facility] [place]([facility] Medic[facility] OP Care) [facility] [place]([facility]) OUTPATIENT [id number] bloodwo rk for Lupus RANULFO MORAN 07/29 Released w/o Limitations [facility] [place] [facility] [facility] [place] [facility] [place] [facility] [place]) OUTPATIENT [id number] medicat ion JELANIRANULFO LEDEZMA Jackie 07/29 [facility] w/o Limitations [facility] [place] [place]) [place] [id number] possibl e strep throat RANULFO MORAN 08/27 Released w/o Limitations [facility] [place] [facility] [place]) [place] [id number] appt appt ANTHONY LAGUNAS 09/03 Released w/o Limitations [facility] [place] [facility] [place]) [place] [id number] VACCINE S FOR TRAVEL TO [place] PCM VALENTIN OVERTON 09/06 Released w/o Limitations [facility] [place] [facility] [facility] [place]) [place] [id number] LAB REQUEST RANULFO MORAN 09/07 Released w/o Limitations [facility] [place] [facility] [place]) [place] [id number] pap/juaquin ck for autoimm unedefi MITCHEL Pradhan 09/08 [facility]ased w/o Limitations [facility] [place] [facility] [place]) [place] [id number] [facility] paperwo rk JELANIBLAISEHaleyRANULFO 09/13 [facility]ased w/o Limitations [facility] [place] [place] [facility] [facility] [facility] [place]) OUTPAT[place] [id number] 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 NELSON DIOR 10/04 Released w/o Limitations [facility] [place](Fami ly Medicin e OP Care) [facility] [place] OUTPATIENT [id number] ingrown toenail RANULFO MORAN 10/13 Released w/o Limitations [facility] [place](Fami ly Medicin e OP Care) [facility] [place] [place] [facility] TELE CONSULT [id number] culture RANULFO MORAN 10/29 [facility] [place](Fami ly Medicin e OP Care) [facility] [place] ) OUTPATIENT [id number] INGROWI NG NAIL SOPHIELUCINDA 11/01 Released with Work/Duty Limitations [facility] [place](Podi atry Clinic ) [facility] [place]) OUTPATIENT [id number] [facility] Dr Shivani de leon - right jenna r RANULFO Walter 11/02 Released w/o Limitations [facility] [place](Fami ly Medicin e OP Care) [facility] [place](Podiat ry Clinic ) OUTPATIENT [id number] right hallux ingrown toenail . NAIL AVULSIO N LUCINDA BARRIOS 11/09 Released with Work/Duty Limitations [facility] [place](Podi atry Clinic ) [place]([facility]anie [facility] A Team) OUTPATIENT [id number] med refill XU SCHMIDT 12/21 Released w/o Limitations [place] ([facility] A Team) [facility] A Team) TELE CONSULT [id number] Notes Entered by: CHERYL SCHMIDT 25 Dec 2011 1415 ------- ------- ------- ------- -- HEAVEN CARRERA 12/24 [place] ([facility] Team) [facility] A [facility]) OUTPATIENT [id number] possibl e wart heveral XU SCHMIDT 01/03 Released w/o Limitations [facility] ([facility] A Team) [facility](N utrition Clinic) OUTPATIENT [id number] Obesity ION KINGSTON 01/10 Released w/o Limitations [facility] (Nutrit ion Clinic) [facility](O ccupation al Medicine) OUTPATIENT [id number] [phone],,, MY JOSE ALBERTO CLARK 02/18 [facility](U SN Immunizat ions) OUTPATIENT [id number] HEP A PPD FLU OBRIEN, ITZE Y 02/18 [facility] Limitations [facility] Immuniz ations) [facility](U SN Immunizat ions) OUTPATIENT [id number] IPPD READ/O MM NEG OBRIEN, ITZE Y 02/21 Released w/o Limitations [place] ([facility] Immuniz ations) [place](U SN Immunizat ions) OUTPATIENT [id number] IPPD OBRIEN, ITZE Y 04/12 Released w/o Limitations [place] ([facility] Immuniz ations) [place](U SN Immunizat ions) OUTPATIENT [id number] ippd KISHA DEJESUS 04/19 [facility] Immuniz ations) [facility] A Team) OUTPATIENT [id number] recurre nt warts XU SCHMIDT 04/20 Released w/o Limitations [facility] ([facility] A Team) [facility](U [facility] Immunizat ions) OUTPATIENT [id number] PPD READ 0MM NEGATIV E ORALIA OBRIEN Y 04/21 Released w/o Limitations [facility] ([facility] Immuniz ations) [facility](O ccupation al Medicine) OUTPATIENT [id number] 709,,,, ,KM ORDINARIO, ANALOU INGRAM 05/18 Released w/o Limitations [facility] (Occupa tional Medicin e) [facility] A Team) OUTPATIENT [id number] wart removal consult aitXU Yarbrough 05/25 Released w/o Limitations [facility] ([facility] A Team) [facility](O ccupation al Medicine) OUTPATIENT [id number] CARD UPDATE( late entry), ,,,,@ ORDINAPATTERSON, ANALOU INGRAM 05/31 Released w/o Limitations [facility] (Occupa tional Medicin e) [facility](O b/Flush Tester Clinic) OUTPATIENT [id number] E/r fu need us for possibl e ectopic HILTON YOU 06/14 Released w/o Limitations [facility] ([facility]) [facility] A Team) OUTPATIENT [id number] f/up labs XU SCHMIDT 06/22 Released w/o Limitations [facility] ([facility] A Team) [facility] Gynecolog y Clinic) OUTPATIENT [id number] account [email or web address] MICKEY LIMON 06/22 Released w/o Limitations [facility] ( Gynecol ogy Clinic) [facility](O b/Flush Tester Clinic) OUTPATIENT [id number] gym: HILTON CORNEJO 07/01 Released w/o Limitations [facility] ([facility]) [facility] A Team) TELE CONSULT [id number] Notes Entered by: EMILE BLANTON 27 Jul 2012 0733 ------- ------- ------- ------- -- med refill EMELY PERRY Alysia 07/26 [facility](O b/Flush Tester Clinic) OUTPATIENT [id number] NOB ASHKAN 10 WKS HILTON YOU 07/27 Released w/o Limitations [facility] ([facility]) [facility](O b/Flush Tester Clinic) OUTPATIENT [id number] jenna 18wks KOBI LEBLANC 09/06 Released w/o Limitations [facility] ([facility]) [facility] A Team) TELE CONSULT [id number] Notes Entered by: MARKIE KELLY 28 Sep 2012 1551 ------- ------- ------- ------- -- possibl e vaginal infecti on EMELY PERRY Alysia 09/28 [facility](O b/Flush Tester [facility]) OUTPATIENT [id number] jenna 24 wks KOBI LEBLANC 10/19 Released w/o Limitations [facility] ([facility]) [facility](L &D Triage) OUTPATIENT [id number] Notes Entered by: JULY JANE 27 Oct 2012 1914 ------- ------- ------- ------- -- chest pain ASHLEIGH FERNANDEZ 10/27 Released w/o Limitations [facility] (L&D Triage) [facility](O b/Fl[facility]ester [facility]) TELE CONSULT [id number] Notes Entered by: ELVIN CHENG 31 Oct 2012 1536 ------- ------- ------- ------- -- Possibl e exposur e to hand foot and mouth disease REZA CHENG 10/31 Referred for Appointment [facility] ([facility]) [facility](L &D Triage) OUTPATIENT [id number] Notes Entered by: ROHIT MCLEAN 31 Oct 2012 1538 ------- ------- ------- ------- -- NST LAWRENCERONAL JUNIOR JOYCE DEVON 10/31 Released w/o Limitations [facility] (L&D Triage) [facility](K a Case Managemen t Services) TELE CONSULT [id number] Notes Entered by: TATI OWEN 02 Nov 2012 1458 ------- ------- ------- ------- -- Case Managem ent antidep ressant trackin g follow up. TATI OWEN 11/02 Other Not Elsewhere Classified [facility] (Ka Case Managem ent Service s) [facility](L &D Triage) OUTPATIENT [id number] Notes Entered by: NADJA MALAGON 07 Nov 2012 1342 ------- ------- ------- ------- -- AFUA Guerra 11/07 Released w/o Limitations [facility] (L&D Triage) [facility](O b/Fl[facility] Tester [facility]) OUTPATIENT [id number] jenna 28 CARLOS Colvin 11/16 Released w/o Limitations [facility] ([facility]) [facility](L &D Triage) OUTPATIENT [id number] Notes Entered by: IAN MOON 19 Nov 2012 1051 ------- ------- ------- ------- -- Vaginal blemable g HILTON YOU 11/19 Released w/o Limitations [facility] (L&D Triage) [facility](L &D Triage) OUTPATIENT [id number] Notes Entered by: TOBI VAZQUEZ 21 Nov 2012 1854 ------- ------- ------- ------- -- vaginal bleedAFUA Gray 11/21 Released w/o Limitations [facility] (L&D Triage) [facility](O b/Fl[facility] Tester Clinic) OUTPATIENT [id number] breast feeding AMARICHANCE TORRES 12/06 Released w/o Limitations [facility] ([facility]) [facility](O b/Flush Tester [facility]) OUTPATIENT [id number] pcb 1 CHANCE HADDAD 12/12 Released w/o Limitations [facility] ([facility]) [facility](O b/Flush Tester Clinic) OUTPATIENT [id number] pcb 2 CAHNCE HADDAD 12/13 Released w/o Limitations [facility] ([facility]) [facility](L &D Triage) OUTPATIENT [id number] Notes Entered by: KYLE GOSS 14 Dec 2012 1030 ------- ------- ------- ------- -- R/O UTI and Cold YOLANDA-RAHAT CARTER 12/14 Released w/o Limitations [facility] (L&D Triage) [facility](O b/Fl[facility] Tester Clinic) OUTPATIENT [id number] jenna 32 CARLOS Colvin 12/14 Released w/o Limitations [facility] ([facility]) [facility](O b/Flush Tester Clinic) OUTPATIENT [id number] pcb 3 CHANCE HADDAD 12/15 Released w/o Limitations [facility] ([facility]) [facility](O b/Flush Tester Clinic) TELE CONSULT [id number] Notes Entered by: PEGGY SOTOMAYOR 27 Dec 2012 1052 ------- ------- ------- ------- -- Yeast infecti on LETY OLIVASJITENDRA MERCEDESJAMES 12/27 Advice Assessment [facility] ([facility]) [facility](L &D Triage) OUTPATIENT [id number] Notes Entered by: LINDSAY ALLISON 02 Jan 2013 0730 ------- ------- ------- ------- -- R/O UTI RAHAT HAIDER 01/01 Released w/o Limitations [facility] (L&D Triage) [facility](L &D Triage) OUTPATIENT [id number] Notes Entered by: CORRINE CRANE 12 Jan 2013 1350 ------- ------- ------- ------- -- JOYCE Gao 01/12 Released w/o Limitations [facility] (L&D Triage) [facility](O b/Flush Tester Clinic) OUTPATIENT [id number] jenna 27wCARLOS Reilly 01/16 Released w/o Limitations [facility] ([facility]) [facility] PCMH Team 1) TELE CONSULT [id number] Notes Entered by: Phill LEIVA 18 Jan 2013 1242 ------- ------- ------- ------- -- SALLY MEANS 01/18 [facility] ([facility] PCM Team 1) [facility](L &D Triage) OUTPATIENT [id number] Notes Entered by: Jackie RAMIREZ I 24 Jan 2013 1423 ------- ------- ------- ------- -- Possibl e yeast infecti onRENETTA MCKEE 01/24 Released w/o Limitations [facility] (L&D Triage) [facility](O b/[facility]) OUTPATIENT [id number] JENNA 38wKRISTIN Hi 01/30 Released w/o Limitations [facility] ([facility]) [facility](O b/Flush Tester Clinic) OUTPATIENT [id number] 40 wks CARLOS GASTON 02/06 Released w/o Limitations [facility] ([facility]) [facility](L &D Triage) OUTPATIENT [id number] Notes Entered by: LAUREN SCOTT,MAXIMILIANO QUEZADA ER 11 Feb 2013 1506 ------- ------- ------- ------- -- headfilomena de leon/SHEMAR Robles 02/11 Released w/o Limitations [facility] (L&D Triage) [facility](O b/Flush Tester [facility]) OUTPATIENT [id number] CARLOS St 02/14 Released w/o Limitations [facility] ([facility]) [facility] DIRECT TO [facility] FROM OTHER THAN ER OR [facility] [id number] HUBERT ZAVALA 02/17 DISCHARGED HOME [facility] Med PCMH Team 1) TELE CONSULT [id number] Notes Entered by: SHARON PATEL 23 Feb 2013 1159 ------- ------- ------- ------- -- Constip ation, ?'s about injecti on site for TDAP, MEÑO PATEL 02/23 Referred for Appointment [facility] ([facility] Team 1) [facility](O ccupation al Medicine) OUTPATIENT [id number] CARD UPDATE 4 WART INSPECT ION ON FINGERS ,,,,,MY ORDINARIO, ANALOU INGRAM 03/29 Released w/o Limitations [facility] (Occupa tional Medicin e) [facility] Immunizat ions) OUTPATIENT [id number] IRAIDA Sweet 04/07 Released w/o Limitations [facility] ([facility] Immuniz ations) [facility](O b/Flush Tester Clinic) OUTPATIENT [id number] PP 9 weeks EMELY SMITH 04/10 Released w/o Limitations [facility] ([facility]) [facility](O ccupation al Medicine) OUTPATIENT [id number] 703P,,, ,,@ ORDINARIO, ANALOU INGRAM 04/17 Released w/o Limitations [facility] (Occupa tional Medicin e) [facility](O ptometry Clinic) OUTPATIENT [id number] [facility]/ [id number] GEOVANNI WRIGHT 05/05 Released w/o Limitations [facility] (Optome try Clinic) [facility] Team 1) OUTPATIENT [id number] post depress ion/thy roid - labs done ABIGAIL PARKINSON 05/18 Released w/o Limitations [facility] ([facility] Team [facility]) [facility] Team 1) OUTPATIENT [id number] [facility] BAJWA V 07/12 Released w/o Limitations [facility] ([facility] Team 1) [facility] Team 1) TELE CONSULT [id number] Notes Entered by: JULIAN OCASIO 31 Jul 2013 1524 ------- ------- ------- ------- -- Pt was seen at ER 3/9 for Lumbago (low back px) SHEMAR MONTGOMERY 07/31 [facility] ([facility] Team 1) [facility] Team 1) OUTPATIENT [id number] needs BC SHEMAR MONTGOMERY 08/08 Released w/o Limitations [facility] ([facility] Team 1) [facility] Team 1) OUTPATIENT [id number] referra l to derm and thyriod issues SHEMAR MONTGOMERY 10/30 Released w/o Limitations [facility] ([facility] Team 1) [facility] Team 1) TELE CONSULT [id number] Notes Entered by: JOSE DE JESUS AMARO 02 Nov 2013 1059 ------- ------- ------- ------- -- thyroid GALLO SORIANO 11/02 Referred for Appointment [facility] ([facility] Team [facility]) [facility]) OUTPATIENT [id number] certified nutritionist f/u SHANNAN HARTMAN 12/01 Released w/o Limitations [facility] ([facility]) [facility] PCM Team 1) OUTPATIENT [id number] memory loss,sl eep MEÑO Menendez 12/12 Released w/o Limitations [facility] ([facility] PCM Team 1) [facility] PCM Team 1) OUTPATIENT [id number] f/u labs ULISES SHEMAR DEVON 12/25 Released w/o Limitations [facility] ([facility] PCM Team 1) [facility](N utrition Clinic) OUTPATIENT [id number] HYPOTHY TOBI WHIPPLE 12/28 Released w/o Limitations [facility] (Nutrit ion Clinic) [facility]) OUTPATIENT [id number] certified nutritionist YUKO Gaytan 03/25 Released w/o Limitations [facility] ([facility]) [facility]) TELE CONSULT [id number] Notes Entered by: SHANTI MUSE 09 Apr 2014 1601 ------- ------- ------- ------- -- SHANNAN Gomez 04/09 [facility] ([facility]) [facility] PCM Team 1) OUTPATIENT [id number] thyroid JENNIFER Moran 05/01 Released w/o Limitations [facility] ([facility] PCM Team 1) [facility] PCM Team 1) OUTPATIENT [id number] referra l to JENNIFER Avery 05/21 Released w/o Limitations [facility] ([facility] PCM Team 1) [facility] PCM Team 1) OUTPATIENT [id number] bloodwo rk/anxi ety JENNIFER MILLER 06/14 Released w/o Limitations [facility] ([facility] Team 1) [facility] Team 1) OUTPATIENT [id number] Lab results PAUL JENNIFERARELY SANTAMARIA 07/11 Released w/o Limitations [facility] ([facility] Team 1) [facility] Team 1) TELE CONSULT [id number] Notes Entered by: BANDAR DAMON 04 Dec 2014 0907 ------- ------- ------- ------- -- Thyroid Check up apointm ent CRISTAL SALINAS 12/04 Referred for Appointment [facility] ([facility] Team 1) [facility] Team 1) OUTPATIENT [id number] ear bhavaniur ARMANDO Smith 12/05 Released w/o Limitations [facility] ([facility] Team 1) [facility] Team 1) TELE CONSULT [id number] Notes Entered by: DEREK DE LEON 07 Dec 2014 0835 ------- ------- ------- ------- -- Pt is request ing for labs to be put in for thyroid check before appoint ment. DORIS CASILLAS [facility] 12/06 Referred for Appointment [facility] ([facility] Team [facility]) [facility] Team 1) TELE CONSULT [id number] Notes Entered by: DEREK DE LEON 06 Mar 2015 0926 ------- ------- ------- ------- -- Pt is request ing labs be put it before appoint ment with LT Hudson. Thank you CRISTAL SALINAS 03/06 Referred for Appointment [facility] ([facility] Team 1) [facility] Team 1) OUTPATIENT [id number] [facility]/ lesvia jordan STEFAN LOUIS 03/15 Released w/o Limitations [facility] ([facility]) [facility] Team 1) OUTPATIENT [id number] Notes Entered by: ANA MULLINS 11 Apr 2015 0837 ------- ------- ------- ------- -- JENNIFER Mccain 04/10 Released w/o Limitations [facility] ([facility]) [facility] OUTPATIENT [id number] thyroid c/u JENNIFER MILLER 04/15 [facility]ased w/o Limitations [facility] Procedures Combined list of: 1) Procedures from Department of Veterans Affairs facilities going back up to thelast 18 months, not all VA non-surgical procedures are included; 2) All procedures from the Department of Defense facilities. Procedure Procedure Type Code Date Perfomer Comments [facility] e INDIVIDUAL PSYCHOTHERAPY, INSIGHT ORIENTED, BEHAVIOR MODIFYING AND/OR SUPPORTIVE, IN AN OFFICE OR OUTPATIENT FACILITY, APPROXIMATELY 20 TO 30 MINUTES [id number] WITH THE PATIENT 2007 [facility] PSYCHIATRIC DIAGNOSTIC INTERVIEW EXAMINATION 2007 [facility] COLLECTION OF VENOUS BLOOD BY VENIPUNCTURE 2007 [facility] INDIVIDUAL PSYCHOTHERAPY, INSIGHT ORIENTED, BEHAVIOR MODIFYING AND/OR SUPPORTIVE, IN AN OFFICE OR OUTPATIENT FACILITY, APPROXIMATELY 20 TO 30 MINUTES [id number] WITH THE PATIENT 2007 [facility] INDIVIDUAL PSYCHOTHERAPY, INSIGHT ORIENTED, BEHAVIOR MODIFYING AND/OR SUPPORTIVE, IN AN OFFICE OR OUTPATIENT FACILITY, APPROXIMATELY 75 TO 80 MINUTES [id number] WITH THE PATIENT 2007 [facility] INDIVIDUAL PSYCHOTHERAPY, INSIGHT ORIENTED, BEHAVIOR MODIFYING AND/OR SUPPORTIVE, IN AN OFFICE OR OUTPATIENT FACILITY, APPROXIMATELY 20 TO 30 MINUTES [id number] WITH THE PATIENT 2006 [facility] INDIVIDUAL PSYCHOTHERAPY, INSIGHT ORIENTED, BEHAVIOR MODIFYING AND/OR SUPPORTIVE, IN AN OFFICE OR OUTPATIENT FACILITY, APPROXIMATELY 45 TO 50 MINUTES [id number] WITH THE PATIENT 2006 [facility] INDIVIDUAL PSYCHOTHERAPY, INSIGHT ORIENTED, BEHAVIOR MODIFYING AND/OR SUPPORTIVE, IN AN OFFICE OR OUTPATIENT FACILITY, APPROXIMATELY 45 TO 50 MINUTES [id number] WITH THE PATIENT 2006 [facility] INDIVIDUAL PSYCHOTHERAPY, INSIGHT ORIENTED, BEHAVIOR MODIFYING AND/OR SUPPORTIVE, IN AN OFFICE OR OUTPATIENT FACILITY, APPROXIMATELY 75 TO 80 MINUTES [id number] WITH THE PATIENT 2006 [facility] INDIVIDUAL PSYCHOTHERAPY, INSIGHT ORIENTED, BEHAVIOR MODIFYING AND/OR SUPPORTIVE, IN AN OFFICE OR OUTPATIENT FACILITY, APPROXIMATELY 45 TO 50 MINUTES [id number] WITH THE PATIENT 2006 [facility] PSYCHIATRIC DIAGNOSTIC INTERVIEW EXAMINATION 2006 [facility] SMEAR, PRIMARY SOURCE WITH INTERPRETATION; WET MOUNT FOR INFECTIOUS AGENTS (EG, SALINE, GRANT INK, GUERDA PREPS) 2006 [facility] INJECTION, DOLASETRON MESYLATE, 10 MG 2005 [facility] INTRAVENOUS INFUSION, HYDRATION; INITIAL, 31 MINUTES TO 1 HOUR 2005 [facility] INDIVIDUAL PSYCHOTHERAPY, INSIGHT ORIENTED, BEHAVIOR MODIFYING AND/OR SUPPORTIVE, IN AN OFFICE OR OUTPATIENT FACILITY, APPROXIMATELY 45 TO 50 MINUTES [id number] WITH THE PATIENT 2005 [facility] SELF-CARE/HOME MANAGMENT TRAIN (EG,ACT OF DAILY LIVING (ADL) &COMPENSAT TRAIN,MEAL PREPARATION,SAFETY PROCS,AND INSTRUCT IN USE OF ASST TECHNOLOGY DEV/ADPT EQUIP) DIR ONE-ON-ONE CONT,EA 15 MINUTES 2005 [facility] DESTRUCTION (EG, LASER SURGERY, ELECTROSURGERY, CRYOSURGERY, [...] OR MORE INDIVIDUAL(S)), EACH 30 MINUTES 2013 [facility] PSYCHIATRIC DIAGNOSTIC EVALUATION 2013 [facility] OPHTHALMOLOGICAL SERVICES: MEDICAL EXAMINATION AND EVALUATION WITH INITIATION OF DIAGNOSTIC AND TREATMENT PROGRAM; COMPREHENSIVE, NEW PATIENT, 1 OR MORE VISITS 2012 [facility] GONADOTROPIN, CHORIONIC (HCG); QUALITATIVE 2012 [facility] IMMUNIZATION ADMINISTRATION BY INTRANASAL OR ORAL ROUTE; 1 VACCINE (SINGLE OR COMBINATION VACCINE/TOXOID) 2012 [facility] MEDICAL INDUCTION OF LABOR 2012 [facility] LOW CERVICAL SECTION 2012 [facility] POSTOPERATIVE FOLLOW-UP VISIT, NORMALLY INCLUDED IN THE SURGICAL PACKAGE, INDICATE THAT EVALUATION & MANAGEMENT SERVICE WAS PERFORMED DURING A POSTOPERATIVE PERIOD REASON RELATED ORIGINAL PROCEDURE 2012 [facility] POSTOPERATIVE FOLLOW-UP VISIT, NORMALLY INCLUDED IN THE SURGICAL PACKAGE, INDICATE THAT EVALUATION & MANAGEMENT SERVICE WAS PERFORMED DURING A POSTOPERATIVE PERIOD REASON RELATED ORIGINAL PROCEDURE 2012 [facility] POSTOPERATIVE FOLLOW-UP VISIT, NORMALLY INCLUDED IN THE SURGICAL PACKAGE, INDICATE THAT EVALUATION & MANAGEMENT SERVICE WAS PERFORMED DURING A POSTOPERATIVE PERIOD REASON RELATED ORIGINAL PROCEDURE 2012 [facility] DELIVERY ONLY 2012 [facility] SUBSEQ CARE VISIT () [EXCLS:PATIENTS WHO ARE SEEN FOR A CONDITION UNREL TO / CARE (EG,AN UP RESPIR INFECT;PATIENTS SEEN FOR CONSULTATION ONLY,NOT FOR CONT CARE)] 2012 [facility] NON-STRESS TEST 2012 [facility] SUBSEQ CARE VISIT () [EXCLS:PATIENTS WHO ARE SEEN FOR A CONDITION UNREL TO / CARE (EG,AN UP RESPIR INFECT;PATIENTS SEEN FOR CONSULTATION ONLY,NOT FOR CONT CARE)] 2012 [facility] SUBSEQ CARE VISIT () [EXCLS:PATIENTS WHO ARE SEEN FOR A CONDITION UNREL TO / CARE (EG,AN UP RESPIR INFECT;PATIENTS SEEN FOR CONSULTATION ONLY,NOT FOR CONT CARE)] 2012 [facility] SMEAR, PRIMARY SOURCE WITH INTERPRETATION; WET MOUNT FOR INFECTIOUS AGENTS (EG, SALINE, GRANT INK, GUERDA PREPS) 2012 [facility] ULTRASOUND, UTERUS, REAL TIME WITH IMAGE DOCUMENTATION, LIMITED (EG, HEART BEAT, PLACENTAL LOCATION, POSITION AND/OR QUALITATIVE AMNIOTIC FLUID VOLUME), 1 OR MORE FETUSES 2012 [facility] NON-STRESS TEST 2012 [facility] SMEAR, PRIMARY SOURCE WITH INTERPRETATION; WET MOUNT FOR INFECTIOUS AGENTS (EG, SALINE, GRANT INK, GUERDA PREPS) 2012 [facility] SUBSEQ CARE VISIT () [EXCLS:PATIENTS WHO ARE SEEN FOR A CONDITION UNREL TO / CARE (EG,AN UP RESPIR INFECT;PATIENTS SEEN FOR CONSULTATION ONLY,NOT FOR CONT CARE)] 2012 [facility] NON-STRESS TEST 2012 [facility] SMEAR, PRIMARY SOURCE WITH INTERPRETATION; WET MOUNT FOR INFECTIOUS AGENTS (EG, SALINE, GRANT INK, GUERDA PREPS) 2012 [facility] NON-STRESS TEST 2012 [facility] RHO(D) IMMUNE GLOBULIN (RHIG), HUMAN, FULL-DOSE, FOR INTRAMUSCULAR USE 2012 [facility] NON-STRESS TEST 2012 [facility] TELE ASSESS & MGT SRV PROV QUAL NONPHYS HLTH CARE PRO TO EST PAT,PARENT,GUARD NOT ORIG REL ASSESS & MGT SRV PROV W/IN PREV 7 DAYS NOR LEAD ASSESS & MGT SRV/PX W/IN NXT 24 HR/SOON APT;5-10 MIN MED DIS 2012 [facility] NON-STRESS TEST 2012 [facility] MONITORING DURING LABOR BY CONSULTING PHYSICIAN (IE, NON-ATTENDING PHYSICIAN) WITH WRITTEN REPORT; SUPERVISION AND INTERPRETATION 2012 [facility] SUBSEQ CARE VISIT () [EXCLS:PATIENTS WHO ARE SEEN FOR A CONDITION UNREL TO / CARE (EG,AN UP RESPIR INFECT;PATIENTS SEEN FOR CONSULTATION ONLY,NOT FOR CONT CARE)] 2012 [facility] SUBSEQ CARE VISIT () [EXCLS:PATIENTS WHO ARE SEEN FOR A CONDITION UNREL TO / CARE (EG,AN UP RESPIR INFECT;PATIENTS SEEN FOR CONSULTATION ONLY,NOT FOR CONT CARE)] 2012 [facility] ULTRASOUND, UTERUS, REAL TIME WITH IMAGE DOCUMENTATION,TRANS VAGINAL 2012 [facility] ULTRASOUND, UTERUS, REAL TIME WITH IMAGE DOCUMENTATION,TRANS VAGINAL 2012 [facility] ULTRASOUND, UTERUS, REAL TIME WITH IMAGE DOCUMENTATION, AND MATERNAL EVALUATION, FIRST TRIMESTER (< 14 WEEKS 0 DAYS), TRANSABDOMINAL APPROACH; SINGLE OR FIRST GESTATION 2012 [facility] DESTRUCTION (EG, LASER SURGERY, ELECTROSURGERY, CRYOSURGERY, CHEMOSURGERY, SURGICAL CURETTEMENT), OF BENIGN LESIONS OTHER THAN SKIN TAGS OR CUTANEOUS VASCULAR PROLIFERATIVE LESIONS; UP TO 14 LESIONS 2012 [facility] SKIN TEST; TUBERCULOSIS, INTRADERMAL 2011 [facility] SKIN TEST; TUBERCULOSIS, INTRADERMAL 2011 [facility] IMMUNIZATION ADMINISTRATION (INCLUDES PERCUTANEOUS, INTRADERMAL, SUBCUTANEOUS, OR INTRAMUSCULAR INJECTIONS); EACH ADDITIONAL VACCINE (SINGLE OR COMBINATION VACCINE/TOXOID) 2011 [facility] MEDICAL NUTRITION THERAPY; GROUP (2 OR MORE INDIVIDUAL(S)), EACH 30 MINUTES 2011 [facility] INTRAVENOUS INFUSION, HYDRATION; INITIAL, 31 MINUTES TO 1 HOUR 2011 [facility] TELE ASSESS & MGT SRV PROV QUAL NONPHYS HLTH CARE PRO TO EST PAT,PARENT,GUARD NOT ORIG REL ASSESS & MGT SRV PROV W/IN PREV 7 DAYS NOR LEAD ASSESS & MGT SRV/PX W/IN NXT 24 HR/SOON APT;5-10 MIN MED DIS 2011 [facility] AVULSION OF NAIL PLATE, PARTIAL OR COMPLETE, SIMPLE; SINGLE 2011 [facility] TELE ASSESS & MGT SRV PROV QUAL NONPHYS HLTH CARE PRO TO EST PAT,PARENT,GUARD NOT ORIG REL ASSESS & MGT SRV PROV W/IN PREV 7 DAYS NOR LEAD ASSESS & MGT SRV/PX W/IN NXT 24 HR/SOON APT;5-10 MIN MED DIS 2011 [facility] SWAZI ENCEPHALITIS VIRUS VACCINE, INACTIVATED, FOR INTRAMUSCULAR USE 2011 [facility] SCREENING PAPANICOLAOU SMEAR; OBTAINING, PREPARING AND CONVEYANCE OF CERVICAL OR VAGINAL SMEAR TO LABORATORY 2011 [facility] HEPATITIS A VACCINE (HEPA), ADULT DOSAGE, FOR INTRAMUSCULAR USE 2011 [facility] SWAZI ENCEPHALITIS VIRUS VACCINE, INACTIVATED, FOR INTRAMUSCULAR USE [...] 24 HR/SOON APT;5-10 MIN MED DIS 2010 [facility] SCREENING PAPANICOLAOU SMEAR; OBTAINING, PREPARING AND CONVEYANCE OF CERVICAL OR VAGINAL SMEAR TO LABORATORY 2010 [facility] INDIVIDUAL PSYCHOTHERAPY, INSIGHT ORIENTED, BEHAVIOR MODIFYING AND/OR SUPPORTIVE, IN AN OFFICE OR OUTPATIENT FACILITY, APPROXIMATELY 45 TO 50 MINUTES [id number] WITH THE PATIENT 2006 [facility] INDIVIDUAL PSYCHOTHERAPY, INSIGHT ORIENTED, BEHAVIOR MODIFYING AND/OR SUPPORTIVE, IN AN OFFICE OR OUTPATIENT FACILITY, APPROXIMATELY 45 TO 50 MINUTES [id number] WITH THE PATIENT 2006 [facility] PSYCHIATRIC DIAGNOSTIC INTERVIEW EXAMINATION 2006 [facility] CRISIS INTERVENTION MENTAL HEALTH SERVICES, PER HOUR 2006 [facility] PSYCHIATRIC DIAGNOSTIC INTERVIEW EXAMINATION 2006 [facility] IMMUNIZATION ADMINISTRATION (INCLUDES PERCUTANEOUS, INTRADERMAL, SUBCUTANEOUS, OR INTRAMUSCULAR INJECTIONS); 1 VACCINE (SINGLE OR COMBINATION VACCINE/TOXOID) 2005 [facility] SKIN TEST; TUBERCULOSIS, INTRADERMAL 2005 [facility] WET ALFREDO, INCLUDING PREPARATIONS OF VAGINAL, CERVICAL OR SKIN SPECIMENS 2004 [facility] UNLISTED PROCEDURE, CONJUNCTIVA 2004 [facility] CULTURE, BACTERIAL; ANY OTHER SOURCE EXCEPT URINE, BLOOD OR STOOL, AEROBIC, WITH ISOLATION AND PRESUMPTIVE IDENTIFICATION OF ISOLATES 2001 [facility] CULTURE, BACTERIAL, DEFINITIVE; THROAT OR NOSE 2000 [facility] EDUCATIONAL SUPPLIES, SUCH BOOKS, TAPES, AND PAMPHLETS, FOR THE PATIENT'S EDUCATION AT COST TO PHYSICIAN OR OTHER QUALIFIED HEALTH MINERAL ECONOMIST 1999 [facility] Destruction Of Benign Lesion By Cryosurgery Destruction Of Benign Lesion By Cryosurgery [address] Special Review / Reporting Of Patient Status Dr. Vivas Special Review / Reporting Of Patient Status [id number] 2014 STEFAN LOUIS [facility] Psychiatric Therapy Marital 2014 QUAN [place] [facility] Psychiatric Therapy Marital 2014 [place] [facility] Psychiatric Therapy Marital 2014 [place] Psychiatric Therapy Marital 2014 [place], QUAN SMITH [facility] Psychiatric Therapy Individual Approximately 20-30 Minutes 2014 [place], QUAN SMITH [facility] Psychiatric Therapy Group (Interactive) Psychiatric Therapy Group (Interactive) [id number] 2014 [place], QUAN SMITH [facility] Psych[facility] Therapy Group (Interactive) Psychiatric Therapy Group (Interactive) [id number] 2014 [place], QUAN SMITH [facility] Psychiatric Therapy Marital 2014 [place], QUAN SMITH [facility] Psychiatric Therapy Marital 2014 [place], QUAN SMITH [facility] Psych[facility] Therapy Group (Interactive) Psychiatric Therapy Group (Interactive) [id number] 2014 [place], QUAN SMITH [facility] Psych[facility] Therapy Group (Interactive) Psychiatric Therapy Group (Interactive) [phone] [place], QUAN SMITH [facility] Psychiatric Therapy Marital 2014 [place], QUAN SMITH [facility] Psychiatric Therapy Group (Interactive) Psychiatric Therapy Group (Interactive) [phone] [place], QUAN SMITH [facility] Psychiatric Therapy Marital 2014 [place], QUAN SMITH [facility] Psych[facility] Group (Interactive) Psychiatric Therapy Group (Interactive) [id number] 2014 [place], QUAN SMITH [facility] Psychiatric Therapy [...] 2014 [place], QUAN SMITH [facility] Psychiatric Therapy Individual Approximately 45-50 Minutes 2014 [place] [facility] Psych[facility] Marital 2014 [place], QUAN SMITH [facility] Psychiatric Therapy Individual Approximately 45-50 Minutes 2014 ALAN KENNEY [facility] Psych[facility] Marital 2014 [place], QUAN SMITH [facility] Psychiatric Therapy Individual Approximately 45-50 Minutes 2014 ALAN KENNEY [facility] Psychiatric Therapy Marital 2014 [place] [facility] Psychiatric Therapy Individual Approximately 45-50 Minutes 2013 ALAN KENNEY [facility] Weight Recorded Weight Recorded 2013 TRISH, YUKOPaco CAMACHO [facility] A e /Interv Discharge Meds Reconciled W/ Current Meds List Assess/Interv Discharge Meds Reconciled W/ Current Meds List 2013 YUKO CHAMBERS [facility] Weight Recorded Weight Recorded 2013 YUKO CHAMBERS [facility] A e /Interv Discharge Meds Reconciled W/ Current Meds List Assess/Interv Discharge Meds Reconciled W/ Current Meds List 2013 YUKO CHAMBERS [facility] Social Work Individual Outpatient Counseling 45-50 Minutes 2013 ANNE MARIEALAN MARY [facility] Medical Nutrition Therapy Group (2 or More Individual(s)) Medical Nutrition Therapy Group (2 or More Individual(s)) 48022 2013 TOBI MCKINLEY [facility] Psychiatric Evaluation Comprehensive Examination Psychiatric Evaluation Comprehensive Examination 27127 2013 ANNE MARIEALAN [facility] Ophthalmological New Patient Start Comprehensive Care Ophthalmological New Patient Start Comprehensive Care 90284 2012 GEOVANNI WRIGHT [facility] Determination Of Refractive State Determination Of Refractive State 05299 2012 GEOVANNI WRIGHT [facility] Urine HCG, Test Urine HCG, Test 51505 2012 EMELY SMITH [facility] Obstetrical Services Care Visit Obstetrical Services Care Visit 0503F 2012 SMITHEMELY FREED [facility] Screening papanicolaou smear; obtaining, preparing and conveyance of cervical or vaginal smear to laboratory 2012 SMITHEMELY FREED [facility] Immunization Admin By Intranasal / Oral Route One Vaccine Immunization Admin By Intranasal / Oral Route One Vaccine 73901 2012 RKISTA KAISER [facility] Influenza Virus Vaccine Live Intranasal Influenza Virus Vaccine Live Intranasal 52752 2012 KRISTA KAISER Influenza, Live, Intranasal; Series #: 1; .2 mL; IN; Intranasal; Mfg: [employer].; Lot: [id number]; VIS given (Jami: 12/16/2012). [facility] OB Services Antepartum Care Only Subsequent Single Visit OB Services Antepartum Care Only Subsequent Single Visit 0502F 2012 CARLOS GASTON Non-Stre Test (___ 0,2) Non-Stress Test (___ 0,2) 71092 2012 FOCIPRIANOSHEMARHaley Majano OB Services Antepartum Care Only Subsequent Single Visit OB Services Antepartum Care Only Subsequent Single Visit 0502F 2012 CARLOS [place] OB Services Antepartum Care Only Subsequent Single Visit OB Services Antepartum Care Only Subsequent Single Visit 050F 2012 KRISTIN CONTRERAS [facility] Vaginal Wet [place] Vaginal [place] 28171 2012 R[place] REED Ultrasound Obstetric Limited Evaluation Ultrasound Obstetric Limited Evaluation 26581 2012 [place] RE[place] Non-Stre Test (___ 0,2) Non-Stress Test (___ 0,2) 93718 2012 [place] RE[place] OB Services Antepartum Care Only Subsequent Single Visit OB Services Antepartum Care Only Subsequent Single Visit 050F 2012 [place] Ultrasound Obstetric Limited Evaluation Ultrasound Obstetric Limited Evaluation 13586 2012 CARLOS GASTON Preventive Medicine Group B Streptococcus During Week 35-37 Preventive Medicine Group B Streptococcus During Week 35-37 3294F 2012 CARLOS G[place] OB Services Antepartum Care Only Subsequent Single Visit OB Services Antepartum Care Only Subsequent Single Visit 050F 2012 CARLOS [place] Non-Stre Test (___ 0,2) Non-Stress Test (___ 0,2) 28158 2012 JOYCE SWEET OB Services Antepartum Care Only Subsequent Single Visit OB Services Antepartum Care Only Subsequent Single Visit 0502F 2012 RAHAT BONE Non-Stre Test (___ 0,2) Non-Stress Test (___ 0,2) 69384 2012 GUERRERORAHAT BRAVO Vaginal Wet [place] Vaginal [place] 59311 2012 GUERRERORAHAT BRAVO Non-Stre Test (___ 0,2) Non-Stress Test (___ 0,2) 50476 2012 GUERREROCLAUDIAEDWINA E, RAHATAGUSTIN Majano OB Services Antepartum Care Only Subsequent Single Visit OB Services Antepartum Care Only Subsequent Single Visit 0502F 2012 GUERREROAndrewsRAHAT VELIZ OB Services Antepartum Care Only Subsequent Single Visit OB Services Antepartum Care Only Subsequent Single Visit 0502F 2012 CARLOS [place] Vaginal Discharge pH Vaginal Discharge pH 83112 2012 AFUA INGRAM Vaginal [place] Vaginal [place] 93333 2012 [facility] INGRAM GUERDA and wet [place] [facility] OB Services Antepartum Care Only Subsequent Single Visit OB Services Antepartum Care Only Subsequent Single Visit 0502F 2012 [facility] INGRAM Non-Stre Test (___ 0,2) Non-Stress Test (___ 0,2) 65986 2012 [facility] INGRAM Non-Stre Test (___ 0,2) Non-Stress Test (___ 0,2) 63375 2012 HILTON YOU [facility] Rho D Immune Globulin (Human) Intramuscular Use Full-dose Rho D Immune Globulin (Human) Intramuscular Use Full-dose 88223 2012 CARLOS GASTON OB Services Antepartum Care Only Subsequent Single Visit OB Services Antepartum Care Only Subsequent Single Visit 0502F 2012 CARLOS [place] Non-Stre Test (___ 0,2) Non-Stress Test (___ 0,2) 36247 2012 AFUA INGRAM OB Services Antepartum Care Only Subsequent Single Visit OB Services Antepartum Care Only Subsequent Single Visit 0502F 2012 [facility] INGRAM Ultrasound Obstetric Limited Evaluation Ultrasound Obstetric Limited Evaluation [id number] 2012 AFUA INGRAM [facility] Ultrasound [place] [address] 2012 AFUA INGRAM SOLEDAD [facility] Non-Physician Phone Call To Patient/Provider Brief (5-10min) Non-Physician Phone Call To Patient/Provider Brief (5-10min) [id number] 2012 TATI OWEN Non-Stre Test (___ 0,2) Non-Stress Test (___ 0,2) 88920 2012 JOYCE SWEET [facility] Obstetrical Services Placement Of External Monitor Obstetrical Services Placement Of External Monitor 20499 2012 ASHLEIGH FERNANDEZ [facility] OB Services Antepartum Care Only Subsequent Single Visit OB Services Antepartum Care Only Subsequent Single Visit [id number] 2012 KOBI LEBLANC OB Services Antepartum Care Only Subsequent Single Visit OB Services Antepartum Care Only Subsequent Single Visit [id number] 2012 KOBI LEBLANC [facility] Ultrasound [place] [address] 2012 HILTON YOU OB Services Antepartum Care Only First Visit, With Report OB Services Antepartum Care Only First Visit, With Report 0500F 2012 MO JOHNSON [facility] Ultrasound [place] [address] 2012 HILTON YOU [facility] Destruction Of Flat Warts By Cryosurgery [...] The patient tolerated the procedure without complications DoD Skin Test Anergy Tuberculin Intradermal Skin Test Anergy Tuberculin Intradermal 38976 2011 KISHA DEJESUS IPPD; Series #: 1; .1 mL; ID; Left Arm; Mfg: Sanof[employer]; Lot: [id number]; VIS given. [facility] Skin Test Anergy Tuberculin Intradermal Skin Test Anergy Tuberculin Intradermal 35435 2011 CROW COUGHLIN IPPD; Series #: 1; .1 mL; ID; Left Arm; Mfg: Sanofi Pasteur; Lot: [id number]; VIS given. DoD Immunization Administration Each Additional Vaccine 2011 JAQUELINE BENJAMIN [facility] Immunization Administration One Vaccine Immunization Administration One Vaccine 80115 2011 JAQUELINE BENJAMIN DoD Skin Test Anergy Tuberculin Intradermal Skin Test Anergy Tuberculin Intradermal 56701 2011 SOURAVJAQUELINE BRENNAN IPPD; Series #: 1; .1 mL; ID; Left Arm; Mfg: San[employer]; Lot: [id number]; VIS given. [facility] Vaccines Vaccines 52805 2011 JAQUELINE BENJAMIN Influenza; Series #: 1; .5 mL; IM; Left Arm; Mfg: [employer]KOV[employer].; Lot: [id number]; VIS given (Jami: 01/01/09). [facility] Hepatitis A Vaccine Adult Dosage (Intramuscular Use) Hepatitis A Vaccine Adult Dosage (Intramuscular Use) 42648 2011 JAQUELINE BENJAMIN Hep A (Adult); Series #: 1; 1.0 mL; IM; Right Arm; Mfg: Other; Lot: [id number]; VIS given (Jami: 03/17/11). [facility] Medical Nutrition Therapy Group (2 or More Individual(s)) Medical Nutrition Therapy Group (2 or More Individual(s)) 31351 2011 ION KINGSTON [facility] Non-Physician Phone Call To Patient/Provider Brief (5-10min) Non-Physician Phone Call To Patient/Provider Brief (5-10min) 16043 2011 HEAVEN ZUNIGA [facility] Avulsion Of Nail Plate Avulsion Of Nail Plate 65612 2011 LUCINDA BARRIOS [facility] Non-Physician Phone Call To Patient/Provider Brief (5-10min) Non-Physician Phone Call To Patient/Provider Brief (5-10min) 21966 2011 RANULFO MORAN Hepatitis A And Hepatitis B (Intramuscular Use) Adult Dosage Hepatitis A And Hepatitis B (Intramuscular Use) Adult Dosage 04343 2011 RANULFO MORAN [facility] Vaccines Viral Liberian Encephalitis Inactivated, Intramuscular Vaccines Viral Liberian Encephalitis Inactivated, Intramuscular 25958 2011 NELSON SYLVESTER [facility] Immunization Administration One Vaccine Immunization Administration One Vaccine 57792 2011 NELSON SYLVESTER Screening papanicolaou smear; obtaining, preparing and conveyance of cervical or vaginal smear to laboratory 2011 MITCHEL CARPIO [facility] Tdap Vaccine Tdap Vaccine 62005 2011 VALENTIN SOW [facility] Immunization Administration One Vaccine Immunization Administration One Vaccine 89375 2011 VALENTIN SOW [facility] Meningococcal Conjugate Vaccine Tetravalent (A C Y W-135) 2011 VALENTIN SOW Hepatitis A And Hepatitis B (Intramuscular Use) Adult Dosage Hepatitis A And Hepatitis B (Intramuscular Use) Adult Dosage 70601 2011 VALENTIN SOW [facility] Immunization Administration Each Additional Vaccine 2011 VALENTIN SOW Vaccines Viral Liberian Encephalitis Inactivated, Intramuscular Vaccines Viral Liberian Encephalitis Inactivated, Intramuscular 35492 2011 NELSON SYLVESTER [facility] Immunization Administration One Vaccine Immunization Administration One Vaccine 62088 2011 NELSON SYLVESTER [facility] Non-Physician Phone Call To Patient/Provider Brief (5-10min) Non-Physician Phone Call To Patient/Provider Brief (5-10min) 37090 2011 ANTHONY LAGUNAS [facility] Non-Physician Phone Call To Patient/Provider Brief (5-10min) Non-Physician Phone Call To Patient/Provider Brief (5-10min) 17869 2011 QUEENIE BALLARD [facility] IV Infusion For Hydration 31 Minutes To 1 Hour IV Infusion For Hydration 31 Minutes To 1 Hour 57134 2010 MAME ROQUE Started at 1845. l litter of LR. [facility] Intravenous Catheter Placement Intravenous Catheter Placement 05942 2010 MAME ROQUE [facility] Non-Physician Phone Call To Patient/Provider Brief (5-10min) Non-Physician Phone Call To Patient/Provider Brief (5-10min) 41974 2010 ASHKAN LONDON [facility] Screening papanicolaou smear; obtaining, preparing and conveyance of cervical or vaginal smear to laboratory 2010 AFUA GODWIN DoD Social Work Individual Outpatient Counseling 20-30 Minutes Social Work Individual Outpatient Counseling 20-30 Minutes 53841 2007 FAUSTOROXANAJACE VOSS DoD Psychiatric Evaluation Comprehensive Examination Psychiatric Evaluation Comprehensive Examination 78688 2007 JACE WARNER DoD Social Work Individual Outpatient Counseling 20-30 Minutes Social Work Individual Outpatient Counseling 20-30 Minutes 88142 2007 AFUA MCBRIDE DoD Social Work Individual Outpatient Counseling 75-80 Minutes Social Work Individual Outpatient Counseling 75-80 Minutes 44981 2007 AFUA MCBRIDE DoD Social Work Individual Outpatient Counseling 20-30 Minutes Social Work Individual Outpatient Counseling 20-30 Minutes 89960 2006 FAUSTOROXANAJACE VOSS DoD Social Work Individual Outpatient Counseling 45-50 Minutes Social Work Individual Outpatient Counseling 45-50 Minutes 17316 2006 JACE WARNER DoD Social Work Individual Outpatient Counseling 45-50 Minutes Social Work Individual Outpatient Counseling 45-50 Minutes 50867 2006 JACE WARNER A DoD Social Work Individual Outpatient Counseling 75-80 Minutes Social Work Individual Outpatient Counseling 75-80 Minutes 90822 2006 FAUSTOROXANAJACE VOSS DoD Social Work Individual Outpatient Counseling 45-50 Minutes Social Work Individual Outpatient Counseling 45-50 Minutes 59747 2006 JACE WARNER DoD Psychiatric Evaluation Comprehensive Examination Psychiatric Evaluation Comprehensive Examination 51799 2006 JACE WARNER DoD Social Work Individual Outpatient Counseling 45-50 Minutes Social Work Individual Outpatient Counseling 45-50 Minutes 13735 2006 JACE KULKARNI DoD Social Work Individual Outpatient Counseling 45-50 Minutes Social Work Individual Outpatient Counseling 45-50 Minutes 45580 2006 JACE KULKARNI DoD Psychiatric Evaluation Comprehensive Examination Psychiatric Evaluation Comprehensive Examination 17526 2006 JACE KULKARNI DoD Crisis intervention mental health services, per hour 2006 JACE KULKARNI DoD Psychiatric Evaluation Comprehensive Examination Psychiatric Evaluation Comprehensive Examination 97965 2006 MAURO JOHNSON DoD Psychiatric Therapy Individual Approximately 45-50 Minutes Psychiatric Therapy Individual Approximately 45-50 Minutes 86543 2005 GUERO LEI [facility] Training And Self-Care Skills Training And Self-Care Skills 15665 2005 LES VALENZUELA [facility] Hepatitis B Vaccine (Active); 20 Years and Above 2005 FREDRICK PARISH [facility] Immunization Administration One Vaccine Immunization Administration One Vaccine 61707 2005 FREDRICK PARISH [facility] Skin Test Anergy tuberculin Skin Test Anergy tuberculin 21896 2005 GALLO ALICIA DoD Social History Combined list of available smoking, tobacco, and other social history from Department of Defense and Veterans Affairs facilities. Social History Type Response Date Comment Sour e This section is an empty social history section. DoD
--- OUTSIDE RECORDS SUMMARY | 2025-01-09 16:27 | XMS_ITS | Patient Health Record ---
Author Organization [facility] Address [address] [place], [place] [address] Care Team Providers Care Marketing Reps [employer] Entertainment Name Role Phone Kenn Saha Unavailable Unavailable Reason For Referral No Information Medications Medication SIG (Take, Route, Frequency, Duration) Notes Start Date End Date Status escitalopram 10 MG Oral Tablet [Lexapro] ORAL escitalopram 10 MG Oral Tablet [Lexapro]Original Medicationescitalopram 10 MG Oral Tablet [Lexapro] *Reorder from [employer] for eRx and Interaction Alerts* 01/01/2022 Active thyroid (DETENTION) 15 MG Oral Tablet [[place] Thyroid] ORAL thyroid (DETENTION) 15 MG Oral Tablet [[place] Thyroid]Original Medicationthyroid (DETENTION) 15 MG Oral Tablet [[place] Thyroid] *Reorder from [employer] for eRx and Interaction Alerts* 01/01/2022 Active Plan Of Treatment No Information Insurance Providers Payer Name Payer Address Payer Phone Subscriber Number Group Number Insured Name Patient Relationship to Insured Coverage Start Date Coverage End Date [facility] ([facility]) ATTN CLAIMS [address] [place] [address] [id number] DIONTE KHOURY Self - patient is the insured
--- OUTSIDE RECORDS SUMMARY | 2025-01-09 16:27 | XMS_ITS | Continuity of Care Document ---
Author Organization [facility] Address [address] [place] [address]. [address] [place] [address] Insurance Providers Payer Plan Claims Address Claims Phone Policy Number Group Number Relation Employer Guarantor Name Guarantor Guarantor Address Guarantor Phone [employer] [address], [place], [place] [id number] [phone] Self Gail Pressley Aaron 1985 [address] [place] [address] [facility] [place] [id number] Spouse royal walker [address] [place] [address] [facility] [id number] [facility] [id number] Spouse royal walker [address] [place] [address] Problems Condition ICD9 code ICD10 code SNOMED code Start Date End Date S tatus Encounter for screening for respiratory tuberculosis Z11.1 Encounter for antibody response examination Z01.84 Results No Results Allergies, adverse reactions, alerts No known allergies and adverse reactions Medications No administered medications reported Vital Signs No vital signs reported Social History No smoking Hx information available
--- OUTSIDE RECORDS SUMMARY | 2025-01-09 16:28 | XMS_ITS | Clinical Summary ---
Author Organization [facility] Address [address] [place] [phone] Phone Care Team Providers Care Outsole Beveler Name Role Phone Unavailable Primary Care Provider [...] on file Legal Sex Female 1:29 AM GLOBAL CMO Gender Identity Not on file Sexual Orientation [...] (1 - 1-dose 75+ series) [address] [facility] [employer] PPO
--- OUTSIDE RECORDS SUMMARY | 2025-01-09 16:28 | XMS_ITS | Clinical Summary ---
Author Organization [facility] Address [address] [place] [address] Care Team Providers Care Phys Therapist Name Role Phone Judah Guzman Primary Care Provider [phone] Source Comments [facility],non-[facility] Affiliates and Associated Physician Practices is amultiple site organization consisting of ambulatory clinics and hospital sitesin [place], [place], [place] and [place]. This disclosure is being madepursuant to the Care Everywhere program and may not contain all information available regarding this patient. Last updated 18.[facility] Allergies Active Allergy Reactions Criticality Noted Date [...] 2 Mother Heart Disease Mother Hypertension Mother [place] Mother Other - Cardiac Mother Asthma Neg [...] Comments Blood Pressure 112/68 05/12/2019 9:59 AM ACQUISITION COST ESTIMATOR Pulse 78 05/12/2019 9:59 AM ACQUISITION COST ESTIMATOR Temperature 36.7 C (98 F) 05/12/2019 9:59 AM ACQUISITION COST ESTIMATOR Respiratory Rate 16 05/12/2019 9:59 AM ACQUISITION COST ESTIMATOR Oxygen Saturation 98% 05/12/2019 9:59 AM ACQUISITION COST ESTIMATOR Inhaled Oxygen Concentration - - Weight 95.3 kg (210 lb) 05/12/2019 9:59 AM ACQUISITION COST ESTIMATOR Height 162.6 cm (5' 4) 05/12/2019 9:59 AM ACQUISITION COST ESTIMATOR Body Mass Index 36.05 05/12/2019 9:59 AM ACQUISITION COST ESTIMATOR Plan of Treatment Health Maintenance Due Date [...] patient's age to complete this topic Insurance [facility] * Guarantor: DIONTE KHOURY Account Type Relation to Patient Date of Phone Billing Address Personal/Family 1985 [address] [place] [address] Care Teams Phys Therapist Relationship Specialty Start Date End Date Judah Guzman DO [address] [place] [address] [place] [id number] PCP - General Family Medicine 10/03/18
--- OUTSIDE RECORDS SUMMARY | 2025-01-09 16:29 | XMS_ITS | Clinical Summary ---
Author Organization [place] [id number] Address [address] [place] [address] Care Team Providers Care Scrap Iron Cutter Name Role Phone GuzmanJudah rnagel Primary Care Provider + Allergies Active Allergy [...] Comments Blood Pressure 116/84 04/11/2020 10:38 AM RAILROAD CRANE OPERATOR Pulse 72 03/14/2020 4:15 PM CDT Temperature 36.4 C (97.5 F) 03/14/2020 4:15 PM CDT Respiratory Rate 18 03/14/2020 4:15 PM CDT Oxygen Saturation 99% 03/14/2020 4:15 PM CDT Inhaled Oxygen Concentration - - Weight 95.3 kg (210 lb) 04/11/2020 10:38 AM RAILROAD CRANE OPERATOR Height 162.6 cm (5' 4) 03/14/2020 4:15 PM CDT Body Mass Index 36.05 03/14/2020 4:15 PM CDT Plan of Treatment Not on file [place] [address] [address] [place] [address] HMO Care Teams Scrap Iron Cutter Relationship Specialty Start Date End Date Judah Guzman DO [address] [place] [address] [id number] PCP - General Family Medicine 08/31/18
== END 2025-01-09 17:21 | disposition home or self-care (01) ==
PROVIDERS: Emergency Provider Nurse Practitioner Family; PCP Nurse Practitioner Family
DX: M51.379 Other intervertebral disc degeneration, lumbosacral region without mention of lumbar back pain or lower extremity pain (principal); M54.50 Low back pain, unspecified; J45.909 Unspecified asthma, uncomplicated; E03.9 Hypothyroidism, unspecified; E06.3 Autoimmune thyroiditis; E78.1 Pure hyperglyceridemia; E66.9 Obesity, unspecified; Z68.39 Body mass index [BMI] 39.0-39.9, adult
CPT/HCPCS: 72100; 99213; G0463

== ENCOUNTER 2025-03-03 19:57 | Outpatient (CLI) | payer OTHER, SELFPAY ==
--- OUTSIDE RECORDS SUMMARY | 2025-03-03 20:03 | XMS_ITS | Clinical Summary ---
Author Organization [facility] Address [address] [place] [phone] Phone Care Team Providers Care Camera Supervisor Name Role Phone Unavailable Primary Care Provider [...] on file Legal Sex Female 1:29 AM WATERWORKS PUMP STATION OPERATOR Gender Identity Not on file Sexual [...] 19+ 3-dose series) 05/24 HPV/Cotest (21-29) 2006 HPV VACCINES (1 - 3-dose SCDM series) 2012 CERVICAL CANCER SCREENING 2015 HPV/Cotest (30-65) 2015 PAP SMEAR 2015 INFLUENZA VACCINE (#1) 2024 RSV VACCINE (60+ or ) (1 - 1-dose 75+ series) 2060 Insurance [facility] [email or web address] PPO
--- OUTSIDE RECORDS SUMMARY | 2025-03-03 20:03 | XMS_ITS | Clinical Summary ---
Author Organization [place] [id number] [facility] Address [address] [place] [address] Care Team Providers Care Dry Starch Supervisor Name Role Phone GuzmanJudah rangel Primary Care [...] Comments Blood Pressure 116/84 04/11/2020 10:38 AM VALIDATION INTERN Pulse 72 03/14/2020 4:15 PM CDT Temperature 36.4 C (97.5 F) 03/14/2020 4:15 PM CDT Respiratory Rate 18 03/14/2020 4:15 PM CDT Oxygen Saturation 99% 03/14/2020 4:15 PM CDT Inhaled Oxygen Concentration - - Weight 95.3 kg (210 lb) 04/11/2020 10:38 AM VALIDATION INTERN Height 162.6 cm (5' 4) 03/14/2020 4:15 PM CDT Body Mass Index 36.05 03/14/2020 4:15 PM CDT Plan of Treatment Not on file [place] [address] HMO Care Teams Dry Starch Supervisor Relationship Specialty Start Date End Date Judah Guzman DO [address] [place] [id number] PCP - General Family Medicine 08/31/18
--- OUTSIDE RECORDS SUMMARY | 2025-03-03 20:03 | XMS_ITS | Clinical Summary ---
Author Organization [facility] Address [address] [place] [address] Care Team Providers Care Concrete Batching Plant Operator Name Role Phone Thomas Judah MASON Primary Care Provider Source Comments [facility],non-owned Affiliates and Associated Physician Practices is amultiple site organization consisting of ambulatory clinics and hospital sitesin [place], [place], [place] and [place]. This disclosure is being madepursuant to the Care Everywhere program and may not contain all information available regarding this patient. Last updated 18.[facility] Allergies Active Allergy Reactions Criticality Noted Date [...] 2 Mother Heart Disease Mother Hypertension Mother [place] Mother Other - Cardiac Mother Asthma Neg [...] Comments Blood Pressure 112/68 05/12/2019 9:59 AM GENERAL FORECASTER Pulse 78 05/12/2019 9:59 AM GENERAL FORECASTER Temperature 36.7 C (98 F) 05/12/2019 9:59 AM GENERAL FORECASTER Respiratory Rate 16 05/12/2019 9:59 AM GENERAL FORECASTER Oxygen Saturation 98% 05/12/2019 9:59 AM GENERAL FORECASTER Inhaled Oxygen Concentration - - Weight 95.3 kg (210 lb) 05/12/2019 9:59 AM GENERAL FORECASTER Height 162.6 cm (5' 4) 05/12/2019 9:59 AM GENERAL FORECASTER Body Mass Index 36.05 05/12/2019 9:59 AM GENERAL FORECASTER Plan of Treatment Health Maintenance Due Date Last Done Comments HIV SCREENING 2000 HEPATITIS C SCREENING 05/29/2003 DTAP/TDAP/TD VACCINES (1 - Tdap) 2004 HEPATITIS B VACCINE (1 of 3 - 19+ 3-dose series) 2004 HPV VACCINE (1 - 3-dose SCDM series) 2012 DEPRESSION SCREENING 05/24/2024 COVID-19 VACCINE (1 - 2023-2 5 season) 2025 INFLUENZA VACCINE (#1) 2025 ZOSTER VACCINE (1 [...] patient's age to complete this topic Insurance [facility] * Guarantor: ARIELLE KHOURY Account Type Relation to Patient Date of Phone Billing Address Personal/Family 1985 [facility] [place] [address] [facility] * Guarantor: ARIELLE KHOURY Account Type Relation to Patient Date of Phone Billing Address Personal/Family 1985 [address] [place] [address] Care Teams Concrete Batching Plant Operator Relationship Specialty Start Date End Date Judah Guzman DO [address] [id number] PCP - General Family Medicine 10/03/18
--- OUTSIDE RECORDS SUMMARY | 2025-03-03 20:03 | XMS_ITS | Patient Health Record ---
Author Organization [facility] Address [address] [place], [place] [id number] Care Team Providers Care Lug Breaker And Wire Puller Name Role Phone Kenn Saha Unavailable Unavailable Reason For Referral No Information Medications Medication SIG (Take, Route, Frequency, Duration) Notes Start Date End Date Status escitalopram 10 MG Oral Tablet [Lexapro] ORAL escitalopram 10 MG Oral Tablet [Lexapro]Original Medicationescitalopram 10 MG Oral Tablet [Lexapro] *Reorder from [employer] for eRx and Interaction Alerts* 01/01/2022 Active thyroid (LONG TERM) 15 MG Oral Tablet [[place] Thyroid] ORAL thyroid (LONG TERM) 15 MG Oral Tablet [[place] Thyroid]Original Medicationthyroid (LONG TERM) 15 MG Oral Tablet [[place] Thyroid] *Reorder from [employer] for eRx and Interaction Alerts* 01/01/2022 Active Plan Of Treatment No Information Insurance Providers Payer Name Payer Address Payer Phone Subscriber Number Group Number Insured Name Patient Relationship to Insured Coverage Start Date Coverage End Date [facility] ([facility]) ATTN CLAIMS [address] [place] [address] [id number] DIONTE KHOURY Self - patient is the insured
--- NOTE | 2025-04-02 09:36 | P.SLEEP_ITS ---
Sleep Study Date of Study: 03/03/25 Ordering Provider: Jocelynn Awad APRN Interpreting Physician: Minoo Li MD Sleep Study Type: Polysomnogram Height: 1.63 m Weight: 106.594 kg Body Mass Index: 40.3 Neck Circumference (inches): 15 [place]: 14 Reason for Sleep Study Hypersomnolence; loud snoring, previously diagnosed with obstructive sleep apnea and use CPAP 3 or 4 years ago. * 01/06/2023, [facility] home sleep test. The apnea-hypopnea index was 9.5 with desaturation 81% and 2 minute spent below 90%. Mild obstructive sleep apnea was diagnosis with a recommendation for auto PAP. The patient's body mass index was not printed on the report. Sleep History Gail Walker is a 39-year-old woman with loud snoring for the last 5 years. She had a home sleep test, was treated with a CPAP machine 3 4 years ago. She never awakens from sleep short of breath. She rarely wakes at night with heartburn, belching or coughing.??She constant snores, and always snores loudly enough that others complain. She occasionally has trouble sleeping when she has a cold. She never wakes up gasping for breath during the night. She constantly has breathing problems at night. She rarely sweats excessively at night. She occasionally notices her heart pounding or beating irregularly during the night. She frequently falls asleep during the day. She never falls asleep involuntarily, never falls asleep while driving. She occasionally has daytime difficulties due to excessive sleepiness. She never experiences loss of muscle tone with strong emotion. She never never feels paralyzed on waking or falling asleep. She never experiences vivid dreams upon waking or falling asleep. She rarely feels afraid of going to sleep. She rarely has nightmares. She occasionally recalls her dreams. She constantly has thoughts racing through her mind. She constantly feels sad or depressed. She constantly feels anxiety. She occasionally notices parts of her body jerk. She rarely kicks during the night. She rarely feels crawling or aching feelings in her legs. She never feels leg pain at night. She rarely has morning jaw pain, and occasionally grinds her teeth at night. She frequently feels bothered by pain during the day, is rarely awakened by pain during the night. She rarely wakes up feeling stiff in the morning, rarely wakes feeling sore or achy in the morning. She occasionally awakens with pain in her neck, spine, or joints. She has fatigue, memory problems, concentration difficulties, headaches and feels depressed. Normal bedtime is between 10:00 p.m. and 11:00 p.m.,, falling asleep within 1-3 hours, waking 2-3 times during the night, depends on the specific night. While awake she uses the bathroom. If she can not get back to sleep easily, she will use her phone and get on social media. Her normal wake time is 6:00 a.m.. On weekends, bedtime is also 10-11 p.m., wake time is between 8 and 10:00 a.m.. She reports an average of 4-7 hours of sleep at night. She takes naps in the afternoon or evening however short nap lasting 10-15 minutes is not refreshing. She is usually drowsy for 3 hours after waking. She feels better in the evening compared to other times of day. Habits:??Tobacco: Never smoker Caffeine: 2 servings per day Alcohol: none Recreational substances: none PMFSH Past Medical History Medical History High triglycerides ADINA (obstructive sleep apnea) Anxiety and depression Migraine Menometrorrhagia Venous insufficiency Asthma Hypothyroid Hypothyroid neuropathy Obesity (BMI 30-39.9) Lumbar back pain Multiple episodes of hypoglycemia Abnormal Pap smear of cervix Iron deficiency anemia MDD (major depressive disorder) Kehinde's disease Surgical History Surgical History H/O: section x2 Family History Family History Mother Type 1 diabetes Acute myocardial infarction Diabetes mellitus Kidney failure CHF (congestive heart failure) Cerebrovascular accident possible mini stroke Heart disease Father Hypertension Grandparent Acute myocardial infarction Dementia Cerebrovascular accident Depression Other Brain tumor uncle Cerebrovascular accident uncle Acute myocardial infarction uncle Depression Diabetes mellitus uncle, aunt Social History Social History Smoking status: Never smoker Alcohol intake: never Substance use: never Substance use type: does not use Lack of Transportation: No Lack of Food: Never True Current Housing: I Have Housing Concerned About Future Housing: No Difficulty Paying Gas/Electric Bills: No Difficulty Paying for Meds: No Currently Unemployed: No Education: High School Diploma/GED Difficulty w/ Childcare or Family Care: No Living arrangements: with family Additional living arrangements comments: and 2 children Medications Home Medications ?Medication ?Instructions ?Recorded ?Confirmed ?Type levothyroxine 137 mcg tablet 137 mcg PO DAILY #60 tabs 02/02/25 04/02/25 Rx (Levoxyl) metformin 500 mg tablet,extended 500 mg PO DAILY #90 t abs 02/21/25 04/02/25 Rx release 24 hr (Glucophage XR) sertraline 50 mg tablet mg PO 04/02/25 04/02/25 Hist ory Sleep Procedure A full night polysomnogram using the [employer] multi-channel system recorded the standard physiologic parameters including EEG, EOG, submentalis EMG, anterior tibialis EMG, EKG, body position, nasal and oral airflow using nasal pressure sensor and thermistor. Respiratory parameters of chest and abdominal movements were recorded with Respiratory Inductance Plethysmography belts. Oxygen saturation was recorded by pulse oximetry. Video monitoring was also performed. Sleep stages, periodic limb movements, and EEG arousals were scored in 30 second epochs according to the criteria of the AASM Scoring Manual. The Apnea-Hypopnea Index was calculated using CMS guidelines for definition of hypopnea while scoring respiratory events. She did not take a sleep aid at the beginning of the study. She did not wake during the night to go to the bathroom. Sleep Architecture The total recording time was 481.3 minutes. The total sleep time was 433.0 minutes. Sleep latency was 6.4 minutes. REM latency was 172.0 minutes. Sleep efficiency was 90.0%. The patient had 28 awakenings for an awakening index of 3.9. Wake after sleep onset time was 42.0 minutes. The patient spent 28.5 minutes, 6.6% of total sleep time in Stage N1. The patient spent 270.0 minutes, 62.4% in Stage N2. The patient spent 62.0 minutes, 14.3% in Stage N3. The patient spent 72.5 minutes, 16.7% in Stage REM sleep. Respiratory Analysis The patient had 16 hypopneas, no obstructive apneas, no mixed apneas, and no central apneas for an overall Apnea Hypopnea Index of 2 using 4% criteria, and the apnea-hypopnea index was 5.5 using 3% criteria..2. The REM Apnea Hypopnea Index was 12.4. The NREM Apnea Hypopnea Index was 1.0. The patient had a Central Apnea Hypopnea Index of 0. There were no Respiratory Effort Related Arousals. The Respiratory Disturbance Index is 4.8 events per hour. There was no evidence of Gregory-Villarreal Respirations. Arousals There were 118 total arousals for an arousal index of 16.4. There were 43 spontaneous arousals for an index of 6.0. There were 12 arousals due to respiratory events for an index of 1.7. There were 16 arousals due to periodic limb movements for an index of 2.2. There were 12 arousals due to isolated limb movements for an index of 1.7. Periodic Limb Movements The patient had 40 isolated limb movements with an index of 5.5. The patient had 172 periodic limb movements with an index of 23.8. Patient had a total of 212 limb movements with a total limb movement index of 29.4. Oximetry Data The patient had an average oxygen saturation of 94.6% in sleep with a minimum oxygen saturation of 81% and a maximum oxygen saturation of 98%. The patient had 19 oxygen desaturations that were 4% or greater resulting in an Oxygen Desaturation Index of 2.6. The patient spent 2.4 minutes, 0.5% of total sleep time with an oxygen saturation below 88%. Snoring Profile Snoring was moderate to loud, continuous throughout the night. Cardiac Profile The EKG showed normal sinus rhythm, average pulse rate of 62.2 bpm with a minimum pulse of rate of 47 bpm and a maximum pulse rate of 93 bpm. No arrhythmias noted. EEG Profile Unremarkable, no evidence of seizures. Assessment and Plan Assessment and Plan (1) ADINA (obstructive sleep apnea): Code(s): G47.33 - Obstructive sleep apnea (adult) (pediatric) Status: Acute Assessment and Plan: This basic nocturnal polysomnogram on 03/03/2025 shows mild obstructive sleep apnea, the apnea-hypopnea index using 3% criteria is 5.5 with desaturation to 81% and moderate to loud continuous snoring. She did not meet criteria early enough in the night to proceed with a CPAP titration. She had excessive leg movements during the night however these did not lead to interruptions in sleep as far as I am arousals. Her events were worse in supine sleep and in REM. The supine AHI is 5, the REM AHI overall is 8.3 but in supine REM 21.4. The history indicates she was on CPAP before having this test. It is not clear what her problem with CPAP was. She may have been on auto PAP as this was recommended by the home sleep test report. She has depression and with this diagnosis she is a candidate for PAP therapy or alternatively referral to a sleep dentist for an oral appliance. Clinical correlation is recommended. She may benefit by avoiding sleeping on her back as this precipitated many more obstructive events. This can be accomplished by pillows on the abdomen and on the back to prevent rolling onto the back. Weight management is advised. Clinical data suggests that weight loss of 10% can reduce the severity of respiratory events and snoring and improve AHI by as much as 25%. (2) Inadequate sleep hygiene: Code(s): Z72.821 - Inadequate sleep hygiene Status: Acute Assessment and Plan: Patient naps in the day, at times has delayed sleep onset at night and uses social media during the night if she cannot return to sleep. Recommendations to improve sleep quality include: ? Practice a bedtime routine and keep the same sleep schedule including bedtime and wake up time, even on the weekends. Consistency makes it much easier to fall asleep and wake easily. ? If you have trouble sleeping at night, avoid naps, especially in the late afternoon. However, short naps lasting approximately 20 minutes can help all eviate daytime fatigue, sleepiness, and even provide cognitive benefit. Naps longer than 30 minutes can cause sleep inertia, a period of reduced alertness and cognitive performance after waking. ? Exercise daily. ? Maintain a sleep environment conducive to sleep. The bedroom should be comfortably cool. In population studies, nocturnal environmental light and noise significantly impact sleep quality and quantity. Use of blackout curtains, ear plugs, or sound machines may help promote an optimal sleep environment for individuals with sleep disruptions due to environmental stimuli. ? Sleep on a comfortable mattress and pillows. ? Regular bright light exposure in the mornings may help to maximize alertness and maintain a regular circadian rhythm. Studies in extreme latitudes where sunlight is minimal in the winter have found that an hour of exposure to white light in the morning helped subjects go to sleep earlier and wake earlier. Exposure to blue light in the morning may have more robust effects on the stability of the circadian rhythm and has been shown to improve daytime fatigue and sleepiness. ? Avoid cigarettes, caffeine, and heavy meals in the evening. While alcohol use does seem to reduce the time it takes to fall asleep, studies have reported that evening alcohol intake can cause more waking time or light sleep in the second half of the night and reduce self-reported sleep quality. Evening nicotine is associated with lower sleep efficiency and more awake time during the night. ? Wind down with quiet activities that may promote sleep, such as reading with a dim light. Avoid use of electronics at least 30 minutes before habitual bedtime and in the middle of the night if nocturnal awakenings occur. The blue light emitted from computer screens and hand-held devices can suppress natural melatonin production, resulting in difficulty falling asleep; however, the exact duration of use and intensity of lighting that cause this effect are variable in the literature. ? If you cannot sleep, do not look at a clock. Go into another room and do something relaxing until you feel drowsy enough to fall asleep again. Then return to bed. Data The data obtained during this sleep study is adequate for interpretation. Certification This sleep study has been reviewed by a board certified sleep medicine physician.
[2025-04-02 09:53] VITALS: BMI 40.3
== END 2025-03-04 06:22 | disposition home or self-care (01) ==
PROVIDERS: PCP Nurse Practitioner Family; Visit Provider Nurse Practitioner Family
DX: G47.33 Obstructive sleep apnea (adult) (pediatric) (principal); Z72.821 Inadequate sleep hygiene
CPT/HCPCS: 95810